=== PATIENT | male | born 1945 | race Caucasian/White ===

== ENCOUNTER 2023-11-16 08:40 | Outpatient (CLI) | payer OTHER, SELFPAY ==
--- OUTSIDE RECORDS SUMMARY | 2023-11-16 08:43 | XMS_ITS | Clinical Summary ---
Author Name Unknown Organization [facility] Address [address] [place] [address] Care Team Providers Care Fur Sewer Name Role Phone Unavailable Primary Care Provider Unavailabl e Source Comments PLEASE NOTE, if this patient is a minor, it may be UNLAWFUL to discuss sensitive information that is contained in these records (such as FAMILY PLANNING, MENTAL HEALTH or SUBSTANCE ABUSE) with the minor patient's parent or other person without the patient's specific authorization.[facility] Allergies Active Allergy Reactions Criticality Noted Date Comments Sulfa (Sulfonamide Antibiotics) Hives 09/2005 Medications Medication Sig Dispensed Refills Start Date End Date Status triamcinolone (NASACORT) [address] 2 Sprays in both nostrils daily. 08/07/2021 Active potassium citrate CR (UROCIT-K-10) 10 mEq (1,080 mg) TbER Take 1 Tablet by mouth 2 (two) times daily 09/26/2021 Active blood glucose control, low solution DIRECTED. 12/05/2021 Active blood-glucose meter monitoring kit DISPENSE METER, TEST STRIPS, LANCETS COVERED BY PT INS. E11.9 NIDDM TYPE II - TEST 1 TIME/DAY 12/09/2021 Active lancets 33 gauge DIRECTED. DISPENSE ITEM COVERED BY PT INS. E11.9 NIDDM TYPE II - TEST 1 TIME/DAY 12/09/2021 Active rosuvastatin (CRESTOR) 20 mg tablet Take 1 Tablet (20 mg) by mouth once daily with evening meal. For Cholesterol. 11/05/2022 Active clotrimazole-betametha sone (LOTRISONE) 1-0.05 % cream Apply topically to affected area(s) two times daily. Use short term as needed to affect skin in anal area. 11/05/2022 Active losartan (COZAAR) 50 mg tablet Take 1 Tablet (50 mg) by mouth once daily. For blood pressure. 04/11/2023 Active metFORMIN XR (GLUCOPHAGE-XR) 500 mg 24 hr tablet Take 2 Tablets (1,000 mg) by mouth two times daily with meals. For diabetes. 04/11/2023 Active tamsulosin (FLOMAX) 0.4 mg 24 hr capsule Take 2 Capsules (0.8 mg) by mouth once daily after a meal. For urinary symptoms. 04/11/2023 Active glimepiride (AMARYL) 2 mg tablet Take 1 Tablet (2 mg) by mouth once daily with a meal. For diabetes. 04/11/2023 Active canagliflozin 300 mg tab Take 1 Tablet (300 mg) by mouth once daily. For Diabetes. 04/11/2023 Active blood sugar diagnostic (TRUE METRIX GLUCOSE TEST STRIP) strips DISPENSE ITEM COVERED BY PT INS. E11.9 NIDDM TYPE II - TEST 1 TIME/DAY 04/11/2023 Active citalopram (CELEXA) 20 mg tablet Take 1 Tablet by mouth every morning 04/11/2023 Active ciprofloxacin-dexameth asone (CIPRODEX) 0.3-0.1 % otic suspension Place 4 Drops into left ear two times daily. 06/21/2023 Active oxyCODONE (ROXICODONE) 5 mg tablet Take 1 Tablet by mouth every 6 (six) hours as needed for pain 25 Tablet 10/22/2023 Active ondansetron ODT (ZOFRAN-ODT) 4 mg disintegrating tablet Take 1 Tablet by mouth every 8 (eight) hours as needed for nausea 15 Tablet 10/22/2023 Active Active Problems Problem Noted Date Diagnosed Date Urinary tract obstruction due to kidney stone, r ight 11/15/2019 BPH 11/15/2019 Morbid (severe) obesity due to excess calories 0 10/31/2018 Renal lithiasis 06/29/2018 Overview: June 2018: Right kidney stone 3.6mm. October 2019: 5mm right sided stone needing laser lithotripsy at [facility] and stent. Hematuria, gross 06/27/2018 Overview: May 2018: Gross and microscopic hematuria. Workup ordered. CT showing right sided kidney stone. Chronic left-sided low back pain without sciatic a 02/08/2018 Lower urinary tract symptoms (LUTS) 11/02/2017 Overview: October 2017: starting flomax for decreased urinary stream. Chronic pain of left knee 01/30/2016 Overview: Dr. Hayden did MRI December 2015: meniscal tears of medial and lateral meniscus. Vitamin D deficiency 11/04/2015 Overview: October 2015: after treatment, Vitamin D was over 60 when taking 5,000 Units daily, decreased down to 1,000. 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 2013: tried gabapentin top dose with minimal to no help. Chronic cough 12/16/2011 Overview: November evaluation October 2011: PFT and Methacholine Challenge negative. Recommended combination astelin, atrovent, and Nasarel 5cc each to nostrils twice daily, then reassess, titrate to lowest effective dose. ACP (advance care planning) 06/24/2011 Overview: May 2011: Patient completed living will approximately 1999, does not want to revisit, he was instructed to bring in copy of living will to have on file. ROSANA 11/2006 AHI-[id number] 05/04/2011 Adjustment disorder with depressed mood 03/01/20 11 Overview: Feb 2011: started on Citalopram. June 2011: stopping citalopram and see how symptoms go. Restarted and still taking as of January 2017. May 2017: went off Citalopram (Celexa), no change so staying off. November 2017: restarted Citalopram (Celexa). Primary hypertension 06/05/2010 Overview: October 2016: stopping hydrochlorothiazide, and starting losartan due to wanting to be on ARB with Diabetes. Gout, unspecified 06/05/2010 Hypercholesterolemia 06/05/2010 Overview: November 2011: was on lipitor, changed to lovastatin due only to cost. November 2012: [place] changed back to lipitor due to worsening Cholesterol results. May 2017: due to myalgia stop Atorvastatin (Lipitor) and change to pravastatin at 40mg for 3 months starting in July. Watch if any change in muscle soreness. Recheck Cholesterol. Would prefer high intensity statin, but myalgia may be due to statin. November 2017: changing pravastatin to rosuvastatin again, muscle soreness on pravastatin slightly more than Atorvastatin (Lipitor)? Type 2 diabetes mellitus wit hout complication, without long-term current use of insulin 06/05/2010 Overview: May 2010: fasting glucose = 105. Needs recheck. Recheck May 2010: = 118. November 2014: Fasting blood sugar 99 ( normal) and Hemoglobin A1c high at 6.6, so changing to diagnosis of diabetes. start metformin XR. February 2015: doubled Metformin to 2000mg. January 2018 diabetic eye exam outside clinic no diabetic retinopathy. October 2018: Patient did not start alogliptin due to cost. Starting glipizide extended release 2.5 mg instead. MAybe side effects of not feeling well. Did fell better when went off it. December 2018: STarting trajenta. September 2019: started invokana. 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 Encounters Date Type Department Care Team Description 10/22/2023 12:02 PM PDT - 10/22/2023 11:59 PM PDT Hospital Encounter [facility] XRAY Imaging [address] [place] [address] Discharge Disposition: Home or Self Care 10/22/2023 12:00 PM PDT Anesthesia Event [facility] Emergency [address] [place] [phone] Lewis Suh APRN, DIRECTOR EPIDEMIOLOGY 10/22/2023 11:26 AM PDT - 10/22/2023 12:01 PM PDT Hospital Encounter [facility]RAY [facility] [address] [place] [address] Discharge Disposition: Home or Self Care 10/22/2023 11:20 AM PDT - 10/22/2023 4:15 PM PDT Emergency [facility] [address] [place] [phone] Singh Mann MD Pain (Primary Dx); Dislocation of left shoulder joint, initial encounter Discharge Disposition: Home or Self Care from Last 3 Months Immunizations Name Administration Dates Next Due Flu, High Dose, 65y+, Fluzon e High Dose 04/27/2022 Flu, Preservative Free 04/30/2021,04/15/2020 INFLUENZA, SEASONAL, INJECTABLE 05/09/20 13,05/19/2012,05/26/2011,04/30 INFLUENZA,HIGH DOSE SEASONAL 03/09/2016, 04/30/2015,04/20/2014,04/20 Influenza, Trivalent, Adjuvanted 04/07/2019,1002/2018,05/07/2017 Novel [id number], preservative-free, injectable 06/25/2009 PNEUMOCOCCAL CONJUGATE PCV 13 07/03/2015 PNEUMOCOCCAL POLYSACCHARIDE PPV23 06/05/2010,07/2008 [employer] Labs[employer] COVID-19 Vac cine Bivalent, (NEGRO PFIZER-BIONTECH COVID-19 VACCINE BIVALENT, (NEGRO CAP 04/10/2022 TDAP 02/12/2017,11/16/2011 Td (adult), 5 Lf tetanus tox oid, preservative free 06/05/2010 Td(adult),2 Lf tetanus toxoid,preservative free 07/26/2008 ZOSTER VACCINE, RECOMBINANT (SHINGRIX) ,09/29/2021 Zoster, Live Vaccine (Zostavax) 11/06/2011 Social History Tobacco Use Types Packs/Day Years Used Date Smoking Tobacco: Never Assessed Social Connections Answer Date Recorded Social Connections and Isolation 0 08/17/2023 Financial Resource Strain Answer Date R ecorded Financial Resource Strain 0 2023 Stress Answer Date Recorded Stress 0 08/17/2023 Physical Activity Answer Date Recorded Physical Activity 0 08/17/2023 Food Insecurity Answer Date Recorded Food 0 08/17/2023 Transportation Needs Answer Date Record ed Transportation 0 08/17/2023 Housing Stability Answer Date Recorded Housing 0 08/17/2023 Safety and Environment Answer Date David rded Safety 0 08/17/2023 Utilities Answer Date Recorded Utilities 0 08/17/2023 Employment Answer Date Recorded Employment 0 08/17/2023 Sex and Gender Information Value Date Recorded Sex Assigned at Not on file Gender Identity Not on file Sexual Orientation Not on file Last Filed Vital Signs Vital Sign Reading Time Taken Comments Blood Pressure 149/74 10/22/2023 1:16 PM CDT Pulse 100 10/22/2023 1:16 PM CDT Temperature 36.7 ??C (98 ??F) 10/22/2023 11: 21 AM CDT Respiratory Rate 21 10/22/2023 1:16 PM CDT Oxygen Saturation 97% 10/22/2023 1:16 PM CDT Inhaled Oxygen Concentration - - Weight 112.5 kg (248 lb 0.3 oz) 024 11:21 AM CDT Height - - Body Mass Index - - Plan of Treatment Health Maintenance Due Date Last Done Comments Diabetes Foot Exam 1945 Diabetes Microalbumin (w/Creatinine) 1945 Lipid Screening 1943 Tobacco Screening 1945 Annual Wellness Visit (Medicare) 10/10/1946 Retinopathy Screening 10/10/1956 Falls Prevention 10/10/2008 Alcohol and Drug Screen 07/26/2023 Depression Annual Screen 07/26/2023 Diabetes HbA1c 03/10/2024 09/10/2023, 08/26, 04/09/2023, Additional history exists Serum Creatinine 10/21/2024 10/22/2023 Imm-DTaP/Tdap/Td (3 - Td or Tdap) 02/12/2027 02/12/2017, 11/16/2011, 06/05/2010, Additional history exists Imm-Pneumococcal 65+ Completed 07/03/2015, 06/05/2010, 07/26/2008 Imm-Zoster, Recombinant Completed 12/04/19, 09/29/2021, 11/06/2011 Imm-Influenza Completed 04/08/2023, 09/2021, 04/30/2021, Additional history exists [id number] Completed 10/12/2023, 04/25, 04/10/2022, Additional history exists Procedures Procedure Name Priority Date/Time Associated Diagnosis Comments HC CLOSED TX SHLDR DISLOCATION Routine 10/22/2023 12:52 PM CDT CLSD TX SHOULDER DISLC W/MANIPULATION W/O ANES Routine 10/22/2023 12:52 PM CDT XR SHOULDER 2+ VIEWS LEFT STAT 10/22/2023 12:39 PM CDT Pain CBC AND DIFFERENTIAL STAT 10/22/2023 11:57 AM CDT COMPREHENSIVE METABOLIC PANEL STAT 10/22/2023 11:57 AM CDT XR SHOULDER 2+ VIEWS LEFT STAT 10/22/2023 11:40 AM CDT HEMOGLOBIN A1C (EXTERNAL) Routine 09/10/2023 6:20 AM PST from Last 3 Months or Most Recently Relevant to Health Maintenance Results * CLSD TX SHOULDER DISLC W/MANIPULATION W/O ANES, HC CLOSED TX SHLDR DISLOCATION (10/22/2023 12:52 PMCDT) Narrative Singh Mann MD - 10/22/2023 12:52 PM CDT Singh Mann MD ? 10/22/2023 ??3:25 PM Orthopaedic Injury Treatment - Upper Extremity Date/Time: 10/22/2023 12:52 PM Performed by: Singh Mann MD Authorized by: Singh Mann MD ?? Consent: ??Consent obtained: ??Verbal and written ??Consent given by: ??Patient ??Risks, benefits, and alternatives were discussed: yes ?Risks discussed: ??Fracture, nerve damage, restricted joint movement, vascular damage, irreducible dislocation, recurrent dislocation and stiffness ??Alternatives discussed: ??No treatment Morris protocol: ??Patient identity confirmed: ??Verbally with patient Location: ??Location: ??Shoulder ??Shoulder location: ??L shoulder ??Shoulder dislocation type: anterior ?Chronicity: ??New Pre-procedure details: ??Pre-procedure imaging: ??X-ray ??Imaging findings: dislocation present ?Imaging findings: no fracture ?Fracture of greater humeral tuberosity: no ?Hill-Sachs deformity: no ?Distal perfusion: normal ?? Sedation: ??Sedation type: ??Moderate sedation Anesthesia: ??Anesthesia method: ??None Procedure details: ??Manipulation performed: yes ?Shoulder reduction method: ??Direct traction, external rotation and traction and counter traction ??Reduction successful: yes ?Reduction confirmed with imaging: yes ?Immobilization: ??Sling ??Supplies used: shoulder immobilizer. Post-procedure details: ??Neurological function: normal ?Distal perfusion: normal ?Range of motion: unchanged ?Procedure completion: ??Tolerated with difficulty Singh Mann MD IN CLINIC/BEDSIDE ORDERABLES * XR SHOULDER 2+ VIEWS LEFT (10/22/2023 12:39 PM CDT) Only the most recent of2 resultswithin the time period is included. Anatomical Region Laterality Modality Upper Extremities, Shoulder Digi calderon Radiography 10/22/2023 12:4 4 PM CDT Narrative 10/22/2023 12:45 PM CDT EXAM: DX SHOULDER ROUTINE LT 2 OR MORE VIEWS INDICATION: Post reduction COMPARISON: Presenting injury film FINDINGS: Dislocation reduction. ??Small calcification at inferior glenoid could represent small bony Bankart fragment or be chronic. ??Negative for definite discrete Hill-Sachs deformity. ??Moderate AC DJD. IMPRESSION: Dislocation reduction Procedure Note Otto Montague MD - 10/22/2023 EXAM: DX SHOULDER ROUTINE LT 2 OR MORE VIEWS INDICATION: Post reduction COMPARISON: Presenting injury film FINDINGS: Dislocation reduction. Small calcification at inferior glenoid couldrepresent small bony Bankart fragment or be chronic. Negative for definitediscrete Hill-Sachs deformity. Moderate AC DJD. IMPRESSION: Dislocation reduction Singh Mann MD IMG XR PROCEDURES * (ABNORMAL) CBC and differential (10/22/2023 11:57 AM CDT) Auto WBC 14.89(A) 4.5 - 11.0 10*3/uL 10*3/uL 10/22/2023 12:02 PM [facility] RBC 5.33 4.30 - 5.90 10*6/uL 10/22/2023 12:02 PM [facility] Hemoglobin 16.5 13.5 - 17.5 g/dL g/dL 10/22/2023 12:02 PM [facility] Hematocrit 52.1 37.0 - 53.0% % 10/22/2023 12:02 PM [facility] MCV 97.7 80 - 100 fL fL 10/22/2023 12:02 PM [facility] MCH 31.0 26.0 - 34.0 pg pg 10/22/2023 12:02 PM [facility] MCHC 31.7(A) 32.0 - 36.0 g/dL 10/22/2023 12:02 PM [facility] RDW 14.0 11.5 - 15.5 % 10/22/2023 12:02 PM [facility] Platelets 201.0 140.0 - 440.0 10*3/uL 10/22/2023 12:02 PM [facility] IPF, Immature Platelet Fraction 7.6 0.9 - 11.2 % 10/22/2023 12:02 PM [facility] Neutrophils Relative % 79.5(A) 42.0 - 72.0 % 10/22/2023 12:02 PM [facility] Lymphocytes Relative 11.3(A) 20.0 - 44.0 % 10/22/2023 12:02 PM [facility] Monocytes Relative 6.4 <12.0 % 10/22/2023 12:02 PM [facility] Eosinophils Relative 0.6 <8.0 % 10/22/2023 12:02 PM [facility] Basophils Relative 0.3 <3.0 % 10/22/2023 12:02 PM [facility] Neutrophils Abs Auto 11.84(A) 1.70 - 7.00 10*3/uL 10/22/2023 12:02 PM [facility] Lymphocytes Absolute 1.68 0.90 - 2.90 10*3/uL 10/22/2023 12:02 PM [facility] Monocytes Absolute 0.96(A) <0.90 10*3/uL 10/22/2023 12:02 PM [facility] Eosinophils Absolute 0.09 <=0.50 10*3/uL 10/22/2023 12:02 PM [facility] Basophils Absolute 0.04 <0.30 10*3/uL 10/22/2023 12:02 PM [facility] nRBC 0.0 /100 WBCs 10/22/2023 12:02 PM [facility] NUCLEATED RBC (ABSOLUTE) 0.00 10*3 cells/uL 10/22/2023 12:02 PM [facility] IMMATURE GRANULOCYTE%(AUT O) 1.9 10/22/2023 12:02 PM [facility] Absolute Immature Granulocyte 0.28 <=0.3 10*3/uL 10/22/2023 12:02 PM [facility] Blood (Blood, Venous) Venipuncture / Unknown 10/22/2023 11:57 AM CDT 10/22/2023 11:59 AM CDT Singh Mann MD LAB BLOOD ORDERABL [facility] [address] [place] [address], * (ABNORMAL) Comprehensive metabolic panel (10/22/2023 11:57 AM CDT) Sodium 135.0(A) 137 - 145 mmol/L mmol/L 10/22/2023 12:20 PM [facility] Potassium 4.4 3.5 - 5.1 mmol/L mmol/L 10/22/2023 12:20 PM [facility] Chloride 101 98 - 107 mmol/L mmol/L 10/22/2023 12:20 PM [facility] CO2 27.0 22 - 30 mmol/L mmol/L 10/22/2023 12:20 PM [facility] Anion Gap 7 3 - 11 mmol/L mmol/L 10/22/2023 12:20 PM [facility] BUN 18.0 9 - 20 mg/dL mg/dL 10/22/2023 12:20 PM [facility] Creatinine 0.85 0.66 - 1.25 mg/dL mg/dL 10/22/2023 12:20 PM [facility] BUN/Creatinine Ratio 21.18 10/22/2023 12:20 PM [facility] Glucose 271(A) 75 - 100 mg/dL mg/dL 10/22/2023 12:20 PM [facility] Calcium 9.3 8.4 - 10.2 mg/dL 10/22/2023 12:20 PM [facility] AST 29 17 - 59 U/L U/L 10/22/2023 12:20 PM [facility] ALT (SGPT) 38 <50 U/L U/L 10/22/2023 12:20 PM [facility] Alkaline Phosphatase 65 38 - 126 U/L U/L 10/22/2023 12:20 PM [facility] Total Protein 6.9 6.3 - 8.2 g/dL 10/22/2023 12:20 PM [facility] Albumin 4.0 3.5 - 5.0 g/dL g/dL 10/22/2023 12:20 PM [facility] Total Bilirubin 1.6(A) 0.2 - 1.3 mg/dL mg/dL 10/22/2023 12:20 PM [facility] eGFR 87.8(A) >90.0 mL/min/1.7 3m*2 10/22/2023 12:20 PM [facility] Blood (Blood, Venous) Venipuncture / Unknown 10/22/2023 11:57 AM CDT 10/22/2023 11:59 AM T Singh Mann MD LAB BLOOD ORDERABL [facility] [address] [place] [address], from Last 3 Months Insurance Payer Benefit Plan / Group Subscriber ID Effective Dates Phone Address Type [employer] G[employer]ICE MEDICARE [employer] MED[employer]ARE CHOICE PLAN [id number] [address]23-[address] [address] [place] [address] Medicare
--- OUTSIDE RECORDS SUMMARY | 2023-11-16 08:43 | XMS_ITS | Encounter Summary ---
Author Name Unknown Organization [facility] Address [address] [place] [address] Care Team Providers Care Automatic Spreader Operator Name Role Phone Unavailable Primary Care Provider Unavailabl e Encounter Details Date Type Department Care Team (Latest Contact Info) Description 10/22/2023 12:02 PM PDT - 10/22/2023 11:59 PM PDT Hospital Encounter [facility] X[facility] Imaging [address] [place] [address] Discharge Disposition: Home or Self Care Social History Tobacco Use Types Packs/Day Years [...] on file Sexual Orientation Not on file documented as of this encounter Medications at Time of Discharge Medication Sig Dispensed Refills Start Date End Date ondansetron ODT (ZOFRAN-ODT) 4 mg disintegrating tablet Take 1 Tablet by mouth every 8 (eight) hours as needed for nausea 15 Tablet 10/22/2023 oxyCODONE (ROXICODONE) 5 mg tablet Take 1 Tablet by mouth every 6 (six) hours as needed for pain 25 Tablet 10/22/2023 blood glucose control, low solution DIRECTED. 12/05/2021 blood sugar diagnostic (TRUE METRIX GLUCOSE TEST STRIP) strips DISPENSE ITEM COVERED BY PT INS. E11.9 NIDDM TYPE II - TEST 1 TIME/DAY 04/11/2023 blood-glucose meter monitoring kit DISPENSE METER, TEST STRIPS, LANCETS COVERED BY PT INS. E11.9 NIDDM TYPE II - TEST 1 TIME/DAY 12/09/2021 canagliflozin 300 mg tab Take 1 Tablet (300 mg) by mouth once daily. For Diabetes. 04/11/2023 ciprofloxacin-dexamethaso ne (CIPRODEX) 0.3-0.1 % otic suspension Place 4 Drops into left ear two times daily. 06/21/2023 citalopram (CELEXA) 20 mg tablet Take 1 Tablet by mouth every morning 04/11/2023 clotrimazole-betamethason e (LOTRISONE) 1-0.05 % cream Apply topically to affected area(s) two times daily. Use short term as needed to affect skin in anal area. 11/05/2022 glimepiride (AMARYL) 2 mg tablet Take 1 Tablet (2 mg) by mouth once daily with a meal. For diabetes. 04/11/2023 lancets 33 gauge DIRECTED. DISPENSE ITEM COVERED BY PT INS. E11.9 NIDDM TYPE II - TEST 1 TIME/DAY 12/09/2021 losartan (COZAAR) 50 mg tablet Take 1 Tablet (50 mg) by mouth once daily. For blood pressure. 04/11/2023 metFORMIN XR (GLUCOPHAGE-XR) 500 mg 24 hr tablet Take 2 Tablets (1,000 mg) by mouth two times daily with meals. For diabetes. 04/11/2023 potassium citrate CR (UROCIT-K-10) 10 mEq (1,080 mg) TbER Take 1 Tablet by mouth 2 (two) times daily 09/26/2021 rosuvastatin (CRESTOR) 20 mg tablet Take 1 Tablet (20 mg) by mouth once daily with evening meal. For Cholesterol. 11/05/2022 tamsulosin (FLOMAX) 0.4 mg 24 hr capsule Take 2 Capsules (0.8 mg) by mouth once daily after a meal. For urinary symptoms. 04/11/2023 triamcinolone (NASACORT) [address] 2 Sprays in both nostrils daily. 08/07/2021 documented as of this encounter Plan of Treatment Not on file documented as of this encounter Procedures Procedure Name Priority Date/Time Associated Diagnosis Comments XR SHOULDER 2+ VIEWS LEFT STAT 10/22/2023 12:39 PM CDT Pain documented in this encounter Results * XR SHOULDER 2+ VIEWS LEFT (10/22/2023 12:39 PM CDT) Anatomical Region Laterality Modality Upper Extremities, Shoulder [...] reduction Singh Mann MD IMG XR PROCEDURES documented in this encounter Visit Diagnoses Not on filedocumented in this encounter
--- OUTSIDE RECORDS SUMMARY | 2023-11-16 08:43 | XMS_ITS | Encounter Summary ---
Author Name Unknown Organization [facility] Address [address] [place] [address] Care Team Providers Care Oil Dipper Name Role Phone Unavailable Primary Care Provider Unavailenid e Encounter Details Date Type Department Care Team (Late st Contact Info) Description 10/22/2023 12:00 PM PDT Anesthesia Event [facility] [address] [place] [phone] Lewis Suh, MARION, [employer] [address] [place] [address] Anesthesia Record Procedure Summary Procedure Name Responsible Anesthesiologist Anesthesia Start Time Anesthesia Stop Time ANESTHESIA UNSCHEDULED MAC Lewis Suh APRN, [employer] 10/22/23 1200 10/22/23 1246 Events Date Time Event Comment 10/22/2023 1148 AN Equip Check 1151 1200 An Start 1200 An Start Data 1200 Start Auxiliary O2 1205 An Induction The patient was reevaluated immediately before moderate or deep sedation use and before anesthesia induction. 1205 Anesthesia Ready 1240 Stop Auxiliary O2 1240 an stop data 1245 Handoff to Receiving I compl eted my handoff to the receiving clinician during which we: 1. Identified the patient 2. Identified the responsible provider 3. Reviewed the pertinent medical history 4. Discussed the surgical course 5. Reviewed intra-op anesthesia management and issues during anesthesia 6. Set expectations for post-procedure period 7. Allowed opportunity for questions and acknowledgement of understanding. 1246 An Stop Meds Name Total propofol (Diprivan) MCG/KG/MIN and MG 39 0 mg sodium chloride 0.9 % infusion 0 mL * Agents No agents on file. * Blood No blood administrations on file. Lines, Drains, and Airways Type Details Placement Removal Peripheral IV 10/22/23; 1144; EMS; 20 G; Right; Wrist; 10/22/23; 1611 10/22/23 1144 by Renu Holm RN 10/22/23 1611 by Renu Holm RN documented in this encounter Social History Tobacco Use Types Packs/Day Years [...] on file documented as of this encounter OR Notes * Anesthesia Postprocedure Evaluation - Lewis Suh APRN, CRNA - 10/22/2023 12:46 PM CDT Patient: José Procedure Summary Date: 10/22/23 Room / Location: Anesthesia Start: 1200 Anesthesia Stop: 1246 Procedure: ANESTHESIA UNSCHEDULED MAC Diagnosis: Scheduled Providers: Responsible Provider: Lewis Suh APRN, CRNA Anesthesia Type: MAC ASA Status: 3 - Emergent Anesthesia Type: MAC Vitals Value Taken Time BP 162/81 10/22/23 1233 Temp 10/22/23 1246 Pulse 96 10/22/23 1245 Resp 19 10/22/23 1245 SpO2 97 % 10/22/23 1245 Vitals shown include unfiled device data. Anesthesia Post Evaluation Patient location during evaluation: ED Patient participation: complete - patient participated Pain score: 2 Pain management: adequate Airway patency: patent Cardiovascular status: acceptable Respiratory status: acceptable Hydration status: acceptable No notable events documented. * Anesthesia Preprocedure Evaluation - Lewis Suh APRN, CRNA - 10/22/2023 11:49 AM CDT Patient: José Procedure Information Date: 10/22/23 Procedure: ANESTHESIA UNSCHEDULED MAC Relevant Problems Anesthesia (+) ROSANA 11/2006 [facility]-55 Neuro/Psych (+) Chronic left-sided low back pain without sciatica Cardio (+) Primary hypertension /Renal (+) Renal lithiasis Endo (+) Type 2 diabetes mellitus without complication, without long-term current use of insulin RESPIRATORY (+) Chronic cough (+) ROSANA 11/2006 AHI-55 Other (+) Morbid (severe) obesity due to excess calories Clinical information reviewed: Documentation Reviewed by Any User: Allergies Physical Exam Airway Mallampati: II TM distance: >3 FB Neck ROM: full Cardiovascular - normal exam Rhythm: regular Rate: normal Dental - normal exam Pulmonary - normal exam Breath sounds clear to auscultation (+) decreased breath sounds Abdominal - normal exam (+) obese Anesthesia Plan ASA 3 - emergent MAC intravenous induction Anesthetic plan and risks discussed with patient. Additional Equipment Requests documented in this encounter Plan of Treatment Not on file documented as of this encounter Visit Diagnoses Not on filedocumented in this encounter Administered Medications Inactive Administered Medications - up to 3 most recent administrations Medication Order MAR Action Action Date Dose Rate Site propofol (Diprivan) 10 mg/mL infusion intravenous, As needed, Starting on Wed10/22/23 at 1205, Anesthesia Intraprocedure Given 10/22/2023 12:30 PM CDT 30 mg Given 10/22/2023 12:28 PM CDT 30 mg Given 10/22/2023 12:25 PM CDT 40 mg sodium chloride 0.9 % infusion intravenous, Continuous PRN, Starting on Wed10/22/23 at 1200, Anesthesia Intraprocedure New Bag 10/22/2023 12:00 PM CDT documented in this encounter
--- OUTSIDE RECORDS SUMMARY | 2023-11-16 08:44 | XMS_ITS | Encounter Summary ---
Author Name Unknown Organization [facility] Address [address] [place] [address] Care Team Providers Care Kerrick Kleaner Operator Name Role Phone Unavailable Primary Care Provider Unavailabl e Encounter Details Date Type Department Care Team (Latest Contact Info) Description 10/22/2023 11:26 AM PDT - 10/22/2023 12:01 PM PDT Hospital Encounter [facility] X[facility] Imaging [address] [place] [address] Discharge Disposition: Home or Self Care Social [...] Sig Dispensed Refills Start Date End Date blood glucose control, low solution DIRECTED. 12/05/2021 [...] by mouth once daily. For Diabetes. 04/11/2023 ciprofloxacin-dexamethas one (CIPRODEX) 0.3-0.1 % otic suspension Place 4 Drops into left ear two times daily. 06/21/2023 citalopram (CELEXA) 20 mg tablet Take 1 Tablet by mouth every morning 04/11/2023 clotrimazole-betamethaso ne (LOTRISONE) 1-0.05 % cream Apply topically to [...] VIEWS LEFT STAT 10/22/2023 11:40 AM CDT documented in this encounter Results * XR SHOULDER 2+ VIEWS LEFT (10/22/2023 11:40 AM CDT) Anatomical Region Laterality Modality Upper Extremities, Shoulder [facility] 10/22/2023 11:4 1 AM CDT Narrative 10/22/2023 11:41 AM CDT EXAM: DX SHOULDER ROUTINE LT 2 OR MORE VIEWS INDICATION: fall with left shoulder pain COMPARISON: None. FINDINGS: Anterior dislocation without definite fracture. 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 IMPRESSION: Anterior dislocation Procedure Note Otto Montague MD - 10/22/2023 EXAM: DX SHOULDER ROUTINE LT 2 OR MORE VIEWS INDICATION: fall with left shoulder pain COMPARISON: None. FINDINGS: Anterior dislocation without definite fracture. Mild to moderate ACDJD. IMPRESSION: Anterior dislocation Singh Mann MD IMG XR PROCEDURES documented in this encounter Visit Diagnoses Not on filedocumented in this encounter
--- OUTSIDE RECORDS SUMMARY | 2023-11-16 08:46 | XMS_ITS | Clinical Summary ---
Author Name Unknown Organization [facility] Address [place], [place] [address] Care Team Providers Care Direct Chill Casting Operator Name Role Phone Goyo Zhang MD Unavailable [phone] Miladis Armstrong MD Unavailable [phone] Lewis Porter Unavailable [phone] Maximo Christy MD Primary Care Provider [phone] Allergies Active Allergy Reactions Criticality Noted Date Comments Sulfa (Sulfonamide Antibiotics) Hives 09/2005 Medications Medication Sig Dispensed Refills Start Date End Date Status multivitamins with minerals (MEN'S ONE DAILY) tablet Take 1 tablet by mouth once daily. 0 0 Active cholecalciferol (VITAMIN D) 1,000 unit tabletIndications :Vitamin D deficiency Take 1 tablet by mouth once daily. 90 tablet 0 1 Active coenzyme q10 (CO Q-10) 100 mg cap Take 1 capsule by mouth once daily. 0 2 Active loratadine (CLARITIN) 10 mg tabletIndications :Environmental allergies,Plugged feeling in ear Take 1 tablet by mouth once daily. For allergies. 30 tablet 6 2 Active aspirin-caffeine, 400-32 mg, (ANACIN) 400-32 mg tab Take 1 tablet by mouth every 6 hours if needed for Headache. Active aspirin (ECOTRIN) 81 mg enteric coated tablet Take 81 mg by mouth once daily with evening meal. Does not take evening dose of aspirin if he took PRN Anacin earlier in the day for headache Active glucosamine-chond roitin, 500-400 mg, (COSAMIN DS 500/400) 500-400 mg cap Take 1 capsule by mouth once daily. Active fish oil-omega-3 fatty acids (FISH OIL) 1,200-360 mg cap Take 1 capsule by mouth once daily. One capsule is 1200 mg-360 mg Active acetaminophen (TYLENOL) 325 mg tablet Take 2 tablets by mouth every 4 hours if needed (For mild pain.). Max acetaminophen dose: 4000mg in 24 hrs. 0 0 Active testosterone enanthate (Xyosted) 100 mg/0.5 mL atInIndications:L ow testosterone Inject subcutaneous once weekly. 12 Each 1 2 Active potassium citrate (UROCIT-K) 10 mEq (1,080 mg) tabletIndications :Kidney stones TAKE 1 TABLET TWICE DAILY 180 Tablet 3 2 Active Blood Glucose Control, Low solnIndications:T ype 2 diabetes mellitus without complication, without long-term current use of insulin (HC) As directed. 1 Each 2 Active blood-glucose meterIndications: Type 2 diabetes mellitus without complication, without long-term current use of insulin (HC) Dispense meter, test strips, lancets covered by pt ins. E11.9 NIDDM type II - Test 1 time/day 1 Each 2 Active lancets 33 gauge miscIndications:T ype 2 diabetes mellitus without complication, without long-term current use of insulin (HC) As directed. Dispense item covered by pt ins. E11.9 NIDDM type II - Test 1 time/day 100 Each 3 2 Active clotrimazole-beta methasone cream (LOTRISONE) 1-0.05 % creamIndications: Anal itching Apply topically to affected area(s) two times daily. Use short term as needed to affect skin in anal area. 15 g 1 3 Active medication order composer Mastoid Powder 1 tablet Ciprofloxacin 500mg 500mg Clotrimazole 42mg Dexamethasone Acetate (Due to lack of availability of ingredient, pharmacist will substitute equivalent strength of Hydrocortisone Acetate) 222mg Boric Acid Directions: Apply 2 puffs in affected ear twice daily for 7 days Quantity: 1 Refills: 0 0 3 Active tamsulosin (FLOMAX) 0.4 mg capsuleIndication s:Decreased urine stream Take 2 Capsules (0.8 mg) by mouth once daily after a meal. For urinary symptoms. 180 Capsule 3 3 Active blood sugar diagnostic (True Metrix Glucose Test Strip) stripIndications: Type 2 diabetes mellitus without complication, without long-term current use of insulin (HC) Dispense item covered by pt ins. E11.9 NIDDM type II - Test 1 time/day 100 Each 3 3 Active testosterone cypionate (DEPO-TESTOSTERON E) 200 mg/mL injection Inject 1 mL every 4 weeks by intramuscular route. 3 Active ofloxacin (FLOXIN) 0.3 % otic solutionIndicatio ns:Otorrhea of left ear Place 3 Drops into left ear two times daily. 5 mL 3 4 Active prednisoLONE acetate 1% ophthalmic (ECONOPRED PLUS, PRED FORTE, OMNIPRED) suspensionIndicat ions:Otorrhea of left ear As directed 3 Drops two times daily. Use in affected ear 5 mL 4 Active glimepiride (AMARYL) 4 mg tabletIndications :Type 2 diabetes mellitus without complication, without long-term current use of insulin (HC) Take 1 Tablet (4 mg) by mouth once daily with a meal. For diabetes. 90 Tablet 2 4 Active canagliflozin (Invokana) 300 mg tabletIndications :Type 2 diabetes mellitus without complication, without long-term current use of insulin (HC) Take 1 Tablet (300 mg) by mouth once daily. For Diabetes. 90 Tablet 2 4 Active citalopram (CELEXA) 20 mg tabletIndications :Adjustment disorder with depressed mood Take 1 Tablet (20 mg) by mouth every morning. 90 Tablet 2 4 Active losartan (COZAAR) 50 mg tabletIndications :Primary hypertension Take 1 Tablet (50 mg) by mouth once daily. For blood pressure. 90 Tablet 2 4 Active metFORMIN (GLUCOPHAGE XR) 500 mg Extended-Release tabletIndications :Type 2 diabetes mellitus without complication, without long-term current use of insulin (HC) Take 2 Tablets (1,000 mg) by mouth two times daily with meals. For diabetes. 360 Tablet 2 4 Active rosuvastatin (CRESTOR) 20 mg tabletIndications :Hypercholesterol emia Take 1 Tablet (20 mg) by mouth once daily with evening meal. For Cholesterol. 90 Tablet 3 4 Active CPAPIndications:O SA (obstructive sleep apnea) Resmed CPAP machine for home use at pressure 14 cmw, CPAP mask- mask of choice, fit to comfort one per 3 months 1 Each 11 4 Active oxyCODONE (ROXICODONE) 5 mg immediate release tablet Take 5 mg by mouth every 6 hours if needed. Active CPAPIndications:O SA on CPAP New CPAP machine; pressure at 14 cm/H2O with epr of 2; Humidifier chamber x 1 q 6 months, Full face mask with cushion x 1 every 3 months, full face mask cushion 1 x every month,Standard tubing x 1 every 3 months, Headgear x 1 every 6 months, Filters: Disposable x 2 per month & Reusable x 1 per 6 months, Length of Need: 99 months, Frequency of use:??Daily? 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 October 2019: 5mm right sided stone needing laser lithotripsy at [facility] and stent. Hematuria, gross 06/27/2018 [...] Dry eye syndrome 11/27/2014 Epiretinal membrane 11/27/2014 Obesity (BMI 30-39.9) 06/04/2014 Overview: May 2014: Body mass index is 37.32 kg/(m^2). October 2015: Body mass index is 38.11 kg/(m^2). Dermatochalasia 12/12/2013 Routine adult health maintenance 04/21/2013 Overview: Colonoscopy 03/2013 normal, no follow up needed Midline low back pain without sciatica 3 Overview: Mar 2013: trigger point injection right low back. December 2014: MRI of lumbar spine, see imaging report. ~ January 2015: Right L3-4 Interlaminar Epidural steroid injection by Dr. 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 November 2017: restarted Citalopram (Celexa). Low testosterone 06/08/2010 Overview: May 2010: Total Testosterone = 84. ~ Dr. Cueva [facility] at [place], June 2010: suggested yearly cortisol and TSH/T4 tests with MR of the pituitary/hypothalamic area in 2 years. ~ January 2012: Testosterone level low at 127 when taking 1/2 dose. Recommended he increase to full dose. ~ June 2015: Patient would like to try going off testosterone short term and see if feels any different, ok trial off, June was when on testosterone consistently. Can refer to Endocrinology at any time. May 2017: no change in symptoms when taking and expensive, Patient wants to stop, removing from med list. August 2020: Dr. Zhang started testosterone shots. Primary hypertension 06/05/2010 Overview: October 2016: stopping hydrochlorothiazide, and starting losartan due to wanting to be on ARB with Diabetes. Gout, unspecified 06/05/2010 Hypercholesterolemia 06/05/2010 Overview: November 2011: was on lipitor, changed to lovastatin due only to cost. November 2012: Leon changed back to lipitor due to worsening [...] Starting glipizide extended release 2.5 mg instead. Maybe side effects of not feeling well. Did fell better when went off it. December 2018: STarting trajenta. September 2019: started invokana. August 2023: Glipizide increased to 4mg daily. 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 (ARRT) 1 scan: (1-Ord) NFLD-EKG-11/11/23 11/11/2023 2:40 PM CDT Office Visit [address] [place] [address] Maximo Christy MD Preoperative Exam (DOS: 12/01/2023 LEFT Shoulder Replacement/Dr Marcano at the [facility]/LEFT Shoulder Dislocation DOI 10/22/2023) 11/11/2023 Travel 11/09/2023 3:00 PM CDT Office Visit [facility] [address] [place] [address] Binu Dumas MD Sleep Follow-up (cpap) 11/09/2023 Travel 11/08/2023 Telephone [facility] [address] [place] [address] Binu Dumas MD DME Supply (BROKEN CPAP MACHINE) 11/06/2023 Orders Only [facility] Scanner 1 scan: (1-Ord) RESMED, CPAP, 11/06/2023 11/05/2023 Telephone [facility] [address] [place] [address] Maximo Christy MD Form (HANDICAP PARKING PERMIT ) 09/15/2023 8:45 AM WIND UP OPERATOR Office Visit [facility] [address] [place] [phone] Lewis Dhaliwal MD Recheck (Left ear pe tube. Still using ear gtts. ) 09/15/2023 Travel 09/10/2023 8:15 AM WIND UP OPERATOR Office Visit [facility] [address] [place] [address] Maximo Christy MD Diabetes (Last Diabetic Check: 04/09/2023/Last Diabetic Eye Exam: 04/17/2021/Last Diabetic Education: 03/19/2011) 09/10/2023 Travel 08/27/2023 11:00 AM WIND UP OPERATOR Office Visit [facility] [address] [place] [phone] Mamta Kenny PA Recheck (Left ear recheck feels full of fluid. Been using gtts.) 08/27/2023 Travel 08/19/2023 Telephone [facility] [address] [facility] [address] [facility] [address] [place] [address] Candelaria Alcazar PA Medication Problem (Needs new prescription) 08/18/2023 Telephone [facility] [address] [place] [address] Maximo Christy MD Follow Up from Last 3 Months Immunizations Name Administration Dates Next Due AMB INFLUENZA IIV3 (AGE 65+ YRS) PF (Flu Clinic Only) 05/07/2017 Amb Influenza, Inact (High-d ose) (Flu Clinic Only) 04/20/2014 COVID-19 vaccine (Pfizer-Bio NTech 30mcg/0.3mL) 12YO+ BIVALENT PF, MDV 04/10/2022 COVID-19 vaccine (Pfizer-Bio NTech 30mcg/0.3mL) 12YO+ VICENTA-SUCROSE PF, MDV 11/04/2021 COVID-19 vaccine (AsicAheadBio NTech 30mcg/0.3mL) PF, MDV 09/24/2020,09/03/2020 Influenza A (H1N1), Inactiva kelley (Age >=3 Years) 06/25/2009 Influenza, High-dose Inactivated 03/09/2016,100 12/2014,04/20/2014 Influenza, High-dose Quadriv alent Inactivated 04/27/2022 Influenza, IIV3 (Age >=3 years) 05/09/20 13,05/19/2012,05/26/2011,04/30 Influenza, Inactivated AIIV4 (Age 65+ Years) Preserv Free 04/08/2023,04/30/2021,04/15/2020 Influenza, Inactivated IIV3 (Age 65+ Years) Preserv Free 04/07/2019,05/02/2018 Pneumococcal Poly,23-Valent (Pneumovax) 06/05/2010,07/26/2008 Pneumococcal conj 13-Valent (Prevnar 13) 07/03/2015 RSV, Recombinant ADJ Reconst ituted (Arexvy 120MCG/0.5mL) 04/08/2023 Td (Age >=7 Years) 07/26/2008 Td, Preservative Free (age >= 7 Years) 0 Tdap 02/12/2017,11/16/2011 Zoster (Shingrix-RZV, recombinant) 12/03/2021, Zoster (Zostavax-ZVL, live) 11/06/2011 Family History Medical History Relation Name Comments Diabetes Father Heart Disease Father Stroke Father 80's years old. Hypertension Mother Other Mother glaucoma Genetic Other DIABETES - FATH ER~GLAUCOMA - MOTHER Cancer-breast No Family History Relation Name Status Comments Father Mother Other Social History Tobacco Use Types Packs/Day Years Used Date Smoking Tobacco: Never Smokeless Tobacco: Never Tobacco Cessation:Counseling Given: Yes Alcohol Use Standard Drinks/Week Comments Not Currently 0 (1 standard drink = 0.6 oz pur e alcohol) 1-2 per week PHQ-2 Answer Date Recorded PHQ-2 TOTAL SCORE 0 09/10/2023 Social Connections Answer Date Recorded Frequency of Communication with Friends and Fami ly 0 11/11/2023 Financial Resource Strain Answer Date R ecorded Difficulty of Paying Living Expenses 3 11/11/2023 Difficulty of Paying Living Expenses Not on file 11/11/2023 Food Insecurity Answer Date Recorded Worried About Running Out of Food in the Last Ye ar 1 11/11/2023 Transportation Needs Answer Date Record ed Lack of Transportation (Medical) 1 11/11/2023 Housing Stability Answer Date Recorded Unable to Pay for Housing in the Last Year 1 11/11/2023 Sex and Gender Information Value Date Recorded Sex Assigned at Not on file Gender Identity Not on file Sexual Orientation Not on file Obstetrics History Last Filed Vital Signs Vital Sign Reading Time Taken Comments Blood Pressure 130/75 11/11/2023 2:37 PM CDT recheck BP Pulse 95 11/11/2023 2:37 PM CDT Temperature 37.3 ??C (99.2 ??F) 11/04/2020 9 :00 AM CDT Respiratory Rate 16 12/29/2022 1:05 PM CDT Oxygen Saturation 97% 11/11/2023 2:3 5 PM CDT Inhaled Oxygen Concentration - - Weight 105.1 kg (231 lb 12. 8 oz) 11/11/2023 2:35 PM CDT Height 168.9 cm (5' 6.5) 11/11/2023 2: 35 PM CDT Body Mass Index 36.85 11/11/2023 2:35 PM CDT Plan of Treatment Upcoming Encounters Date Type Department Care Team (Late st Contact Info) Description 11/24/2023 8:00 AM CDT Office Visit [facility] [id number] [place] [phone] Luis Lundy, AuD [address] [place] [phone] 11/24/2023 8:30 AM CDT Office Visit [facility] [address] [place] [phone] Lewis Dhaliwal MD [address] [facility] [address] [place] [address] 01/10/2024 8:15 AM CDT Office Visit [facility] [address] [place] [address] Maximo Christy MD [address] [place] [address] Health Maintenance Due Date Last Done Comments Medicare Wellness for age 65+ 06/06/2023, 12/26/2020, 06/30/2019, Additional history exists Influenza for age 65+ 03/26/2024 04/08/2023 , 04/27/2022, 04/30/2021, Additional history exists Depression screening for age 12+ 09/10/2024 09/10/2023, 06/05/2022, 08/07/2021, Additional history exists BMI (ht and wt on same day) for age 18+ 11/10/2024 11/11/2023, 06/05/2022, 01/02/2022, Additional history exists Tetanus booster 02/12/2027 02/12/2017, 10/25, 06/05/2010, Additional history exists Pneumococcal series for age 65+ Completed 07/03/2015, 06/05/2010, 07/26/2008 Tdap Completed 02/12/2017, 11/16/2011 Zoster (shingles) series for age 50+ Completed 12/03/2021, 09/29/2021, 11/06/2011 COVID-19 vaccine series Completed 10/12/19 24, 05/12/2023, 04/10/2022, Additional history exists Medical Devices Implanted Type Area Generator Rebuilder Device Identifier Shelf Expiration Date Model / Serial / Lot Lens Iol [id number] 20.5 - [id number] Implanted:Qty: 1 on 01/15/2014 by Manuel Lathma MD at [facility] Right: Eye [employer] 02/14/2017 [id number]# / [id number] / Lens Iol [id number] 20.5 - [id number] Implanted:Qty: 1 on 02/05/2014 by Manuel Latham MD at [facility] Left: Eye [employer] 02/05/2018 [id number]# / [id number] / Stent Uret [id number] Contour - [id number] Implanted:Qty: 1 on 11/16/2019 by Isaiah Fagan MD at [facility] Right: [facility] 06/25/2022 [id number]# / / [id number] Procedures Procedure Name Priority Date/Time Associated Diagnosis Comments MA READING EKG - NO CHARGE, COMP ONLY Routine 11/15/2023 12:21 PM CDT Preoperative examination EKG 12 LEAD Routine 11/15/2023 12:21 PM CDT Preoperative examination RED CELL MORPHOLOGY Routine 11/11/2023 3 :43 PM CDT Preoperative examination PLATELET ESTIMATE Routine 11/11/2023 3:4 3 PM CDT Preoperative examination MANUAL DIFFERENTIAL Routine 11/11/2023 3 :43 PM CDT Preoperative examination CBC WITH AUTO DIFFERENTIAL Routine 11/11/2023 3:43 PM CDT Preoperative examination CREATININE Routine 11/11/2023 3:43 PM CDT Preoperative examination POTASSIUM Routine 11/11/2023 3:43 PM CDT Preoperative examination CBC WITH AUTO DIFFERENTIAL Routine 11/11/2023 3:43 PM CDT Preoperative examination SCAN-DIAGNOSTIC REPORT 11/06/2023 12:00 AM CDT URINE ALBUMIN TO CREATININE RATIO, RANDOM Routine 09/10/2023 8:29 AM WIND UP OPERATOR Type 2 diabetes mellitus without complication, without long-term current use of insulin (HC) HEMOGLOBIN A1C Routine 09/10/2023 8:20 AM WIND UP OPERATOR Type 2 diabetes mellitus without complication, without long-term current use of insulin (HC) from Last 3 Months Results * EKG 12 LEAD (11/15/2023 12:21 PM CDT) Maximo Christy MD EKG ORD * MA READING EKG - NO CHARGE, COMP ONLY (11/15/2023 12:21 PM CDT) Maximo Christy MD PB - PROVIDER SACHA FLEMING * (ABNORMAL) CBC WITH AUTO DIFFERENTIAL (11/11/2023 3:43 PM CDT) WHITE BLOOD COUNT 11.7(H) 4.5 - 11.0 thou/cu mm 11/11/2023 4:07 PM CDT [facility] RED BLOOD COUNT 5.29 4.30 - 5.90 mil/cu mm 11/11/2023 4:07 PM CDT [facility] HEMOGLOBIN 16.7 13.5 - 17.5 g/dL 11/11/2023 4:07 PM CDT [facility] HEMATOCRIT 51.7 37.0 - 53.0 % 11/11/2023 4:07 PM CDT [facility] MCV 98 80 - 100 fL 11/11/2023 4:07 PM CDT [facility] MCH 31.6 26.0 - 34.0 pg 11/11/2023 4:07 PM CDT [facility] MCHC 32.3 32.0 - 36.0 g/dL 11/11/2023 4:07 PM CDT [facility] RDW 15.1 11.5 - 15.5 % 11/11/2023 4:07 PM CDT [facility] PLATELET COUNT 255 140 - 440 thou/cu mm 11/11/2023 4:07 PM CDT [facility] MPV 10.6 6.5 - 11.0 fL 11/11/2023 4:07 PM CDT [facility] Blood BLOOD SPECIMEN / Unknown Venipuncture / Unknown 11/11/2023 3:43 PM CDT 11/11/2023 3:44 PM CDT Maximo Christy MD HEMATOLOGY [facility] [address] [place] [address], * RED CELL MORPHOLOGY (11/11/2023 3:43 PM CDT) Pathologist [facility] [place] RBC COMMENT RBC morphology appears normal RBC morphology appears normal, RBC morphology within normal limits for newborns. 11/11/2023 4:06 PM CDT [facility] Blood BLOOD SPECIMEN / Unknown Venipuncture / Unknown 11/11/2023 3:43 PM CDT 11/11/2023 3:44 PM CDT Maximo Christy MD HEMATOLOGY Performing Organization Address [facility]/ZIP Co de Phone Number [facility] [address] [place] [address], * PLATELET ESTIMATE (11/11/2023 3:43 PM CDT) [facility] PLATELET ESTIMATE Adequate Adequate, No estimate 11/11/2023 4:06 PM CDT [facility] Blood BLOOD SPECIMEN / Unknown Venipuncture / Unknown 11/11/2023 3:43 PM CDT 11/11/2023 3:44 PM CDT Maximo Christy MD HEMATOLOGY Performing Organization Address City/[facility]/ZIP Co de Phone Number [facility] [address] [place] [address], * (ABNORMAL) MANUAL DIFFERENTIAL (11/11/2023 3:43 PM CDT) [facility] % NEUTROPHILS 62.0 % 11/11/2023 4:06 PM CDT [facility] % LYMPHOCYTES 28.0 % 11/11/2023 4:06 PM CDT [facility] % MONOCYTES 9.0 % 11/11/2023 4:06 PM CDT [facility] % EOSINOPHILS 1.0 % 11/11/2023 4:06 PM CDT [facility] % BASOPHILS 0.0 % 11/11/2023 4:06 PM CDT [facility] NEUTROPHILS ABSOLUTE 7.3(H) 1.7 - 7.0 thou/cu mm 11/11/2023 4:06 PM CDT [facility] LYMPHOCYTES ABSOLUTE 3.3(H) 0.9 - 2.9 thou/cu mm 11/11/2023 4:06 PM CDT [facility] MONOCYTES ABSOLUTE 1.1(H) <0.9 thou/cu mm 11/11/2023 4:06 PM CDT [facility] EOSINOPHILS ABSOLUTE 0.1 <0.5 thou/cu mm 11/11/2023 4:06 PM CDT [facility] BASOPHILS ABSOLUTE 0.0 <0.3 thou/cu mm 11/11/2023 4:06 PM CDT [facility] Blood BLOOD SPECIMEN / Unknown Venipuncture / Unknown 11/11/2023 3:43 PM CDT 11/11/2023 3:44 PM CDT Maximo Christy MD HEMATOLOGY [facility] [address] [place] [address], * POTASSIUM (11/11/2023 3:43 PM CDT) POTASSIUM 4.5 3.5 - 5.1 mmol/L 11/12/2023 2:57 PM CDT [facility] Blood BLOOD SPECIMEN / Unknown Venipuncture / Unknown 11/11/2023 3:43 PM CDT 11/11/2023 3:44 PM CDT Maximo Christy MD [facility]Y [facility] [address] [place] [address], * (ABNORMAL) CREATININE (11/11/2023 3:43 PM CDT) eGFR 79(L) >90 mL/min/1.7 3m2 11/12/2023 2:57 PM CDT [facility] Comment:As of 2021, eG FR is calculated by the CKD-EPI creatinine equation without race adjustment. ??eGFR can be influenced by muscle mass, exercise, and diet. ??The reported eGFR is an estimation only and is only applicable if the renal function is stable. CREATININE 0.97 0.70 - 1.20 mg/dL 11/12/2023 2:57 PM CDT [facility] Blood BLOOD SPECIMEN / Unknown Venipuncture / Unknown 11/11/2023 3:43 PM CDT 11/11/2023 3:44 PM CDT Maximo Christy MD CHEMISTRY [facility] [address] [place] [address], * SCAN-DIAGNOSTIC REPORT (11/06/2023 12:00 AM CDT) Scanner OTHER * URINE ALBUMIN TO CREATININE RATIO, RANDOM (09/10/2023 8:29 AM WIND UP OPERATOR) ALB RAND URINE 13.2 mg/L 09/10/2023 4:25 PM WIND UP OPERATOR [facility] CREATININE,URIN E 0.71 g/L 09/10/2023 4:25 PM WIND UP OPERATOR [facility] ALBUMIN TO CREATININE RATIO,RAND UR 18.6 <30.0 mg/g creat 09/10/2023 4:25 PM WIND UP OPERATOR [facility] Urine URINE SPECIMEN / Unknown Non-Blood / Unknown 09/10/2023 8:29 AM WIND UP OPERATOR 09/10/2023 8:29 AM WIND UP OPERATOR Narrative [facility] - 09/10/2023 4:25 PM WIND UP OPERATOR If Albumin to Creatinine Ratio is elevated, consider the following: ? Elevations seen with incipient nephropathy associated ?? with diabetes mellitus or hypertension. Stress, exercise,hematuria, ?? and urinary tract infection may also produce elevated results. If clinically indicated, confirm with ?24 Hour Albumin to Creatinine Ratio. ?? Maximo Christy MD URINE Performing Organization Address City/State/[facility] Co de Phone Number [facility] [address] [place] [address], * (ABNORMAL) HEMOGLOBIN A1C MONITORING (POCT) (09/10/2023 8:20 AM WIND UP OPERATOR) HEMOGLOBIN A1C MONITORING (POCT) 7.6(H) <=6.4 % 09/10/2023 8:32 AM WIND UP OPERATOR [facility] Blood BLOOD SPECIMEN / Unknown Venipuncture / Unknown 09/10/2023 8:20 AM WIND UP OPERATOR 09/10/2023 8:22 AM WIND UP OPERATOR Narrative [facility] - 09/10/2023 8:32 AM WIND UP OPERATOR ? (<=6.9%) ? Indicates good control ? (7.0% to 7.9%) ? Indicates fair control ? (>=8.0%) ? Indicates poor control ?? NOTE: ??These thresholds are guidelines and ?individual targets may vary. Falsely low levels may be seen with: Recent Transfusion, Recent Significant Blood Loss, Hemolytic Diseases, or Falsely elevated levels may be seen with: Untreated Anemias, Splenectomy ? Maximo Christy MD CHEMISTRY Performing Organization Address [facility] de Phone Number [facility] [address] [place] [address], [place] [phone] from Last 3 Months Advance Directives * DNR (Latest Code Status on File) Date Activated Date Inactivated Comments 11/15/2019 9:22 PM 11/16/2019 10:10 PM Question Answer Comments Code Status Discussion: Discussed * Full Code Date Activated Date Inactivated Comments 03/19/2014 12:58 PM 03/20/2014 2:38 AM * Full Code Date Activated Date Inactivated Comments 02/05/2014 7:41 AM 02/05/2014 12:25 PM * Full Code Date Activated Date Inactivated Comments 01/15/2014 7:56 AM 01/15/2014 1:09 PM * Full Code Date Activated Date Inactivated Comments 01/03/2014 2:18 PM 01/04/2014 2:39 AM Care Teams Direct [employer] Operator Relationship Specialty Start Date End Date Maximo Christy MD [address] [place] [address] PCP - General Family Practice 11/05/22 Goyo Zhang MD Urology Surgery - Urology 06/30/19 Miladis Armstrong MD [address] [place] [address] Ophthalmology Surgery - Ophthalmology 06/30/19 Lewis Porter [address] [address] Dermatology Dermatology 06/30/19
--- OUTSIDE RECORDS SUMMARY | 2023-11-16 08:46 | XMS_ITS | Encounter Summary ---
Author Name Unknown Organization [facility] Address [address] [place] [address] Care Team Providers Care Job Hand Name Role Phone Unavailable Primary Care Provider Unavailabl e Reason for Visit * Reason Comments Fall Shoulder Pain Encounter Details Date Type Department Care Team (Late st Contact Info) Description 10/22/2023 11:20 AM PDT - 10/22/2023 4:15 PM PDT Emergency [facility] Emergency [address] [place] [id number] Singh Mann MD [address] [place] [address] Pain (Primary Dx); Dislocation of left shoulder joint, initial encounter Discharge Disposition: Home or Self Care Social [...] on file documented as of this encounter Last Filed Vital Signs Vital Sign Reading [...] - - Body Mass Index - - documented in this encounter Discharge Instructions * Discharge Instructions* Singh Mann MD - 10/22/2023 3:23 PM CDT Use ibuprofen 800 mg 3 times a day and Tylenol 1000 mg 3 times a day for pain relief. If that does not control your pain you can add the oxycodone as needed as well. Use the Zofran as needed for nausea. If you are taking the oxycodone you should be taking also as Senokot as twice a day to help keepyour bowels moving. Wear the shoulder immobilizer 15/02 except for changing of close and washing up.Ice your shoulder 20 minutes 3-4 times a day for the next 3 days and then you can decrease in frequency or continue if it feels good or it provides comfort * Attachments The following attachments cannot be sent through Care Everywhere. * Sedation (Welsh) * Shoulder Dislocation (Welsh) documented in this encounter Medications at Time of Discharge [...] daily. 08/07/2021 documented as of this encounter ED Notes * Renu Holm RN - 10/22/2023 4:11 PM CDT ED Nursing Discharge Note SARAHI DAVIS will be discharged via Private Car with Responsible Rink Rat to Home patient, spouse, son , and daughter Verbalized understanding of discharge instructions including medication administration and recommended follow up care as noted on discharge instructions. Written discharge instructions given, denies any further questions. Prescriptions:were sent to pharmacy . Barriers to learning identified and addressed: None Observed Renu Holm RN..........10/22/2023, 4:11 PM CDT Renu Holm RN 10/22/23 1612 * Singh Mann MD - 10/22/2023 12:47 PM CDTAssociated Order(s): Orthopaedic Injury Treatment - Upper Extremity HPI Chief Complaint Patient presents with Fall Shoulder Pain 78-year-old male presents emergency department with left shoulder pain. He was walking outside of his house when he slipped and fell on an outstretched arm. He was unable to stand himself up in fact almost passed out when he tried to stand up the first time. Ended up coming in by ambulance and he received Dilaudid and route because he was in so much pain. He had some minor tingling in his hands an d otherwise was unable to move his shoulder. He has a previous history of rotator cuff repair in the past. History provided by: Patient and EMS personnel Current Facility-Administered Medications Medication Dose Route Frequency Provider Last Rate Last Admin HYDROmorphone (PF) (Dilaudid) injection 0.5 mg 0.5 mg intravenous q1h PRN Singh Mann MD 0.5 mg at 10/22/23 1313 ketorolac (Toradol) injection 15 mg 15 mg intravenous q6h PRN Singh Mann MD 15 mg at 10/22/23 1313 lidocaine (Xylocaine) 10 mg/mL (1 %) injection - ADS Override Pull oxyCODONE-acetaminophen (Percocet) 5-325 mg per tablet 1 Tablet 1 Tablet oral q6h PRN Singh Mann MD 1 Tablet at 10/22/23 1436 Current Outpatient Medications Medication Sig Dispense Refill ondansetron ODT (ZOFRAN-ODT) 4 mg disintegrating tablet Take 1 Tablet by mouth every 8 (eight) hours as needed for nausea 15 Tablet 0 oxyCODONE (ROXICODONE) 5 mg tablet Take 1 Tablet by mouth every 6 (six) hours as needed for pain 25Tablet 0 blood glucose control, low solution DIRECTED. blood sugar diagnostic (TRUE METRIX GLUCOSE TEST STRIP) strips DISPENSE ITEM COVERED BY PT INS. E11.9 NIDDM TYPE II - TEST 1 TIME/DAY blood-glucose meter monitoring kit DISPENSE METER, TEST STRIPS, LANCETS COVERED BY PT INS. E11.9 NIDDM TYPE II - TEST 1 TIME/DAY canagliflozin 300 mg tab Take 1 Tablet (300 mg) by mouth once daily. For Diabetes. ciprofloxacin-dexamethasone (CIPRODEX) 0.3-0.1 % otic suspension Place 4 Drops into left ear two times daily. citalopram (CELEXA) 20 mg tablet Take 1 Tablet by mouth every morning clotrimazole-betamethasone (LOTRISONE) 1-0.05 % cream Apply topically to affected area(s) two timesdaily. Use short term as needed to affect skin in anal area. glimepiride (AMARYL) 2 mg tablet Take 1 Tablet (2 mg) by mouth once daily with a meal. For diabetes. lancets 33 gauge DIRECTED. DISPENSE ITEM COVERED BY PT INS. E11.9 NIDDM TYPE II - TEST 1 TIME/DAY losartan (COZAAR) 50 mg tablet Take 1 Tablet (50 mg) by mouth once daily. For blood pressure. metFORMIN XR (GLUCOPHAGE-XR) 500 mg 24 hr tablet Take 2 Tablets (1,000 mg) by mouth two times dailywith meals. For diabetes. potassium citrate CR (UROCIT-K-10) 10 mEq (1,080 mg) TbER Take 1 Tablet by mouth 2 (two) times daily rosuvastatin (CRESTOR) 20 mg tablet Take 1 Tablet (20 mg) by mouth once daily with evening meal. For Cholesterol. tamsulosin (FLOMAX) 0.4 mg 24 hr capsule Take 2 Capsules (0.8 mg) by mouth once daily after a meal.For urinary symptoms. triamcinolone (NASACORT) [address] 2 Sprays in both nostrils daily. Patient History Active Problems: * No active hospital problems. * No past medical history on file. No past surgical history on file. No family history on file. Social History Tobacco Use Smoking status: Not on file Smokeless tobacco: Not on file Substance Use Topics Alcohol use: Not on file Drug use: Not on file Review of Systems Review of Systems Musculoskeletal: Left shoulder pain and immobility Neurological: Negative for weakness. All other systems reviewed and are negative. Physical Exam Vitals: 10/22/23 1236 10/22/23 1246 10/22/23 1301 10/22/23 1316 BP: (!) 162/81 126/94 (!) 144/63 (!) 149/74 Pulse: 89 96 99 100 Resp: 19 21 13 21 Temp: TempSrc: SpO2: 97% 100% 97% 97% Weight: Physical Exam Vitals and nursing note reviewed. Constitutional: General: He is not in acute distress. Appearance: He is not ill-appearing. HENT: Head: Normocephalic and atraumatic. Cardiovascular: Rate and Rhythm: Normal rate and regular rhythm. Pulmonary: Effort: Pulmonary effort is normal. Breath sounds: Normal breath sounds. Musculoskeletal: Left shoulder: Deformity and tenderness present. Decreased range of motion. Right lower leg: No edema. Left lower leg: No edema. Comments: Left shoulder appears to be deformed with either a fracture or dislocation of the humeralhead Neurological: Mental Status: He is alert. Labs Reviewed COMPREHENSIVE METABOLIC PANEL - Abnormal; Notable for the following components: Result Value Sodium 135.0 (*) Glucose 271 (*) Total Bilirubin 1.6 (*) eGFR 87.8 (*) All other components within normal limits CBC AND DIFFERENTIAL - Abnormal; Notable for the following components: Auto WBC 14.89 (*) MCHC 31.7 (*) Neutrophils Relative % 79.5 (*) Lymphocytes Relative 11.3 (*) Neutrophils Abs Auto 11.84 (*) Monocytes Absolute 0.96 (*) All other components within normal limits IMAGING: XR SHOULDER 2+ VIEWS LEFT Result Date: 10/22/2023 EXAM: DX SHOULDER ROUTINE LT 2 OR MORE VIEWS INDICATION: Post reduction COMPARISON: Presenting injury film FINDINGS: Dislocation reduction. Small calcification at inferior glenoid could represent small bony Bankart fragment or be chronic. Negative for definite discrete Hill-Sachs deformity. Moderate AC DJD. IMPRESSION: Dislocation reduction XR SHOULDER 2+ VIEWS LEFT Result Date: 10/22/2023 EXAM: DX SHOULDER ROUTINE LT 2 OR MORE VIEWS INDICATION: fall with left shoulder pain COMPARISON: None. FINDINGS: Anterior dislocation without definite fracture. Mild to moderate AC DJD. IMPRESSION: Anterior dislocation ED Course & MDM Orthopaedic Injury Treatment - Upper Extremity Date/Time: 10/22/2023 12:52 PM Performed by: Singh Mann MD Authorized by: Singh Mann MD Consent: Consent obtained: Verbal and written Consent given by: Patient Risks, benefits, and alternatives were discussed: yes Risks discussed: Fracture, nerve damage, restricted joint movement, vascular damage, irreducible dislocation, recurrent dislocation and stiffness Alternatives discussed: No treatment Silt protocol: Patient identity confirmed: Verbally with patient Location: Location: Shoulder Shoulder location: L shoulder Shoulder dislocation type: anterior Chronicity: New Pre-procedure details: Pre-procedure imaging: X-ray Imaging findings: dislocation present Imaging findings: no fracture Fracture of greater humeral tuberosity: no Hill-Sachs deformity: no Distal perfusion: normal Sedation: Sedation type: Moderate sedation Anesthesia: Anesthesia method: None Procedure details: Manipulation performed: yes Shoulder reduction method: Direct traction, external rotation and traction and counter traction Reduction successful: yes Reduction confirmed with imaging: yes Immobilization: Sling Supplies used: shoulder immobilizer. Post-procedure details: Neurological function: normal Distal perfusion: normal Range of motion: unchanged Procedure completion: Tolerated with difficulty Medical Decision Making Patient presented to the emergency department with left shoulder pain after fall. X-rays were obtained which confirmed an anterior dislocation. Discussed options with the patient and recommended sedation and relocation of the humeral head. Please see procedure notes for details but briefly it was very difficult to get his humeral head back in the place and keep it in place. I required assistance from orthopedics and ultimately we were able to get it in place get him in an immobilizer and confirm with x-ray. Patient will be discharged home to follow-up with orthopedics as an outpatient. He will be in a shoulder immobilizer for minimum of 4 weeks and trying to see orthopedics next week. He was monitored here until he was awake enough to be discharged to home. Postprocedure the patient did have a significant amount of pain which is likely due to both the manipulation and the original injury. We received Toradol, Zofran, Dilaudid and Percocet and were able to get him comfortable enough togo home. I went over restrictions with him and his as well as with his son and daughter and they felt comfortable taking him home. Problems Addressed: Dislocation of left shoulder joint, initial encounter: complicated acute illness or injury Pain: complicated acute illness or injury Amount and/or Complexity of Data Reviewed External Data Reviewed: labs, radiology and notes. Labs: ordered. Decision-making details documented in ED Course. Radiology: ordered and independent interpretation performed. Details: Dislocation of the humeral head repeat films show relocation Risk OTC drugs. Prescription drug management. Parenteral controlled substances. Decision regarding hospitalization. Diagnosis or treatment significantly limited by social determinants of health. Final diagnoses: [R52] Pain [S43.005A] Dislocation of left shoulder joint, initial encounter * Renu Holm RN - 10/22/2023 12:14 PM CDT Ortho present in room: Cosmo Clifton, Matt Gómez, Sharon Pérez. Renu Holm RN 10/22/23 1355 * Renu Holm RN - 10/22/2023 11:24 AM CDT ED Nursing Triage Note Patient presents to triage EMS - Service: EMS Services: [facility]. Significant symptoms per patient include fell outside landing on his LEFT shoulder and has pain/swelling with some numbness to hand. Has abrasion to RIGHT knee. He was given 1mg dilaudid en route. Pre hospital prior living situation: Home ED Arrival Note Chief Complaint: Chief Complaint Patient presents with Fall Shoulder Pain History of Trauma/Loss of Consciousness: No Initial Set of Vital Signs: BP 134/63 Pulse 93 Temp 98 ??F (36.7 ??C) Resp 18 Wt 248 lb 0.3 oz (112.5 kg) SpO2 95% Immediate interventions include triage to exam room. Patient's behavior alert and calm. Renu Holm RN .................... 10/22/2023 11:24 AM CDT documented in this encounter Miscellaneous Notes * Kiana COOPERLuis - Faith Tan Sample - 10/22/2023 3:29 PM CDT Images from the original note were not included. [id number] Ondansetron Oral Tablet Brands: Zofran Uses For nausea or vomiting. Instructions Keep the medicine at room temperature. Avoid heat and direct light. Tell your doctor if you have severe or persistent sweating, diarrhea or vomiting. These can increase your risk of a serious side effect. If you are using this medicine regularly, it is important to take each dose of medicine on time. Keep taking the medicine even if you feel well. If you forget to take a dose on time, take it as soon as you remember. If it is almost time for thenext dose, do not take the missed dose. Return to your normal schedule. Do not take 2 doses at one time. Drug interactions can change how medicines work or increase risk for side effects. Tell your healthcare providers about all medicines taken. Include prescription and alwo-xnc-cmokftv medicines, vitamins, and herbal medicines. Speak with your doctor or pharmacist before starting or stopping any medicine. Tell your doctor if symptoms do not get better or if they get worse. Keep all appointments for medical exams and tests while on this medicine. Cautions Tell your doctor and pharmacist if you ever had an allergic reaction to a medicine. Some patients taking this medicine have experienced serious side effects. Please speak with your doctor to understand the risks and benefits associated with this medicine. Do not use the medication any more than instructed. This medicine may cause dizziness or fainting. Do not stand or sit up quickly. Your ability to stay alert or to react quickly may be impaired by this medicine. Do not drive or operate machinery until you know how this medicine will affect you. Please check with your doctor before drinking alcohol while on this medicine. Call the doctor if there are any signs of confusion or unusual changes in behavior. It is unknown if this medicine passes into breast milk. Ask your doctor before . During , this medicine should be used only when clearly needed. Talk to your doctor about the risks and benefits. Do not take Bridget's wort while on this medicine. Do not share this medicine with anyone who has not been prescribed this medicine. Side Effects The following is a list of some common side effects from this medicine. Please speak with your doctor about what you should do if you experience these or other side effects. ?? constipation ?? dizziness or drowsiness ?? lack of energy and tiredness ?? headaches ?? lightheadedness Call your doctor or get medical help right away if you notice any of these more serious side effects: ?? agitated feeling or trouble sleeping ?? loss of balance ?? chest pain ?? diarrhea ?? fainting ?? hallucinations (unusual thoughts, seeing or hearing things that are not real) ?? fast, irregular, or slow heartbeat ?? muscle aches, spasms or abnormal movements ?? muscle trembling ?? restlessness ?? stomach pain ?? blurring or changes of vision ?? severe or persistent vomiting A few people may have an allergic reaction to this medicine. Symptoms can include difficulty breathing, skin rash, itching, swelling, or severe dizziness. If you notice any of these symptoms, seek medical help quickly. Extra Please speak with your doctor, nurse, or pharmacist if you have any questions about this medicine. [email or web address] IMPORTANT NOTE: This document tells you briefly how to take your medicine, but it does not tell youall there is to know about it. Your doctor or pharmacist may give you other documents about your medicine. Please talk to them if you have any questions. Always follow their advice. There is a more complete description of this medicine available in Welsh. Scan this code on your smartphone or tablet or use the web address below. You can also ask your pharmacist for a printout. If you have any questions, please ask your pharmacist. The display and use of this drug information is subject to Terms of Use. Copyright(c) 2022 [employer]. ?? The [employer]. All rights reserved. This information is not intended as a substitute for professional medical care. Always follow your healthcare professional's instructions. ELLA * Kiana TI - Faith Tan Sample - 10/22/2023 3:29 PM CDT Images from the original note were not included. [id number] Oxycodone Oral Tablet Brands: Roxicodone Uses For pain. Instructions This medicine may be taken with or without food. Swallow with a full glass (8 oz) of water unless your doctor gives you different instructions. Store at room temperature away from heat, light, and moisture. Do not keep in the bathroom. Please ask your doctor, nurse, or pharmacist how to discard unused medicines safely. To reduce constipation, eat high fiber foods, drink plenty of water and exercise. Avoid grapefruit and grapefruit juice while on this medicine. Drug interactions can change how medicines work or increase risk for side effects. Tell your healthcare providers about all medicines taken. Include prescription and bnmc-uut-bsydisq medicines, vitamins, and herbal medicines. Speak with your doctor or pharmacist before starting or stopping any medicine. Tell your doctor if symptoms do not get better or if they get worse. Cautions This medicine has an opioid. Opioids help many people but may cause addiction, especially if used for a long time. The addiction risk is higher if you have a substance use disorder (overuse of or addiction to drugs or alcohol). Ask your doctor about the benefits and risks. Ask your doctor or pharmacist if you should have naloxone on hand to treat opioid overdose. Teach your family or household members about the signs of an opioid overdose and how to treat it. If you stop this medicine suddenly after using it for a long time, you may have withdrawal. Your doctor may slowly lower your dose before stopping it. Tell your doctor right away if you have symptoms, such as unusual sweating, watering eyes, runny nose, chills, diarrhea, yawning, muscle aches, restlessness, anxiety, trouble sleeping, or thoughts of suicide. Tell your doctor and pharmacist if you ever had an allergic reaction to a medicine. Do not use the medication any more than instructed. If possible, avoid using with alcohol, marijuana, or other medicines that can cause dizziness or drowsiness. These include allergy/cold products, muscle relaxers, sleep aids, and pain relievers. Your ability to stay alert or to react quickly may be impaired by this medicine. Do not drive or operate machinery until you know how this medicine will affect you. This medicine passes into breast milk. Ask your doctor before . This medicine can hurt a new baby in the womb. If you become while on this medicine, tell your doctor immediately. Your doctor may switch you to a different medicine. This medicine should be used with caution in patients with breathing difficulties. Call your doctor right away if you notice slow or shallow breathing. Do not share this medicine with anyone who has not been prescribed this medicine. Some patients have serious side effects from this medicine. Ask your pharmacist to show you the information from the Food and Drug Administration (FDA) and discuss it with you. Side Effects The following is a list of some common side effects from this medicine. Please speak with your doctor about what you should do if you experience these or other side effects. ?? decreased appetite ?? constipation ?? dizziness or drowsiness ?? lightheadedness ?? nausea and vomiting If you have any of the following side effects, you may be getting too much medicine. Please contactyour doctor to let them know about these side effects. ?? confusion ?? fainting ?? unusual or unexplained tiredness or weakness ?? difficulty or discomfort urinating Call your doctor or get medical help right away if you notice any of these more serious side effects: ?? agitated feeling or trouble sleeping ?? decreased awareness or responsiveness ?? breathing interruption during sleep ?? shallow, irregular breathing ?? changes in memory, mood, or thinking ?? hallucinations (unusual thoughts, seeing or hearing things that are not real) ?? seizures ?? severe stomach or bowel pain ?? weight loss A few people may have an allergic reaction to this medicine. Symptoms can include difficulty breathing, skin rash, itching, swelling, or severe dizziness. If you notice any of these symptoms, seek medical help quickly. Extra Please speak with your doctor, nurse, or pharmacist if you have any questions about this medicine. [email or web address] IMPORTANT NOTE: This document tells you briefly how to take your medicine, but it does not tell youall there is to know about it. Your doctor or pharmacist may give you other documents about your medicine. Please talk to them if you have any questions. Always follow their advice. There is a more complete description of this medicine available in Welsh. Scan this code on your smartphone or tablet or use the web address below. You can also ask your pharmacist for a printout. If you have any questions, please ask your pharmacist. The display and use of this drug information is subject to Terms of Use. Copyright(c) 2022 [employer]. ?? 5703-3790 The [employer]. All rights reserved. This information is not intended as a substitute for professional medical care. Always follow your healthcare professional's instructions. documented in this encounter Plan of Treatment [...] CDT documented in this encounter Results * CLSD TX SHOULDER DISLC W/MANIPULATION [...] dislocation and stiffness ??Alternatives discussed: ??No treatment Silt protocol: ??Patient identity confirmed: ??Verbally with patient [...] - 11.0 10*3/uL 10*3/uL 10/22/2023 12:02 PM [facility] RBC 5.33 4.30 - 5.90 10*6/uL 10/22/2023 12:02 PM [facility] Hemoglobin 16.5 13.5 - 17.5 g/dL g/dL 10/22/2023 12:02 PM [facility] Hematocrit 52.1 37.0 - 53.0% % 10/22/2023 12:02 PM [facility] MCV 97.7 80 - 100 fL fL 10/22/2023 12:02 PM [facility] MCH 31.0 26.0 - 34.0 pg pg 10/22/2023 12:02 PM [facility] MCHC 31.7(A) 32.0 - 36.0 g/dL 10/22/2023 12:02 PM [facility] RDW 14.0 11.5 - 15.5 % 10/22/2023 12:02 PM [facility] Platelets 201.0 140.0 - 440.0 10*3/uL 10/22/2023 12:02 PM [facility] IPF, Immature Platelet Fraction 7.6 0.9 - 11.2 % 10/22/2023 12:02 PM [facility] Neutrophils Relative % 79.5(A) 42.0 - 72.0 % 10/22/2023 12:02 PM [facility] Lymphocytes Relative 11.3(A) 20.0 - 44.0 % 10/22/2023 12:02 PM [facility] Monocytes Relative 6.4 <12.0 % 10/22/2023 12:02 PM [facility] Eosinophils Relative 0.6 <8.0 % 10/22/2023 12:02 PM [facility] Basophils Relative 0.3 <3.0 % 10/22/2023 12:02 PM [facility] Neutrophils Abs Auto 11.84(A) 1.70 - 7.00 10*3/uL 10/22/2023 12:02 PM [facility] Lymphocytes Absolute 1.68 0.90 - 2.90 10*3/uL 10/22/2023 12:02 PM [facility] Monocytes Absolute 0.96(A) <0.90 10*3/uL 10/22/2023 12:02 PM [facility] Eosinophils Absolute 0.09 <=0.50 10*3/uL 10/22/2023 12:02 PM [facility] Basophils Absolute 0.04 <0.30 10*3/uL 10/22/2023 12:02 PM [facility] nRBC 0.0 /100 WBCs 10/22/2023 12:02 PM [facility] NUCLEATED RBC (ABSOLUTE) 0.00 10*3 cells/uL 10/22/2023 12:02 PM [facility] IMMATURE GRANULOCYTE%(AUT O) 1.9 10/22/2023 12:02 PM [facility] Absolute Immature Granulocyte 0.28 <=0.3 10*3/uL 10/22/2023 12:02 PM [facility] Blood (Blood, Venous) Venipuncture / Unknown 10/22/2023 11:57 AM CDT 10/22/2023 11:59 AM T Singh Mann MD LAB BLOOD ORDERABL ES [facility] [address] [place] [address], * (ABNORMAL) Comprehensive metabolic panel (10/22/2023 11:57 AM [facility]) Sodium 135.0(A) 137 - 145 mmol/L mmol/L 10/22/2023 12:20 PM [facility] Potassium 4.4 3.5 - 5.1 mmol/L mmol/L 10/22/2023 12:20 PM [facility] Chloride 101 98 - 107 mmol/L mmol/L 10/22/2023 12:20 PM [facility] CO2 27.0 22 - 30 mmol/L mmol/L 10/22/2023 12:20 PM [facility] Anion Gap 7 3 - 11 mmol/L mmol/L 10/22/2023 12:20 PM [facility] BUN 18.0 9 - 20 mg/dL mg/dL 10/22/2023 12:20 PM [facility] Creatinine 0.85 0.66 - 1.25 mg/dL mg/dL 10/22/2023 12:20 PM [facility] BUN/Creatinine Ratio 21.18 10/22/2023 12:20 PM [facility] Glucose 271(A) 75 - 100 mg/dL mg/dL 10/22/2023 12:20 PM [facility] Calcium 9.3 8.4 - 10.2 mg/dL 10/22/2023 12:20 PM [facility] AST 29 17 - 59 U/L U/L 10/22/2023 12:20 PM [facility] ALT (SGPT) 38 <50 U/L U/L 10/22/2023 12:20 PM [facility] Alkaline Phosphatase 65 38 - 126 U/L U/L 10/22/2023 12:20 PM [facility] Total Protein 6.9 6.3 - 8.2 g/dL 10/22/2023 12:20 PM [facility] Albumin 4.0 3.5 - 5.0 g/dL g/dL 10/22/2023 12:20 PM [facility] Total Bilirubin 1.6(A) 0.2 - 1.3 mg/dL mg/dL 10/22/2023 12:20 PM CDT [facility] eGFR 87.8(A) >90.0 mL/min/1.7 3m*2 10/22/2023 12:20 PM CDT [facility] Blood (Blood, Venous) Venipuncture / Unknown 10/22/2023 11:57 AM CDT 10/22/2023 11:59 AM CDT Singh Mann MD LAB BLOOD ORDERABL ES [facility] [address] [place] [address], * XR SHOULDER 2+ VIEWS LEFT (10/22/2023 [...] PROCEDURES documented in this encounter Visit Diagnoses Diagnosis Pain- Primary Generalized pain Dislocation of left shoulder joint, initial encounter documented in this encounter Administered Medications Inactive Administered Medications - up to 3 most recent administrations Medication Order MAR Action Action Date Dose Rate Site HYDROmorphone (PF) (Dilaudid) 0.5 mg/0.5 mL injection - ADS Override Pull Starting on Wed10/22/23 at 1141, For 1 dose, Renu Holm M: cabinet override HYDROmorphone (PF) (Dilaudid) injection 0.5 mg 0.5 mg, intravenous, Every 1 hour PRN, severe pain (7 - 10), Starting on Wed10/22/23 at 1140 Given 10/22/2023 1:13 PM CDT 0.5 mg Given 10/22/2023 12:49 PM CDT 0.5 mg ketorolac (Toradol) injection 15 mg 15 mg, intravenous, Every 6 hours PRN, moderate pain (4 - 6), Starting on Wed10/22/23 at 1306, For 5 days Given 10/22/2023 1:13 PM CDT 15 mg lidocaine PF (Xylocaine) 10 mg/mL (1 %) injection 100 mg 100 mg (10 mL), infiltration, Once, On Wed10/22/23 at 1230, For 1 dose Given 10/22/2023 12:21 PM CDT 100 mg Left Shoulder ondansetron (Zofran) 4 mg/2 mL injection - ADS Override Pull Starting on Wed10/22/23 at 1141, For 1 dose, Renu Holm: cabinet override ondansetron (Zofran) injection 4 mg 4 mg, intravenous, Once, On Wed10/22/23 at 1145, For 1 dose, MAY REPEAT X 1 FOR CONTINUED NAUSEA Given 10/22/2023 11:45 AM CDT 4 mg oxyCODONE-acetaminophen (Percocet) 5-325 mg per tablet 1 Tablet 1 Tablet, oral, Every 6 hours PRN, severe pain (7 - 10), Starting on Wed10/22/23 at 1425 Given 10/22/2023 2:36 PM CDT 1 Tablet documented in this encounter Active and Recently Administered Medications Times are shown in CDT. Scheduled Medication Order 10/20/2023 10/21/2023 10/22/2023 lidocaine PF (Xylocaine) 10 mg/mL (1 %) injection 100 mg (COMPLETED) 100 mg (10 mL), infiltration, Once, On Wed10/22/23 at 1230, For 1 dose 1221 (Given - Provid er: Renu Holm RN - Comment: given by jorge Bojorquez) ondansetron (Zofran) injection 4 mg (COMPLETED) 4 mg, intravenous, Once, On Wed10/22/23 at 1145, For 1 dose, MAY REPEAT X 1 FOR CONTINUED NAUSEA 1145 (Given - Provid er: Renu Holm RN) PRN Medication Order 10/20/2023 10/21/2023 10/22/2023 HYDROmorphone (PF) (Dilaudid) injection 0.5 mg 0.5 mg, intravenous, Every 1 hour PRN, severe pain (7 - 10), Starting on Wed10/22/23 at 1140 1249 (Given - Provid er: Renu Holm RN)1313 (Given - Provider: Renu Holm RN) ketorolac (Toradol) injection 15 mg 15 mg, intravenous, Every 6 hours PRN, moderate pain (4 - 6), Starting on Wed10/22/23 at 1306, For 5 days 1313 (Given - Provid er: Renu Holm RN) oxyCODONE-acetaminophen (Percocet) 5-325 mg per tablet 1 Tablet 1 Tablet, oral, Every 6 hours PRN, severe pain (7 - 10), Starting on Wed10/22/23 at 1425 1436 (Given - Provid er: Renu Holm RN) documented in this encounter
--- OUTSIDE RECORDS SUMMARY | 2023-11-16 08:46 | XMS_ITS | Data Portability ---
Author Name Unknown Address [address] [place] [address] Phone [phone] Organization [facility] Address [address] [place] [address] Care Team Providers Care Manager Branch Name Role Phone LETTY GARRETT Primary Care Provider [phone] Assessment No assessment recorded. Plan of Treatment Reminders Order Date Submit Date Provider Last Modified By Organization Details Last Modified Time Details Appointments ESTABLISH ED 20 2023 10:30A Dominick Zhang MD Not available Not available Not available Lab PSA, serum or plasma 2022 023 [email or web address] 0 [facility], [address] [place], [address], 06/21/2023 09:12:06 testoster one, total, serum 2022 023 [email or web address] 0 [facility], [address] [place], [address], 06/21/2023 09:12:06 hemoglobi n (Hb), blood 2022 023 [email or web address] 0 [facility], [address] [place], [address], 06/21/2023 09:12:06 testoster one, total, serum - Needed May 20232022 023 [id number] 0 [facility], [address] [place], [address], 12/28/2022 09:18:55 PSA, total, serum or plasma 2021 022 [id number] 0 [facility], [address], [place], [address], 06/25/2022 09:16:50 testoster one, total, serum 2021 022 [id number] 0 [facility], [address] [place], [address], 06/25/2022 09:16:49 hemoglobi n (Hb), blood 2021 022 [id number] 0 [facility], [address], [place], [address], 06/25/2022 09:16:50 Referral None recorded. Procedures None recorded. Surgeries None recorded. Imaging CT, abdomen + pelvis, w/o contrast - Follow up visit with Dr. Zhang 12/16 10:30 AM, NO PREV 2021 022 [facility] , [facility] [address], [place], [address], 12/16/2022 13:43:27 Medication Orders Gemtesa 75 mg tablet [address] [facility], [address] , [place], [address], 06/14/2023 11:59:52 testoster one cypionate 200 mg/mL intramusc ular oil 2022 023 [facility], [address], [place], [address], 06/14/2023 11:59:54 Xyosted 100 mg/0.5 mL subcutane ous auto-inje ctor 2022 023 [facility], [address], [place], [address], 12/16/2022 12:01:17 potassium citrate ER 10 mEq (1,080 mg) tablet,ex tended release 2021 [facility], [address] , [place], [address], 06/17/2022 11:51:48 Diflucan [address] [facility], [address] , [place], [address], 12/16/2022 11:32:44 Xyosted 100 mg/0.5 mL subcutane ous auto-inje ctor 2021 [facility], [address], [place], [address], 06/17/2022 11:44:10 Patient TargetsNo targets recorded. Patient Instructions Encounter Date Encounter Id Patient Instructions Last Modified By Organization Details Last Modified Time 08/29/2020 [id number] Telephone call - 9 minutes Not available 08/29/2020 18:16:02 Reason for Referral None Reported. Results Created Date Observation Date Name Description Value Unit Range Abnormal Flag LastModifiedBy Organization Detail LastModifiedTime 12/17/1912/16/2022 CT, abdom en + pelvi s, w/o contr ast EXAM: CT, ABDOME N + PELVIS , W/O CONTRA ST [facility]ATI [facility] DATE/T LAURA: 023 11:03 AM CDT INDICA TION: Calcul us of kidney COMPAR LUIS: NONE TECHNI QUE: CT scan of the abdome n and pelvis was perfor med withou t IV contra st. Multip lanar reform ats were obtain ed. Dose reduct ion techni ques were used. CONTRA ST: None. FINDIN GS: LOWER CHEST: Minima l bibasi lar atelec tasis. HEPATO BILIAR Y: Liver within normal limits . Small stones are noted within the gallbl adder. PANCRE : Normal . SPLEEN : Normal . ADRENA L GLANDS : Normal . KIDNEY S/BLAD PRASHANTH: Bilate ral renal cysts are noted which are benign and needs no furthe r follow -up. Kidney s are otherw ise unrema rkable with no eviden ce of stones or hydron ephros is. BOWEL: Divert iculos is of the colon. No acute inflam matory change . No obstru ction. LYMPH NODES: Normal . VASCUL ATURE: Mild athero sclero tic diseas e of the abdomi nal aorta and its branch es. PELVIC ORGANS : Bladde r within normal limits . MUSCUL OSKELE CORNELL: Degene rative change s of the spine. IMPRES ARASH: 1. No acute findin gs in the abdome n and pelvis . No stones are identi fied in the kidney s, ureter s, or bladde r. 2. Cholel ithias is. This report was electr onical ly interp reted by: Roddy Knott MD on 2022 at 12:41 [facility] [address], [place], [address], 12/18/2022 10:54:32 Result Notes Documentation Provider Name and Address Organization Details Recorded Time Ct, Abdomen + Pelvis, W/o Contrast : EXAM: CT, ABDOMEN + PELVIS, W/O CONTRAST LOCATION: [facility] DATE/TIME: 12/16/2022 11:03 AM CDT INDICATION: Calculus of kidney COMPARISON: NONE TECHNIQUE: CT scan of the abdomen and pelvis was performed without IV contrast. Multiplanar reformats were obtained. Dose reduction techniques were used. CONTRAST: None. FINDINGS: LOWER CHEST: Minimal bibasilar atelectasis. HEPATOBILIARY: Liver within normal limits. Small stones are noted within the gallbladder. PANCREAS: Normal. SPLEEN: Normal. ADRENAL GLANDS: Normal. KIDNEYS/BLADDER: Bilateral renal cysts are noted which are benign and needs no further follow-up. Kidneys are otherwise unremarkable with no evidence of stones or hydronephrosis. BOWEL: Diverticulosis of the colon. No acute inflammatory change. No obstruction. LYMPH NODES: Normal. VASCULATURE: Mild atherosclerotic disease of the abdominal aorta and its branches. PELVIC ORGANS: Bladder within normal limits. MUSCULOSKELETAL: Degenerative changes of the spine. IMPRESSION: 1. No acute findings in the abdomen and pelvis. No stones are identified in the kidneys, ureters, or bladder. 2. Cholelithiasis. This report was electronically interpreted by: Roddy Knott MD on 12/16/2022 at 12:41 Goyo Zhang MD [address], [place], [address], [facility] 12/18/2022 10:54:32 Procedures Surgical History Date Name Laterality Status Provider Name and Address Organization Details Recorded Time 06/14/20 23 Bladder Scan completed Kaminisamir alexander [facility] 06/14/2023 11:47:36 04/21/20 13 [facility] [facility] 10:10:43 [facility] 08/29/2020 10:10:30 hemorrhoidectomy completed [facility] 08/29/2020 10:10:53 Imaging Results Imaging Date Name Status LastModified by Organiz ation Details LastModified Time 12/16/2022 CT, abdomen + pelvis, w/o contrast completed [facility] [address], [place], [address], 12/18/2022 10:54:32 Procedure Notes None recorded. Medical Equipment None Reported. Allergies Allergen ID Allergen Name Allergen Category Reaction Reaction Severity Criticality Documentation Date Start Date Code Code System Note Provider Name and Address Organization Details Recorded Time 101873 Substance with sulfonami de structure and antibacte rial mechanism of action (substanc e) medicatio n Not available Not available Not available 06/17/2022 [id number] SNOMED Goyo Zhang MD [address], [place], [address], [facility] 11:17:35 Medications Name Sig Start Date Stop Date Status Note LastModified by Organization Details LastModified Time losartan 50 mg tablet active Not Available Not Available No t Available BD Alcohol Swabs active Not Available Not Available Not Available prednisone 10 mg tablet TAKE 2 TABLETS (20 MG) BY MOUTH ONCE DAILY WITH A MEAL FOR 5 DAYS. 12/16 completed Not Available Not Available Not Available fluconazole 150 mg tablet Take 1 tablet every week by oral route. 12/16 completed Not Available Not Available Not Available Accu-Chek Softclix Lancets 06/17 completed Not Available Not Available Not Available glimepiride 2 mg tablet active Not Available Not Available Not Available ofloxacin 0.3 % ear drops PLACE 5 DROPS INTO LEFT EAR TWO TIMES DAILY. active Not Available Not Available No t Available citalopram 20 mg tablet active Not Available Not Available Not Available tamsulosin 0.4 mg capsule takes two active Not Available Not Available No t Available potassium citrate ER 10 mEq (1,080 mg) tablet,exte nded release TAKE 1 TABLET TWICE DAILY active Not Available Not Available No t Available cephalexin 500 mg capsule TAKE 1 CAPSULE BY MOUTH 3 TIMES DAILY 06/17 completed Not Available Not Available Not Available clotrimazol e-betametha sone 1 %-0.05 % topical cream active Not Available Not Available Not Available BD Regular Bevel Rienzi 22 gauge x 1 1/2 use to administr ate testoster one 2023 active Not Available Not Available Not Avai lable diazepam 10 mg tablet TAKE 1 TABLET BY MOUTH ONE TIME FOR 1 DOSE. TAKE 30 MINUTES BEFORE PROCEDURE . 06/17 completed Not Available Not Available Not Available testosteron e cypionate 200 mg/mL intramuscul ar oil Inject 1 mL every 2 weeks by intramusc ular route. active Not Available Not Available No t Available BD Luer-Shay Syringe 3 mL 18 x 1 1/2 active Not Available Not Available Not Available cefdinir 300 mg capsule TAKE 1 CAPSULE BY MOUTH TWICE A DAY 08/29 completed Not Available Not Available Not Available metformin ER 500 mg tablet,exte nded release 24 hr active Not Available Not Available Not Available amoxicillin 875 mg-potassiu m clavulanate 125 mg tablet TAKE 1 TABLET BY MOUTH 2 TIMES DAILY WITH MEALS FOR 10 DAYS. TAKE OTC PROBIOTIC WHILE TAKING 06/14 completed Not Available Not Available Not Available amoxicillin 500 mg-potassiu m clavulanate 125 mg tablet TAKE 1 TABLET BY MOUTH TWICE A DAY FOR 10 DAYS 06/17 completed Not Available Not Available Not Available oxycodone 5 mg tablet TAKE 1 TABLET BY MOUTH EVERY 4 HOURS NEEDED FOR PAIN 06/17 completed Not Available Not Available Not Available rosuvastati n 20 mg tablet active Not Available Not Available Not Available Tradjenta 5 mg tablet TAKE 1 TABLET ONCE DAILY FOR DIABETES. 06/17 completed Not Available Not Available Not Available TRUEplus Lancets 33 gauge active Not Available Not Available Not Available Invokana 300 mg tablet active Not Available Not Available Not Available True Metrix Glucose Test Strip active Not Available Not Available N ot Available True Metrix Level 1 solution active Not Available Not Available Not Available Xyosted 100 mg/0.5 mL subcutaneou s auto-inject or Inject 100 mg by subcutane ous route. active Not Available Not Available No t Available Xyosted 75 mg/0.5 mL subcutaneou s auto-inject or 06/17 completed Not Available Not Available Not Available Gemtesa 75 mg tablet Take 1 tablet every day by oral route. 2022 active Not Available Not Available Not Avai lable True Metrix Glucose Meter kit active Not Available Not Available No t Available Vitals Date Recorded Body height Body mass index (BMI) Body weight Provider Name and Address Organization Details Last Updated DateTime 06/17/2022 172.72 cm 36.5 kg/m2 118757.17 jaz Zhang MD [address] [place], [place] [id number] [place] [address] 06/17/2022 11:17:12 Date Recorded Body height Body mass index (BMI) Body weight Provider Name and Address Organization Details Last Updated DateTime 12/16/2022 172.72 cm 36.5 kg/m2 534060.17 jaz Zhang MD [address] [place] [address], [phone] [place] [address] 12/16/2022 11:31:33 Date Recorded Body height Body mass index (BMI) Body weight Provider Name and Address Organization Details Last Updated DateTime 06/14/2023 172.72 cm 35.7 kg/m2 801050.21 jaz Lau [facility] 06/14/2023 11:46:47 Date Recorded Body weight Body mass index (BMI) Body height Provider Name and Address Organization Details Last Updated DateTime 08/29/2020 508373.17 g 36.5 kg/m2 172.72 cm Kamini Sid alexander [facility] 08/29/2020 10:13:47 Social History Question Answer Notes LastModified by Organizat ion Details LastModified Time Tobacco Smoking Status Never Smoker Kamini Gandaraaddie alexander [facility] 08/29/2020 10:09:42 What Is Your Level Of Alcohol Consumption? None [email or web address] Information not available 08/29/2020 What Is Your Level Of Caffeine Consumption? None Information not available 12/16/2022 What Was The Date Of Your Most Recent Tobacco Screening? 06/14/2023 [email or web address] Information not available 06/14/2023 Sex: Male Functional Status None recorded. Mental Status None recorded. Family History Nothing Reported. Medical History Condition Response Diabetes Y Other Y High Blood Pressure Y Kidney Stones Y Depression Y High Cholesterol Y Immunizations Vaccine Type Date Status Provider Name and Address Organization Details Recorded Time pneumococcal polysaccharide PPV23 06/05/2010 completed Goyo Zhang MD [address] [place] [address], [phone], [facility] 06/17/2022 11:17:26 Pneumococcal conjugate PCV 13 07/03/2015 completed Goyo Zhang MD [address] [place] [address], [phone], [facility] 06/17/2022 11:17:26 influenza, trivalent, adjuvanted 04/07/2019 completed Kamini alexander [facility] 06/14/2023 11:46:51 influenza, trivalent, adjuvanted 05/02/2018 completed Kamini alexander [facility] 06/14/2023 11:46:51 influenza, trivalent, adjuvanted 05/07/2017 cait alexander [facility] 06/14/2023 11:46:51 zoster recombinant 09/29/2021 cait alexander [facility] 06/14/2023 11:46:51 zoster recombinant 12/03/2021 cait alexander [facility] 06/14/2023 11:46:51 influenza, high-dose, quadrivalent 04/27/2022 cait Molinaha Lau null, [facility] 06/14/2023 11:46:51 Influenza vaccine, quadrivalent, adjuvanted 04/08/2023 completed [facility]amini Lau null, [facility] 06/14/2023 11:46:51 Influenza vaccine, quadrivalent, adjuvanted 04/15/2020 completed Kamini Lau null, [facility] 06/14/2023 11:46:51 Influenza vaccine, quadrivalent, adjuvanted 04/30/2021 completed Kamini Lau null, [facility] 06/14/2023 11:46:51 COVID-19, mRNA, LNP-S, PF, 30 mcg/0.3 mL dose 09/03/2020 completed Kamini Lau null, [facility] 06/14/2023 11:46:51 COVID-19, mRNA, LNP-S, PF, 30 mcg/0.3 mL dose 09/24/2020 completed Kamini Lau null, [facility] 06/14/2023 11:46:51 COVID-19, mRNA, LNP-S, PF, 30 mcg/0.3 mL dose 05/16/2021 [facility] 11:46:51 COVID-19, mRNA, LNP-S, PF, 30 mcg/0.3 mL dose, charis-sucrose 11/04/2021 completed Kamini Lau null, [facility] 06/14/2023 11:46:51 COVID-19, mRNA, LNP-S, bivalent, PF, 30 mcg/0.3 mL dose 04/10/2022 [facility] 11:46:51 RSV, recombinant, protein subunit RSVpreF, adjuvant reconstituted, 0.5 mL, PF 04/08/2023 completed [place] Lau null, [facility] 06/14/2023 11:46:51 COVID-19, mRNA, LNP-S, PF, 50 mcg/0.5 mL 05/12/2023 completed [facility] 06/14/2023 11:46:51 pneumococcal polysaccharide PPV23 07/26/2008 [facility] 11:46:51 influenza, unspecified formulation 05/15/2008 completed Kamini Gandaraa null, [facility] 06/14/2023 11:46:51 Tdap 11/16/2011 [facility]23 11:46:51 Tdap 02/12/2017 completed Kamini Gandaraa null, [facility] 06/14/2023 11:46:51 zoster live 11/06/2011 [facility] 11:46:51 Influenza, high dose seasonal 03/09/2016 [facility] 11:46:51 Influenza, high dose seasonal 04/20/2014 [facility] 11:46:51 Influenza, high dose seasonal 04/30/2015 [facility] 11:46:51 Influenza, seasonal, injectable 04/30/2010 [facility] 11:46:51 Influenza, seasonal, injectable 05/09/2013 [facility] 11:46:51 Influenza, seasonal, injectable 05/19/2012 [facility] 11:46:52 Influenza, seasonal, injectable 06/02/2005 [facility] 11:46:52 Influenza, seasonal, injectable, preservative free 05/26/2011 [facility]/14/[facility] 11:46:52 Novel [id number] 06/25/2009 [facility]/14/2023 11:46:52 Td (adult), 5 Lf tetanus toxoid, preservative free, adsorbed 06/05/2010 completed CELESTINO Sim [facility] 06/14/2023 11:46:52 Td (adult), 2 Lf tetanus toxoid, preservative free, adsorbed 07/26/2008 completed CELESTINO Sim [facility] 06/14/2023 11:46:52 Past Encounters Encounter ID Performer Location Encounter Start Date Encounter Closed Date Diagnosis/Indication Diagnosis SNOMED-CT Code [id number] MD LASHANDA [facility] [address] [place] [address] 08/29/2020 10:05:20 08/30/2020 10:47:37 History of calculus of kidney 647159319 Lower urin roland tract symptoms due to benign prostatic hypertrophy 13306651509988 Testostero ne level below reference range 394382535 [id number] MD LASHANDA [facility] [address] [place] [address] 06/17/2022 11:08:04 06/25/2022 15:53:24 Testosterone level below reference range 354024627 Kidney stone 30409543 Prostate s pecific antigen above reference range 506383533 Balanitis 05076962 [id number] MD LASHANDA [facility] [address] [place] [address] 12/16/2022 10:55:53 12/23/2022 18:02:14 Testosterone level below reference range 306789615 Prostate s pecific antigen above reference range 432257687 Kidney stone 25031355 [id number] MD LASHANDA [facility] [address] [place] [address] 06/14/2023 11:34:15 06/22/2023 19:21:50 Testosterone level below reference range 119341830 Prostate s pecific antigen above reference range 207833016 Kidney stone 88807505 Nocturia 132715310 Health Concerns Section Related Observation LastModified by Organization Detai ls LastModified Time None Recorded Concern Status LastModified by Organization Details LastModified Time None Recorded Advance Directives Directive None Recorded Payers Encounter Date Sequence Insurance Name Policy Number Policy Amin Covered Member ID Amin Member ID Guarantor Name 06/14/2023 1 [employer] (MEDICARE REPLACEMENT/ ADVANTAGE - PPO) Chao Hernandez [id number] Chao Bradleyt 12/16/2022 1 [employer] (MEDICARE REPLACEMENT/ ADVANTAGE - PPO) Chao Hernandez [id number] Chao Loyolaecht 06/17/2022 1 [employer] (MEDICARE REPLACEMENT/ ADVANTAGE - PPO) Chao Hernandez [id number] Chao Loyolaecht 08/29/2020 1 [employer] (MEDICARE REPLACEMENT/ ADVANTAGE - PPO) Chao Hernandez [id number] Chao Bradleyt Notes Date Note Type Note Provider Name and Address Organization Details Recorded Time 08/29/2020 text/html HPI Notes: 74 yo male with H/O kidney stones, low Testosterone, and BPH - was noted to have blood in the urine. CT Urogram (06/28/18) revealed a 3 mm stone in proximal Right ureter. He underwent Right ureteroscopy with laser lithotripsy on 11/16/19. He was on Androgel in the past - did not help with libido. He has ED - unable to obtain or maintain erections. He is on Flomax 0.4 mg daily and Urocit K - 10 mEq BID. 05/27/20 - He present for follow-up on kidney stones. He denies trauma to the area. He has more pain with sitting. He reports an episode of balanitis - treated with Lotrisone cream. He voids every 2-5 hours during the day and 2x/night. He denies hesitancy, slow stream, urgency, and dysuria. 08/29/2020 - He presents today for follow-up o kidney stones and low Testosterone / libido. He denies abdominal or flank pain. He reports no change in libido or ED. He voids every 2-4 hours during the day and 2x/night. PSA - 0.29 (06/24/06) - 0.35 (06/05/10) - 0.57 (06/23/11) - 0.35 (07/04/18) Testosterone - 152 ng (07/02/15) - 48 ng (07/04/18) - Free - 1.82 CT Urogram (06/28/18) - Bilateral renal cysts - Right - 1 mm stone (lower pole) - 3 mm stone (prox ureter) - Left - no stones 24 Hr urine (07/15/18) - low UO (1.66 L) - high Oxalate (44 mg) - low Citrate (139 mg) - high Sodium (187 mg) - normal - Calcium (152 mg) - Mg (116 mg) - Phos (1.31.5) - Uric acid (0.395) 24 Hr urine (06/11/20) - high Uric acid (0.994) - high Sodium (253 mg) - normal - UO (3.3 L) - Calcium (184 mg) - Oxalate (30 mg) - Citrate (781 mg) - Mg (163 mg) - Phos (1.165) - ph (5.65) This visit was conducted by telephone due to the COVID-19 crisis. Prior to conducting our telephone visit, the patient was apprised of the risks, benefits and alternatives to telephone visits including but not limited to poor audio quality, interrupted visits due to technological limitations, delays in medical evaluation and treatment due to deficiencies or failures of equipment, failure of security protocols resulting in a breach of privacy of personal medical information and a lack of access to complete medical records resulting in not fully informed decisions. Also, because of the COVID-19 pandemic, it was not possible for the patient to sign the privacy regulations, HIPAA release and assignment of benefits forms. The patient was given the opportunity to ask questions about these policies and gave verbal acknowledgement and approval of these policies as well as to hold this meeting by telephone. Lastly, the patient agreed to allowing their medication history to be pulled from a national pharmacy database to facilitate and coordinate their care. Goyo Zhang MD [address] [place] [address],[address], [place], [address], [facility] 08/29/2020 18:16:21 06/17/2022 text/html HPI Notes: 76 yo male with H/O kidney stones, low Testosterone, and BPH. CT Urogram (06/28/18) revealed a 3 mm stone in proximal Right ureter. He underwent Right ureteroscopy with laser lithotripsy on 4/23/20. He was on Androgel in the past - did not help with libido. He tried Testosterone 300 mg IM q2 months. He has ED - unable to obtain or maintain erections. He is on Flomax 0.8 mg daily and Urocit K - 1- mEq BID. He is on Xyosted 100 mg IM weekly. 09/22/21 - He present for follow-up on Testosterone. He denies increase libido or energy. He voids every 2-5 hours during the day and 2-3x/night. He has occasional urgency and slow stream. He denies urgency, and dysuria. He denies abdominal or flank pain. He notes penile itching rash. 06/17/22 - He presents for follow-up on low testosterone. He states his energy levels are okay (not great). He voids every 2-4 hours during the day and 3x/night. He notes hesitancy (at night and AM). His if very ill (H/O COVID and skin cancer - s/p Renal Tx) PSA - 0.29 (06/24/06) - 0.35 (06/05/10) - 0.57 (06/23/11) - 0.35 (07/04/18) - 1.05 (03/21/21) - 1.38 (09/19/21) - 1.37 (03/03/22) Testosterone - 152 ng (07/02/15) - 48 ng (07/04/18) - Free - 1.82 - 357 ng (11/29/20) - 413 ng (03/21/21) - 440 ng (09/19/21) - 685 (03/02/22) Hgb - 12.1 (11/15/20) - 17.0 (03/03/22) CT Urogram (06/28/18) - Bilateral renal cysts - Right - 1 mm stone (lower pole) - 3 mm stone (prox ureter) - Left - no stones 24 Hr urine (07/15/18) - low UO (1.66 L) - high Oxalate (44 mg) - low Citrate (139 mg) - high Sodium (187 mg) - normal - Calcium (152 mg) - Mg (116 mg) - Phos (1.31.5) - Uric acid (0.395) 24 Hr urine (06/11/20) - high Uric acid (0.994) - high Sodium (253 mg) - normal - UO (3.3 L) - Calcium (184 mg) - Oxalate (30 mg) - Citrate (781 mg) - Mg (163 mg) - Phos (1.165) - pH (5.65) Goyo Zhang MD [address] [place] [address],[address], [place], [address], [facility] 06/17/2022 15:32:23 12/16/2022 text/html HPI Notes: 77 yo male with H/O kidney stones, low Testosterone, and BPH. CT Urogram (06/28/18) revealed a 3 mm stone in proximal Right ureter. He underwent Right ureteroscopy with laser lithotripsy on 11/16/19. He was on Androgel in the past - did not help with libido. He tried Testosterone 300 mg IM q2 months. He has ED - unable to obtain or maintain erections. He is on Flomax 0.8 mg daily and Urocit K - 1- mEq BID. He is on Xyosted 100 mg IM weekly. 09/22/21 - He present for follow-up on Testosterone. He denies increase libido or energy. He voids every 2-5 hours during the day and 2-3x/night. He has occasional urgency and slow stream. He denies urgency, and dysuria. He denies abdominal or flank pain. He notes penile itching rash. 06/17/22 - He presents for follow-up on low testosterone. He states his energy levels are okay (not great). He voids every 2-4 hours during the day and 3x/night. He notes hesitancy (at night and AM). His if very ill (H/O COVID and skin cancer - s/p Renal Tx) 12/16/22 - He presents for follow-up on low testosterone. He states his energy low to okay. He voids okay - every 2-4 hours during the day and 3x/night. He still has hesitancy. His is still sick - currently undergoing treatment for skin cancer. - CT scan (12/16/22) - no stones - Bilateral renal cysts PSA - 0.29 (06/24/06) - 0.35 (06/05/10) - 0.57 (06/23/11) - 0.35 (07/04/18) - 1.05 (03/21/21) - 1.38 (09/19/21) - 1.37 (03/03/22) - 1.4 (11/05/22) Testosterone - 152 ng (07/02/15) - 48 ng (07/04/18) - Free - 1.82 - 357 ng (11/29/20) - 413 ng (03/21/21) - 440 ng (09/19/21) - 685 (03/02/22) - 444 (11/05/22) Hgb - 12.1 (11/15/20) - 17.0 (03/03/22) - 16.9 (11/05/22) CT Urogram (06/28/18) - Bilateral renal cysts - Right - 1 mm stone (lower pole) - 3 mm stone (prox ureter) - Left - no stones CT scan (12/16/22) - no stones - Bilateral renal cysts 24 Hr urine (07/15/18) - low UO (1.66 L) - high Oxalate (44 mg) - low Citrate (139 mg) - high Sodium (187 mg) - normal - Calcium (152 mg) - Mg (116 mg) - Phos (1.31.5) - Uric acid (0.395) 24 Hr urine (06/11/20) - high Uric acid (0.994) - high Sodium (253 mg) - normal - UO (3.3 L) - Calcium (184 mg) - Oxalate (30 mg) - Citrate (781 mg) - Mg (163 mg) - Phos (1.165) - pH (5.65) Goyo Zhang MD [address] [facility],[address], [place], [address], [facility] 12/18/2022 11:01:51 06/14/2023 text/html HPI Notes: 77 yo male with H/O kidney stones, low Testosterone, and BPH. CT Urogram (06/28/18) revealed a 3 mm stone in proximal Right ureter. He underwent Right ureteroscopy with laser lithotripsy on 11/16/19. He was on Androgel in the past - did not help with libido. He tried Testosterone 300 mg IM q2 months. He has ED - unable to obtain or maintain erections. He is on Flomax 0.8 mg daily and Urocit K - 1- mEq BID. He is on Xyosted 100 mg IM weekly. 06/17/22 - He presents for follow-up on low testosterone. He states his energy levels are okay (not great). He voids every 2-4 hours during the day and 3x/night. He notes hesitancy (at night and AM). His if very ill (H/O COVID and skin cancer - s/p Renal Tx) 12/16/22 - He presents for follow-up on low testosterone. He states his energy low to okay. He voids okay - every 2-4 hours during the day and 3x/night. He still has hesitancy. His is still sick - currently undergoing treatment for skin cancer. 06/14/23 - He presents for follow-up on Low Testosterone. He states his energy levels are okay. He every 2-4 hours during the day and 3x/night. No dysuria - occasional urgency. He states the Xyosted is expensive. - PVR - 39mL PSA - 0.29 (06/24/06) - 0.35 (06/05/10) - 0.57 (06/23/11) - 0.35 (07/04/18) - 1.05 (03/21/21) - 1.38 (09/19/21) - 1.37 (03/03/22) - 1.4 (11/05/22) Testosterone - 152 ng (07/02/15) - 48 ng (07/04/18) - Free - 1.82 - 357 ng (11/29/20) - 413 ng (03/21/21) - 440 ng (09/19/21) - 685 (03/02/22) - 444 (11/05/22) - 498 (06/03/23) Hgb - 12.1 (11/15/20) - 17.0 (03/03/22) - 16.9 (11/05/22) CT Urogram (06/28/18) - Bilateral renal cysts - Right - 1 mm stone (lower pole) - 3 mm stone (prox ureter) - Left - no stones CT scan (12/16/22) - no stones - Bilateral renal cysts 24 Hr urine (07/15/18) - low UO (1.66 L) - high Oxalate (44 mg) - low Citrate (139 mg) - high Sodium (187 mg) - normal - Calcium (152 mg) - Mg (116 mg) - Phos (1.31.5) - Uric acid (0.395) 24 Hr urine (06/11/20) - high Uric acid (0.994) - high Sodium (253 mg) - normal - UO (3.3 L) - Calcium (184 mg) - Oxalate (30 mg) - Citrate (781 mg) - Mg (163 mg) - Phos (1.165) - pH (5.65) Goyo Zhang MD [address] [place] [address],[address], [place], [address], [facility] 06/14/2023 21:53:19
== END 2023-11-16 08:41 | disposition home or self-care (01) ==
LOC: CT 08:41
PROVIDERS: PCP Family Medicine; Visit Provider Orthopaedic Surgery Sports Medicine
DX: M19.012 Primary osteoarthritis, left shoulder (principal)
CPT/HCPCS: 73200

== ENCOUNTER 2023-12-01 06:54 | Day surgery (SDC) | payer OTHER, SELFPAY ==
[2023-12-01] VITALS (25 sets, daily range): BP systolic 109–150; BP diastolic 52–116; PULSE 76–116; RESP 16–24; TEMP 36.3–37; O2SAT 89–97; BMI 37.3
--- OUTSIDE RECORDS SUMMARY | 2023-12-01 06:56 | XMS_ITS | Encounter Summary ---
Author Name Unknown Organization [facility] Address [address] [place] [address] Care Team Providers Care Ditching Machine Operator Name Role Phone Unavailable Primary Care Provider Unavailabl e Encounter Details Date Type Department Care Team (Latest Contact Info) Description 10/22/2023 11:26 AM PDT - 10/22/2023 12:01 PM PDT Hospital Encounter [facility] XRAY Imaging [address] [place] [address] Discharge Disposition: Home or Self Care Social [...]
--- OUTSIDE RECORDS SUMMARY | 2023-12-01 06:56 | XMS_ITS | Encounter Summary ---
Author Name Unknown Organization [facility] Address [address] [place] [address] Care Team Providers Care Harness Preparer Name Role Phone Unavailable Primary Care Provider Unavailenid e Encounter Details Date Type Department Care Team (Late st Contact Info) Description 10/22/2023 12:00 PM PDT Anesthesia Event [facility] Emergency [address] [place] [id number] Lewis Suh, MARION, PATHOLOGY LABORATORY AIDES TEACHER [address] [place] [address] Anesthesia Record Procedure Summary Procedure Name Responsible Anesthesiologist Anesthesia Start Time Anesthesia Stop Time ANESTHESIA UNSCHEDULED MAC Lewis Suh APRN, PATHOLOGY LABORATORY AIDES TEACHER 10/22/23 1200 10/22/23 1246 Events Date Time [...]
--- OUTSIDE RECORDS SUMMARY | 2023-12-01 06:56 | XMS_ITS | Encounter Summary ---
Author Name Unknown Organization [facility] Address [address] [place] [address] Care Team Providers Care Automotive Electrician Name Role Phone Unavailable Primary Care Provider Unavailabl e Encounter Details Date Type Department Care Team (Latest Contact Info) Description 10/22/2023 12:02 PM PDT - 10/22/2023 11:59 PM PDT Hospital Encounter [facility] XRAY Imaging [address] [place] [address] Discharge Disposition: Home or Self Care Social [...]
--- OUTSIDE RECORDS SUMMARY | 2023-12-01 06:56 | XMS_ITS | Clinical Summary ---
Author Name Unknown Organization [facility] Address [address] [place] [address] Care Team Providers Care Clerical Aide Name Role Phone Unavailable Primary Care Provider [...] right sided stone needing laser lithotripsy at [facility] and stent. Hematuria, gross 06/27/2018 Overview: May [...] lovastatin due only to cost. November 2012: Newman changed back to lipitor due to worsening [...] - 10/22/2023 11:59 PM PDT Hospital Encounter [facility] XRAY Imaging [address] [place] [address] Discharge Disposition: Home or Self Care 10/22/2023 12:00 PM PDT Anesthesia Event [facility] Emergency [address] [place] [phone] Lewis Suh APRN, PAINTER SET 10/22/2023 11:26 AM PDT - 10/22/2023 12:01 PM PDT Hospital Encounter [facility] XRAY Imaging [address] [place] [address] Discharge Disposition: Home or Self Care 10/22/2023 11:20 AM PDT - 10/22/2023 4:15 PM PDT Emergency [facility] Emergency [address] [place] [address] Singh Mann MD Pain (Primary Dx); Dislocation of left shoulder joint, initial encounter Discharge Disposition: Home or Self Care from Last 3 Months Immunizations Name Administration Dates Next Due Flu, High Dose, 65y+, Fluzon e High Dose 04/27/2022 Flu, Preservative Free 04/30/2021,04/15/2020 INFLUENZA, SEASONAL, INJECTABLE 05/09/20 13,05/19/2012,05/26/2011,04/30 INFLUENZA,HIGH DOSE SEASONAL 03/09/2016, 04/30/2015,04/20/2014,04/20 Influenza, Trivalent, Adjuvanted 04/07/2019,1002/2018,05/07/2017 Novel [id number], preservative-free, injectable 06/25/2009 PNEUMOCOCCAL CONJUGATE PCV 13 07/03/2015 PNEUMOCOCCAL POLYSACCHARIDE PPV23 06/05/2010,07/2008 CompuMedNTRevelation COVID-19 Vac cine Bivalent, (NEGRO PFIZER-BIONTECH COVID-19 [...] Completed 04/08/2023, 09/2021, 04/30/2021, Additional history exists [id number] Completed 10/12/2023, 04/25, 04/10/2022, Additional history exists [...] dislocation and stiffness ??Alternatives discussed: ??No treatment [place] protocol: ??Patient identity confirmed: ??Verbally with patient [...] - 11.0 10*3/uL 10*3/uL 10/22/2023 12:02 PM [facility] RBC 5.33 4.30 - 5.90 10*6/uL 10/22/2023 12:02 PM [facility] Hemoglobin 16.5 13.5 - 17.5 g/dL g/dL 10/22/2023 12:02 PM [facility] Hematocrit 52.1 37.0 - 53.0% % 10/22/2023 12:02 PM [facility] MCV 97.7 80 - 100 fL fL 10/22/2023 12:02 PM [facility] MCH 31.0 26.0 - 34.0 pg pg 10/22/2023 12:02 PM [facility] MCHC 31.7(A) 32.0 - 36.0 g/dL 10/22/2023 12:02 PM [facility] RDW 14.0 11.5 - 15.5 % 10/22/2023 12:02 PM [facility] Platelets 201.0 140.0 - 440.0 10*3/uL 10/22/2023 12:02 PM [facility] IPF, Immature Platelet Fraction 7.6 0.9 - 11.2 % 10/22/2023 12:02 PM [facility] Neutrophils Relative % 79.5(A) 42.0 - 72.0 % 10/22/2023 12:02 PM [facility] Lymphocytes Relative 11.3(A) 20.0 - 44.0 % 10/22/2023 12:02 PM [facility] Monocytes Relative 6.4 <12.0 % 10/22/2023 12:02 PM [facility] Eosinophils Relative 0.6 <8.0 % 10/22/2023 12:02 PM [facility] Basophils Relative 0.3 <3.0 % 10/22/2023 12:02 PM [facility] Neutrophils Abs Auto 11.84(A) 1.70 - 7.00 10*3/uL 10/22/2023 12:02 PM [facility] Lymphocytes Absolute 1.68 0.90 - 2.90 10*3/uL 10/22/2023 12:02 PM [facility] Monocytes Absolute 0.96(A) <0.90 10*3/uL 10/22/2023 12:02 PM [facility] Eosinophils Absolute 0.09 <=0.50 10*3/uL 10/22/2023 12:02 PM [facility] Basophils Absolute 0.04 <0.30 10*3/uL 10/22/2023 12:02 PM [facility] nRBC 0.0 /100 WBCs 10/22/2023 12:02 PM [facility] NUCLEATED RBC (ABSOLUTE) 0.00 10*3 cells/uL 10/22/2023 12:02 PM [facility] IMMATURE GRANULOCYTE%(AUT O) 1.9 10/22/2023 12:02 PM [facility] Absolute Immature Granulocyte 0.28 <=0.3 10*3/uL 10/22/2023 12:02 PM [facility] Blood (Blood, Venous) Venipuncture / Unknown 10/22/2023 11:57 AM CDT 10/22/2023 11:59 AM CDT Singh Mann MD LAB BLOOD ORDERABL ES [facility] [address] [place] [address], * (ABNORMAL) Comprehensive metabolic panel (10/22/2023 11:57 AM CDT) Sodium 135.0(A) 137 - 145 mmol/L mmol/L 10/22/2023 12:20 PM [facility] Potassium 4.4 3.5 - 5.1 mmol/L mmol/L 10/22/2023 12:20 PM [facility] Chloride 101 98 - 107 mmol/L mmol/L 10/22/2023 12:20 PM [facility] CO2 27.0 22 - 30 mmol/L mmol/L 10/22/2023 12:20 PM [facility] Anion Gap 7 3 - 11 mmol/L mmol/L 10/22/2023 12:20 PM [facility] BUN 18.0 9 - 20 mg/dL mg/dL 10/22/2023 12:20 PM [facility] Creatinine 0.85 0.66 - 1.25 mg/dL mg/dL 10/22/2023 12:20 PM [facility] BUN/Creatinine Ratio 21.18 10/22/2023 12:20 PM [facility] Glucose 271(A) 75 - 100 mg/dL mg/dL 10/22/2023 12:20 PM [facility] Calcium 9.3 8.4 - 10.2 mg/dL 10/22/2023 12:20 PM [facility] AST 29 17 - 59 U/L U/L 10/22/2023 12:20 PM [facility] ALT (SGPT) 38 <50 U/L U/L 10/22/2023 12:20 PM [facility] Alkaline Phosphatase 65 38 - 126 U/L U/L 10/22/2023 12:20 PM [facility] Total Protein 6.9 6.3 - 8.2 g/dL 10/22/2023 12:20 PM [facility] Albumin 4.0 3.5 - 5.0 g/dL g/dL 10/22/2023 12:20 PM [facility] Total Bilirubin 1.6(A) 0.2 - 1.3 mg/dL mg/dL 10/22/2023 12:20 PM [facility] eGFR 87.8(A) >90.0 mL/min/1.7 3m*2 10/22/2023 12:20 PM [facility] Blood (Blood, Venous) Venipuncture / Unknown 10/22/2023 11:57 AM CDT 10/22/2023 11:59 AM T Singh Mann MD LAB BLOOD ORDERABL ES [facility] [address] [place] [address], from Last 3 Months Insurance Payer Benefit Plan / Group Subscriber ID Effective Dates Phone Address Type [employer] GOLD CHOICE MEDICARE [employer] MED[employer]ARE CHOICE PLAN [id number] [address] [address] [place] [address] Medicare
--- OUTSIDE RECORDS SUMMARY | 2023-12-01 06:57 | XMS_ITS | Clinical Summary ---
Author Name Unknown Organization [employer] [facility] [employer] [facility] Address [place], [place] [address] Care Team Providers Care Principal Administrative Clerk Name Role Phone Goyo Zhang MD Unavailable [phone] Miladis Armstrong MD Unavailable [phone] Lewis Porter Unavailable [phone] Maximo Christy MD Primary Care Provider [phone] Allergies Active Allergy Reactions Criticality Noted Date [...] mouth every 6 hours if needed. Active ciprofloxacin-dex AMETHasone (CIPRODEX) otic suspensionIndicat ions:Otorrhea of left ear Place 4 Drops into left ear two times daily for 7 days. 6 mL 4 12/01/19 24 Active CPAPIndications:O SA on CPAP New CPAP [...] right sided stone needing laser lithotripsy at [facility] and stent. Hematuria, gross 06/27/2018 Overview: May [...] 03/31/2013 Overview: Approximately since 2006, [place] Diagnosis. 2012: tried gabapentin top dose with minimal to [...] = 84. ~ Dr. Cueva [facility]ocr[facility] at [place], June 2010: suggested yearly cortisol and TSH/T4 [...] lovastatin due only to cost. November 2012: [place] changed back to lipitor due to worsening [...] Encounters Date Type Department Care Team Description 11/25/2023 Telephone [facility] [address] [place] [address] Maximo Christy MD Questions 11/24/2023 8:30 AM CDT Office Visit [facility] [id number] [place] [phone] Lewis Dhaliwal MD Recheck (Left ear feels same, left still plugged.) 11/24/2023 8:00 AM CDT Office Visit [facility] [address] [place] [phone] Luis Lundy, Rose Hearing Problem 11/24/2023 Travel 11/15/2023 Orders Only [facility] [address] [place] [address] Renu Munguia, R.T. (ARRT) 1 scan: (1-Ord) NFLD-EKG-11/11/23 11/11/2023 2:40 PM CDT Office Visit [facility] [address] [place] [address] Maximo Christy MD Preoperative Exam (DOS: 12/01/2023 LEFT Shoulder Replacement/Dr Marcano at the [facility]/LEFT Shoulder Dislocation DOI 10/22/2023) 11/11/2023 Travel 11/09/2023 3:00 PM CDT Office Visit [facility] [address] [place] [address] Binu Dumas MD Sleep Follow-up (cpap) 11/09/2023 Travel 11/08/2023 Telephone [facility] [address] [place] [address] Binu Dumas MD DME Supply (BROKEN CPAP MACHINE) 11/06/2023 Orders Only [facility] Scanner 1 scan: (1-Ord) RESMED, CPAP, 11/06/2023 11/05/2023 Telephone [facility] [address] [place] [address] Maximo Christy MD Form (HANDICAP PARKING PERMIT ) 09/15/2023 8:45 AM WASTE EXAMINER Office Visit [address] [phone] Lewis Dhaliwal MD Recheck (Left ear pe tube. Still using ear gtts. ) 09/15/2023 Travel 09/10/2023 8:15 AM WASTE EXAMINER Office Visit [facility] [address] [place] [address] Maximo Christy MD Diabetes (Last Diabetic Check: 04/09/2023/Last Diabetic Eye Exam: 04/17/2021/Last Diabetic Education: 03/19/2011) 09/10/2023 Travel from Last 3 Months Immunizations Name Administration Dates Next Due AMB INFLUENZA IIV3 (AGE 65+ YRS) PF (Flu Clinic Only) 05/07/2017 Amb Influenza, Inact (High-d ose) (Flu Clinic Only) 04/20/2014 COVID-19 vaccine (Nutrabolt 30mcg/0.3mL) 12YO+ BIVALENT PF, MDV 04/10/2022 COVID-19 vaccine (Earthineer-Bio NTech 30mcg/0.3mL) 12YO+ VICENTA-SUCROSE PF, MDV 11/04/2021 COVID-19 vaccine (Earthineer-Bio NTech 30mcg/0.3mL) PF, MDV 09/24/2020,09/03/2020 Influenza A (H1N1), Inactiva kelley (Age >=3 Years) 06/25/2009 Influenza, High-dose Inactivated 03/09/2016,0 12/2014,04/20/2014 Influenza, High-dose Quadriv alent Inactivated 04/27/2022 [...] Care Team (Late st Contact Info) Description 01/10/2024 8:15 AM CDT Office Visit [facility] [address] [place] [address] Maximo Christy MD [address] [place] [address] 02/16/2024 8:45 AM CDT Office Visit [facility] [address] [place] [phone] Lewis Dhaliwal MD [address] [facility] [address] [place] [address] Health Maintenance Due Date Last Done Comments [...] 12/03/2021, 09/29/2021, 11/06/2011 COVID-19 vaccine series Completed 10/12/19, 05/12/2023, 04/10/2022, Additional history exists Medical Devices Implanted Type Area Thermostat Machine Tender Device Identifier Shelf Expiration Date Model / Serial / Lot Lens Iol [id number] 20.5 - [id number] Implanted:Qty: 1 on 01/15/2014 by Manuel Latham MD at [facility] Right: [employer] 02/14/2017 [id number] / [id number] / Lens Iol [id number] 20.5 - [id number] Implanted:Qty: 1 on 02/05/2014 by Manuel Latham MD at [facility] Left: [employer] 02/05/2018 [id number]# / [id number] / Stent Uret [id number] Contour - [id number] Implanted:Qty: 1 on 11/16/2019 by Isaiah Fagan MD at [facility] Right: [employer] [facility] 06/25/2022 [id number] / / [id number] Procedures Procedure Name Priority Date/Time Associated Diagnosis Comments HI READING EKG - NO CHARGE, COMP ONLY [...] CREATININE RATIO, RANDOM Routine 09/10/2023 8:29 AM WASTE EXAMINER Type 2 diabetes mellitus without complication, without long-term current use of insulin (HC) HEMOGLOBIN A1C Routine 09/10/2023 8:20 AM WASTE EXAMINER Type 2 diabetes mellitus without complication, without long-term current use of insulin (HC) from Last 3 Months Results * EKG 12 LEAD (11/15/2023 12:21 PM CDT) Maximo Christy MD EKG ORD * HI READING EKG - NO CHARGE, COMP ONLY (11/15/2023 12:21 PM CDT) Maximo Christy MD PB - PROVIDER SACHA FLEMING * (ABNORMAL) CBC WITH AUTO DIFFERENTIAL (11/11/2023 3:43 PM CDT) WHITE BLOOD COUNT 11.7(H) 4.5 - 11.0 thou/cu mm 11/11/2023 4:07 PM CDT [facility] RED BLOOD COUNT 5.29 4.30 - 5.90 mil/cu mm 11/11/2023 4:07 PM CDT [facility] HEMOGLOBIN 16.7 13.5 - 17.5 g/dL 11/11/2023 4:07 PM CDT [facility] HEMATOCRIT 51.7 37.0 - 53.0 % 11/11/2023 4:07 PM CDT [facility] MCV 98 80 - 100 fL 11/11/2023 4:07 PM CDT [facility] MCH 31.6 26.0 - 34.0 pg 11/11/2023 4:07 PM CDT [facility] MCHC 32.3 32.0 - 36.0 g/dL 11/11/2023 4:07 PM CDT [facility] RDW 15.1 11.5 - 15.5 % 11/11/2023 4:07 PM CDT [facility] PLATELET COUNT 255 140 - 440 thou/cu mm 11/11/2023 4:07 PM CDT [facility] MPV 10.6 6.5 - 11.0 fL 11/11/2023 4:07 PM CDT [facility] Blood BLOOD SPECIMEN / Unknown Venipuncture / Unknown 11/11/2023 3:43 PM CDT 11/11/2023 3:44 PM CDT Maximo Christy MD HEMATOLOGY [facility] [address] [place] [address], * RED CELL MORPHOLOGY (11/11/2023 3:43 PM CDT) Pathologist [facility] RBC COMMENT RBC morphology appears normal RBC morphology appears normal, RBC morphology within normal limits for newborns. 11/11/2023 4:06 PM CDT [facility] Blood BLOOD SPECIMEN / Unknown Venipuncture / Unknown 11/11/2023 3:43 PM CDT 11/11/2023 3:44 PM CDT Maximo Christy MD HEMATOLOGY Performing Organization Address City/[facility]/ZIP Co de Phone Number [facility] [address] [place] [address], * PLATELET ESTIMATE (11/11/2023 3:43 PM CDT) PLATELET ESTIMATE Adequate Adequate, No estimate 11/11/2023 4:06 PM CDT [facility] Blood BLOOD SPECIMEN / Unknown Venipuncture / Unknown 11/11/2023 3:43 PM CDT 11/11/2023 3:44 PM CDT Maximo Christy MD HEMATOLOGY Performing Organization Address City/[facility]/ZIP Co de Phone Number [facility] [address] [place] [address], * (ABNORMAL) MANUAL DIFFERENTIAL (11/11/2023 3:43 PM CDT) % NEUTROPHILS 62.0 % 11/11/2023 4:06 PM CDT [facility] % LYMPHOCYTES 28.0 % 11/11/2023 4:06 PM CDT [facility] % MONOCYTES 9.0 % 11/11/2023 4:06 PM CDT [facility] % EOSINOPHILS 1.0 % 11/11/2023 4:06 PM CDT [facility] % BASOPHILS 0.0 % 11/11/2023 4:06 PM CDT [facility] NEUTROPHILS ABSOLUTE 7.3(H) 1.7 - 7.0 thou/cu mm 11/11/2023 4:06 PM CDT [facility] LYMPHOCYTES ABSOLUTE 3.3(H) 0.9 - 2.9 thou/cu mm 11/11/2023 4:06 PM CDT [facility] MONOCYTES ABSOLUTE 1.1(H) <0.9 thou/cu mm 11/11/2023 4:06 PM CDT [facility] EOSINOPHILS ABSOLUTE 0.1 <0.5 thou/cu mm 11/11/2023 4:06 PM CDT [facility] BASOPHILS ABSOLUTE 0.0 <0.3 thou/cu mm 11/11/2023 4:06 PM CDT [facility] Blood BLOOD SPECIMEN / Unknown Venipuncture / Unknown 11/11/2023 3:43 PM CDT 11/11/2023 3:44 PM CDT Maximo Christy MD HEMATOLOGY [facility] [address] [place] [address], * POTASSIUM (11/11/2023 3:43 PM CDT) POTASSIUM 4.5 3.5 - 5.1 mmol/L 11/12/2023 2:57 PM CDT [facility] Blood BLOOD SPECIMEN / Unknown Venipuncture / Unknown 11/11/2023 3:43 PM CDT 11/11/2023 3:44 PM CDT Maximo Christy MD [facility]STRY [facility] [address] [place] [address], * (ABNORMAL) CREATININE (11/11/2023 3:43 PM CDT) eGFR 79(L) >90 mL/min/1.7 3m2 11/12/2023 2:57 PM CDT [facility] Comment:As of 2021, eG FR is calculated by the CKD-EPI creatinine equation without race adjustment. ??eGFR can be influenced by muscle mass, exercise, and diet. ??The reported eGFR is an estimation only and is only applicable if the renal function is stable. CREATININE 0.97 0.70 - 1.20 mg/dL 11/12/2023 2:57 PM CDT [facility] Blood BLOOD SPECIMEN / Unknown Venipuncture / Unknown 11/11/2023 3:43 PM CDT 11/11/2023 3:44 PM CDT Maximo Christy MD CHEMISTRY Performing Organization Address [facility] Co de Phone Number [facility] [address] [address], [place] * SCAN-DIAGNOSTIC REPORT (11/06/2023 12:00 AM CDT) Scanner OTHER * URINE ALBUMIN TO CREATININE RATIO, RANDOM (09/10/2023 8:29 AM WASTE EXAMINER) ALB RAND URINE 13.2 mg/L 09/10/2023 4:25 PM WASTE EXAMINER [facility] CREATININE,URIN E 0.71 g/L 09/10/2023 4:25 PM WASTE EXAMINER [facility] ALBUMIN TO CREATININE RATIO,RAND UR 18.6 <30.0 mg/g creat 09/10/2023 4:25 PM WASTE EXAMINER [facility] Urine URINE SPECIMEN / Unknown Non-Blood / Unknown 09/10/2023 8:29 AM WASTE EXAMINER 09/10/2023 8:29 AM WASTE EXAMINER Narrative [facility] - 09/10/2023 4:25 PM WASTE EXAMINER If Albumin to Creatinine Ratio is elevated, consider the following: ? Elevations seen with incipient nephropathy associated ?? with diabetes mellitus or hypertension. Stress, exercise,hematuria, ?? and urinary tract infection may also produce elevated results. If clinically indicated, confirm with ?24 Hour Albumin to Creatinine Ratio. ?? Maximo Christy MD URINE Performing Organization Address [facility] Co de Phone Number [facility] [address] [place] [id number], [place] * (ABNORMAL) HEMOGLOBIN A1C MONITORING (POCT) (09/10/2023 8:20 AM WASTE EXAMINER) HEMOGLOBIN A1C MONITORING (POCT) 7.6(H) <=6.4 % 09/10/2023 8:32 AM WASTE EXAMINER [facility] Blood BLOOD SPECIMEN / Unknown Venipuncture / Unknown 09/10/2023 8:20 AM WASTE EXAMINER 09/10/2023 8:22 AM WASTE EXAMINER Narrative [facility] - 09/10/2023 8:32 AM WASTE EXAMINER ? (<=6.9%) ? Indicates good control ? (7.0% to 7.9%) ? Indicates fair control ? (>=8.0%) ? Indicates poor control ?? NOTE: ??These thresholds are guidelines and ?individual targets may vary. Falsely low levels may be seen with: Recent Transfusion, Recent Significant Blood Loss, Hemolytic Diseases, or Falsely elevated levels may be seen with: Untreated Anemias, Splenectomy ? Maximo Christy MD CHEMISTRY [facility] [address] [place] [address], [place] [phone] from Last 3 Months Advance Directives * [...] 2:18 PM 01/04/2014 2:39 AM Care Teams Principal Administrative Clerk Relationship Specialty Start Date End Date Maximo Christy MD [address] [place] [address] PCP - General Family Practice 11/05/22 Goyo Zhang MD Urology Surgery - Urology 06/30/19 Miladis Armstrong MD [address] [place] [address] Ophthalmology Surgery - Ophthalmology 06/30/19 Lewis Porter [address] [address] Dermatology Dermatology 06/30/19
--- OUTSIDE RECORDS SUMMARY | 2023-12-01 06:57 | XMS_ITS | Data Portability ---
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 Plan of Treatment Reminders Order Date Submit Date Provider Last Modified By Organization Details Last Modified Time Details Appointments ESTABLISH ED 20 2023 10:30A Dominick Zhang MD Not available Not available Not available Lab PSA, serum or plasma 2022 023 [id number] 0 [facility], [address] [place], [address], 06/21/2023 09:12:06 testoster one, total, serum 2022 023 [id number] 0 [facility], [address] [place], [address], 06/21/2023 09:12:06 hemoglobi n (Hb), blood 2022 023 0 [facility], [address] [place], [address], 06/21/2023 09:12:06 testoster one, total, serum - Needed May 20232022 023 [id number] 0 [facility], [address] [place], [address], 12/28/2022 09:18:55 PSA, total, serum or plasma 2021 022 [id number] 0 [facility], [address], [place], [address], 06/25/2022 09:16:50 testoster one, total, serum 2021 022 [id number] 0 [facility], [address] [place], [address], 06/25/2022 09:16:49 hemoglobi n (Hb), blood 2021 022 [id number] 0 [facility], [address], [place], [address], 06/25/2022 09:16:50 Referral None recorded. Procedures None recorded. Surgeries None recorded. Imaging CT, abdomen + pelvis, w/o contrast - Follow up visit with Dr. Zhang 12/16 10:30 AM, NO PREV 2021 022 [facility] , [facility] [address], [place], [address], 12/16/2022 13:43:27 Medication Orders Gemtesa 75 mg tablet 2022 023 [facility], [address] , [place], [address], 06/14/2023 11:59:52 testoster one cypionate 200 mg/mL intramusc ular oil 2022 023 [facility], [address], [place], [address], 06/14/2023 11:59:54 Xyosted 100 mg/0.5 mL subcutane ous auto-inje ctor 2022 023 [facility], [address], [place], [address], 12/16/2022 12:01:17 potassium citrate ER 10 mEq (1,080 mg) tablet,ex tended release 2021 [facility], [address] , [place], [address], 06/17/2022 11:51:48 Diflucan 150 mg tablet 2021 [facility], [address] , [place], [address], 12/16/2022 11:32:44 Xyosted 100 mg/0.5 mL subcutane ous auto-inje ctor 2021 [facility], [address], [place], [address], 06/17/2022 11:44:10 Patient TargetsNo targets recorded. Patient Instructions Encounter Date Encounter Id Patient Instructions Last Modified By Organization Details Last Modified Time 08/29/2020 [id number] Telephone call - 9 minutes Not available 08/29/2020 18:16:02 Reason for Referral None Reported. Results Created Date Observation Date Name Description Value Unit Range Abnormal Flag LastModifiedBy Organization Detail LastModifiedTime 12/17/1912/16/2022 CT, abdom en + pelvi s, w/o contr ast EXAM: CT, ABDOME N + PELVIS , W/O CONTRA ST [facility] [place] DATE/T LAURA: 023 11:03 AM CDT INDICA [...] Roddy Knott MD on 2022 at 12:41 [facility] [address], [place], [address], 12/18/2022 10:54:32 Result Notes Documentation Provider Name and Address Organization Details Recorded Time Ct, Abdomen + Pelvis, W/o Contrast : EXAM: CT, ABDOMEN + PELVIS, W/O CONTRAST LOCATION: [facility] DATE/TIME: 12/16/2022 11:03 AM CDT INDICATION: Calculus [...] 12/16/2022 at 12:41 Goyo Zhang MD [address], [place], [address], [facility] 12/18/2022 10:54:32 Procedures Surgical History Date Name Laterality Status Provider Name and Address Organization Details Recorded Time 06/14/20 23 Bladder Scan completed Kaminisamir alexander [facility] 06/14/2023 11:47:36 04/21/20 13 [facility]oscopy [facility] 08/29/2020 10:10:43 [facility] 08/29/2020 10:10:30 [facility]rhoidectomy [facility] 08/29/2020 10:10:53 Imaging Results Imaging Date Name Status LastModified by Organiz ation Details LastModified Time 12/16/2022 CT, abdomen + pelvis, w/o contrast completed [facility] [address], [place], [address], 12/18/2022 10:54:32 Procedure Notes None recorded. Medical Equipment None Reported. Allergies Allergen ID Allergen Name Allergen Category Reaction Reaction Severity Criticality Documentation Date Start Date Code Code System Note Provider Name and Address Organization Details Recorded Time 814582 Substance with sulfonami de structure and antibacte rial mechanism of action (substanc e) medicatio n Not available Not available Not available 06/17/2022 72867 8003 SNOMED Goyo Zhang MD [address], [place], [address], [facility] 11:17:35 Medications Name Sig Start [...] Not Available Not Available BD Regular Bevel Hanna 22 gauge x 1 1/2 use to [...] Updated DateTime 06/17/2022 172.72 cm 36.5 kg/m2 660215.17 jaz Zhang MD [address] [place], [place] [address] [place] [address] 06/17/2022 11:17:12 Date Recorded Body height Body mass index (BMI) Body weight Provider Name and Address Organization Details Last Updated DateTime 12/16/2022 172.72 cm 36.5 kg/m2 243551.17 jaz Zhang MD [address] [place] [address], [id number] [place] [address] 12/16/2022 11:31:33 Date Recorded Body height Body mass index (BMI) Body weight Provider Name and Address Organization Details Last Updated DateTime 06/14/2023 172.72 cm 35.7 kg/m2 204673.21 jaz Lau [facility] 06/14/2023 11:46:47 Date Recorded Body weight Body mass index (BMI) Body height Provider Name and Address Organization Details Last Updated DateTime 08/29/2020 686447.17 g 36.5 kg/m2 172.72 cm Kamini Sid alexander [facility] 08/29/2020 10:13:47 Social History Question Answer Notes LastModified by Organizat ion Details LastModified Time Tobacco Smoking Status Never Smoker Kamini Gandaraaddie alexander [facility] 08/29/2020 10:09:42 What Is Your Level Of Alcohol Consumption? None [email or web address] Information not available 08/29/2020 What Is Your Level Of Caffeine Consumption? None Information not available 12/16/2022 What Was The Date Of Your Most Recent Tobacco Screening? 06/14/2023 [email or web address] Information not available 06/14/2023 Sex: Male Functional Status None recorded. Mental Status None recorded. Family History Nothing Reported. Medical History Condition Response Diabetes Y Other Y High Blood Pressure Y Kidney Stones Y Depression Y High Cholesterol Y Immunizations Vaccine Type Date Status Provider Name and Address Organization Details Recorded Time pneumococcal polysaccharide PPV23 06/05/2010 completed Goyo Zhang MD [address] [place] [address], [phone], [facility] 06/17/2022 11:17:26 Pneumococcal conjugate PCV 13 07/03/2015 completed Goyo Zhang MD [address] [place] [address], [phone], [facility] 06/17/2022 11:17:26 influenza, trivalent, adjuvanted 04/07/2019 completed Kamini alexander [facility] 06/14/2023 11:46:51 influenza, trivalent, adjuvanted 05/02/2018 completed Kamini alexander [facility] 06/14/2023 11:46:51 influenza, trivalent, adjuvanted 05/07/2017 cait alexander [facility] 06/14/2023 11:46:51 zoster recombinant 09/29/2021 cait alexander [facility] 06/14/2023 11:46:51 zoster recombinant 12/03/2021 cait alexander [facility] 06/14/2023 11:46:51 influenza, high-dose, quadrivalent 04/27/2022 cait Molinaha Lau null, [facility] 06/14/2023 11:46:51 Influenza vaccine, quadrivalent, adjuvanted 04/08/2023 [facility] null, [facility] 06/14/2023 11:46:51 Influenza vaccine, quadrivalent, adjuvanted 04/15/2020 completed Kamini Lau null, [facility] 06/14/2023 11:46:51 Influenza vaccine, quadrivalent, adjuvanted 04/30/2021 completed Kamini Lau null, [facility] 06/14/2023 11:46:51 COVID-19, mRNA, LNP-S, PF, 30 mcg/0.3 mL dose 09/03/2020 completed Kamini Lau null, [facility] 06/14/2023 11:46:51 COVID-19, mRNA, LNP-S, PF, 30 mcg/0.3 mL dose 09/24/2020 completed Kamini Lau null, [facility] 06/14/2023 11:46:51 COVID-19, mRNA, LNP-S, PF, 30 mcg/0.3 mL dose 05/16/2021 completed [facility] 06/14/2023 11:46:51 COVID-19, mRNA, LNP-S, PF, 30 mcg/0.3 mL dose, charis-sucrose 11/04/2021 completed Kamini Lau null, [facility] 06/14/2023 11:46:51 COVID-19, mRNA, LNP-S, bivalent, PF, 30 mcg/0.3 mL dose 04/10/2022 completed [facility]amini [facility] 06/14/2023 11:46:51 RSV, recombinant, protein subunit RSVpreF, adjuvant reconstituted, 0.5 mL, PF 04/08/2023 completed Aurora Lau null, [facility] 06/14/2023 11:46:51 COVID-19, mRNA, LNP-S, PF, 50 mcg/0.5 mL 05/12/2023 completed [facility] 06/14/2023 11:46:51 pneumococcal polysaccharide PPV23 07/26/2008 [facility] 06/14/2023 11:46:51 influenza, unspecified formulation 05/15/2008 completed Kamini Gandaraa null, [facility] 06/14/2023 11:46:51 Tdap 11/16/2011 [facility] 06/14/2023 11:46:51 Tdap 02/12/2017 completed Kamini Gandaraa null, [facility] 06/14/2023 11:46:51 zoster live 11/06/2011 completed [facility]i [facility] 06/14/2023 11:46:51 Influenza, high dose seasonal 03/09/2016 completed Kamini [facility] 06/14/2023 11:46:51 Influenza, high dose seasonal 04/20/2014 [facility] 06/14/2023 11:46:51 Influenza, high dose seasonal 04/30/2015 completed Kamini [facility] 06/14/2023 11:46:51 Influenza, seasonal, injectable 04/30/2010 completed [facility] 06/14/2023 11:46:51 Influenza, seasonal, injectable 05/09/2013 completed [facility]i [facility] 06/14/2023 11:46:51 Influenza, seasonal, injectable 05/19/2012 completed Kamini aGndaraa [facility] 06/14/2023 11:46:52 Influenza, seasonal, injectable 06/02/2005 completed Kamini [facility] 06/14/2023 11:46:52 Influenza, seasonal, injectable, preservative free 05/26/2011 completed Kamini Gandaraa [facility] 06/14/2023 11:46:52 Novel svcxlddto-R3V4-54 06/25/2009 completed Kamini Lau [facility] 06/14/2023 11:46:52 Td (adult), 5 Lf tetanus toxoid, preservative free, adsorbed 06/05/2010 completed CELESTINO Sim [facility] 06/14/2023 11:46:52 Td (adult), 2 Lf tetanus toxoid, preservative free, adsorbed 07/26/2008 completed CELESTINO Sim [facility] 06/14/2023 11:46:52 Past Encounters Encounter ID Performer Location Encounter Start Date Encounter Closed Date Diagnosis/Indication Diagnosis SNOMED-CT Code [id number] MD LASHANDA [facility] [address] [place] [address] 08/29/2020 10:05:20 08/30/2020 10:47:37 History of calculus of kidney 123844095 Lower urin roland tract symptoms due to benign prostatic hypertrophy 88497720818063 Testostero ne level below reference range 183030181 [id number] MD LASHANDA [facility] [address] [place] [address] 06/17/2022 11:08:04 06/25/2022 15:53:24 Testosterone level below reference range 206966552 Kidney stone 17003468 Prostate s pecific antigen above reference range 076650840 Balanitis 66540933 [id number] MD LASHANDA [facility] [address] [place] [address] 12/16/2022 10:55:53 12/23/2022 18:02:14 Testosterone level below reference range 033981449 Prostate s pecific antigen above reference range 214513868 Kidney stone 53370109 [id number] MD LASHANDA [facility] [address] [place] [address] 06/14/2023 11:34:15 06/22/2023 19:21:50 Testosterone level below reference range 910148848 Prostate s pecific antigen above reference range 567162728 Kidney stone 07130120 Nocturia 319618438 Health Concerns Section Related Observation LastModified by Organization Detai ls LastModified Time None Recorded Concern Status LastModified by Organization Details LastModified Time None Recorded Advance Directives Directive None Recorded Payers Encounter Date Sequence Insurance Name Policy Number Policy Amin Covered Member ID Amin Member ID Guarantor Name 06/14/2023 1 [employer] (MEDICARE REPLACEMENT/ ADVANTAGE - PPO) Chao Hernandez [id number] Chao Bradleyt 12/16/2022 1 [employer] (MEDICARE REPLACEMENT/ ADVANTAGE - PPO) Chao Hernandez [id number] Chao Loyolaecht 06/17/2022 1 [employer] (MEDICARE REPLACEMENT/ ADVANTAGE - PPO) Chao Hernandez [id number] Chao Loyolaecht 08/29/2020 1 [employer] (MEDICARE REPLACEMENT/ ADVANTAGE - PPO) Chao Hernandez [id number] Chao Bradleyt Notes Date Note Type Note [...] and coordinate their care. Goyo Zhang MD [address] [place] [address],[address], [place], [address], [facility] 08/29/2020 18:16:21 06/17/2022 text/html HPI Notes: [...] (1.165) - pH (5.65) Goyo Zhang MD [address] [place] [address],[address], [place], [address], [facility] 06/17/2022 15:32:23 12/16/2022 text/html HPI Notes: [...] (1.165) - pH (5.65) Goyo Zhang MD [address], [place], [address], [facility] 12/18/2022 11:01:51 06/14/2023 text/html HPI Notes: [...] (1.165) - pH (5.65) Goyo Zhang MD [address] [place] [address],[address], [place], [address], [facility] 06/14/2023 21:53:19
--- OUTSIDE RECORDS SUMMARY | 2023-12-01 06:57 | XMS_ITS | Encounter Summary ---
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 * Sedation (Swazi) * Shoulder Dislocation (Swazi) documented in this encounter Medications at Time [...] be discharged via Private Car with Responsible Ignition Mechanic to Home patient, spouse, son , and [...] dislocation and stiffness Alternatives discussed: No treatment [place] protocol: Patient identity confirmed: Verbally with patient [...] to triage EMS - Service: EMS Services: [facility]. Significant symptoms per patient include fell outside [...] from the original note were not included. [address] Ondansetron Oral Tablet Brands: Zofran Uses For [...] about all medicines taken. Include prescription and bvob-yhy-litwimu medicines, vitamins, and herbal medicines. Speak with [...] you have any questions about this medicine. [email or web address] IMPORTANT NOTE: This document tells you briefly how to take your medicine, but it does not tell youall there is to know about it. Your doctor or pharmacist may give you other documents about your medicine. Please talk to them if you have any questions. Always follow their advice. There is a more complete description of this medicine available in Swazi. Scan this code on your smartphone or tablet or use the web address below. You can also ask your pharmacist for a printout. If you have any questions, please ask your pharmacist. The display and use of this drug information is subject to Terms of Use. Copyright(c) 2022 [employer]. ?? [employer]. All rights reserved. This information is not intended as a substitute for professional medical care. Always follow your healthcare professional's instructions. ELLA * Kiana TI - Faith Tan Sample - 10/22/2023 3:29 PM CDT Images from the original note were not included. [address] Oxycodone Oral Tablet Brands: Roxicodone Uses For [...] about all medicines taken. Include prescription and wxgw-gfw-xfknlrk medicines, vitamins, and herbal medicines. Speak with [...] you have any questions about this medicine. [email or web address] IMPORTANT NOTE: This document tells you briefly how to take your medicine, but it does not tell youall there is to know about it. Your doctor or pharmacist may give you other documents about your medicine. Please talk to them if you have any questions. Always follow their advice. There is a more complete description of this medicine available in Swazi. Scan this code on your smartphone or tablet or use the web address below. You can also ask your pharmacist for a printout. If you have any questions, please ask your pharmacist. The display and use of this drug information is subject to Terms of Use. Copyright(c) 2022 [employer]. ?? 5593-9318 [employer]. All rights reserved. This information is not [...] dislocation and stiffness ??Alternatives discussed: ??No treatment [place] protocol: ??Patient identity confirmed: ??Verbally with patient [...] Singh Mann MD LAB BLOOD ORDERABL ES [facility] [address] [place] [address], * (ABNORMAL) Comprehensive metabolic panel (10/22/2023 11:57 AM [facility]) Sodium 135.0(A) 137 - 145 mmol/L mmol/L [...] 1.3 mg/dL mg/dL 10/22/2023 12:20 PM CDT [facility] eGFR 87.8(A) >90.0 mL/min/1.7 3m*2 10/22/2023 12:20 PM CDT [facility] Blood (Blood, Venous) Venipuncture / Unknown 10/22/2023 11:57 AM CDT 10/22/2023 11:59 AM CDT Singh Mann MD LAB BLOOD ORDERABL ES [facility] [address] [place] [address], * XR SHOULDER 2+ VIEWS LEFT (10/22/2023 [...]
[2023-12-01] MEDS: LACTATED RINGERS 1000 ML 1,000 ML 100 ML IV ×2 (08:15→12:45)
[2023-12-01] MEDS: SODIUM CHLORIDE 0.9 % (FLUSH) 10 ML SYRINGE IVF (08:20)
[2023-12-01] MEDS: ACETAMINOPHEN 500 MG TABLET 1000 MG PO ×3 (08:40→20:55)
[2023-12-01] MEDS: OXYCODONE (CR) 10 MG TAB.ER.12H PO (08:40)
[2023-12-01] MEDS: fentaNYL 100 MCG/2 ML inj IVP (08:45)
[2023-12-01] MEDS: MIDAZOLAM HCL 1 MG/ML inj IVP (08:45)
--- NOTE | 2023-12-01 08:50 | SUR.PREOP ---
TIME?OUT:?0842, left shoulder PT/RN/MDA?VERIFICATION?OF?SURGICAL?SITE,?PROCEDURE,?AND?CONSENT OBTAINED?PRIOR?TO?INVASIVE?PROCEDURE.
[2023-12-01] MEDS: TRANEXAMIC ACID 100 MG/ML INJ 1000 MG IV (09:10)
[2023-12-01] MEDS: CEFAZOLIN 2 GM in 0.9 % SODIUM CHLORIDE Mini-bag 100 ML IVPB ×2 (09:10→15:58)
--- NOTE | 2023-12-01 09:15 | XR_ITS ---
Patient: SARAHI OSUNA Facility:?[facility] Patient ID:?[id number] Site Patient ID:?[id number]. Site :?[id number] Study:?XRay-Shoulder Left POST OP-12/01/2023 12:51:16 PM Ordering Physician:Romero Final Report: INDICATION: Post left shoulder arthroplasty. TECHNIQUE: Two postop views of the left shoulder. 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 Prosthetic components well-seated and aligned. IMPRESSION: Immediate postop changes of left reverse total shoulder arthroplasty without evidence of complication. Dictated by Keith Montoya MD @ 12/02/2023 12:47:03 PM Signed by:?Keith Montoya MD @12/02/2023 12:47:03 PM (Electronic Signature)
--- NOTE | 2023-12-01 09:41 | W.PM.NB ---
Nerve Block Nerve Block Time Seen by Provider: 08:37 Date Seen: 12/01/23 Type of block requested by surgeon for post-operative analgesia: supraclavicular Side: left Time out performed: Yes Verification of patient name: Yes Verification of date of : Yes Site marking: site marked Name of person performing procedure: Abrahan Continuous monitoring Was continuous monitoring of O2 sat, B/P, cardiac cath technologist, recorded every 15 minutes?: Yes Procedure Checklist: sterile prep, needles and gloves Ultrasound guided. Images saved: Yes Medications given in 5ml increments after negative aspiration: Ropivicaine %: 0.5 mL: 20 Needle gauge: 22 Decadron (mg): 10 Precedex (mcg): 25 Patient tolerated procedure well: Yes Block Charges Block Charge (with Pro Fee): Brachial Plexus Use of Ultrasound Machine for Block: Yes- US Guidance/pain block
--- NOTE | 2023-12-01 09:41 | W.ANESCHARGE ---
Anesthesia Charges Start Date/Time Anesthesia Start Date: 12/01/23 Anesthesia Start Time: 09:06 Stop Date/Time Anesthesia Stop Date: 12/01/23 Anesthesia Stop Time: 12:19 Summary Extremes of Age - Over 70 or under 1: MDA
--- NOTE | 2023-12-01 11:51 | P.ORPRC_ITS ---
Procedure Note Date of procedure: 12/01/23 Procedure: PREOPERATIVE DIAGNOSIS: 1. Left shoulder dislocation with rotator cuff tear 2. Left long head of the biceps tendinopathy and tenosynovitis POSTOPERATIVE DIAGNOSIS: 1. Left shoulder dislocation with rotator cuff tear 2. Left long head of the biceps tendinopathy and tenosynovitis PROCEDURE: 1. Left reverse shoulder arthroplasty. 2. Left long head of biceps open tenodesis SURGEON: Rosas Marcano MD. WATER PLANT PUMP OPERATOR: Goyo WEBSTER - Of note, a skilled captain's assistant was critical for this case to aid in patient positioning, tissue retraction, limb manipulation/positioning, retraction for glenoid exposure, which was challeng ing, awareness and protection of critical structures, and closure. ANESTHESIA: General plus supraclavicular block EBL: 250 ml IMPLANTS: DJ0 surgical Altivate humeral stem size 10 small shell, short with P2 porous coating vitamin E neutral poly small socket insert RSP glenoid base plate P2 porous coating with 3 perimeter locking screws 32 neutral glenosphere with retaining screw COMPLICATIONS: None evident INDICATIONS: The patient is a pleasant 78-year-old male who sustained a left shoulder dislocation approximately 5-7 weeks ago. Initially this was treated closed reduction and closed treatment of the instability. Further clinical follow-up demonstrated significant rotator cuff insufficiency consistent with rotator cuff damage/tear. We talked through various choices including ongoing nonoperative management versus attempted rotator cuff repair versus reverse shoulder arthroplasty. After discussing the pros and cons of the various choices, he elected for the latter. DESCRIPTION OF PROCEDURE: Following a thorough discussion of risks, benefits, and alternatives, consent was obtained and the left shoulder was marked. The patient was brought to the operating room and placed supine on the operating table. Induction of anesthesia was undertaken. 2 g IV Ancef and 1 g tranexamic acid was administered within 1 hr of incision preoperatively. Appropriate time- out was performed identifying proper patient, site, and procedure. The operative extremity was prepped and draped in the appropriate sterile fashion using ChloraPrep after the patient was positioned in the lazy beach chair position with head in neutral alignment and all bony prominences well padded. A longitudinal incision was made for deltopectoral approach. Deltoid was retracted laterally. Cephalic vein was identified and retracted laterally as well. The vein was ligated during the procedure. The inferior portion remained. The clavipectoral fascia was identified and divided longitudinally staying lateral to the conjoined tendon / coracoid. The conjoined tendon was protected with a blunt Hohmann. The long head of the biceps tendon was identified and the bicipital sheath released. The upper 1/4 of the pectoralis major was also released from its insertion. The long head of the biceps was tenodesed to the pectoralis major tendon. The remaining proximal tendon tissue was excised. The rotator cuff was inspected and found to have good integrity with the subscapularis but fair integrity with a supraspinatus], and a decision for a reverse shoulder arthroplasty was confirmed. (Of note, there were significant adhesions throughout the shoulder including the subacromial/subdeltoid space, both superficial and deep to the conjoined tendon, and the subscapularis was essentially adhesed to the capsule on the deep surface. This may have been a combination of both the open rotator cuff repair he had in the remote past (deltoid takedown) as well as his recent acute shoulder dislocation trauma and subsequent closed treatment.) A subscapularis cuff of tissue was left via tenotomy for later repair with the remaining subscapularis released in a subperiosteal fashion with the Bovie. Th is was tagged for later repair. The 3 sisters were cauterized. The upper subscapularis was released from the capsule with a curved Oakley scissors towards the glenoid. The inferior subscapularis was divided from the capsular tissue on its caudal surface with particular caution for the axillary nerve. This was palpated anterior to the subscapularis both prior to and near the finish of the case. Inferior humeral head osteophytes were excised with caution taken throughout the case with regards to the axillary nerve. The humerus was dislocated, and humeral head cut completed. Then a protector plate was applied. We turned our attention to the glenoid. The humerus was retracted posteriorly. The subscap was protected anteriorly and the labrum/long head biceps origin was excised circumferentially. The capsule was released along the anterior and inferior portions of the glenoid cautiously with a Penn elevator being careful not to penetrate deep. The glenoid had appropriate exposure, and was prepared with the cannulated system with a target of approximately 5-10? of inferior tilt and neutral anteversion (patient had 5 ? of retroversion initially). [Utilizing the match Point 3D printed guide, the guide pin was placed. The 3D printed jig removed and after placing the guide pin, the tap was placed followed by the glenoid reaming. The real base plate was opened, and inserted, and excellent compression/purchase was achieved with the central screw. Peripheral screws were then drilled, measured, and placed. The glenosphere was then placed consistent with the preoperative plan utilizing the above noted glenosphere. After securing the glenosphere with the locking, torque limited screw, attention was turned back to the humerus. A canal finder was placed followed by various reamers by hand. The real humeral stem was then opened and inserted with excellent metaphyseal fit and stability. Trial poly was placed and the shoulder reduced. Excellent reduction and stability achieved with appropriate tension on the conjoined tendon. At this stage, trial implants were removed, and the real implants inserted and the shoulder reduced. A 3 minute Betadine soak was performed followed by a thorough irrigation with normal saline. Subscapularis was repaired with #1 PDS to the cuff of tissue on the lesser tuberosity. Excellent reapproximation of tissue achieved. Hemostasis was found to be appropriate. The deltopectoral interval was reapproximated with 0 Vicryl, subcutaneous and subcuticular closure was then performed with number 2-0 Vicryl and 4-0 Monocryl, respectively. A skilled captain's assistant was critical for this case to aid in patient positioning, tissue retraction, limb manipulation/positioning, retraction for glenoid exposure, which was challenging, awareness and protection of critical structures, and closure. PLAN: 1. Sling at all times for the operative upper extremity. 2. AROM of elbow, forearm, wrist, and digits as tolerated. 3. PT/OT consults for education and assistance. 4. Social consult for discharge planning. 5. 23 hr perioperative antibiotics. 6. Early ambulation, and SCDs for DVT prophylaxis. 7. Admit to the hospital for the above 8. Analgesics p.r.n.
--- NOTE | 2023-12-01 11:55 | W.PM.H&PU ---
History & Physical Update History & Physical Update H&P Reviewed and patient assessed: No changes noted
--- NOTE | 2023-12-01 12:44 | P.ANES_ITS ---
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
--- NOTE | 2023-12-01 14:18 | PC.NURSE ---
End of Shift Note: Patient arrived to the unit around 1315 from PACU. Patient is alert and orientated no complaints of pain. States his thumb feels numb. He is able to wiggle his fingers. Tolerating clear liquids. and daughters are at bedside. Did apply O2 at 1L to keep sats above 90%. Order for oxygen received from Dr. Madden. is very worried about getting his CPAP on. Have explained to her several times that he does have oxygen on and we are monitoring and if he falls asleep will make sure an help him get this on. No other questions or concerns noted.
--- NOTE | 2023-12-01 15:12 | PM.IMCN1 ---
Date of Consult Patient: [facility] Patient Consult date: 12/01/23 Requesting Physician: Orthopedics Primary Care Provider: Maximo Christy MD Consult Narrative Reason for consult: Medical management Narrative: Chao Davis is a 78 year old male past medical history significant for diabetes mellitus, hypertension, hyperlipidemia, urolithiasis, osteoarthritis is POD#0 status post left reverse total shoulder arthroplasty. There have been no perioperative complications or nursing concerns reported. Estimated total blood loss documented as 250 ml. Updated and reviewed the active medical problems, past medical history, past surgical history, social history, allergies and medications in our electronic EMR. Postoperatively, patient reports mild nausea, improved with antiemetic. Has had sips of clears thus far. Pain is currently well managed. Had some numbness into the thumb which is improving. Family is present at bedside. He will be returning home with their support. Review of Systems Narrative: REVIEW OF SYSTEMS: Complete review of systems performed and negative unless otherwise stated in HPI or below. PFSH [facility] Medical History (Updated 12/01/23 @ 16:41 by Kellie Hogan PA-C) Arthritis ?M19.90 - Unspecified osteoarthritis, unspecified site (ICD-10) Diabetes ?E11.9 - Type 2 diabetes mellitus without complications (ICD-10) Elevated cholesterol ?E78.00 - Pure hypercholesterolemia, unspecified (ICD-10) Hypertension ?I10 - Essential (primary) hypertension (ICD-10) Sleep apnea ?G47.30 - Sleep apnea, unspecified (ICD-10) Right hip pain ?M25.551 - Pain in right hip (ICD-10) Surgical History (Updated 10/26/23 @ 10:55 by Sandra Carolina) H/O hernia repair ?Z98.890 - Other specified postprocedural states (ICD-10) ?Z87.19 - Personal history of other diseases of the digestive system (ICD-10) S/P left rotator cuff repair (~1994) ?Z98.890 - Other specified postprocedural states (ICD-10) Family History Father Diabetes Heart problem Stroke Mother Stroke Sister Stroke Social History What is your current living situation?: I presently have a place to live Problems where you live: no known problems In the past 12 months, utilities in danger of being shut off: no In past 12 months, lack of transportation kept you from medical appts, meetings, work, or getting things needed for daily living: yes In the past 12 mos, have been you worried that your food would run out before you had money to buy more?: never true In the past 12 mos, the food you bought just didn't last and you didn't have money to buy more?: never true Highest level of school completed/degree received: decline to answer Smoking Status: Never smoker Do you use any of these nicotine containing products: None Second hand tobacco smoke exposure: No How often do you have a drink containing alcohol: monthly or less How often do you have six or more drinks on one occasion: Never AUDIT-C Alcohol total score: 1 Non-prescribed substance use: denies use Caffeine: Yes How often does anyone, including family, friends and others, physically hurt you: never How often does anyone, including family, friends and others, insult or talk down to you: never How often does anyone, including family, friends and others, threaten you with harm: never How often does anyone, including family, friends and others, scream or curse at you: never Meds Home Medications and Allergies Home Medications Medication Instructions Recorded Confirmed Type canagliflozin 300 mg tablet 300 mg PO DAILY 03/11/22 12/01/23 History (Invokana) citalopram 20 mg tablet 20 mg PO QDAY 03/11/22 12/01/23 History losartan 50 mg tablet 50 mg PO DAILY 03/11/22 12/01/23 History metformin 500 mg tablet,extended 1,000 mg PO BID 03/11/22 12/01/23 History release 24 hr rosuvastatin 20 mg tablet 20 mg PO HS 03/11/22 12/01/23 History tamsulosin 0.4 mg capsule 0.8 mg PO DAILY 03/11/22 12/01/23 History aspirin 81 mg tablet,delayed 81 mg PO DAILY 03/12/22 12/01/23 History release aspirin-caffeine 400 mg-32 mg 1 tab PO Q6H PRN 03/12/22 12/01/23 History tablet cholecalciferol (vitamin D3) 25 1,000 unit PO DAILY 03/12/22 12/01/23 History mcg (1,000 unit) capsule coenzyme Q10 100 mg capsule 100 mg PO DAILY 03/12/22 12/01/23 History loratadine 10 mg tablet 10 mg PO DAILY 03/12/22 12/01/23 History multivitamin (Multiple Vitamins 1 tab PO DAILY 03/12/22 12/01/23 History tablet) omega 6-wpu-tmn-fish oil 1,000 mg 1 cap PO DAILY 03/12/22 12/01/23 History (120 mg-180 mg) capsule (Fish Oil) glimepiride 4 mg tablet 4 mg PO DAILY 12/01/23 12/01/23 History potassium citrate 10 mEq (1,080 10 meq PO BID 12/01/23 12/01/23 History mg) tablet,extended release testosterone cypionate 200 mg/mL 200 mg IM Q4W 12/01/23 12/01/23 History intramuscular oil Allergies Allergy/AdvReac Type Severity Reaction Status Date / Time Sulfa (Sulfonamide Allergy Mild Hives Verified 12/01/23 07:14 Antibiotics) Exam Narrative: Exam Narrative: PHYSICAL EXAM General: Pleasant, conversant, NAD HEENT: Normocephalic, atraumatic, sclera white, EOMI, oral mucosa moist Cardiovascular: RRR, S1S2. No pitting edema Pulmonary: CTA bilaterally without rhonchi, rales, expiratory wheezes. No dyspnea Abdominal: Soft, nondistended, NTTP Neurological: Alert, answering questions appropriately, cranial nerves intact, no focal findings Extremities: No gross joint deformity or swelling. Postoperative dressing in place, dry. Neurovascularly intact. Sensation of left thumb intact with full range of motion Skin: Warm, dry. Const: Vital Signs, click to edit/add: Vital Signs - 24 hr 12/01/23 07:27 12/01/23 08:40 12/01/23 08:50 Temperature 98.2 F Pulse Rate 79 86 85 Respiratory Rate 16 16 16 Blood Pressure 130/68 142/74 H 144/74 H Pulse Oximetry 94 97 97 Oxygen Delivery Me thod Room Air Nasal Cannula Nasal Cannula Oxygen Flow Rate 3 3 12/01/23 08:57 12/01/23 12:17 12/01/23 12:20 Temperature 98.2 F Pulse Rate 76 110 H 116 H Respiratory Rate 16 20 20 Blood Pressure 142/72 H 147/87 H 125/104 H Pulse Oximetry 96 89 95 Oxygen Delivery Me thod Nasal Cannula Room Air Nasal Cannula Oxygen Flow Rate 3 3 12/01/23 12:25 12/01/23 12:30 12/01/23 12:33 Temperature 97.7 F Pulse Rate 112 H 101 H 93 Respiratory Rate 20 16 18 Blood Pressure 139/116 H 150/84 H 135/64 Pulse Oximetry 95 95 91 Oxygen Delivery Me thod Nasal Cannula Oxygen Flow Rate 1 12/01/23 12:35 12/01/23 12:40 12/01/23 12:45 Temperature Pulse Rate 96 96 98 Respiratory Rate 18 24 16 Blood Pressure 144/96 H 142/74 H 134/78 Pulse Oximetry 94 92 93 Oxygen Delivery Me thod Oxygen Flow Rate 12/01/23 12:53 12/01/23 13:30 12/01/23 13:45 Temperature 97.4 F L 97.7 F 97.5 F L Pulse Rate 90 102 H 103 H Respiratory Rate 20 18 18 Blood Pressure 136/75 121/66 130/74 Pulse Oximetry 95 90 92 Oxygen Delivery Me thod Nasal Cannula Nasal Cannula Nasal Cannula Oxygen Flow Rate 3 1 1 12/01/23 14:00 12/01/23 14:30 Temperature 98.2 F 98.3 F Pulse Rate 103 H 108 H Respiratory Rate 18 18 Blood Pressure 126/60 122/68 Pulse Oximetry 92 92 Oxygen Delivery Me thod Nasal Cannula Nasal Cannula Oxygen Flow Rate 1 1 Assessment and Plan Assessment and plan (1) Tendinopathy of left biceps: Problem comment: -POD#0 s/p left reverse shoulder arthroplasty with Dr. Marcano -perioperative management including pain management and anticoagulation per Orthopedic surgery -encourage postoperative pulmonary hygiene -PT OT consults -plan to discharge home with family tomorrow Status: Acute (2) Diabetes: Problem comment: -hold Invokana, metformin -continue glimepiride -diabetic diet, glucose checks ACHS, ISS Status: Acute (3) Hypertension: Problem comment: -Continue losartan Status: Acute (4) Elevated cholesterol: Problem comment: -Continue statin Status: Acute Total Time Spent Total Time Spent: Total time spent caring for the patient today was 45 minutes. This includes time spent for the visit reviewing the chart, time spent during the visit, time spent after the visit and documentation and planning in coordination of care.
[2023-12-01] MEDS: ONDANSETRON 2 MG/ML inj 4 MG IVP (15:45)
[2023-12-01] MEDS: CITALOPRAM HYDROBROMIDE 20 MG TABLET PO (15:51)
[2023-12-01] MEDS: INSULIN ASPART 100 UNIT/ML SUBCUT ×2 (17:57→20:42)
[2023-12-01] MEDS: ROSUVASTATIN CALCIUM 10 MG TABLET 20 MG PO (20:36)
[2023-12-01] MEDS: SENNOSIDES 1 TAB TABLET 2 TAB PO (20:36)
--- NOTE | 2023-12-01 22:46 | PC.NURSE ---
Patient continues to experience numbness in left extremity. Can wiggle fingers, pulses are present, cap refill less than [address] at all times. Active ice on. Patient's shoulder positioned with pillow while in bed. Denies any pain in the shoulder. Range of motion attempted with pt's elbow/hand. Up with SBA, walker and GB to the BR. Voiding and had BM x1. Set up with home CPAP for the night. Will continue to monitor.
[2023-12-02] MEDS: CEFAZOLIN 2 GM in 0.9 % SODIUM CHLORIDE Mini-bag 100 ML IVPB ×2 (00:01→08:16)
[2023-12-02 02:19] VITALS: BP 124/59; PULSE 96; RESP 18; TEMP 36.6; O2SAT 96
[2023-12-02] MEDS: ACETAMINOPHEN 500 MG TABLET 1000 MG PO (03:51)
--- NOTE | 2023-12-02 05:47 | PC.NURSE ---
[id number] Pt pain 0/10, still states L thumb numb, can moved fingers, L radial pulse present, L hand warm to touch. Ice applied to surgical site throughout night, dressing to L shoulder C/D/I, L arm in sling during shift. ambulating to with SBA, tolerating activity well. no N/V.
[2023-12-02 06:16] LABS: Hematocrit 41.9 % (37.0-53.0); Hemoglobin* 13.4 gm/dL (13.5-17.5); Mean Corpuscular HGB Conc 32 gm/dL (32-36); Mean Corpuscular Hemoglobin 32 pg (26-34); Mean Corpuscular Volume 99 fL (80-100); Platelet Count* 207 K/uL (140-440); Red Blood Count 4.25 m/uL (4.30-5.90); White Blood Count* 13.55 K/uL (4.50-11.00)
[2023-12-02 06:19] LABS: Slide Review Reflex No
[2023-12-02 06:27] LABS: Sodium* 136 mmol/L (135-149)
[2023-12-02 06:30] LABS: Creatinine* 0.8 mg/dL (0.5-1.5); Est. Creatinine Clearance* 53.17; Estimated Glomerular Filt Rate 89 ml/min
[2023-12-02 06:31] LABS: Blood Urea Nitrogen* 21 mg/dL (7-30)
[2023-12-02 07:00] VITALS: BP 139/66; PULSE 95; RESP 18; RESP 20; TEMP 36.7; O2SAT 93
[2023-12-02] MEDS: CITALOPRAM HYDROBROMIDE 20 MG TABLET PO (08:16)
[2023-12-02] MEDS: SENNOSIDES 1 TAB TABLET 2 TAB PO (08:16)
[2023-12-02] MEDS: OXYCODONE 5 MG TABLET PO (08:17)
[2023-12-02] MEDS: LOSARTAN POTASSIUM 50 MG TABLET PO (08:17)
[2023-12-02] MEDS: TAMSULOSIN HCL 0.4 MG CAPSULE 0.8 MG PO (08:17)
[2023-12-02] MEDS: GLIMEPIRIDE 4 MG TABLET PO (08:19)
--- NOTE | 2023-12-02 09:05 | PM.ORPN ---
Subjective Subjective Date Seen: 12/02/23 Principal diagnosis: Status postop day 1 left reverse total shoulder arthroplasty Interval history: Patient reports doing well. No acute events over night. Still notes numbness along the shoulder laterally, slowly returning sensation of the fingers and thumb. Pain managed with scheduled and PRN medications, ice. DVT prophylaxis: SCDs, walking. Denies fevers, chills, aches, N/V, CP, SOB/CAIN, or lightheadedness. Reports that his son Jason would like to receive a call from Dr. Marcano regarding the surgery. Ortho Exam Narrative Exam Narrative: -Patient appears comfortable in recliner; no apparent acute distress -Alert and oriented times 3 -Operative shoulder minimally swollen; tissues are soft and supple; no obvious erythema. Ecchymosis minimal. Warmth appropriate -Surgical dressing clean, dry, intact; no obvious drainage, no erythematous streaking peripheral to the bandage -Bilateral calves soft and supple; no significant swelling, edema, tenderness, erythema, discoloration, warmth, or palpable cords -2+ radial pulse, decreased sensation along the deltoid region; attempted shoulder abduction is difficult this time. Unable to give thumbs up, able to make the okay sign. Const Vital Signs, click to edit/add: Vital Signs - 24 hr 12/01/23 12:17 12/01/23 12:20 12/01/23 12:25 Temperature 98.2 F Pulse Rate 110 H 116 H 112 H Pulse Rate [Left Pulse Oximeter] Pulse Rate [Left Radial] Respiratory Rate 20 20 20 Blood Pressure 147/87 H 125/104 H 139/116 H Blood Pressure [Right Arm] Pulse Oximetry 89 95 95 Oxygen Delivery Method Room Air Nasal Cannula Oxygen Flow Rate 3 12/01/23 12:30 12/01/23 12:33 12/01/23 12:35 Temperature 97.7 F Pulse Rate 101 H 93 96 Pulse Rate [Left Pulse Oximeter] Pulse Rate [Left Radial] Respiratory Rate 16 18 18 Blood Pressure 150/84 H 135/64 144/96 H Blood Pressure [Right Arm] Pulse Oximetry 95 91 94 Oxygen Delivery Method Nasal Cannula Oxygen Flow Rate 1 12/01/23 12:40 12/01/23 12:45 12/01/23 12:53 Temperature 97.4 F L Pulse Rate 96 98 90 Pulse Rate [Left Pulse Oximeter] Pulse Rate [Left Radial] Respiratory Rate 24 16 20 Blood Pressure 142/74 H 134/78 136/75 Blood Pressure [Right Arm] Pulse Oximetry 92 93 95 Oxygen Delivery Method Nasal Cannula Oxygen Flow Rate 3 12/01/23 13:30 12/01/23 13:45 12/01/23 14:00 Temperature 97.7 F 97.5 F L 98.2 F Pulse Rate 102 H 103 H 103 H Pulse Rate [Left Pulse Oximeter] Pulse Rate [Left Radial] Respiratory Rate 18 18 18 Blood Pressure 121/66 130/74 126/60 Blood Pressure [Right Arm] Pulse Oximetry 90 92 92 Oxygen Delivery Method Nasal Cannula Nasal Cannula Nasal Cannula Oxygen Flow Rate 1 1 1 12/01/23 14:30 12/01/23 15:00 12/01/23 15:00 Temperature 98.3 F Pulse Rate 108 H Pulse Rate [Left Pulse Oximeter] Pulse Rate [Left Radial] Respiratory Rate 18 18 18 Blood Pressure 122/68 Blood Pressure [Right Arm] Pulse Oximetry 92 93 Oxygen Delivery Method Nasal Cannula Nasal Cannula Oxygen Flow Rate 1 1 12/01/23 15:00 12/01/23 15:00 12/01/23 15:30 Temperature Pulse Rate Pulse Rate [Left Pulse Oximeter] Pulse Rate [Left Radial] Respiratory Rate Blood Pressure 126/57 L Blood Pressure [Right Arm] 126/54 L 117/61 Pulse Oximetry Oxygen Delivery Method Nasal Cannula Oxygen Flow Rate 1 12/01/23 15:30 12/01/23 16:00 12/01/23 16:00 Temperature Pulse Rate 105 H Pulse Rate [Left Pulse Oximeter] Pulse Rate [Left Radial] Respiratory Rate 18 Blood Pressure 117/61 112/81 Blood Pressure [Right Arm] 112/81 Pulse Oximetry 93 93 Oxygen Delivery Method Nasal Cannula Nasal Cannula Oxygen Flow Rate 1 1 12/01/23 17:00 12/01/23 18:00 12/01/23 19:00 Temperature 98.6 F 98.5 F Pulse Rate 116 H 110 H 109 H Pulse Rate [Left Pulse Oximeter] Pulse Rate [Left Radial] Respiratory Rate 18 18 18 Blood Pressure 131/73 109/55 L 109/52 L Blood Pressure [Right Arm] Pulse Oximetry 93 93 92 Oxygen Delivery Method Nasal Cannula Nasal Cannula Nasal Cannula Oxygen Flow Rate 1 1 1 12/01/23 20:00 12/01/23 23:00 12/01/23 23:00 Temperature 98.5 F Pulse Rate Pulse Rate [Left Pulse Oximeter] 109 H 104 H Pulse Rate [Left Radial] Respiratory Rate 16 18 Blood Pressure Blood Pressure [Right Arm] 109/52 L Pulse Oximetry 92 94 Oxygen Delivery Method Room Air CPAP Oxygen Flow Rate 12/01/23 23:00 12/02/23 02:19 12/02/23 07:00 Temperature 98.1 F 97.9 F Pulse Rate Pulse Rate [Left Pulse Oximeter] 104 H 96 Pulse Rate [Left Radial] Respiratory Rate 18 18 18 Blood Pressure Blood Pressure [Right Arm] 118/71 124/59 L Pulse Oximetry 94 96 Oxygen Delivery Method CPAP Room Air CPAP Oxygen Flow Rate 0 0 12/02/23 07:00 12/02/23 07:00 Temperature 98.0 F Pulse Rate Pulse Rate [Left Pulse Oximeter] Pulse Rate [Left Radial] 95 Respiratory Rate 20 Blood Pressure Blood Pressure [Right Arm] 139/66 Pulse Oximetry 93 93 Oxygen Delivery Method Room Air Room Air Oxygen Flow Rate Assessment and Plan Assessment and plan (1) Status post reverse total arthroplasty of left shoulder: Problem details: POD 1 Status: Acute (2) Diabetes: Problem details: -hold Invokana, metformin -continue glimepiride -diabetic diet, glucose checks ACHS, ISS Status: Acute (3) Hypertension: Problem details: -Continue losartan Status: Acute (4) Elevated cholesterol: Problem details: -Continue statin Status: Acute Plan - Complete 23 hour perioperative antibiotics. - PT/OT consult for education and assistance. - Social work consult for discharge planning - Prescribed analgesics as needed - DVT prophylaxis: SCDs and walking - we will continue to monitor his axillary nerve function - Anticipation is for discharge to home with family today, 12/02/2023 if the patient remains medically stable, pain is controlled, and they are safe with mobilization.
== END 2023-12-02 10:25 | disposition home or self-care (01) ==
LOC: OR 06:54 → MEDSURG 06:57
PROVIDERS: PCP Family Medicine; Visit Provider Orthopaedic Surgery Sports Medicine
PROC: 0RRJ0JZ Replacement of Right Shoulder Joint with Synthetic Substitute, Open Approach (ICD-10-PCS; CPT 23472; principal; 2023-12-01 09:15)
DX: S46.012A Strain of muscle(s) and tendon(s) of the rotator cuff of left shoulder, initial encounter (principal); S43.015A Anterior dislocation of left humerus, initial encounter; M75.22 Bicipital tendinitis, left shoulder; G89.18 Other acute postprocedural pain; E11.9 Type 2 diabetes mellitus without complications; I10 Essential (primary) hypertension; E78.5 Hyperlipidemia, unspecified; G47.30 Sleep apnea, unspecified
CPT/HCPCS: 23472; 23430; 01638; 36415; 64415; 73030; 76942; 82565; 82962; 84132; 84295; 84520; 85027; 97110; 97165; 97535; 99100; A9270; C1713; C1776; J0330; J0690; J1100; J2250; J2371; J2405; J2704; J2710; J3010; J7120; L3670

== ENCOUNTER 2024-01-13 09:00 | Outpatient (RCR) | payer OTHER, SELFPAY ==
--- NOTE | 2023-11-25 15:36 | OT.OPOE ---
OT Outpatient Ortho Eval OT Outpatient Ortho Eval* Start: 11/25/23 15:14 Freq: Status: Active Protocol: Document 11/25/23 15:18 SMW (Rec: 11/25/23 15:33 SMW [id number]) E-signed By Maria Del Carmen Childers OT OT OP Ortho Eval Details Complexity Complexity Low Insurance Information Insurance Information [employer] Outpatient History/Precautions Current Condition/Medical Diagnosis Referring Provider Dr. Marcano Treatment Diagnosis left shoulder pre-op Medical/Functional History Medical History Reviewed Yes Social History Physical Barriers in Home Environment Level, No Step Employment Status Retired Ortho Subjective Subjective Subjective I have been waiting to get my shoulder replaced, it is so painful. Assessment Assessment Assessment The patient is a 78 year old male referred to outpatient OT for a pre-op for a LTSA on 12/01/23. The patient fell on left shoulder ~ 5 weeks ago. The patient lives with his spouse who has been assisting patient post fall. She will continue to assist the patient as needed. The patient was educated on post op exercises, sling management, icing, one handed dressing techniques, positioning. All questions answered satisfactorily. Patient set up for outpatient PT. Occupational Therapy Treatment Plan - OP Goals Goals Within one visit, the patient will.. 1. verbalize understanding of post op exercises, sling management. goal met 2. verbalize understanding of one handed dressing techniques , postioning and icing. goal met.
--- NOTE | 2023-12-15 14:27 | PT.OPEX ---
PT [place] Outpatient Eval PT [facility] Outpatient Eval Start: 12/15/23 08:01 Freq: Status: Active Protocol: Document 12/15/23 08:02 SHEILA (Rec: 12/15/23 10:29 SHEILA [id number]) E-signed By Angie Lugo, PT Physical Therapy Outpatient Evaluation Insurance Information Recert Due Date 03/14/24 Insurance Name Other; See Comments Insurance Information/Comments [employer] Gold Medical Diagnosis RTSA Treating Diagnosis L shoulder pain, decreased ROM L shoulder Referring MD Paras Larios Subjective Subjective Fell on steps going into cabin . Dislocated L shoulder, tore 3 RC mm. Had MRI, but had to wait 3 weeks for surgery. He has had numbness in L thumb since onset of injury. is having complex medical situation. He is only wearing sling at night per PA. Uses a CPAP and has urinary problem and gets up several times a night, 2-3x/night. Had L RCR 30 years ago and had difficulty c OH ranges. 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 Preferred Name José Precautions Treatment Precautions/Contraindications DM, R TSA- PROM for 4 weeks, sling, ER to neutral Weight Bearing Status Non-Weight Bearing Therapy Limitations/Systems Review Not Limited Objective Other/Pertinent Objective L shoulder PROM Abd 18 flex: 22 c pain IR: to abdomen ER lacking 27 from neutral at side Elbow ext lacking 18 from 0 Hypertonic: L bicep's mm belly , Brachialis, UT, Pec major Edema at elbow: firm, bruised Posture: fwd head mild, reduced thoracic kyphosis Functional Test Performed & Score PMH: R hip bursitis, R thigh atrophy, R glut med tear, RCT L 30 years ago and recent, DM, HTN, caregives for c CA Assessment Assessment/Impression PT is an 78 yr old male c a h/ o fall c ant shoulder dislocation, L elbow pain, L hand N/T. He had RTSA on after 5.5 weeks in sling due to edema. He has contracture of elbow flexion. Pain limits PROM of L shoulder . He is NWB, PROM only for L shoulder at this time. 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 Bed transfers difficult and nocturia is frequent. He has pain c don/ doff clothing and sheets. HE would benefit from skilled PT to improve pain, edema, ROM, strength, and functional use of L arm. Plan of Care Rehabilitation Potential Good Physical Therapy Goals Pt will be indep c HEP in 8 weeks. Pt will be able to reach into Q-Botboards c 3# for IADLs in 12 weeks. PT will be indep c don/doff jeans in 4 weeks. PT will improve bladder schedule at night to reduce transfer strain on shoulder and enhance restorative rest in 8 weeks. Coordination/Communication With Referral Source Treatment Plan/Direct Interventions Electrical Stimulation,Ice/ Cold/Vasopneumatic,Manual Therapy,Neuromuscular Re-ed, Self-Care/Home Management, Therapeutic Activities, Therapeutic Exercises, Ultrasound Frequency/Duration 2x/week for 20 weeks, reduction in frequency as progress allows to weekly then biweekly Patient Will Be Discharged From Therapy Completion of LTG(s),Skills Plateau,Independent w/HEP, Independently Progressing Evaluation Billing Untimed Code Treatment Minutes 30 PT Eval No Charge No Complexity Moderate Certification Information Initial Certification Date 12/15/23 Ending Certification Date 03/14/24 Provider Signature Shows Agreement With POC & Medical Necessity Physician Signature & Date Requested Please Sign/Date Here Physician Comment/Change : Physician NPI Number #
== END 2024-02-21 13:19 | disposition home or self-care (01) ==
PROVIDERS: PCP Family Medicine; Visit Provider Orthopaedic Surgery Sports Medicine
DX: M19.012 Primary osteoarthritis, left shoulder (principal); Z51.89 Encounter for other specified aftercare
CPT/HCPCS: 97110; 97140; 97162; 97165; 97535

== ENCOUNTER 2024-06-29 13:37 | Outpatient (REF) | payer OTHER, SELFPAY ==
--- OUTSIDE RECORDS SUMMARY | 2024-06-29 13:40 | XMS_ITS | Clinical Summary ---
Author Organization [facility] Address [address] [place] [address] Care Team Providers Care Violin Teacher Name Role Phone Unavailable Primary Care Provider [...] Comments Sulfa (Sulfonamide Antibiotics) Hives 09/2005 Medications triamcinolone (NASACORT) [address] 2 Sprays in both nostrils daily. 2 Active potassium citrate CR (UROCIT-K-10) 10 mEq (1,080 mg) TbER Take 1 Tablet by mouth 2 (two) times daily 2 Active blood glucose control, low solution DIRECTED. 2 Active blood-glucose meter monitoring kit DISPENSE METER, TEST STRIPS, LANCETS COVERED BY PT INS. E11.9 NIDDM TYPE II - TEST 1 TIME/DAY 2 Active lancets 33 gauge DIRECTED. DISPENSE ITEM COVERED BY PT INS. E11.9 NIDDM TYPE II - TEST 1 TIME/DAY 2 Active rosuvastatin (CRESTOR) 20 mg tablet Take 1 Tablet (20 mg) by mouth once daily with evening meal. For Cholesterol. 3 Active clotrimazole-betam ethasone (LOTRISONE) 1-0.05 % cream Apply topically to affected area(s) two times daily. Use short term as needed to affect skin in anal area. 3 Active losartan (COZAAR) 50 mg tablet Take 1 Tablet (50 mg) by mouth once daily. For blood pressure. 3 Active metFORMIN XR (GLUCOPHAGE-XR) 500 mg 24 hr tablet Take 2 Tablets (1,000 mg) by mouth two times daily with meals. For diabetes. 3 Active tamsulosin (FLOMAX) 0.4 mg 24 hr capsule Take 2 Capsules (0.8 mg) by mouth once daily after a meal. For urinary symptoms. 3 Active glimepiride (AMARYL) 2 mg tablet Take 1 Tablet (2 mg) by mouth once daily with a meal. For diabetes. 3 Active canagliflozin 300 mg tab Take 1 Tablet (300 mg) by mouth once daily. For Diabetes. 3 Active blood sugar diagnostic (TRUE METRIX GLUCOSE TEST STRIP) strips DISPENSE ITEM COVERED BY PT INS. E11.9 NIDDM TYPE II - TEST 1 TIME/DAY 3 Active citalopram (CELEXA) 20 mg tablet Take 1 Tablet by mouth every morning 3 Active ciprofloxacin-dexa methasone (CIPRODEX) 0.3-0.1 % otic suspension Place 4 Drops into left ear two times daily. 3 Active oxyCODONE (ROXICODONE) 5 mg tablet Take 1 Tablet by mouth every 6 (six) hours as needed for pain 25 Tablet 4 Active ondansetron ODT (ZOFRAN-ODT) 4 mg disintegrating tablet Take 1 Tablet by mouth every 8 (eight) hours as needed for nausea 15 Tablet 4 Active Active Problems Problem Noted Date Diagnosed Date Injury of nerve, shoulder or arm, left, initial encounter 01/19/2024 Urinary tract obstruction due to kidney stone, r ight 11/15/2019 BPH 11/15/2019 Morbid (severe) obesity due to excess calories 0 10/31/2018 Renal lithiasis 06/29/2018 Overview (08/12/2023): June 2018: Right kidney stone 3.6mm. October 2019: 5mm right sided stone needing laser lithotripsy at [facility] and stent. Hematuria, gross 06/27/2018 Overview (08/12/2023): May 2018: Gross and microscopic hematuria. Workup ordered. CT showing right sided kidney stone. Chronic left-sided low back pain without sciatic a 02/08/2018 Lower urinary tract symptoms (LUTS) 11/02/2017 Overview (08/12/2023): October 2017: starting flomax for decreased urinary stream. Chronic pain of left knee 01/30/2016 Overview (08/12/2023): Dr. Hayden did MRI December 2015: meniscal tears of medial and lateral meniscus. Vitamin D deficiency 11/04/2015 Overview (08/12/2023): October 2015: after treatment, Vitamin D was over 60 when taking 5,000 Units daily, decreased down to 1,000. 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 2012: tried gabapentin top dose with minimal to no help. Chronic cough 12/16/2011 Overview (08/12/2023): November evaluation October 2011: PFT and Methacholine Challenge negative. Recommended combination astelin, atrovent, and Nasarel 5cc each to nostrils twice daily, then reassess, titrate to lowest effective dose. ACP (advance care planning) 06/24/2011 Overview (08/12/2023): May 2011: Patient completed living will approximately 2000, does not want to revisit, he was instructed to bring in copy of living will to have on file. ROSANA 11/2006 AHI-[id number] 05/04/2011 Adjustment disorder with depressed mood 03/01/20 11 Overview (08/12/2023): Feb 2011: started on Citalopram. June 2011: stopping citalopram and see how symptoms go. Restarted and still taking as of January 2017. May 2017: went off Citalopram (Celexa), no change so staying off. November 2017: restarted Citalopram (Celexa). Primary hypertension 06/05/2010 Overview (08/12/2023): October 2016: stopping hydrochlorothiazide, and starting losartan due to wanting to be on ARB with Diabetes. Gout, unspecified 06/05/2010 Hypercholesterolemia 06/05/2010 Overview (08/12/2023): November 2011: was on lipitor, changed to lovastatin due only to cost. November 2012: Adin May changed back to lipitor due to worsening [...] without long-term current use of insulin 06/05/2010 Overview (08/12/2023): May 2010: fasting glucose = 105. Needs [...] Encounters Date Type Department Care Team Description 04/03/2024 10:24 AM CDT Hospital Encounter [facility] Physical Therapy [place] [address] [place] [address] Sofiya Silva, PT Discharge Disposition: Still a Patient 04/03/2024 Travel from Last 3 Months Immunizations Name Administration Dates Next Due Flu, High Dose, 65y+, Fluzon e High Dose 04/27/2022 Flu, Preservative Free 04/30/2021,04/15/2020 INFLUENZA, SEASONAL, INJECTABLE 05/09/20 13,05/19/2012,05/26/2011,04/30 Influenza (FLUAD), Trivalent , Adjuvanted 04/07/2019,05/02/2018,05/07/2017 Influenza (FLUZONE), high-do se, trivalent, PF 03/09/2016,04/30/2015,04/20/2014,04/20 Novel [id number], preservative-free, injectable 06/25/2009 PNEUMOCOCCAL CONJUGATE PCV 13 07/03/2015 PNEUMOCOCCAL POLYSACCHARIDE PPV23 06/05/2010,07/2008 Pfizer-Remote [employer] Gear COVID-19 Vac cine Bivalent, (NEGRO PFIZER-BIONTECH COVID-19 VACCINE BIVALENT, (NEGRO CAP 04/10/2022 TDAP 02/12/2017,11/16/2011 Td (adult), 5 Lf tetanus tox oid, preservative free 06/05/2010 Td(adult),2 Lf tetanus toxoid,preservative free 07/26/2008 ZOSTER VACCINE, RECOMBINANT (SHINGRIX) 2,09/29/2021 Zoster, Live Vaccine (Zostavax) 11/06/2011 Social History Tobacco Use Types Packs/Day Years Used Date Smoking Tobacco: Never Assessed Social Connections Answer Date Recorded Connectedness 0 04/10/2024 Financial Resource Strain Answer Date R ecorded Financial Resource Strain 0 2023 Stress Answer Date Recorded Stress 0 08/17/2023 Physical Activity Answer Date Recorded Physical Activity 0 08/17/2023 Food Insecurity Answer Date Recorded Food 0 04/20/2024 Transportation Needs Answer Date Record ed Transportation 0 08/17/2023 Housing Stability Answer Date Recorded Housing 0 08/17/2023 Safety and Environment Answer Date David rded Safety 0 08/17/2023 Utilities Answer Date Recorded Utilities 0 08/17/2023 Employment Answer Date Recorded Stress 0 04/10/2024 Sex and Gender Information Value Date Recorded Sex Assigned at Not on file Legal Sex Male 2:53 PM PST Gender Identity Not on file Sexual Orientation Not on file Last Filed Vital Signs Vital Sign Reading Time Taken Comments Blood Pressure 149/74 10/22/2023 1:16 PM CDT Pulse 100 10/22/2023 1:16 PM CDT Temperature 36.7 C (98 F) 10/22/2023 11:21 AM CDT Respiratory Rate 21 10/22/2023 1:16 [...] 1943 Lipid Screening 1943 Tobacco Screening 1943 Urine Drug Screen 1943 Retinopathy Screening 10/10/1956 Medicare Annual Wellness Visit 10/10/1961 Falls Prevention 10/10/2008 Alcohol and Drug Screen 07/26/2023 Depression Annual Screen 07/26/2023 [id number] ( season) 2024 10/12/2023, 05/12/2023, 04/10/2022, Additional history exists Imm-Influenza (#1) 2024 04/08/2023, 1 , 04/30/2021, Additional history exists Diabetes HbA1c 07/11/2024 01/10/2024, 12/24, 09/10/2023, Additional history exists Serum Creatinine 11/10/2024 11/11/2023, 10/22/2023 Imm-DTaP/Tdap/Td (3 - Td or Tdap) 02/12/2027 02/12/2017, 11/16/2011, 06/05/2010, Additional history exists Imm-Pneumococcal 65+ Completed 07/03/2015, 06/05/2010, 07/26/2008 Imm-Zoster, Recombinant Completed 12/04/19, 09/29/2021, 11/06/2011 Procedures Procedure Name Priority Date/Time Associated Diagnosis Comments COMPREHENSIVE METABOLIC PANEL STAT 10/22/2023 11:57 AM CDT from Last 3 Months or Most Recently Relevant to Health Maintenance Results * (ABNORMAL) Comprehensive metabolic panel (10/22/2023 11:57 AM CDT) Sodium 135.0(A) 137 - 145 mmol/L mmol/L 10/22/2023 12:20 PM [facility] Potassium 4.4 3.5 - 5.1 mmol/L mmol/L 10/22/2023 12:20 PM [facility] Chloride 101 98 - 107 mmol/L mmol/L 10/22/2023 12:20 PM [facility] CO2 27.0 22 - 30 mmol/L mmol/L 10/22/2023 12:20 PM [facility] Anion Gap 7 3 - 11 mmol/L mmol/L 10/22/2023 12:20 PM [facility] BUN 18.0 9 - 20 mg/dL mg/dL 10/22/2023 12:20 PM [facility] Creatinine 0.85 0.66 - 1.25 mg/dL mg/dL 10/22/2023 12:20 PM [facility] BUN/Creatinine Ratio 21.18 10/22/2023 12:20 PM [facility] Glucose 271(A) 75 - 100 mg/dL mg/dL 10/22/2023 12:20 PM [facility] Calcium 9.3 8.4 - 10.2 mg/dL 10/22/2023 12:20 PM [facility] AST 29 17 - 59 U/L U/L 10/22/2023 12:20 PM [facility] ALT (SGPT) 38 <50 U/L U/L 10/22/2023 12:20 PM [facility] Alkaline Phosphatase 65 38 - 126 U/L U/L 10/22/2023 12:20 PM [facility] Total Protein 6.9 6.3 - 8.2 g/dL 10/22/2023 12:20 PM [facility] Albumin 4.0 3.5 - 5.0 g/dL g/dL 10/22/2023 12:20 PM [facility] Total Bilirubin 1.6(A) 0.2 - 1.3 mg/dL mg/dL 10/22/2023 12:20 PM [facility] eGFR 87.8(A) >90.0 mL/min/1.7 3m*2 10/22/2023 12:20 PM [facility] Blood Venous blood specimen / Unknown Venipuncture / Unknown 10/22/2023 11:57 AM CDT 10/22/2023 11:59 AM [facility] us Singh Mann MD LAB BLOOD ORDERABLES Final Result [facility] [address] [place] [address], from Last 3 Months or Most Recently Relevant to Health Maintenance Insurance [employer] MEDIC[employer] Member Subscriber Plan / Payer (Ef fective 2023-Present) Name:Chao Davis Relation to Subscriber:Self Name:Chao Davis Payer ID:[id number] Type:Medicare Address: [facility] [address] [place] [address]
--- OUTSIDE RECORDS SUMMARY | 2024-06-29 13:40 | XMS_ITS | Encounter Summary ---
Author Organization [facility] Address [address] [place] [address] Care Team Providers Care Line Department Supervisor Name Role Phone Unavailable Primary Care Provider Unavailabl e Encounter Details Date Type Department Care Team (Latest Contact Info) Description 04/03/2024 Travel Social History Tobacco Use Types Packs/Day Years Used Date Smoking Tobacco: Never Assessed Social Connections Answer Date Recorded Social Connections and Isolation 0 08/17/2023 Financial Resource Strain Answer Date R ecorded Financial Resource Strain 0 2023 Stress Answer Date Recorded Stress 0 08/17/2023 Physical Activity Answer Date Recorded Physical Activity 0 08/17/2023 Food Insecurity Answer Date Recorded Food 0 03/28/2024 Transportation Needs Answer Date Record ed Transportation [...] on file documented as of this encounter Plan of Treatment Not on file documented as of this encounter Visit Diagnoses Not on filedocumented in this encounter
--- OUTSIDE RECORDS SUMMARY | 2024-06-29 13:41 | XMS_ITS | Encounter Summary ---
Author Organization [facility] Address [address] [place] [address] Care Team Providers Care Speech And Hearing Director Name Role Phone Unavailable Primary Care Provider Unavailabl e Encounter Details Date Type Department Care Team (Latest Contact Info) Description 03/28/2024 Travel Social History Tobacco Use Types Packs/Day [...]
--- OUTSIDE RECORDS SUMMARY | 2024-06-29 13:41 | XMS_ITS | Encounter Summary ---
Author Organization [facility] Address [address] [place] [id number] Care Team Providers Care Automotive Glazier Name Role Phone Unavailable Primary Care Provider Unavailabl e Reason for Visit * Reason Onset Date Comments Schedule surgery 06/08/2024 Encounter Details Date Type Department Care Team (Latest Contact Info) Description 06/08/2024 Clinical Communication Department of Otorhinolaryngology in [place], [place] [address] [place] [phone] Anish Franklin M.D. [address] [place] [address] Schedule surgery Social History Tobacco Use Types Packs/Day Years Used Date Smoking Tobacco: Never Smokeless Tobacco: Never Dental Answer Date Recorded Dental: Regular Dentist Unknown 05/27/20 21 Sex and Gender Information Value Date Recorded Sex Assigned at Not on file Legal Sex Male 3:32 AM DOCTOR OF NAPRAPATHY Gender Identity Not on file Sexual Orientation Not on file documented as of this encounter Miscellaneous Notes * Telephone Encounter - Mari Trejo - 06/08/2024 2:42 PM DOCTOR OF NAPRAPATHY Patient calling in to schedule surgery. He would like to try for 08/08/2024, 08/10/2024 or the following week if those dates are not open. He will get his LISA with his PCP and have the notes faxed tous. Please let me know what would work with your schedule. Vidya Byrd OR [facility] NAPRAPATHY documented in this encounter Plan of Treatment Upcoming Encounters Date Type Department Care Team (Latest Contact Info) Description 08/10/2024 1:30 PM DOCTOR OF NAPRAPATHY Hospital Encounter Post Anesthesia Care Unit in [place], [place] [address] [place] [phone] Anish Franklin M.D. [address] [place] [phone] 08/10/2024 1:30 PM DOCTOR OF NAPRAPATHY - 08/10/2024 5:02 PM DOCTOR OF NAPRAPATHY Surgery [facility] [address] [place] [phone] Anish Franklin M.D. 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
--- OUTSIDE RECORDS SUMMARY | 2024-06-29 13:41 | XMS_ITS | Encounter Summary ---
Author Organization [facility] Address [address] [place] [address] Care Team Providers Care Air Analysis Technician Name Role Phone Unavailable Primary Care Provider Unavailabl e Reason for Visit * Physical Therapy (Routine) - Closed Specialty Diagnoses / Procedures Referred By Fiorella black Referred To Contact Diagnoses Presence of left artificial shoulder joint Rosas Marcano Referral ID Status Reason Start Date Expiration Date V isits Requested Visits Authorized [id number] Closed Specialty Services Required 01/17/2024 01/16/2025 30 30 Encounter Details Date Type Department Care Team (Latest Contact Info) Description 03/23/2024 8:27 AM CDT - 03/23/2024 11:59 PM CDT Hospital Encounter [facility] Physical Therapy [place] [address] [phone] Sofiya Silva, PT [address] [place], [place] [phone] Discharge Disposition: Still a Patient Social History Tobacco Use Types Packs/Day Years [...] this encounter Medications at Time of Discharge ondansetron ODT (ZOFRAN-ODT) 4 mg disintegrating tablet [...] by mouth once daily. For Diabetes. 04/11/2023 ciprofloxacin-dexame thasone (CIPRODEX) 0.3-0.1 % otic suspension Place 4 Drops into left ear two times daily. 06/21/2023 citalopram (CELEXA) 20 mg tablet Take 1 Tablet by mouth every morning 04/11/2023 clotrimazole-betamet hasone (LOTRISONE) 1-0.05 % cream Apply topically to [...] daily. 08/07/2021 documented as of this encounter Progress Notes * Sofiya Silva, PT - 03/23/2024 8:30 AM CDT [facility] Physical Therapy Daily Treatment Note - Outpatient Patient: Chao Dietrich [facility] Diagnosis: rTSA, peripheral nerve injury Precautions: rTSA, peripheral nerve injury Certification Dates: From: 01/17/2024 To: 04/10/24 GOALS: Assessment of improvement and extent of progress toward each goal Patient will be independent in performance of home exercise program in 2 weeks. MET Patient will report increased sleeping comfort in 2 weeks. MET Patient will be independent with bathing, dressing and self care activities in 12 weeks. PROGRESSING Patient will demonstrate shoulder AROM for performing reaching, lifting, and carrying tasks in 12 weeks. PROGRESSING Patient will perform ADL's and housekeeping activities with 2/10 pain in 12 weeks. PROGRESSING Patient will perform routine table top activities such as writing, typing, and eating in 12 weeks. PROGRESSING Patient will increase shoulder flexion active assist range of motion to 110 degrees as needed for activities of daily living in 12 weeks. PROGRESSING VISIT COUNT 16 17 18 19 DATE 03/13/24 03/15/24 03/20/24 03/23/24 PAIN LEVEL (0-10) 3 SUBJECTIVE His shoulder pain has been a little better. Shoulder pain again feels a little better. Patient reports he is frustrated and feels he is not improving. His shoulder still gets pretty sore Patient would like to know if any progress reports will be sent to his surgeon prior to his follow up with them next week. OBJECTIVE GAIT EXERCISE Upper body ergometer L1.5 x5' total forward and backward Pulleys flexion, assisted by therapist scaption x2-3' each Upper body ergometer L2 x5' total forward and backward Upper body ergometer L3 x7' total forward and backward Supine Passive Range of Motion left upper extremity by therapist: - shoulder flexion, abduction, external rotation, IR, extension, horizontal abduction Supine: - aarom shoulder flexion, chest press x15 each with cues for left arm working more and left upper extremity independent lowering from end range - aarom horizontal abduction/adduction x10 Supine Passive Range of Motion left upper extremity by therapist: - shoulder flexion, abduction, external rotation, IR Standing doorway isometrics: - shoulder abduction, flexion, external rotation 10 x5s hold Seated AAROM with cane: - chest press, flexion, external rotation x10-15 each Seated: - cross body stretch for posterior capsule 2x30s Seated: - cross body stretch for posterior capsule 2x30s with cues for technique Seated: - cross body stretch for posterior capsule x30s - eccentric lowering left arm abduction with therapist assistance to lift to 90*, cues to hold arm there x6 repetitions. Patient is unable to hold up the weight of left upper extremity in this position. Standing: - shoulder external rotation stretch x30s - pectoralis stretch x30s Supine: - aarom shoulder flexion, chest press x15 each with cues for left arm working more and left upper extremity independent lowering from end range Sidelying: - left sleeper stretch x30s Sidelying: - left sleeper stretch x30s with cues for technique Standing doorway isometrics: - shoulder abduction, IR, external rotation 10 x5s hold CURRENT HOME PROGRAM - standing pendulums x10 - seated table slides flexion, abduction x10 - Supine AAROM with cane flexion, abduction, external rotation, chest press x10 - pulleys flexion, abduction - seated neck stretches upper trapezius, levator scapulae x1 minute - wall slides flexion, scaption x10 - shoulder external rotation stretch x30s at doorway - standing pendulums x10 - seated table slides flexion, abduction x10 - Supine AAROM with cane flexion, abduction, external rotation, chest press x10 - pulleys flexion, abduction - seated neck stretches upper trapezius, levator scapulae x1 minute - wall slides flexion, scaption x10 - shoulder external rotation stretch x30s at doorway - sleeper stretch x30s - standing pendulums x10 - seated table slides flexion, abduction x10 - Supine AAROM with cane flexion, abduction, external rotation, chest press x10 - pulleys flexion, abduction - seated neck stretches upper trapezius, levator scapulae x1 minute - wall slides flexion, scaption x10 - shoulder external rotation stretch x30s at doorway - sleeper stretch x30s - posterior capsule stretch x30s - standing pendulums x10 - seated table slides flexion, abduction x10 - Supine AAROM with cane flexion, abduction, external rotation, chest press x10 - pulleys flexion, abduction - seated neck stretches upper trapezius, levator scapulae x1 minute - wall slides flexion, scaption x10 - shoulder external rotation stretch x30s at doorway - sleeper stretch x30s - posterior capsule stretch x30s MANUAL THERAPY MODALITIES Estim: attempting to elicit supraspinatus and infraspinatus muscle activation x6 minutes plus set up, Volts 0.3-0.5 per patient tolerance, 10/10 frequency. Patient reported feeling of tingling, did not elicit or appreciate muscle twitch or change in activation following treatment. THERAPEUTIC ACTIVITY SELF CARE/HOME MANAGEMENT NEUROMUSCULAR RE-ED ASSESSMENT Response to treatment Pain (0-10) Functional Improvement Other comments Patient struggles more with seated AAROM than with supine. He still is unable to actively lift his arm within full range of motion. Patient had improved flexion control during supine AAROM exercise with left upper extremity independent eccentric lowering today. He is still strugglingwith control of upper extremity in abduction due to weakness. Reviewed newer home exercise program stretches today to answer patient's questions. Patient continues to demonstrate poor rotator cuff strength and activation. Next session we will trial NMES as appropriate to facilitate rotator cuff activation. Attempted to perform NMES for rotator cuff muscle activation, did not elicit muscle twitch or improved activation with exercise following this. Patient reportedly feeling tingling but could not get muscle twitch. May consider trying this again in future with adjusted parameters. Patient hasprogress note due at next session and will be seeing his surgeon later next week so we will check go als and function at next session. Plan Plan to continue treatment 2x weekly; rTSA protocol for shoulder range of motion and strengthening,elbow, wrist, and hand range of motion and strength. Continue to work into strengthening as appropriate. 2x weekly; rTSA protocol for shoulder range of motion and strengthening, elbow, wrist, and hand range of motion and strength. Continue to work into strengthening as appropriate. 2x weekly; rTSA p rotocol for shoulder range of motion and strengthening, elbow, wrist, and hand range of motion and strength. Continue to work into strengthening as appropriate. Trial NMES next session for strengthening. Review goals, range of motion, and strength for progress note due next week Plan for Continued Treatment: Chao Davis has the potential to improve in response to therapy. Maximum improvement is yet to be attained. There is an expectation that the anticipated improvement is attainable in a reasonable and generally predictable period of time. I certify that all services provided during this treatment session are medically necessary. documented in this encounter Plan of Treatment Not on file documented as of this encounter Visit Diagnoses Not on filedocumented in this encounter
--- OUTSIDE RECORDS SUMMARY | 2024-06-29 13:41 | XMS_ITS | Encounter Summary ---
Author Organization [facility] Address [address] [place] [address] Care Team Providers Care Hostess Host Name Role Phone Unavailable Primary Care Provider Unavailabl e Encounter Details Date Type Department Care Team (Latest Contact Info) Description 06/08/2024 Orders Only Department of Otorhinolaryngology in [place], [place] [address] [place] [phone] Anish Franklin M.D. [address] [place] [phone] Otorrhea Left Ear (Primary Dx); Other Specified Hearing Loss Left Ear Social History Tobacco Use Types Packs/Day Years Used Date Smoking Tobacco: Never Smokeless Tobacco: Never Dental Answer Date Recorded Dental: Regular Dentist Unknown 05/27/20 21 Sex and Gender Information Value Date Recorded Sex Assigned at Not on file Legal Sex Male 3:32 AM MULTIMEDIA DEVELOPER Gender Identity Not on file Sexual Orientation Not on file documented as of this encounter Plan of Treatment Upcoming Encounters Date Type Department Care Team (Latest Contact Info) Description 08/10/2024 1:30 PM MULTIMEDIA DEVELOPER Hospital Encounter Post Anesthesia Care Unit in [place], [place] [address] [place] [phone] Anish Franklin M.D. [address] [place] [address] [phone] 08/10/2024 1:30 PM MULTIMEDIA DEVELOPER - 08/10/2024 5:02 PM MULTIMEDIA DEVELOPER Surgery RST ROMB MAIN OR [address] [place] [address] [phone] Anish Franklin M.D. 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
--- OUTSIDE RECORDS SUMMARY | 2024-06-29 13:41 | XMS_ITS | Encounter Summary ---
Author Organization [facility] Address [address] [place] [address] Care Team Providers Care Sql Developer Dba Name Role Phone Unavailable Primary Care Provider Unavailabl e Reason for Visit * Physical Therapy (Routine) - Closed Specialty Diagnoses / Procedures Referred By Fiorella black Referred To Contact Diagnoses Presence of left artificial shoulder joint Rosas Marcano Referral ID Status Reason Start Date Expiration Date V isits Requested Visits Authorized [id number] Closed Specialty Services Required 01/17/2024 01/16/2025 30 30 Encounter Details Date Type Department Care Team (Latest Contact Info) Description 03/28/2024 1:00 PM CDT - 03/28/2024 1:25 PM CDT Hospital Encounter [facility] Physical Therapy [place] [address] [place] [phone] Sofiya Silva, PT [address] [place], [place] [phone] Discharge Disposition: Still a Patient Social History [...] as of this encounter Progress Notes * Sofiyaaddie Silva, PT - 03/28/2024 1:00 PM CDT [facility] Physical Therapy Daily Treatment Note - Outpatient Patient: Chao Dietrich [facility] Diagnosis: rTSA, peripheral nerve injury Precautions: rTSA, peripheral nerve injury Certification Dates: From: 01/17/2024 To: 05/23/24 GOALS: Assessment of improvement and extent of [...] living in 12 weeks. PROGRESSING VISIT COUNT 17 18 19 20 DATE 03/15/24 03/20/24 03/23/24 03/28/24 PAIN LEVEL (0-10) SUBJECTIVE Shoulder pain again feels a little better. Patient reports he is frustrated and feels he is not improving. His shoulder still gets pretty sore Patient would like to know if any progress reports will be sent to his surgeon prior to his follow up with them next week. Patient is frustrated with his slow progress. He is wanting to get some answers from his surgeon at his appointment on Wednesday. OBJECTIVE Shoulder Passive Range of Motion: - external rotation 45 - flexion 105 - abduction 110 Shoulder active range of motion: - flexion 45 - abduction 38 - external rotation to ear - internal rotation to PSIS GAIT EXERCISE Pulleys flexion, assisted by therapist scaption x2-3' each Upper body ergometer L2 x5' total forward and backward Upper body ergometer L3 x7' total forward and backward Supine Passive Range of Motion shoulder flexion, abduction, external rotation Supine: - aarom shoulder flexion, chest press x15 each with cues for left arm working more and left upper extremity independent lowering from end range - aarom horizontal abduction/adduction x10 Supine Passive Range of Motion left upper extremity by therapist: - shoulder flexion, abduction, external rotation, IR Standing doorway isometrics: - shoulder abduction, flexion, external rotation 10 x5s hold Discussed with patient his current level of function and plateau in progress. Discussed questions to ask his surgeon at next visit on Wednesday. Seated: - cross body stretch for posterior [...] Pain (0-10) Functional Improvement Other comments Patient had improved flexion control during supine AAROM exercise with left upper extremity independent eccentric lowering today. He is still struggling with control of upper extremityin abduction due to weakness. Reviewed newer home [...] again in future with adjusted parameters. Patient has progress note due at next session and will be seeing his surgeon later next week so we will check goals and function at next session. Patient has been seen for 20 visits from 01/17/24 to 03/28/24. Over the course of therapy he has demonstrated great improvements in Passive Range of Motion. Passive Range of Motion appears to be at end range with firm end feel and therapist anticipates this is unlikely to improve any further. His AAROM unfortunately is very slow to improve and he has very poor rotator cuff strength. He is unable to reach overhead or even reach past his ear. He is still requiring assistance from his for bathing and reaching to his back. Patient has functional deficits with reaching, lifting, washing, bathing, dressing, activities of daily living. He has a follow up with his surgeon later this week and wewill reassess after this if skilled Physical Therapy is appropriate based on anticipated expectations of outcome. Plan Plan to continue treatment 2x weekly; rTSA protocol for shoulder range of motion and strengthening,elbow, wrist, and hand range of motion and strength. Continue to work into strengthening as appropriate. 2x weekly; rTSA protocol for shoulder range of motion and strengthening, elbow, wrist, and hand range of motion and strength. Continue to work into strengthening as appropriate. Trial NMES next s ession for strengthening. Review goals, range of motion, and strength for progress note due next week Assess need for continued skilled therapy following ortho appointment Plan for Continued Treatment: Chao Davis has the potential to improve in response to therapy. Maximum improvement is yet to be attained. There is an expectation that the anticipated improvement is attainable in a reasonable and generally predictable period of time. I certify that all services provided during this treatment session are medically necessary. 10th Visit Note and Re-certification Report Dates: From: 01/17/24 To: 03/28/2024 Planned Interventions for Continued Treatment: Patient education/ADL self care , Therapeutic exercise/home exercise program instruction, Therapeutic activities, Neuromuscular re-education, Manual therapy, Electrical stimulation, and Ultrasound Frequency of Treatment: 1-2x/week Duration of Treatment: 8 weeks Please see above stated Goals for progress toward original goals set at evaluation and for additionof any new goals (if appropriate) for the next reporting period. documented in this encounter Plan of Treatment Not on file documented as of this encounter Visit Diagnoses Not on filedocumented in this encounter
--- OUTSIDE RECORDS SUMMARY | 2024-06-29 13:41 | XMS_ITS | Encounter Summary ---
Author Organization [facility] Address [address] [place] [address] Care Team Providers Care Entertainment Lawyer Name Role Phone Unavailable Primary Care Provider Unavailabl e Reason for Visit * Occupational Therapy (Routine) - New Request Specialty Diagnoses / Procedures Referred By Fiorella black Referred To Contact Occupational Therapy Diagnoses Injury of nerve, shoulder or arm, left, initial encounter Rosas Marcano Referral ID Status Reason Start Date Expiration Date Visits Requested Visits Authorized [id number] New Request Evaluate and Treat 01/17/2024 01/16/2025 20 20 Encounter Details Date Type Department Care Team (Latest Contact Info) Description 03/23/2024 8:27 AM CDT - 03/23/2024 11:59 PM CDT Hospital Encounter [facility] Occupational Therapy [place] 200 [place] [address] Faith Coronel, OT 200 [place] [address] Discharge Disposition: Still a Patient Social History [...] as of this encounter Progress Notes * Faith Coronel, OT - 03/23/2024 9:15 AM CDT Occupational Therapy [facility] 90 day Progress Note Patient: Chao Davis Date of Service: 01/19/2024 Medical Diagnosis: Injury of nerve, shoulder or arm, left, initial encounter Certification Dates: From: 03/23/2024 To: 06/22/24 History of injury: At evaluation, Pt fell from a step about 3 months ago dislocating his shoulder and tearing the rotator cuff. After the swelling went down about 4 weeks later ,He underwent a reverse TSA and repair. He is now 6 -7 weeks post op. And there is suspected nerve damage affecting his UEfrom the shoulder to the fingers. He has weakness in the radial nerve track demonstrating difficulty with finger and thumb extension and weakness in all other areas of motion of hand and wrist. Subjective: José reports he has difficulty opening his hand to grasp objects. He is able to homemaking rehabilitation consultant and has been using a ball that was given to him prior to his shoulder surgery. He reports his arm gets achy with movement. HE has been doing the exercises he was given in [place] that include: spreading his fingers, stretch to wrist, and elbow flexion/extension. GOALS: Assessment of improvement and extent of progress toward each goal José will be independent in [facility] to improve safety and independence with self cares- José is stillprogressing with exercises program. Will continue José will have 20# or greater of homemaking rehabilitation consultant strength in left hand to be able to pull up pants: Goal progressing- José is able to homemaking rehabilitation consultant, but not yet 20#. Continue José will will be able to use left hand to stabilize plate/bowl while eating: Goal progressing- Ptis using AE at this time and progressing to not using AE for eating. Continue José will be able to release a a medium size object from his left hand to improve ability to drinkfrom a glass: goal progressing- Pt is able to complete this but not with 100% accuracy at this point- continue José will be able to incorporate LUE into self cares activities 90% of the time to improve independence with self cares. Goal progressing- pt is still having difficulty with showering, dressing, andtoileting. Continue SUBJECTIVE José reported that he needs help showering, wiping, and putting on his socks because ofhis shoulder. José's left hand is sore at the MCP joint and thenar. His hand seems to be cupping some. José has no new complaints Date 03/13/24 03/15/2024 03/23/24 Pain (0-10) Comments EXERCISE AROM to thumb in rotation, and radial abduction to facilitate 1st interossei muscle movement and strengthening. Joint blocking of DIP joint and MCP joint with minimal ability to extend joints. Gentle stretch IASTM to thenar muscle groups, scooping thumb creases, and scraping bands. Working on Place and hold distal extremity extension patterns with moderate+ difficulty. Working on extensors with suction cups on a vertical surface with moderate difficulty MEASUREMENTS Orthoses MODALITIES NMES P9 level 23 with good activation of finger extensors NMES P9 level 23 with ultra sound gel over distal UE extensors with 3-/5 activation. ADL/SELF-CARE Taught pt use of sock aid, residential leasing manager, long handled sponge, and toilet tongs Worked on cutting foods with knife and fork with modified independence. OTHER ASSESSMENT Response to treatment Pt was excited to be more independent with things at home Pt reports increaseease with thumb movement Pt reports he can do more in therapy than he can at home. Pain (0-10) Functional Improvement Other comments PLAN Plan for next session Continue with fine motor activity, NMES and strengthening. Mirror therapy andfunctional tasks Continue with fine motor activity, NMES and strengthening. Mirror therapy and functional tasks Continue with fine motor activity, NMES and strengthening. Mirror therapy and functional tasks Miladis Avitia OT Plan for Continued Treatment: Chao Davis has [...]
--- OUTSIDE RECORDS SUMMARY | 2024-06-29 13:41 | XMS_ITS ---
Author Organization [facility] Address [address] [place] [address] Care Team Providers Care Alemite Operator Name Role Phone Unavailable Unavailable Unavailable Surgery Details Not on file Complications Check Surgery Details section. Procedure Estimated Blood Loss Check Surgery Details section. Procedure Findings Check Surgery Details section. Procedure Specimens Taken Check Surgery Details section.
--- OUTSIDE RECORDS SUMMARY | 2024-06-29 13:41 | XMS_ITS | Encounter Summary ---
Author Organization [facility] Address [address] [place] [address] Care Team Providers Care Development Professional Name Role Phone Unavailable Primary Care Provider Unavailabl e Encounter Details Date Type Department Care Team (Latest Contact Info) Description 03/23/2024 Travel Social History Tobacco Use Types Packs/Day [...]
--- OUTSIDE RECORDS SUMMARY | 2024-06-29 13:41 | XMS_ITS | Encounter Summary ---
Author Organization [facility] Address [address] [place] [address] Care Team Providers Care Onshore Diver Name Role Phone Unavailable Primary Care Provider Unavailabl e Reason for Visit * Physical Therapy (Routine) - Closed Specialty Diagnoses / Procedures Referred By Fiorella black Referred To Contact Diagnoses Presence of left artificial shoulder joint Rosas Marcano Referral ID Status Reason Start Date Expiration Date V isits Requested Visits Authorized [id number] Closed Specialty Services Required 01/17/2024 01/16/2025 30 30 Encounter Details Date Type Department Care Team (Latest Contact Info) Description 04/03/2024 10:24 AM CDT Hospital Encounter [facility] Physical Therapy [place] [address] [place] [phone] Sofiya Silva, PT [address] [place], [place] [phone] Discharge Disposition: Still a Patient Social History [...] of this encounter Progress Notes * Sofiya Summersapollo, PT - 04/03/2024 10:30 AM CDT [facility] Physical Therapy Daily Treatment Note - Outpatient Patient: Chao Davis Medical Diagnosis: rTSA, peripheral nerve injury Precautions: rTSA, [...] living in 12 weeks. PROGRESSING VISIT COUNT 18 19 20 21 DATE 03/20/24 03/23/24 03/28/24 04/03/24 PAIN LEVEL (0-10) 3 SUBJECTIVE Patient reports he is frustrated and feels he is not improving. His shoulder still gets pretty sorePatient would like to know if any progress reports will be sent to his surgeon prior to his follow up with them next week. Patient is frustrated with his slow progress. He is wanting to get some answers from his surgeon at his appointment on Wednesday. [place] and is planning to start Physical Therapy/Occupational Therapy near home in April. Had a follow up with his surgeon last Wednesday, they are planning to conduct EMG to determine extent of nerve damage and what they can treat. Therapist did speak directly with surgeon, plan is to shift modalities to pain relief if patient wants otherwise place on hold until hereturns to [place] for therapy. OBJECTIVE Shoulder Passive Range of Motion: - external rotation 45 - flexion 105 - abduction 110 Shoulder active range of motion: - flexion 45 - abduction 38 - external rotation to ear - internal rotation to PSIS GAIT EXERCISE Upper body ergometer L2 x5' total forward and backward Upper body ergometer L3 x7' total forward and backward Supine Passive Range of Motion shoulder flexion, abduction, external rotation Discussed patient's visit with surgeon and plan for future Physical Therapy treatment (place on hold vs modalities for pain). Patient is agreeable to trying US today. Supine Passive Range of Motion left upper [...] of left upper extremity in this position. Supine: - aarom shoulder flexion, chest press x15 each with cues for left arm working more and left upper extremity independent lowering from end range Sidelying: - left sleeper stretch x30s with [...] twitch or change in activation following treatment. Supine US x15 minutes to patient's anterior shoulder, arm, and pectoralis 1 MHz, 1.5 [place]. Pillow under arm for comfort. THERAPEUTIC ACTIVITY SELF CARE/HOME MANAGEMENT NEUROMUSCULAR RE-ED ASSESSMENT Response to treatment Pain (0-10) Functional Improvement Other comments Reviewed newer home exercise program stretches today [...] the course of therapy he has demonstrated greatimprovements in Passive Range of Motion. Passive Range [...] with his surgeon later this week and we will reassess after this if skilled Physical Therapy is appropriate based on anticipated expectations of outcome. Patient tolerated US well today but reported no change in symptoms. Therapist discussed with patienthis current level of function and as he is planning to return home to [place] in a few weeks we will transition care to pain-relief pending transition. Patient was advised he could be placed on hold at any time as needed. Plan Plan to continue treatment 2x weekly; rTSA protocol for shoulder range of motion and strengthening,elbow, wrist, and hand range of motion and strength. Continue to work into strengthening as appropriate. Trial NMES next session for strengthening. Review goals, range of motion, and strength for progress note due next week Assess need for continued skilled therapy following ortho appointment Continue modalities as needed for pain Plan for Continued Treatment: Chao Davis has the potential to improve in response to therapy. Maximum improvement is yet to be attained. There is an expectation that the anticipated improvement is attainable in a reasonable and generally predictable period of time. I certify that all services provided during this treatment session are medically necessary. * Sofiya Silva, PT - 04/03/2024 10:24 AM CDTEncounter addended by: Sofiya Silva PT on: 05/16/2024 2:04 PM Actions taken: Clinical Note Signed, Episode resolved * Sofiya Silva, PT - 04/03/2024 10:00 AM CDT Discharge Summary Chao Davis has attended Rehabilitation, but has not continued participation with the Planof Care. Therefore, functional status, goal achievement and progression is unknown at this time. Please view all notes associated with this episode of care for more information. Chao Davis is being discharged from therapy at this time. documented in this encounter Plan of Treatment Not on file documented as of this encounter Visit Diagnoses Not on filedocumented in this encounter
--- OUTSIDE RECORDS SUMMARY | 2024-06-29 13:41 | XMS_ITS | Encounter Summary ---
Author Organization [facility] Address [address] [place] [address] Care Team Providers Care Organizational Consultant Name Role Phone Unavailable Primary Care Provider Unavailabl e Encounter Details Date Type Department Care Team (Late Contact Info) Description 06/19/2024 Orders Only Department of Otorhinolaryngology in [place], [place] [address] [place] [address] [phone] Anish Franklin M.D. [address] [place] [address] [phone] Social History Tobacco Use Types Packs/Day Years Used Date Smoking Tobacco: Never Smokeless Tobacco: Never Dental Answer Date Recorded Dental: Regular Dentist Unknown 05/27/20 21 Sex and Gender Information Value Date Recorded Sex Assigned at Not on file Legal Sex Male 3:32 AM VICE PRESIDENT SAFETY Gender Identity Not on file Sexual Orientation Not on file documented as of this encounter Plan of Treatment Upcoming Encounters Date Type Department Care Team (Latest Contact Info) Description 08/10/2024 1:30 PM VICE PRESIDENT SAFETY Hospital Encounter Post Anesthesia Care Unit in [place], [place] [address] [place] [address] [phone] Anish Franklin M.D. [address] [place] [address] [phone] 08/10/2024 1:30 PM VICE PRESIDENT SAFETY - 08/10/2024 5:02 PM VICE PRESIDENT SAFETY Surgery RST ROMB MAIN OR [address] [place] [address] [phone] Anish Franklin M.D. 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
--- OUTSIDE RECORDS SUMMARY | 2024-06-29 13:41 | XMS_ITS | Clinical Summary ---
Author Organization [facility] Address [address] [place] [address] Care Team Providers Care Drupal Php Developer Name Role Phone Unavailable Primary Care Provider Unavailabl e Source Comments Patient records contain information from all sites at [facility]. For routine questions regarding patient records, call [phone] during business hours, M-F 8:00 AM - 5:00 PM Central Time. Record requests for emergency care only can be directed to [phone] at any time.[facility] Allergies Active Allergy Reactions Criticality Noted Date Comments Sulfa (Sulfonamide Antibiotics) Hives (Reselect Reaction) Low 04/06/2006 Medications acetaminophen (TylenoL) 325 mg tablet Take 650 mg by mouth every 4 (four) hours as needed. 11/16/19 20 Active blood sugar diagnostic strips (True Metrix Glucose Test Strip) DISPENSE ITEM COVERED BY PT INS. E11.9 NIDDM TYPE II - TEST 1 TIME/DAY 04/11/20 23 Active ibuprofen 200 mg tablet Take 2-3 tablets by mouth as needed. 11/03/19 12 Active canagliflozin (Invokana) 300 mg tablet Take 300 mg by mouth daily before morning meal. Active citalopram (CeleXA) 20 mg tablet Take 1 tablet by mouth every morning. 12/17/19 13 Active co-enzyme Q-10 (Co Q-10) 100 mg capsule Take 1 capsule by mouth daily. 06/02/20 12 Active omega-3 fatty acids-fish oil 360-1,200 mg capsule Take 1 capsule by mouth daily. Active glimepiride (AmaryL) 4 mg tablet Take 4 mg by mouth daily with morning meal. 09/10/19 24 Active glucosamine-cho ndroitin 500-400 mg per capsule Take 1 capsule by mouth daily. Active loratadine (Claritin) 10 mg tablet Take 10 mg by mouth daily. 06/02/20 12 Active losartan (Cozaar) 50 mg tablet Take 50 mg by mouth daily. 04/11/20 23 Active Hypodermic [place] 23 gauge x 1 1/2 needle 05/11/20 24 Active BD Luer-Shay Syringe 3 mL 18 x 1 1/2 syringe 04/30/20 24 Active multivitamin-mi nerals tablet Take 1 tablet by mouth daily. 06/05/20 10 Active metFORMIN XR (Glucophage-XR) 500 mg 24 hr tablet Take 1,000 mg by mouth 2 (two) times a day with meals. 04/11/20 23 Active potassium citrate (Urocit-K) 10 mEq (1,080 mg) ER tablet Take 1 tablet by mouth 2 (two) times a day. 09/27/19 22 Active rosuvastatin (Crestor) 20 mg tablet Take 20 mg by mouth at bedtime. 11/06/19 23 Active tamsulosin (Flomax) 0.4 mg 24 hr capsule Take 0.8 mg by mouth daily. TWO .4 TABLETS DAILY 04/11/20 23 Active testosterone cypionate (Depo-Testoster one) 200 mg/mL injection Inject 200 mg intramuscularly every 14 (fourteen) days. 06/14/20 23 Active cholecalciferol , vitamin D3, 25 mcg (1,000 Unit) tablet Take 1 tablet by mouth daily. 07/01/20 11 Active DME CPAP DME Order Active amoxicillin-pot clavulanate (Augmentin) 875-125 mg per tablet Take 1 tablet by mouth 2 (two) times a day. 14 tablet 06/19/20 24 Active Active Problems Problem Noted Date Diagnosed Date Otorrhea Left Ear 06/08/2024 COVID-19 Infection 05/27/2021 Obesity Body Mass Index 30-39.9 Adult 06/04/2014 Overview (05/27/2021): May 2014: Body mass index is 37.32 kg/(m^2). October 2015: Body mass index is 38.11 kg/(m^2). Apnea Sleep Obstructive 05/04/2011 Diabetes Mellitus Type 2 Without Complication Overview (05/27/2021): May 2010: fasting glucose = 105. Needs [...] 2018: STarting trajenta. September 2019: started invokana. Hypertension Essential Primary 06/05/2010 Overview (05/27/2021): October 2016: stopping hydrochlorothiazide, and starting losartan due to wanting to be on ARB with Diabetes. Encounters Date Type Department Care Team Description 06/19/2024 Orders Only Department of Otorhinolaryngology in [place], [place] [address] [place] [phone] Anish Franklin M.D. 06/16/2024 Clinical Communication Department of Otorhinolaryngology in [place], [place] [address] [place] [phone] Anish Franklin M.D. Yellow drainage 06/08/2024 Orders Only Department of Otorhinolaryngology in [place], [place] [address] [place] [place] [phone] Anish Franklin M.D. Otorrhea Left Ear (Primary Dx); Other Specified Hearing Loss Left Ear 06/08/2024 Clinical Communication Department of Otorhinolaryngology in [place], [place] [address] [place] [phone] Anish Franklin M.D. Schedule surgery 05/26/2024 3:45 PM CDT Office Visit Department of Otorhinolaryngology in [place], [place] [address] [place] [phone] Anish Franklin M.D. Otorrhea Left Ear (Primary Dx) 05/26/2024 12:00 PM CDT - 05/26/2024 11:59 PM CDT Hospital Encounter Department of Radiology, [facility] in [place], [place] [address] [place] [phone] Anish Franklin M.D. Otorrhea Left Ear Discharge Disposition: Home or Self Care 05/26/2024 9:26 AM CDT - 05/26/2024 11:59 AM CDT Hospital Encounter Department of Radiology, [facility] in [place], [place] [address] [place] [phone] Anish Franklin M.D. Otorrhea Left Ear Discharge Disposition: Home or Self Care 05/23/2024 3:45 PM CDT Clinical Communication Virtual Review in [place], [place] [address] [place] [address] 04/25/2024 Orders Only Department of Otorhinolaryngology in [place], [place] [address] [place] [phone] Yun Gtz, R.NArlene 04/21/2024 Orders Only Department of Otorhinolaryngology in [place], [place] [address] [place] [phone] Kiara Pleitez M.D. Otorrhea Left Ear (Primary Dx) 04/21/2024 Clinical Communication Department of Otorhinolaryngology in [place], [place] [address] [place] [phone] Anish Franklin M.D. Change Pharmacy 04/17/2024 Orders Only Department of Otorhinolaryngology in [place], [place] [address] [place] [place] [phone] Anish Franklin M.D. 04/14/2024 3:15 PM CDT Comprehensive Visit Department of Otorhinolaryngology in [place], [place] [address] [place] [place] [phone] Anish Franklin M.D. Otorrhea Left Ear; Other Specified Hearing Loss Left Ear 04/14/2024 10:00 AM CDT Diagnostic Department of Otorhinolaryngology in [place], [place] [address] [place] [phone] Miladis Pandya APRN CArleneNNehal Black, Ph.D. 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 (Primary Dx); Otorrhea Left Ear; Sensorineural Hearing Loss Unilateral Right Ear With Restricted Hearing On The Contralateral Side; Other Specified Hearing Loss Left Ear from Last 3 Months Immunizations Name Administration Dates Next Due HZV (ZOSTAVAX) 11/06/2011 Influenza Split 05/19/2012,05/26/2011 PPSV23 07/26/2008 Td, (Adult) Unspecified 07/26/2008 Tdap 11/16/2011 Social History Tobacco Use Types Packs/Day Years Used Date Smoking Tobacco: Never Smokeless Tobacco: Never Tobacco Cessation:Counseling Given: Not Answered Dental Answer Date Recorded Dental: Regular Dentist Unknown 05/27/20 21 Sex and Gender Information Value Date Recorded Sex Assigned at Not on file Legal Sex Male 3:32 AM GUEST ASSOCIATE Gender Identity Not on file Sexual Orientation Not on file Last Filed Vital Signs Vital Sign Reading Time Taken Comments Blood Pressure 141/64 05/27/2021 2:40 PM CDT Pulse 84 05/27/2021 2:40 PM CDT Temperature 36.9 C (98.4 F) 05/27/2021 2:40 PM CDT Respiratory Rate 20 05/27/2021 2:40 PM CDT Oxygen Saturation 96% 05/27/2021 2:40 PM CDT Inhaled Oxygen Concentration - - Weight 108 kg (238 lb 12.1 oz) 11/04/2012 8:24 A M CDT Height 172.4 cm (5' 7.87) 11/04/2012 8:24 AM CD T Body Mass Index 36.44 11/04/2012 8:24 AM CDT Plan of Treatment Upcoming Encounters Date Type Department Care Team (Latest Contact Info) Description 08/10/2024 1:30 PM GUEST ASSOCIATE Hospital Encounter Post Anesthesia Care Unit in [place], [place] [address] [place] [address] Anish Franklin M.D. [address] [place] [address] 08/10/2024 1:30 PM GUEST ASSOCIATE - 08/10/2024 5:02 PM GUEST ASSOCIATE Surgery [facility]IN OR [address] [place] [address] Anish Franklin M.D. [address] [place] [phone] REPAIR CEREBROSPINAL FLUID LEAK - EXTERNAL APPROACH; Transmastoid, possible middle fossa Scheduled Procedures Name Priority Associated Diagnoses Date/Ti me REPAIR CEREBROSPINAL FLUID L EAK - EXTERNAL APPROACH Otorrhea Left Ear 08/10/2024 1:30 PM GUEST ASSOCIATE Health Maintenance Due Date Last Done Comments Diabetic Office Visit with Foot Exam 1943 Dilated Eye Exam 1945 Office Visit for Blood Pressure Check / Re-check 1943 Urine Albumin 1943 Hepatitis B Vaccines (1 of 3 - Risk 3-dose series) 2003 Depression Screening (Annual PHQ-2) 07/26/2023 Fall Risk Screen (Annual) 07/26/2023 COVID-19 Vaccine ( season) 2024 10/12/2023, 05/12/2023, 04/10/2022, Additional history exists Sodium Level 04/09/2024 04/09/2023, 05/26, 07/14/2021, Additional history exists Hemoglobin A1C 07/11/2024 01/10/2024, 08/26, 04/09/2023, Additional history exists Creatinine Level (Kidney Function Test) 11/10/2024 11/11/2023, 04/09/2023, 06/05/2022, Additional history exists Potassium Level 11/10/2024 11/11/2023, 03/26, 06/05/2022, Additional history exists DTaP,Tdap,and Td Vaccines (3 - Td or Tdap) 02/12/2027 02/12/2017, 11/16/2011, 06/05/2010, Additional history exists Pneumococcal vaccine (65+ years) Completed 07/03/2015, 06/05/2010, 07/26/2008 Zoster Vaccines Completed 12/03/2021, 01/2022, 11/06/2011 Abdominal Aortic Aneurysm (AAA) Screen Discontinued 12/16/2022, 06/19/2003 RSV vaccine - (32-36 weeks) or 60+ years Completed 04/08/2023 Influenza Vaccine Completed 04/11/2024, , 04/27/2022, Additional history exists IPV Vaccines Aged Out No longer eligi ble based on patient's age to complete this topic Medical Devices Implanted Type Area Agronomy Location Manager Device Identifier Shelf Expiration Date Model / Serial / Lot Hardware E.G. Pins/Screws/Raffy s Hardware e.g. pins/screws /rods Left: Shoulder Description:SHOULDER REPLACE MENT Ocular Lens Ocular Lens Bilateral: Eye Description:Cataract surgery Procedures Procedure Name Priority Date/Time Associated Diagnosis Comments BETA-2 TRANSFERRIN, BF Routine 05/26/2024 4:10 PM CDT Otorrhea Left Ear [place] TYMPANOSTOMY LOC/TOP ANES Routine 05/26/2024 3:45 PM CDT Otorrhea Left Ear CT TEMPORAL BONE WITHOUT IV CONTRAST RAD - Routine (most inpatients and all outpatients) 05/26/2024 12:37 PM CDT Otorrhea Left Ear MR BRAIN WITHOUT AND WITH IV CONTRAST RAD - Routine (most inpatients and all outpatients) 05/26/2024 11:36 AM CDT Otorrhea Left Ear FUNGAL CULTURE, ROUTINE Routine 04/14/2024 3:49 PM CDT Otorrhea Left Ear BACTERIAL CULTURE, AEROBIC + SUSC Routine 04/14/2024 3:49 PM CDT Otorrhea Left Ear AUDIOLOGY EVALUATION Routine 04/14/2024 12:00 AM CDT Otorrhea Left Ear Other Specified Hearing Loss Left Ear HEMOGLOBIN A1C, B Routine 11/04/2012 7:3 5 AM CDT SODIUM, S/P Routine 11/04/2012 7:35 AM CDT POTASSIUM, S/P Routine 11/04/2012 7:35 AM CDT CREATININE WITH EGFR, S/P Routine 11/04/2012 7:[address] ABDOMEN PELVIS ANGIOGRAM WITH IV CONTRAST Routine 06/19/2003 8:35 AM GUEST ASSOCIATE from Last 3 Months or Most Recently Relevant to Health Maintenance Results * (ABNORMAL) Beta-2 Transferrin: Detection of CSF in Other Body Fluid (05/26/2024 4:10 PM CDT) Beta-2 Transferrin, BF Positive (A) Negative, no beta-2 transferrin (spinal fluid) detected. 05/29/2024 4:29 PM GUEST ASSOCIATE [facility] Comment: ----ADDITIONAL INFORMATION---- This test was developed and its performance characteristics determined by [facility] in a manner consistent with CLIA requirements. This test has not been cleared or approved by the U.S. Food and Drug Administration. Fluid (Ear, Left) 05/26/2024 4:10 PM CDT 05/29/2024 9:41 AM GUEST ASSOCIATE Anish Franklin M.D. LAB BODY FLUIDS AND STOO LS ORDERABLES Final Result [facility] [place] [address] [place] [address] [facility] [address] [place] [address] [place] [address] * [place] TYMPANOSTOMY LOC/TOP ANES (05/26/2024 3:45 PM CDT) Narrative Yary Roberts M.D. - 05/26/2024 3:45 PM CDT Yary Roberts M.D. 05/26/2024 3:58 PM Myringotomy with tympanostomy tubes Performed by: Yary Roberts M.D. Authorized by: Yary Roberts M.D. Care team members present 1. Anish Franklin M.D. 3. Yary Roberts M.D. PROCEDURE DETAILS Patient was seen in microscope room Ear laterality - left Left Ear: Microscope was used. Phenol was used for topical anesthesia. Speculum was inserted. Left ear cerumen was not removed. Tympanic membrane was visualized. Tympanic membrane was intact. Hummingbird device was not used. Middle ear effusion was present. Middle ear effusion was serous. CONSENT Consent obtained: written (Risks, benefits and alternatives were discussed and a written Informed Consent was obtained. Please see Informed Consent form for further details.) UNIVERSAL PROTOCOL All relevant documentation and testing were reviewed and available. All required blood products, implants, devices and or special equipment were made available as applicable. Pre-procedure verification was conducted and the correct site was marked if required. A fire risk and smoke assessment were done as applicable. The procedural time-out to verify correct patient, correct side/site, and procedure was conducted prior to performing the procedure and confirmed in a procedural pause. PRE-PROCEDURE DETAILS Procedure purpose: therapeutic Indications: left chronic otitis media. Pre-medications used: none. Appropriate hand hygiene, gown, cap, mask, protective eyewear, sterile gloves, skin preparation, sterile drape, and strict aseptic technique were utilized as applicable for the procedure. SEDATION / ANESTHESIA Anesthesia method: none POST-PROCEDURE DETAILS Procedure was completed successfully. . Complications: no apparent complications Estimated blood loss: no, 0 ml. Implants were not scanned. Comments Middle ear effusion sent for beta 2 transferrin Yary Roberts M.D. ENT ORDERABLES Final Result * CT Temporal Bone without IV Contrast (05/26/2024 12:37 PM CDT) Anatomical Region Laterality Modality Head, Neuroradiology RST [facility] , Neuroradiology ARZ [facility], Neuroradiology FLA [facility] N/A Computed Tomography, Compute d Tomography Impressions 05/26/2024 1:15 PM CDT 1. Since 05/07/2023, increased opacification of the left middle ear and mastoid air cells with retraction of the tympanic membrane which may be related to otitis media. 2. Multiple areas of thickening of the left tegmen tympani without a definite osseous erosion or defect. 3. Unchanged mild soft tissue thickening in the right external auditory canal. The right temporal bone is otherwise normal. Narrative 05/26/2024 1:15 PM CDT EXAM: CT TEMPORAL BONE WITHOUT IV CONTRAST COMPARISON: Brain MRI 05/26/2024, outside temporal bone CT 05/07/2023 FINDINGS: RIGHT: Unchanged mild soft tissue thickening in the external auditory canal. Normal tympanic membrane. Normal ossicles. Middle ear and mastoid air cells are clear. Bony labyrinth intact. Normal vestibule and semicircular canals. Normal cochlea. Normal internal auditory canal. LEFT: Complete opacification of the middle ear extending into the epitympanum, aditus ad antrum, and left mastoid air cell. The tympanic membrane is slightly retracted medially. The stapes footplate is not well seen (series 14 image [id number]) which may be due to technical factors related to surrounding surrounding soft tissue density. The ossicles otherwise appear intact. The scutum appears intact without evidence of blunting or erosion. Multiple areas of thinning of the tegmen tympani without definite erosion. Normal appearance of the external auditory canal. Bony labyrinth intact. Normal vestibule and semicircular canals. Normal cochlea. Normal internal auditory canal. Procedure Note Jesus Elena M.D., M.P.H. - 05/26/2024 EXAM: CT TEMPORAL BONE WITHOUT IV CONTRAST COMPARISON: Brain MRI 05/26/2024, outside temporal bone CT 05/07/2023 FINDINGS: RIGHT: Unchanged mild soft tissue thickening in the external auditory canal.Normal tympanic membrane. Normal ossicles. Middle ear and mastoid aircells are clear. Bony labyrinth intact. Normal vestibule and semicircularcanals. Normal cochlea. Normal internal auditory canal. LEFT: Complete opacification of the middle ear extending into the epitympanum,aditus ad antrum, and left mastoid air cell. The tympanic membrane isslightly retracted medially. The stapes footplate is not well seen ([id number] image [id number]) which may be due to technical factors related to surrounding surrounding soft tissue density.The ossicles otherwise appear intact. The scutum appears intact withoutevidence of blunting or erosion. Multiple areas of thinning of the tegmentympani without definite erosion. Normal appearance of the external auditory canal. Bony labyrinth intact.Normal vestibule and semicircular canals. Normal cochlea. Normal internalauditory canal. IMPRESSION: 1. Since 05/07/2023, increased opacification of the left middle ear andmastoid air cells with retraction of the tympanic membrane which may berelated to otitis media. 2. Multiple areas of thickening of the left tegmen tympani without adefinite osseous erosion or defect. 3. Unchanged mild soft tissue thickening in the right external auditorycanal. The right temporal bone is otherwise normal. Anish Franklin M.D. IMHailey CT PROCEDURES Final Result * MR Brain without and with IV Contrast (05/26/2024 11:36 AM CDT) Anatomical Region Laterality Modality Head, Brain, Neuroradiology RST LOS, Neuroradiology ARZ LOS, Neuroradiology FLA LOS N/A Magnetic Resonance Impressions 05/26/2024 1:56 PM CDT Opacification of the left middle ear and mastoid air cells which may be related to otitis media. No discrete meningocele or encephalocele. Narrative 05/26/2024 1:56 PM CDT EXAM: MR BRAIN WITHOUT AND WITH IV CONTRAST COMPARISON: CT temporal bone 05/26/2024, 05/07/2023 FINDINGS: Complete opacification of the left middle ear and left mastoid air cells. Mild mucosal enhancement in the middle ear cavity. Finding is indeterminant for otitis versus CSF leak. No intracranial mass effect, infarct, hydrocephalus, or hemorrhage. Scattered periventricular and subcortical white matter T2/FLAIR hyperintensities consistent with chronic small vessel ischemic change. Mild generalized cerebral and cerebellar parenchymal volume loss. The major intracranial arterial flow voids are normal in appearance. The paranasal sinuses and right mastoid air cells are clear. The calvarium, skull base, orbits, and extracranial soft tissues are unremarkable. Procedure Note Ivan Johnston M.D. - 05/26/2024 EXAM: MR BRAIN WITHOUT AND WITH IV CONTRAST COMPARISON: CT temporal bone 05/26/2024, 05/07/2023 FINDINGS: Complete opacification of the left middle ear and left mastoid air cells.Mild mucosal enhancement in the middle ear cavity. Finding isindeterminant for otitis versus CSF leak. No intracranial mass effect, infarct, hydrocephalus, or hemorrhage.Scattered periventricular and subcortical white matter T2/FLAIRhyperintensities consistent with chronic small vessel ischemic change.Mild generalized cerebral and cerebellar parenchymal volume loss. The major intracranial arterial flow voids arenormal in appearance. The paranasal sinuses and right mastoid air cellsare clear. The calvarium, skull base, orbits, and extracranial softtissues are unremarkable. IMPRESSION: Opacification of the left middle ear and mastoid air cells which may berelated to otitis media. No discrete meningocele or encephalocele. Anish PAYAN MRI PROCEDURES Final Result * (ABNORMAL) Bacterial Culture, Aerobic + Susceptibility (04/14/2024 3:49 PM CDT) [facility] Bacterial Culture, Aerobic + Susc STAPHYLOCOCCUS AUREUS 3+ (A) 04/16/2024 1:17 PM CDT DTL Comment: Methicillin Resistant Staphylococcus aureus (MRSA). Semi-Urgent Result. Semi-Urgent This is a semi-urgent result(CHAVEZ) [facility] Swab (Ear, Left) 04/14/2024 3:49 PM CDT 04/14/2024 4:18 PM CDT Comment:Specimen Source Site : Swab Narrative Organism Antibiotic Method Susceptibility Staphylococcus aureus Oxacillin SUSCEPTIBI LITY, MAURO (MCG/ML) >2 mcg/mL: Resistant Comment: Use oxacillin interpretation to predict results for anti-staphylococcal beta-lactam antibiotics (except ceftaroline). Staphylococcus aureus Ceftaroline SUSCEPTIBI LITY, MAURO (MCG/ML) 0.5 mcg/mL: Susceptible Staphylococcus aureus Vancomycin SUSCEPTIBI LITY, MAURO (MCG/ML) 1 mcg/mL: Susceptible Staphylococcus aureus Clindamycin SUSCEPTIBI LITY, MAURO (MCG/ML) <=0.5 mcg/mL: Susceptible Staphylococcus aureus Levofloxacin SUSCEPTIBI LITY, MAURO (MCG/ML) >4 mcg/mL: Resistant Comment: Fluoroquinolones have a limited role in treatment of staphylococcal infections; consult Infectious Diseases if considering usage. Staphylococcus aureus Trimethoprim + Sulfamethoxazole SUSCEPTIBILITY, MAURO (MCG/ML) >2/38 mcg/mL: Resistant Staphylococcus aureus Minocycline SUSCEPTIBI LITY, MAURO (MCG/ML) <=1 mcg/mL: Susceptible Staphylococcus aureus Rifampin SUSCEPTIBI LITY, MAURO (MCG/ML) <=0.5 mcg/mL: Susceptible Comment:Rifampin merari uld not be used as monotherapy Staphylococcus aureus Doxycycline SUSCEPTIBI LITY, MAURO (MCG/ML) <=4 mcg/mL: Susceptible Anish Franklin M.D. LAB MICROBIOLOGY - GENER AL ORDERABLES Final Result Performing Organization Address [facility] de Phone Number [facility] [address] [place] [address] * Fungal Culture, Routine (04/14/2024 3:49 PM CDT) Fungal Culture, Routine No growth after 24 days of incubation. 05/09/2024 1:02 AM CDT DTL Swab (Ear, Left) 04/14/2024 3:49 PM CDT 04/14/2024 4:18 PM CDT Comment:Specimen Source Site : Swab Anish Franklin M.D. LAB MICROBIOLOGY - GENER AL ORDERABLES Final Result Performing Organization Address [facility] de Phone Number [facility] [address] [place] [address] * Audiology evaluation (04/14/2024 12:00 AM CDT) 04/14/2024 us Miladis Pandya APRN, C.N.P. AUDIOLOGY SERVI DEREK ORDERABLES Final Result Performing Organization Address [facility] de Phone Number AUDIOLOGY AND AHD * Sodium (11/04/2012 7:35 AM CDT) Sodium, S 140 135 - 145 MMOL/L [facility] 11/04/2012 7:35 AM CDT 11/04/2012 7:35 AM CDT us Raleigh Brown P.A.-C. M.S. LAB BLOOD ADD-ON Final Result [facility] [address] * Potassium (11/04/2012 7:35 AM CDT) Potassium, S 4.1 3.6 - 5.2 MMOL/L [facility] 11/04/2012 7:35 AM CDT 11/04/2012 7:35 AM CDT Raleigh Brown P.A.-C., M.S. LAB BLOOD ADD-ON Final Result Performing Organization Address [facility] Co de Phone Number [facility] [address] * Hemoglobin A1c (11/04/2012 7:35 AM CDT) Hemoglobin A1c, B 6.0 4.0 - 6.0 % [facility] 11/04/2012 7:35 AM CDT 11/04/2012 7:35 AM CDT Raleigh Brown P.A.-C. M.S. LAB BLOOD ADD-ON Final Result [facility] [address] * Creatinine with Estimated GFR (MDRD) (11/04/2012 7:35 AM CDT) Creatinine 0.8 0.8 - 1.3 MG/DL [facility] eGFR Non-Black/Afric an Icelandic >60 >60 ML/MIN/BSA [facility] eGFR-Black/Afri can Icelandic >60 >60 ML/MIN/BSA [facility] 11/04/2012 7:35 AM CDT 11/04/2012 7:35 AM CDT Raleigh Brown P.A.-C., M.S. LAB BLOOD ADD-ON Final Result [facility] [address] [place] [address], [facility] * CT Abdomen Pelvis Angiogram with IV Contrast (06/19/2003 8:35 AM GUEST ASSOCIATE) Anatomical Region Laterality Modality Abdomen, Pelvis N/A Computed Tomogra phy 06/19/2003 8:35 AM GUEST ASSOCIATE Narrative 06/19/2003 10:03 AM GUEST ASSOCIATE 19-Jun-2003 08:35:00 Exam: CTA Abd/Pel w or wo 3D Indications: UR - POTENTIAL KIDNEY DONOR^ ORIGINAL REPORT - 19-Jun-2003 10:03:00 CT angiogram and ExU done according to the renal donor protocol. No urinary calculi. There are bilateral renal cysts, three in the right kidney and one in the left kidney. The renal parenchyma is otherwise normal. Single right renal artery has a bifurcation immediately after its origin. Two left renal arteries. Both left renal arteries have a branching pattern near the renal hilum. Single bilateral renal veins. The intrarena collecting systems, ureters and bladder are normal. Pelvic phleboliths. Prostatic calcification. Replaced right hepatic artery off of the SMA. Degenerative changes in the spine. Remainder is normal. Ind: 810.128 Dia.310, 543.130, 545.130 Electronically signed by: Juma Falcon MD [id number] 19-Jun-2003 10:03 Procedure Note Lewis Falcon M.D. - 10/28/2017 19-Jun-2003 08:35:00 Exam: CTA Abd/Pel w or wo 3D Indications: UR - POTENTIAL KIDNEY DONOR^ ORIGINAL REPORT - 19-Jun-2003 10:03:00 CT angiogram and ExU done according to the renal donor protocol. Nourinary calculi. There are bilateral renal cysts, three in the rightkidney and one in the left kidney. The renal parenchyma is otherwisenormal. Single right renal artery has a bifurcation immediately after itsorigin. Two left renal arteries. Both left renal arteries have a branchingpattern near the renal hilum. Single bilateral renal veins. The intrarenacollecting systems, ureters and bladder are normal. Pelvic phleboliths.Prostatic calcification. 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 Remainder is normal. Ind: 810.128 Dia.310, 543.130, 545.130 Electronically signed by: Juma Falcon MD [id number] 19-Jun-2003 10:03 Tr Yan M.D. 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 See document viewer.
--- OUTSIDE RECORDS SUMMARY | 2024-06-29 13:41 | XMS_ITS | Clinical Summary ---
Author Organization [employer] [facility] Address [place], [place] [address] Care Team Providers Care Curriculum Assistant Name Role Phone Goyo Zhang MD Unavailable [phone] Miladis Armstrong MD Unavailable Lewis Porter Unavailable [phone] Maximo Christy MD Primary Care Provider [phone] Lewis Dhaliwal MD Unavailable [phone] Taylor Broderick PharmD Unavailable [phone] Allergies Active Allergy Reactions Criticality Noted Date Comments Sulfa (Sulfonamide Antibiotics) Hives 09/2005 Medications Medication Sig Dispensed Refills Start Date End Date Status cholecalciferol (VITAMIN D) 1,000 unit tabletIndication s:Vitamin D deficiency Take 1 tablet by mouth once daily. 90 tablet 0 1 Active loratadine (CLARITIN) 10 mg tabletIndication s:Environmental allergies,Plugge d feeling in ear Take 1 tablet by mouth once daily. For allergies. 30 tablet 6 2 Active aspirin-caffeine , 400-32 mg, (ANACIN) 400-32 mg tab Take 1 tablet by mouth every 6 hours if needed for Headache. Active acetaminophen (TYLENOL) 325 mg tablet Take 2 tablets by mouth every 4 hours if needed (For mild pain.). Max acetaminophen dose: 4000mg in 24 hrs. 0 0 Active potassium citrate (UROCIT-K) 10 mEq (1,080 mg) tabletIndication s:Kidney stones TAKE 1 TABLET TWICE DAILY 180 Tablet 3 2 Active Blood Glucose Control, Low solnIndications: Type 2 diabetes mellitus without complication, without long-term current use of insulin (HC) As directed. 1 Each 2 Active lancets 33 gauge miscIndications: Type 2 diabetes mellitus without complication, without long-term current use of insulin (HC) As directed. Dispense item covered by pt ins. E11.9 NIDDM type II - Test 1 time/day 100 Each 3 2 Active testosterone cypionate (DEPO-TESTOSTERO NE) 200 mg/mL injection Inject 1 mL every 4 weeks by intramuscular route. 3 Active CPAPIndications: ROSANA (obstructive sleep apnea) Resmed CPAP machine for home use at pressure 14 cmw, CPAP mask- mask of choice, fit to comfort one per 3 months 1 Each 11 4 Active tamsulosin (FLOMAX) 0.4 mg capsuleIndicatio ns:Decreased urine stream Take 2 Capsules (0.8 mg) by mouth once daily after a meal. For urinary symptoms. 180 Capsule 2 4 Active tirzepatide (Mounjaro) 2.5 mg/0.5 mL penIndications:T ype 2 diabetes mellitus without complication, without long-term current use of insulin (HC) Inject 2.5 mg subcutaneous once weekly. 2 mL 1 4 07/26/19 25 Active tirzepatide (Mounjaro) 5 mg/0.5 mL penIndications:T ype 2 diabetes mellitus without complication, without long-term current use of insulin (HC) Inject 5 mg subcutaneous once weekly. 2 mL 1 4 08/26/19 25 Active tirzepatide (Mounjaro) 7.5 mg/0.5 mL penIndications:T ype 2 diabetes mellitus without complication, without long-term current use of insulin (HC) Inject 7.5 mg subcutaneous once weekly. 2 mL 2 4 Active blood sugar diagnostic (True Metrix Glucose Test Strip) stripIndications :Type 2 diabetes mellitus without complication, without long-term current use of insulin (HC) Dispense item covered by pt ins. E11.9 NIDDM type II - Test 1 time/day 100 Each 3 4 Active canagliflozin (Invokana) 300 mg tabletIndication s:Type 2 diabetes mellitus without complication, without long-term current use of insulin (HC) Take 1 Tablet (300 mg) by mouth once daily. For Diabetes. 90 Tablet 2 4 Active citalopram (CELEXA) 20 mg tabletIndication s:Adjustment disorder with depressed mood Take 1 Tablet (20 mg) by mouth once daily in the morning. 90 Tablet 2 4 Active glimepiride (AMARYL) 4 mg tabletIndication s:Type 2 diabetes mellitus without complication, without long-term current use of insulin (HC) Take 1 Tablet (4 mg) by mouth once daily with a meal. For diabetes. 90 Tablet 2 4 Active losartan (COZAAR) 50 mg tabletIndication s:Primary hypertension Take 1 Tablet (50 mg) by mouth once daily. For blood pressure. 90 Tablet 2 4 Active metFORMIN (GLUCOPHAGE XR) 500 mg Extended-Release tabletIndication s:Type 2 diabetes mellitus without complication, without long-term current use of insulin (HC) Take 2 Tablets (1,000 mg) by mouth two times daily with meals. For diabetes. 360 Tablet 2 4 Active rosuvastatin (CRESTOR) 20 mg tabletIndication s:Hypercholester olemia Take 1 Tablet (20 mg) by mouth once daily with evening meal. For Cholesterol. 90 Tablet 3 4 Active multivitamins with minerals (MEN'S ONE DAILY) tablet Take 1 tablet by mouth once daily. 0 0 06/16/20 24 Discontinued( *Med complete/Callie men complete/Leve l of care change) coenzyme q10 (CO Q-10) 100 mg cap Take 1 capsule by mouth once daily. 0 2 06/16/20 24 Discontinued( *Med complete/Callie men complete/Leve l of care change) aspirin (ECOTRIN) 81 mg enteric coated tablet Take 81 mg by mouth once daily with evening meal. Does not take evening dose of aspirin if he took PRN Anacin earlier in the day for headache 06/16/20 24 Discontinued( *Med complete/Callie men complete/Leve l of care change) glucosamine-yoselin droitin, 500-400 mg, (COSAMIN DS 500/400) 500-400 mg cap Take 1 capsule by mouth once daily. 06/16/20 24 Discontinued( *Med complete/Callie men complete/Leve l of care change) fish oil-omega-3 fatty acids (FISH OIL) 1,200-360 mg cap Take 1 capsule by mouth once daily. One capsule is 1200 mg-360 mg 06/16/20 24 Discontinued( *Med complete/Callie men complete/Leve l of care change) blood-glucose meterIndications :Type 2 diabetes mellitus without complication, without long-term current use of insulin (HC) Dispense meter, test strips, lancets covered by pt ins. E11.9 NIDDM type II - Test 1 time/day 1 Each 2 06/16/20 24 Discontinued( *Med complete/Callie men complete/Leve l of care change) clotrimazole-bet amethasone cream (LOTRISONE) 1-0.05 % creamIndications :Anal itching Apply topically to affected area(s) two times daily. Use short term as needed to affect skin in anal area. 15 g 1 3 06/16/20 24 Discontinued( *Med complete/Callie men complete/Leve l of care change) medication order composer Mastoid Powder 1 tablet Ciprofloxacin 500mg 500mg Clotrimazole 42mg Dexamethasone Acetate (Due to lack of availability of ingredient, pharmacist will substitute equivalent strength of Hydrocortisone Acetate) 222mg Boric Acid Directions: Apply 2 puffs in affected ear twice daily for 7 days Quantity: 1 Refills: 0 0 3 06/16/20 24 Discontinued( *Med complete/Callie men complete/Leve l of care change) blood sugar diagnostic (True Metrix Glucose Test Strip) stripIndications :Type 2 diabetes mellitus without complication, without long-term current use of insulin (HC) Dispense item covered by pt ins. E11.9 NIDDM type II - Test 1 time/day 100 Each 3 3 06/12/20 24 Discontinued( Reorder (E-cancel not sent)) ofloxacin (FLOXIN) 0.3 % otic solutionIndicati ons:Otorrhea of left ear Place 3 Drops into left ear two times daily. 5 mL 3 4 06/16/20 24 Discontinued( Pharmacist change per medication history (E-cancel not sent)) prednisoLONE acetate 1% ophthalmic (ECONOPRED PLUS, PRED FORTE, OMNIPRED) suspensionIndica tions:Otorrhea of left ear As directed 3 Drops two times daily. Use in affected ear 5 mL 4 06/16/20 24 Discontinued( Pharmacist change per medication history (E-cancel not sent)) glimepiride (AMARYL) 4 mg tabletIndication s:Type 2 diabetes mellitus without complication, without long-term current use of insulin (HC) Take 1 Tablet (4 mg) by mouth once daily with a meal. For diabetes. 90 Tablet 2 4 06/12/20 24 Discontinued( Reorder (E-cancel not sent)) canagliflozin (Invokana) 300 mg tabletIndication s:Type 2 diabetes mellitus without complication, without long-term current use of insulin (HC) Take 1 Tablet (300 mg) by mouth once daily. For Diabetes. 90 Tablet 2 4 06/12/20 24 Discontinued( Reorder (E-cancel not sent)) citalopram (CELEXA) 20 mg tabletIndication s:Adjustment disorder with depressed mood Take 1 Tablet (20 mg) by mouth every morning. 90 Tablet 2 4 06/12/20 24 Discontinued( Reorder (E-cancel not sent)) losartan (COZAAR) 50 mg tabletIndication s:Primary hypertension Take 1 Tablet (50 mg) by mouth once daily. For blood pressure. 90 Tablet 2 4 06/12/20 24 Discontinued( Reorder (E-cancel not sent)) metFORMIN (GLUCOPHAGE XR) 500 mg Extended-Release tabletIndication s:Type 2 diabetes mellitus without complication, without long-term current use of insulin (HC) Take 2 Tablets (1,000 mg) by mouth two times daily with meals. For diabetes. 360 Tablet 2 4 06/12/20 24 Discontinued( Reorder (E-cancel not sent)) rosuvastatin (CRESTOR) 20 mg tabletIndication s:Hypercholester olemia Take 1 Tablet (20 mg) by mouth once daily with evening meal. For Cholesterol. 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 October 2019: 5mm right sided stone needing laser lithotripsy at [facility] and stent. Hematuria, gross 06/27/2018 Overview (06/29/2018): May 2018: Gross and microscopic hematuria. Workup ordered. CT showing right sided kidney stone. Chronic left-sided low back pain without sciatic a 02/08/2018 Lower urinary tract symptoms (LUTS) 11/02/2017 Overview (11/02/2017): October 2017: starting flomax for decreased urinary stream. Chronic pain of left knee 01/30/2016 Overview (01/30/2016): Dr. Hayden did MRI December 2015: meniscal tears of medial and lateral meniscus. Vitamin D deficiency 11/04/2015 Overview (11/04/2015): October 2015: after treatment, Vitamin D was over 60 when taking 5,000 Units daily, decreased down to 1,000. Dry eye syndrome 11/27/2014 Epiretinal membrane 11/27/2014 Obesity (BMI 30-39.9) 06/04/2014 Overview (11/04/2015): May 2014: Body mass index is 37.32 kg/(m^2). October 2015: Body mass index is 38.11 kg/(m^2). Dermatochalasia 12/12/2013 Routine adult health maintenance 04/21/2013 Overview (04/21/2013): Colonoscopy 03/2013 normal, no follow up needed Midline low back pain without sciatica 3 Overview (02/11/2015): Mar 2013: trigger point injection right low [...] associated with o livopontocerebellar degeneration 03/31/2013 Overview (03/31/2013): Approximately since 2006, [facility]. 2013: tried gabapentin top dose with minimal to no help. Chronic cough 12/16/2011 Overview (12/16/2011): November evaluation October 2011: PFT and Methacholine Challenge negative. Recommended combination astelin, atrovent, and Nasarel 5cc each to nostrils twice daily, then reassess, titrate to lowest effective dose. ACP (advance care planning) 06/24/2011 Overview (06/24/2011): May 2011: Patient completed living will approximately 2000, does not want to revisit, he was instructed to bring in copy of living will to have on file. ROSANA 11/2006 AHI-55 05/04/2011 Adjustment disorder with depressed mood 03/01/20 11 Overview (12/10/2017): Feb 2011: started on Citalopram. June 2011: stopping citalopram and see how symptoms go. Restarted and still taking as of January 2017. May 2017: went off Citalopram (Celexa), no change so staying off. November 2017: restarted Citalopram (Celexa). Low testosterone 06/08/2010 Overview (09/02/2020): May 2010: Total Testosterone = 84. ~ Dr. Cueva [facility] at [place], June 2010: suggested yearly cortisol and TSH/T4 tests with MR of the pituitary/hypothalamic area in 2 years. ~ January 2012: Testosterone level low at 127 when taking 1/2 dose. Recommended he increase to full dose. ~ June 2015: Patient would like to try going off testosterone short term and see if feels any different, ok trial off, June 156 was when on testosterone consistently. Can refer to Endocrinology at any time. May 2017: no change in symptoms when taking and expensive, Patient wants to stop, removing from med list. August 2020: Dr. Zhang started testosterone shots. Primary hypertension 06/05/2010 Overview (11/05/2016): October 2016: stopping hydrochlorothiazide, and starting losartan due to wanting to be on ARB with Diabetes. Gout, unspecified 06/05/2010 Hypercholesterolemia 06/05/2010 Overview (12/10/2017): November 2011: was on lipitor, changed to lovastatin due only to cost. November 2012: [place] [address] changed back to lipitor due to worsening [...] long-term current use of insulin 06/05/2010 Overview (06/14/2024): May 2010: fasting glucose = 105. Needs [...] August 2023: Glipizide increased to 4mg daily. May 2024: added mounjaro GLP1. 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 Resolved Problems Problem Noted Date Diagnosed Date Resolved Date Cataract 12/12/2013 11/11/2015 Open angle with borderline findings, low risk 05/28/20 06 06/21/2007 Encounters Date Type Department Care Team Description 06/19/2024 Telephone [facility] [address] [place] [address] Maximo Christy MD Questions 06/16/2024 9:00 AM [employer]SEM[employer]ER Pharmacist Medication Management [facility] [address] [place] [address] Taylor Broderick PharmD Pharmacist Medication Management (CMR initial - provider referral - in-clinic visit) 06/16/2024 Travel 06/14/2024 Patient Outreach [facility] - Advanced Care Team [address] [place] [address] Lauren Zavala Medication Management (COMPREHENSIVE MEDICATION REVIEW - PROVIDER REFERRAL - not covered) 06/12/2024 8:15 AM [employer]OWER AND COMPRESSOR ASSEMBLER Office Visit [facility] [address] [place] [address] Maximo Christy MD Diabetes (Last Diabetic Check: 01/10/2024/Last Diabetic Eye Exam: 04/25/2024/Last Diabetic Education: 03/19/2011) 06/12/2024 8:00 AM [employer]OWER AND COMPRESSOR ASSEMBLER Orders Only [facility] [address] [place] [address] Lab, [place] [facility] 06/12/2024 Travel 06/06/2024 Telephone [facility] [address] [place] [address] Maximo Christy MD Lab (Needs lab orders) 04/25/2024 Orders Only [facility] Scanner 1 scan: (1-Ord) [facility], 04/25/2024 from Last 3 Months Immunizations Name Administration Dates Next Due AMB INFLUENZA IIV3 (AGE 65+ YRS) PF (Flu Clinic Only) 05/07/2017 Amb Influenza, Inact (High-d ose) (Flu Clinic Only) 04/20/2014 COVID-19 vaccine (Pfizer-Bio NTech 30mcg/0.3mL) 12YO+ BIVALENT PF, MDV 04/10/2022 COVID-19 vaccine (Pfizer-Bio NTech 30mcg/0.3mL) 12YO+ VICENTA-SUCROSE PF, MDV 11/04/2021 COVID-19 vaccine (Pfizer-Bio NTech 30mcg/0.3mL) PF, MDV 09/24/2020,09/03/2020 Influenza A (H1N1), Inactiva kelley (Age >=3 Years) 06/25/2009 Influenza Virus, Unspecified 06/02/2005 Influenza, High-dose Inactivated 024,03/09/2016,04/30/2015,04/20 Influenza, High-dose Quadriv alent Inactivated 04/27/2022 Influenza, [...] Answer Date Recorded PHQ-2 TOTAL SCORE 0 01/10/2024 Social Connections Answer Date Recorded Do you often feel lonely or isolated from those around you? 0 11/11/2023 Financial Resource Strain Answer Date R ecorded Difficulty of Paying Living Expenses 3 11/11/2023 Difficulty of Paying Living Expenses Not on file 11/11/2023 Food Insecurity Answer Date Recorded Do you worry your food will run out before you are able to buy more? 1 11/11/2023 Transportation Needs Answer Date Record ed Does lack of transportation keep you from medica l appointments? 1 11/11/2023 Does lack of transportation keep you from work, meetings or getting things that you need? 1 11/11/2023 Housing Stability Answer Date Recorded What is your housing situation today? 1 11/11/2023 Sex and Gender Information Value Date Recorded Sex Assigned at Not on file Gender Identity Not on file Sexual Orientation Not on file Obstetrics History Last Filed Vital Signs Vital Sign Reading Time Taken Comments Blood Pressure 124/76 06/12/2024 8:26 AM [employer]OR ASSEMBLER Pulse 78 06/12/2024 8:26 AM [employer]OWER AND COMPRESSOR ASSEMBLER Temperature 37.3 C (99.2 F) 11/04/2020 9:00 AM CDT Respiratory Rate 16 12/29/2022 1:05 PM CDT Oxygen Saturation 95% 06/12/2024 8:2 6 AM [employer] COM[employer]OR ASSEMBLER Inhaled Oxygen Concentration - - Weight 106.1 kg (234 lb) 06/12/2024 8:2 6 AM [employer]OWER AND COMPRESSOR ASSEMBLER Height 171.8 cm (5' 7.64) 01/10/2024 8 :23 AM CDT with tennis shoes Body Mass Index 35.96 01/10/2024 8:23 AM CDT Plan of Treatment Upcoming Encounters Date Type Department Care Team (Late st Contact Info) Description 10/02/2024 8:15 AM CDT Office Visit [facility] [address] [place] [address] Jaelyn, MaximoMD [address] [place] [address] Health Maintenance Due Date Last Done Comments BMI (ht and wt on same day) for age 18+ 01/09/2025 01/10/2024, 11/11/2023, 06/05/2022, Additional history exists Depression screening for age 12+ 01/09/2025 01/10/2024, 09/10/2023, 06/05/2022, Additional history exists Medicare Wellness for age 65+ 01/10/2025, 06/05/2022, 12/26/2020, Additional history exists Tetanus booster 02/12/2027 02/12/2017, 10/25, 06/05/2010, Additional history exists Pneumococcal series for age 65+ Completed 07/03/2015, 06/05/2010, 07/26/2008 Tdap Completed 02/12/2017, 11/16/2011 Zoster (shingles) series for age 50+ Completed 12/03/2021, 09/29/2021, 11/06/2011 RSV vaccine for adults or Completed 04/08/2023 COVID-19 vaccine series Completed 04/11/20 24, 10/12/2023, 05/12/2023, Additional history exists Influenza for age 65+ Completed 04/11/2024 , 04/08/2023, 04/27/2022, Additional history exists Medical Devices Implanted Type Area Dry Boss Device Identifier Shelf Expiration Date Model / Serial / Lot Lens Iol [id number] 20.5 - [id number] Implanted:Qty: 1 on 01/15/2014 by Manuel Latham MD at [facility] Right: Eye [employer] 02/14/2017 [id number]# / [id number] / Lens Iol [id number] 20.5 - [id number] Implanted:Qty: 1 on 02/05/2014 by Manuel Latham MD at [facility] Left: Eye [employer] 02/05/2018 [id number]# / [id number] / Stent Uret [id number] Contour - [id number] Implanted:Qty: 1 on 11/16/2019 by Isaiah Fagan MD at [facility] Right: [employer]reter [facility] 06/25/2022 [id number] / / [id number] Procedures Procedure Name Priority Date/Time Associated Diagnosis Comments BASIC METABOLIC PANEL Routine 06/12/2024 8:12 AM [employer] COM[employer]OR ASSEMBLER Primary hypertension LIPID PANEL W REFLEX MEASURED LDL Routine 06/12/2024 8:12 AM [employer] COM[employer]OR ASSEMBLER Hypercholesterolemia HEMOGLOBIN A1C MONITORING (POCT) Routine 06/12/2024 8:11 AM [employer]OWER AND COMPRESSOR ASSEMBLER Type 2 diabetes mellitus without complication, without long-term current use of insulin (HC) SCAN-EYE EXAM 04/25/2024 12:00 AM CDT from Last 3 Months Results * (ABNORMAL) LIPID PANEL W REFLEX MEASURED LDL (06/12/2024 8:12 AM BLOWER AND COMPRESSOR ASSEMBLER) CHOLESTEROL, TOTAL 160 <200 mg/dL [facility] HDL CHOLESTEROL 54 > OR = 40 mg/dL [facility] TRIGLYCERIDES 174(H) <150 mg/dL [facility] LDL-CHOLESTEROL 79 mg/dL (calc) [facility] Comment: Reference range: <100 Desirable range <100 mg/dL for primary prevention; <70 mg/dL for patients with CHD or diabetic patients with > or = 2 CHD risk factors. LDL-C is now calculated using the Dorian-Barbara calculation, which is a validated novel method providing better accuracy than the Friedewald equation in the estimation of LDL-C. Dorian MATIAS et al. INDRA. 2013;310(19): 6522-3106 (http://education.[employer].Lingvist/faq/PWL643) CHOL/HDLC RATIO 3.0 <5.0 (calc) [facility] NON HDL CHOLESTEROL 106 <130 mg/dL (calc) [facility] Comment: For patients with diabetes plus 1 major ASCVD risk factor, treating to a non-HDL-C goal of <100 mg/dL (LDL-C of <70 mg/dL) is considered a therapeutic option. Blood BLOOD SPECIMEN / Unknown 06/12/2024 8:12 AM [employer]OWER AND COMPRESSOR ASSEMBLER 06/12/2024 8:13 AM [employer]OWER AND COMPRESSOR ASSEMBLER Maximo Christy MD CHEMISTRY Performing Organization Address City/[facility]/ZIP Co de Phone Number [employer] [facility] [address] [place] [address], [employer] [address] [place] [phone] * (ABNORMAL) BASIC METABOLIC PANEL (06/12/2024 8:12 AM BLOWER AND COMPRESSOR ASSEMBLER) GLUCOSE 163(H) 65 - 99 mg/dL [facility] Comment: Fasting reference interval For someone without known diabetes, a glucose value >125 mg/dL indicates that they may have diabetes and this should be confirmed with a follow-up test. UREA NITROGEN (BUN) 21 7 - 25 mg/dL [facility] CREATININE 0.88 0.70 - 1.22 mg/dL [facility] EGFR 87 > OR = 60 mL/min/1. 73m2 [facility] BUN/CREATININE RATIO SEE NOTE: 6 - 22 (calc) [facility] Comment: Not Reported: BUN and Creatinine are within reference range. SODIUM 142 135 - 146 mmol/L [facility] POTASSIUM 5.0 3.5 - 5.3 mmol/L [facility] CHLORIDE 104 98 - 110 mmol/L [facility] CARBON DIOXIDE 28 20 - 32 mmol/L [facility] ELECTROLYTE BALANCE 10 7 - 17 mmol/L (calc) [facility] CALCIUM 8.9 8.6 - 10.3 mg/dL [facility] Blood BLOOD SPECIMEN / Unknown 06/12/2024 8:12 AM BLOWER AND COMPRESSOR ASSEMBLER 06/12/2024 8:13 AM BLOWER AND COMPRESSOR ASSEMBLER Maximo Christy MD CHEMISTRY Performing Organization Address City/[facility]/ZIP Co de Phone Number [facility] [address] [place] [address], [facility] [address] [place] [address] * (ABNORMAL) HEMOGLOBIN A1C MONITORING POCT (06/12/2024 8:11 AM BLOWER AND COMPRESSOR ASSEMBLER) POC HEMOGLOBIN A1C 7.4(H) <6.0 % OF TOTAL HGB [facility] Comment: Any point of care results exhibiting inconsistency with the patient's clinical status should be repeated using a different testing method. Blood BLOOD SPECIMEN / Unknown 06/12/2024 8:11 AM BLOWER AND COMPRESSOR ASSEMBLER 06/12/2024 8:11 AM BLOWER AND COMPRESSOR ASSEMBLER Maximo Christy MD CHEMISTRY [facility] [address] [place] [address], [facility] [address] [place] [address] * SCAN-EYE EXAM (04/25/2024 12:00 AM CDT) Scanner OTHER from Last 3 Months Advance Directives * [...] 2:18 PM 01/04/2014 2:39 AM Care Teams Curriculum Assistant Relationship Specialty Start Date End Date Maximo Christy MD [address] [place] [address] PCP - General Family Practice 11/05/22 Goyo Zhang MD Urology Surgery - Urology 06/30/19 Miladis Armstrong MD [address] [place] [address] Ophthalmology Surgery - Ophthalmology 06/30/19 Lewis Porter [address] [address] Dermatology Dermatology 06/30/19 Lewis Dhaliwal MD [address] [address] Otolaryngology Surgery - Otolaryngology 01/10/24 Taylor Broderick, [place] [address] [place], [place] [address]CELESTINO Raymundo [address] Pharmacist Medication Management Pharmacology 06/16/24 06/16/27
--- OUTSIDE RECORDS SUMMARY | 2024-06-29 13:41 | XMS_ITS | Encounter Summary ---
Author Organization [facility] Address [address] [place] [address] Care Team Providers Care Bit Welder Name Role Phone Unavailable Primary Care Provider Unavailabl e Reason for Visit * Occupational Therapy (Routine) - New Request Specialty Diagnoses / Procedures Referred By Fiorella black Referred To Contact Occupational Therapy Diagnoses Injury of nerve, shoulder or arm, left, initial encounter Rosas Marcano Referral ID Status Reason Start Date Expiration Date Visits Requested Visits Authorized [id number] New Request Evaluate and Treat 01/17/2024 01/16/2025 20 20 Encounter Details Date Type Department Care Team (Latest Contact Info) Description 03/20/2024 10:55 AM CDT - 03/20/2024 11:59 PM CDT Hospital Encounter [facility] Occupational Therapy [place] [address] [place] [address] Faith Coronel, OT [address] [place] [address] Discharge Disposition: Still a Patient Social History [...] of this encounter Progress Notes * Faith Coronel OT - 03/20/2024 11:30 AM CDTEncounter addended by: Faith Coronel OT on: 03/24/2024 3:07 PM Actions taken: Clinical Note Signed, Flowsheet accepted, Charge Capture section accepted * Faith Coronel OT - 03/20/2024 11:30 AM CDT Occupational Therapy [facility] Patient: Chao Davis Date of Service: 01/19/2024 Medical Diagnosis: Injury of nerve, shoulder or arm, left, initial encounter Certification Dates: From: 01/19/2024 To: 03/22/24 History of injury: At evaluation, Pt fell [...] to grasp objects. 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 He reports his arm gets achy with movement. HE has been doing the exercises he was given in [place] that include: spreading his fingers, stretch to wrist, and elbow flexion/extension. GOALS: Assessment of improvement and extent of progress toward each goal José will be independent in [facility] to improve safety and independence with self cares José will have 20# or greater of assistant drafter strength in left hand to be able to pull up pants: Goal progressing José will will be able to use left hand to stabilize plate/bowl while eating: Goal progressing José will be able to release a a medium size object from his left hand to improve ability to drinkfrom a glass: goal progressing José will be able to incorporate LUE into self cares activities 90% of the time to improve independence with self cares. Goal progressing SUBJECTIVE José reported that he needs help showering, wiping, and putting on his socks because ofhis shoulder. José's left hand is sore at the MCP joint and thenar. His hand seems to be cupping some. José states that he is still having difficulty with showering, socks, and wiping as he has notobtained the equipment and his does not mind helping him. Date 03/13/24 03/15/2024 03/20/24 Pain (0-10) Comments EXERCISE AROM to thumb in rotation, and radial abduction to facilitate 1st interossei muscle movement and strengthening. Joint blocking of DIP joint and MCP joint with minimal ability to extend joints. Gentle stretch IASTM to thenar muscle groups, scooping thumb creases, and scraping bands. - Isolated and combine finger extension with moderate difficulty MEASUREMENTS Orthoses MODALITIES NMES P9 level 23 with good activation of finger extensors NMES P9 level 23 with good activation of finger extensors ADL/SELF-CARE Taught pt use of sock aid, circuit judge, long handled sponge, and toilet tongs OTHER ASSESSMENT Response to treatment Pt was excited to be more independent with things at home Pt reports increaseease with thumb movement Pt reports same difficulty at home as of prior as pt states that he cannot do things when we try itin therapy, pt is able to perform the tasks, Pain (0-10) Functional Improvement Other comments PLAN Plan for next session Continue with fine motor activity, NMES and strengthening. Mirror therapy andfunctional tasks Continue with fine motor activity, NMES and strengthening. Mirror therapy and functional tasks Continue with fine motor activity, NMES and strengthening. Mirror therapy and functional tasks Miladis Avitia OT Faith Coronel OT Plan for Continued Treatment: Chao Davis [...]
--- OUTSIDE RECORDS SUMMARY | 2024-06-29 13:41 | XMS_ITS | Encounter Summary ---
Author Organization [facility] Address [address] [place] [address] Care Team Providers Care Enrichment Director Name Role Phone Unavailable Primary Care Provider Unavailabl e Reason for Visit * Reason Onset Date Comments Yellow drainage 06/16/2024 Encounter Details Date Type Department Care Team (Latest Contact Info) Description 06/16/2024 Clinical Communication Department of Otorhinolaryngology in [place], [place] [address] [place] [address] Anish Franklin M.D. [address] [place] [phone] Yellow drainage Social History Tobacco Use Types Packs/Day Years Used Date Smoking Tobacco: Never Smokeless Tobacco: Never Dental Answer Date Recorded Dental: Regular Dentist Unknown 05/27/20 21 Sex and Gender Information Value Date Recorded Sex Assigned at Not on file Legal Sex Male 3:32 AM RN HEDIS Gender Identity Not on file Sexual Orientation Not on file documented as of this encounter Miscellaneous Notes * Telephone Encounter - Logan Vela V. - 06/16/2024 2:49 PM CST S: Chao Davis called because He is experiencing yellow drainage from his left ear. [place] to know if he needs to continue with his ear drops or have an antibiotic prescribed. B: Patient was last seen in clinic on 05/26. A: He has surgery on 08/10. Thank you, Carmen HEDIS documented in this encounter Plan of Treatment Upcoming Encounters Date Type Department Care Team (Latest Contact Info) Description 08/10/2024 1:30 PM RN HEDIS Hospital Encounter Post Anesthesia Care Unit in [place], [place] [address] [place] [phone] Anish Franklin M.D. [address] [place] [phone] 08/10/2024 1:30 PM RN HEDIS - 08/10/2024 5:02 PM RN HEDIS Surgery [facility] [address] [place] [phone] Anish Franklin M.D. 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
--- OUTSIDE RECORDS SUMMARY | 2024-06-29 13:41 | XMS_ITS | Encounter Summary ---
Author Organization [facility] Address [address] [place] [address] Care Team Providers Care Cardiovascular Surgical Tech Name Role Phone Unavailable Primary Care Provider Unavailabl e Reason for Referral * MRI/CAT/PET Scan (Routine) - Closed Specialty Diagnoses / Procedures Referred By Fiorella black Referred To Contact Radiology Diagnoses Otorrhea Left Ear Procedures CT Temporal Bone without IV Contrast [place] CT ORBIT/EAR/FOSSA WO Anish España M.D. 200 [place] [address] Phone: tel: fax: [facility] Referral ID Status Reason Start Date Expiration Date Visits Re quested Visits Authorized [id number] Closed 04/14/2024 04/14/2025 1 1 Reason for Visit * MRI/CAT/PET Scan (Routine) - Closed Specialty Diagnoses / Procedures Referred By Anshuac sofia Referred To Contact Radiology Diagnoses Otorrhea Left Ear Procedures CT Temporal Bone without IV Contrast [place] CT ORBIT/EAR/FOSSA WO Anish España M.D. [address] [place] [address] Phone: tel: fax: [facility] Referral ID Status Reason Start Date Expiration Date Visits Re quested Visits Authorized [id number] Closed 04/14/2024 04/14/2025 1 1 Encounter Details Date Type Department Care Team (Latest Contact Info) Description 05/26/2024 12:00 PM CDT - 05/26/2024 11:59 PM CDT Hospital Encounter Department of Radiology, [facility], in [place], [place] [address] [place] [address] Anish Franklin M.D. [address] [place] [phone] Otorrhea Left Ear Discharge Disposition: Home or Self Care Social History Tobacco Use Types Packs/Day Years Used Date Smoking Tobacco: Never Smokeless Tobacco: Never Dental Answer Date Recorded Dental: Regular Dentist Unknown 05/27/20 21 Sex and Gender Information Value Date Recorded Sex Assigned at Not on file Legal Sex Male 3:32 AM SPEECH LANGUAGE PATHOLOGY ASSISTANT Gender Identity Not on file Sexual Orientation Not on file documented as of this encounter Medications at Time of Discharge acetaminophen (TylenoL) 325 mg tablet Take 650 mg by mouth every 4 (four) hours as needed. 11/16/2019 BD Luer-Shay Syringe 3 mL 18 x 1 1/2 syringe 04/30/2024 blood sugar diagnostic strips (True Metrix Glucose Test Strip) DISPENSE ITEM COVERED BY PT INS. E11.9 NIDDM TYPE II - TEST 1 TIME/DAY 04/11/2023 canagliflozin (Invokana) 300 mg tablet Take 300 mg by mouth daily before morning meal. cholecalciferol , vitamin D3, 25 mcg (1,000 Unit) tablet Take 1 tablet by mouth daily. 07/01/2011 citalopram (CeleXA) 20 mg tablet Take 1 tablet by mouth every morning. 12/16/2012 co-enzyme Q-10 (Co Q-10) 100 mg capsule Take 1 capsule by mouth daily. 06/02/2012 DME CPAP DME Order glimepiride (AmaryL) 4 mg tablet Take 4 mg by mouth daily with morning meal. 09/10/2023 glucosamine-cho ndroitin 500-400 mg per capsule Take 1 capsule by mouth daily. Hypodermic Pansey 23 gauge x 1 1/2 needle 05/11/2024 ibuprofen 200 mg tablet Take 2-3 tablets by mouth as needed. 11/03/2011 loratadine (Claritin) 10 mg tablet Take 10 mg by mouth daily. 06/02/2012 losartan (Cozaar) 50 mg tablet Take 50 mg by mouth daily. 04/11/2023 metFORMIN XR (Glucophage-XR) 500 mg 24 hr tablet Take 1,000 mg by mouth 2 (two) times a day with meals. 04/11/2023 multivitamin-mi nerals tablet Take 1 tablet by mouth daily. 06/05/2010 omega-3 fatty acids-fish oil 360-1,200 mg capsule Take 1 capsule by mouth daily. potassium citrate (Urocit-K) 10 mEq (1,080 mg) ER tablet Take 1 tablet by mouth 2 (two) times a day. 09/26/2021 rosuvastatin (Crestor) 20 mg tablet Take 20 mg by mouth at bedtime. 11/05/2022 tamsulosin (Flomax) 0.4 mg 24 hr capsule Take 0.8 mg by mouth daily. TWO .4 TABLETS DAILY 04/11/2023 testosterone cypionate (Depo-Testoster one) 200 mg/mL injection Inject 200 mg intramuscularly every 14 (fourteen) days. 06/14/2023 documented as of this encounter Plan of Treatment Upcoming Encounters Date Type Department Care Team (Latest Contact Info) Description 08/10/2024 1:30 PM SPEECH LANGUAGE PATHOLOGY ASSISTANT Hospital Encounter Post Anesthesia Care Unit in [place] [phone] [place] [phone] Anish Franklin M.D. [address] [place] [phone] 08/10/2024 1:30 PM SPEECH LANGUAGE PATHOLOGY ASSISTANT - 08/10/2024 5:02 PM SPEECH LANGUAGE PATHOLOGY ASSISTANT Surgery [facility] [address] [place] [phone] Anish Franklin M.D. [address] [place] [phone] REPAIR CEREBROSPINAL FLUID LEAK - EXTERNAL APPROACH; Transmastoid, possible middle fossa Scheduled Procedures Name Priority Associated Diagnoses Date/Ti me REPAIR CEREBROSPINAL FLUID L EAK - EXTERNAL APPROACH Otorrhea Left Ear 08/10/2024 1:30 PM SPEECH LANGUAGE PATHOLOGY ASSISTANT documented as of this encounter Procedures Procedure Name Priority Date/Time Associated Diagnosis Comments CT TEMPORAL BONE WITHOUT IV CONTRAST RAD - Routine (most inpatients and all outpatients) 05/26/2024 12:37 PM CDT Otorrhea Left Ear documented in this encounter Results * CT Temporal Bone without IV Contrast (05/26/2024 12:37 PM CDT) Anatomical Region Laterality Modality Head, Neuroradiology RST LOS , Neuroradiology ARZ LOS, Neuroradiology FLA LOS N/A Computed Tomography, Compute d Tomography Impressions [...] The stapes footplate is not well seen ([id number] image [email or web address]) which may be due to [...] Franklin M.D. 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
--- OUTSIDE RECORDS SUMMARY | 2024-06-29 13:41 | XMS_ITS | Encounter Summary ---
Author Organization [facility] Address [address] [place] [address] Care Team Providers Care School Community Relations Coordinator Name Role Phone Unavailable Primary Care Provider Unavailabl e Reason for Referral * Outpatient (Routine) - Incomplete Specialty Diagnoses / Procedures Referred By Fiorella black Referred To Contact Diagnoses Otorrhea Left Ear Procedures Myringotomy with tympanostomy tubes Yary Roberts M.D. 200 [place] [address] Phone: tel: fax: Referral ID Status Reason Start Date Expiration Date V isits Requested Visits Authorized [id number] Incomplete 05/26/2024 05/26/2025 1 1 Reason for Visit * Outpatient (Routine) - Closed Specialty Diagnoses / Procedures Referred By Fiorella black Referred To Contact Otorhinolaryngology Anish Franklin M.D. 200 [place] [address] Phone: tel: fax: [facility] Referral ID Status Reason Start Date Expiration Date Visits Re quested Visits Authorized [id number] Closed 04/14/2024 10/14/2025 1 1 Encounter Details Date Type Department Care Team (Latest Contact Info) Description 05/26/2024 3:45 PM CDT Office Visit Department of Otorhinolaryngology in [place], [place] [address] [place] [phone] Anish Franklin M.D. 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 - 05/26/2024 3:45 PM CDT Otology/Neurotology Consult Visit CHIEF COMPLAINT/PURPOSE OF VISIT: Chronic left-sided otorrhea HISTORY OF PRESENT ILLNESS: Mr. Chao Davis is a 78 y.o. male who presents for follow up after left-sided chronic otorrhea. Recall, he has a history of Eustachian tube dysfunction with PE tube placement (x2). He was last seen on 04/14/2024 at which time we removed his retained PE tube, placed CSF powder in his ear, started him on Ciprodex drops for 2 weeks, and obtained additional imaging for workup He presentstoday following this workup. His CT temporal bone and MRI today are unremarkable for any encephalocele or meningocele, or cholesteatoma. Cultures from the last clinic visit demonstrated staph aureus. Since we last saw him, the patient notes resolution of his otorrhea. Unfortunately, he reports worsening hearing on the left and new aural fullness. ROS: Pertinent items are noted in HPI; all other review of systems were negative. CURRENT MEDICATIONS: Current Outpatient Medications: acetaminophen (TylenoL) 325 mg tablet, Take 650 mg by mouth every 4 (four) hours as needed., Disp: , Rfl: BD Luer-Shay Syringe 3 mL 18 x 1 1/2 syringe, , Disp: , Rfl: blood sugar diagnostic strips (True Metrix Glucose Test Strip), DISPENSE ITEM COVERED BY PT INS. E11.9 NIDDM TYPE II - TEST 1 TIME/DAY, Disp: , Rfl: canagliflozin (Invokana) 300 mg tablet, Take 300 mg by mouth daily before morning meal., Disp: , Rfl: cholecalciferol, vitamin D3, 25 mcg (1,000 Unit) tablet, Take 1 tablet by mouth daily., Disp: , Rfl: citalopram (CeleXA) 20 mg tablet, Take 1 tablet by mouth every morning., Disp: , Rfl: co-enzyme Q-10 (Co Q-10) 100 mg capsule, Take 1 capsule by mouth daily., Disp: , Rfl: DME CPAP, DME Order, Disp: , Rfl: glimepiride (AmaryL) 4 mg tablet, Take 4 mg by mouth daily with morning meal., Disp: , Rfl: glucosamine-chondroitin 500-400 mg per capsule, Take 1 capsule by mouth daily., Disp: , Rfl: Hypodermic [place] 23 gauge x 1 1/2 needle, , Disp: , Rfl: ibuprofen 200 mg tablet, Take 2-3 tablets by mouth as needed., Disp: , Rfl: loratadine (Claritin) 10 mg tablet, Take 10 mg by mouth daily., Disp: , Rfl: losartan (Cozaar) 50 mg tablet, Take 50 mg by mouth daily., Disp: , Rfl: metFORMIN XR (Glucophage-XR) 500 mg 24 hr tablet, Take 1,000 mg by mouth 2 (two) times a day with meals., Disp: , Rfl: multivitamin-minerals tablet, Take 1 tablet by mouth daily., Disp: , Rfl: omega-3 fatty acids-fish oil 360-1,200 mg capsule, Take 1 capsule by mouth daily., Disp: , Rfl: potassium citrate (Urocit-K) 10 mEq (1,080 mg) ER tablet, Take 1 tablet by mouth 2 (two) times a day., Disp: , Rfl: rosuvastatin (Crestor) 20 mg tablet, Take 20 mg by mouth at bedtime., Disp: , Rfl: tamsulosin (Flomax) 0.4 mg 24 hr capsule, Take 0.8 mg by mouth daily. TWO .4 TABLETS DAILY, Disp: ,Rfl: testosterone cypionate (Depo-Testosterone) 200 mg/mL injection, Inject 200 mg intramuscularly every14 (fourteen) days., Disp: , Rfl: No current facility-administered medications for this visit. Facility-Administered Medications Ordered in Other Visits: LORazepam tablet 0.5 mg (Ativan), 0.5 mg, sublingual, PRN, Ashley Guadalupe APRN, C.N.P., M.S.N. sodium chloride (PF) 0.9 % injection 1-100 mL, 1-100 mL, intravenous, Once, Anayeli Ashley Barnett APRN, C.N.P., M.S.N. ALLERGIES: Allergies Allergen Reactions Sulfa (Sulfonamide Antibiotics) Hives (Reselect Reaction) PAST MEDICAL HISTORY: No past medical history on file. SURGICAL HISTORY: No past surgical history on file. SOCIAL HISTORY: Social History Socioeconomic History Marital status: Spouse name: Not on file Number of children: Not on file Years of education: Not on file Highest education level: Not on file Occupational History Not on file Tobacco Use Smoking status: Never Smokeless tobacco: Never Vaping Use Vaping status: never used Substance and Sexual Activity Alcohol use: Not on file Drug use: Not on file Sexual activity: Not on file Other Topics Concern Not on file Social History Narrative Not on file Social Drivers of Health Food Insecurity: Not on File (04/20/2024) Received from [employer] Food Insecurity Food: 0 Transportation Needs: No Transportation Needs (11/11/2023) Received from [facility] [facility] Transportation Needs Does lack of transportation keep you from medical appointments?: 1 Does lack of transportation keep you from work, meetings or getting things that you need?: 1 Physical Activity: Not on File (08/17/2023) Received from [employer] Payment Physical Activity Physical Activity: 0 Intimate Partner Violence: Not on file Housing Stability: Low Risk (11/11/2023) Received from [facility] [employer] [facility] Housing Stability What is your housing situation today?: 1 FAMILY HISTORY: No family history on file. PHYSICAL EXAM: General: 78 y.o. year old male, in no acute distress. Ambulates to and from the exam chair without difficulty. Head: Normocephalic atraumatic Eyes: Extraocular muscles are intact. No spontaneous or gaze-evoked nystagmus. ENT: Right ear demonstrates normal shaped pinna, external auditory canal is patent, and tympanic membrane is intact. Left ear demonstrates normal shaped pinna, external auditory canal is patent, and tympanic membrane is intact. There is fluid in the middle ear space. House-Brackmann grade 1 of 6 bilaterally. Imaging: CT temporal bone 05/26/2024: IMPRESSION: 1. Since 05/07/2023, increased opacification of [...] The right temporal bone is otherwise normal. MRI 05/26/2024: IMPRESSION: Opacification of the left middle ear and mastoid air cells which may be related to otitis media. Nodiscrete meningocele or encephalocele. Assessment/Plan: #1. Left sided otorrhea, now resolved following removal of PE tube #2. Evidence of left persistent middle ear effusion on CT #3. Query Eustachian tube dysfunction vs CSF otorrhea Mr. Davis had resolution of his otorrhea but unfortunately he now has worsening subjective hearing and evidence of persistent middle ear effusion on CT. Given that he has never had beta 2 transferrin testing and he is having aural fullness and subjective hearing loss, we would recommend placement of a PE tube and collection of middle ear fluid for testing. The patient was willing to pursue this and therefore this was done in clinic today. We had an extensive discussion again about the differential diagnosis for his middle ear effusion which includes chronic otomastoiditis vs CSF otorrhea. If CSF otorrhea is present, then we would pursue CSF repair. If he doesn't have CSF otorrhea yet he continues to drain despite tube placement, we discussed this could be secondary to chronic infection that requires a tympanomastoidectomy to cleanout all the inflammatory mucosa and granulation tissue. If he doesn't have recurrence of the drainage following this new PE tube placement, we assume that his previous otorrhea is secondary to biofilms secondary to his old tube. Regardless, we need to rule out a CSF leak and then we will see if he starts to have persistent otorrhea following this new PE tube. The patient was understanding of the options and next steps. All questions and concerns were addressed. We will call him after we get thebeta 2 transferrin testing completed. PATIENT EDUCATION Ready to learn, no apparent learning barriers were identified; learning preferences include listening. Explained diagnosis and treatment plan; patient expressed understanding of the content. Cosigned by Anish Franklin M.D. at 05/26/2024 4:13 PM CDT Associated attestation - Anish Franklin M.D. - 05/26/2024 4:13 PM CDT I saw and evaluated the patient, participating in the don portions of the service. I reviewed the resident/fellow???s note. I agree with the resident/fellow???s findings and plan. documented in this encounter Procedure Notes * Yary Roberts M.D. - 05/26/2024 3:45 PM CDTAssociated Order(s): Myringotomy with tympanostomy tubes Post-Procedure Diagnose(s): Otorrhea Left Ear Myringotomy with tympanostomy tubes Performed by: Yary [...] ear effusion sent for beta 2 transferrin documented in this encounter Plan of Treatment Upcoming Encounters Date Type Department Care Team (Latest Contact Info) Description 08/10/2024 1:30 PM REGIONAL PRODUCTION MANAGER Hospital Encounter Post Anesthesia Care Unit in [place], [place] [address] [place] [phone] Anish Franklin M.D. [address] [place] [phone] 08/10/2024 1:30 PM REGIONAL PRODUCTION MANAGER - 08/10/2024 5:02 PM REGIONAL PRODUCTION MANAGER Surgery [facility] [address] [place] [phone] Anish Franklin M.D. [address] [place] [phone] REPAIR CEREBROSPINAL FLUID LEAK - EXTERNAL APPROACH; Transmastoid, possible middle fossa Scheduled Procedures Name Priority Associated Diagnoses Date/Ti me REPAIR CEREBROSPINAL FLUID L EAK - EXTERNAL APPROACH Otorrhea Left Ear 08/10/2024 1:30 PM REGIONAL PRODUCTION MANAGER documented as of this encounter Procedures Procedure Name Priority Date/Time Associated Diagnosis Comments BETA-2 TRANSFERRIN, BF Routine 05/26/2024 4:10 PM CDT Otorrhea Left Ear UT TYMPANOSTOMY LOC/TOP ANES Routine 05/26/2024 3:45 PM CDT Otorrhea Left Ear documented in this encounter Results * (ABNORMAL) Beta-2 Transferrin: Detection of CSF in Other Body Fluid (05/26/2024 4:10 PM CDT) Beta-2 Transferrin, BF Positive (A) Negative, no beta-2 transferrin (spinal fluid) detected. 05/29/2024 4:29 PM REGIONAL PRODUCTION MANAGER [facility] Comment: ----ADDITIONAL INFORMATION---- This test was developed and its performance characteristics determined by [facility] in a manner consistent with CLIA requirements. This test has not been cleared or approved by the U.S. Food and Drug Administration. Fluid (Ear, Left) 05/26/2024 4:10 PM CDT 05/29/2024 9:41 AM REGIONAL PRODUCTION MANAGER us Anish Franklin M.D. LAB BODY FLUIDS AND STOO LS ORDERABLES Final Result [facility] [address] [place] [address] [facility] [address] [place] [address] [place] [address] * UT TYMPANOSTOMY LOC/TOP ANES (05/26/2024 3:45 PM CDT) [...] Yary Roberts M.D. 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
--- OUTSIDE RECORDS SUMMARY | 2024-06-29 13:41 | XMS_ITS | Referral Summary ---
Author Organization [facility] Address [address] [place] [address] Care Team Providers Care Lunch Truck Operator Name Role Phone Unavailable Primary Care Provider Unavailabl e Source Comments Patient records contain information from all sites at [facility]. For routine questions regarding patient records, call [phone] during business hours, M-F 8:00 AM - 5:00 PM Central Time. Record requests for emergency care only can be directed to [phone] at any time.[facility] Encounters Date Type Department Care Team Description 06/19/2024 Orders Only Department of Otorhinolaryngology in [place], [place] [address] [place] [address] Anish Franklin M.D. 06/16/2024 Clinical Communication Department of Otorhinolaryngology in [place], [place] [address] [place] [phone] Anish Franklin M.D. Yellow drainage 06/08/2024 Orders Only Department of Otorhinolaryngology in [place], [place] [address] [place] [phone] Anish Franklin M.D. Otorrhea Left Ear (Primary Dx); Other Specified Hearing Loss Left Ear 06/08/2024 Clinical Communication Department of Otorhinolaryngology in [place], [place] [address] [place] [phone] Anish Franklin M.D. Schedule surgery 05/26/2024 3:45 PM CDT Office Visit Department of Otorhinolaryngology in [place], [place] [address] [place] [address] Anish Franklin M.D. Otorrhea Left Ear (Primary Dx) 05/26/2024 12:00 PM CDT - 05/26/2024 11:59 PM CDT Hospital Encounter Department of Radiology, [facility] in [place], [place] [address] [place] [phone] Anish Franklin M.D. Otorrhea Left Ear Discharge Disposition: Home or Self Care 05/26/2024 9:26 AM CDT - 05/26/2024 11:59 AM CDT Hospital Encounter Department of Radiology, [facility] in [place], [place] [address] [place] [phone] Anish Franklin M.D. Otorrhea Left Ear Discharge Disposition: Home or Self Care 05/23/2024 3:45 PM CDT Clinical Communication Virtual Review in [place], [place] 200 [place] [phone] 04/25/2024 Orders Only Department of Otorhinolaryngology in [place], [place] [address] [place] [phone] Yun Gtz, RNisreen 04/21/2024 Orders Only Department of Otorhinolaryngology in [place], [place] [address] [place] [phone] Kiara Pleitez M.D. Otorrhea Left Ear (Primary Dx) 04/21/2024 Clinical Communication Department of Otorhinolaryngology in [place], [place] [address] [place] [phone] Anish Franklin M.D. Change Pharmacy 04/17/2024 Orders Only Department of Otorhinolaryngology in [place], [place] [address] [place] [phone] Anish Franklin M.D. 04/14/2024 3:15 PM CDT Comprehensive Visit Department of Otorhinolaryngology in [place], [place] [address] [place] [phone] Anish Franklin M.D. Otorrhea Left Ear; Other Specified Hearing Loss Left Ear 04/14/2024 10:00 AM CDT Diagnostic Department of Otorhinolaryngology in [place], [place] [address] [place] [address] Miladis Pandya, MARION CArleneN.Nehal Barton, Ph.D. 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 11/16/19 Active blood sugar diagnostic strips (True Metrix [...] by mouth daily. 04/11/20 23 Active Hypodermic [place] 23 gauge x 1 1/2 needle 05/11/20 [...] mouth daily. TWO .4 TABLETS DAILY 04/11/20 Active testosterone cypionate (Depo-Testoster one) 200 mg/mL [...] wanting to be on ARB with Diabetes. 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 [address] [place] [phone] 08/10/2024 1:30 PM HONING MACHINE OPERATOR - 08/10/2024 5:02 PM HONING MACHINE OPERATOR Surgery [facility] OR [address] [place] [address] Anish Franklin M.D. 200 [place] [phone] REPAIR CEREBROSPINAL FLUID LEAK - EXTERNAL APPROACH; Transmastoid, possible middle fossa Scheduled Procedures Name Priority Associated Diagnoses Date/Ti me REPAIR CEREBROSPINAL FLUID L EAK - EXTERNAL APPROACH Otorrhea Left Ear 08/10/2024 1:30 PM HONING MACHINE OPERATOR Medical Devices Implanted Type Area Certified Performance Technologist Device Identifier Shelf Expiration Date Model / Serial / Lot Hardware E.G. Pins/Screws/Raffy s Hardware e.g. pins/screws /rods Left: Shoulder Description:SHOULDER REPLACE MENT Ocular Lens Ocular Lens Bilateral: Eye Description:Cataract surgery Procedures Procedure Name Priority Date/Time Associated Diagnosis Comments BETA-2 TRANSFERRIN, BF Routine 05/26/2024 4:10 PM CDT Otorrhea Left Ear MI TYMPANOSTOMY LOC/TOP ANES Routine 05/26/2024 3:45 PM [...] WITH IV CONTRAST Routine 06/19/2003 8:35 AM HONING MACHINE OPERATOR from Last 3 Months or Most Recently Relevant to Health Maintenance Results * (ABNORMAL) Beta-2 Transferrin: Detection of CSF in Other Body Fluid (05/26/2024 4:10 PM CDT) Beta-2 Transferrin, BF Positive (A) Negative, no beta-2 transferrin (spinal fluid) detected. 05/29/2024 4:29 PM HONING MACHINE OPERATOR [facility] Comment: ----ADDITIONAL INFORMATION---- This test was developed and its performance characteristics determined by [facility] in a manner consistent with CLIA requirements. This test has not been cleared or approved by the U.S. Food and Drug Administration. Fluid (Ear, Left) 05/26/2024 4:10 PM CDT 05/29/2024 9:41 AM HONING MACHINE OPERATOR Anish Franklin M.D. LAB BODY FLUIDS AND STOO LS ORDERABLES Final Result [facility] [address] [place] [address] [facility] [address] [place] [address] [place] [address] * [place] TYMPANOSTOMY LOC/TOP ANES (05/26/2024 3:45 PM CDT) [...] The stapes footplate is not well seen ( image 314) which may be due to [...] right temporal bone is otherwise normal. Anish PAYAN CT PROCEDURES Final Result * MR Brain [...] media. No discrete meningocele or encephalocele. Anish Franklin M.D. [facility] MRI PROCEDURES Final Result * (ABNORMAL) Bacterial Culture, Aerobic + Susceptibility (04/14/2024 3:49 PM CDT) [facility] Bacterial Culture, Aerobic + Susc STAPHYLOCOCCUS AUREUS 3+ (A) 04/16/2024 1:17 PM CDT DTL Comment: Methicillin Resistant Staphylococcus aureus (MRSA). Semi-Urgent Result. Semi-Urgent This is a semi-urgent result(CHAVEZ) [facility] Swab (Ear, Left) 04/14/2024 3:49 PM CDT [...] AL ORDERABLES Final Result Performing Organization Address [facility] [place] [address] * Fungal Culture, Routine (04/14/2024 3:49 PM CDT) [facility] Fungal Culture, Routine No growth after 24 days of incubation. 05/09/2024 1:02 AM CDT DT Swab (Ear, Left) 04/14/2024 3:49 PM CDT 04/14/2024 4:18 PM CDT Comment:Specimen Source Site : Swab Anish Franklin M.D. LAB MICROBIOLOGY - GENER AL ORDERABLES Final Result Performing Organization Address [facility] [address] [facility] [place] [address] * Audiology evaluation (04/14/2024 12:00 AM CDT) 04/14/2024 Miladis Pandya APRN, C.N.P. AUDIOLOGY SERVI DEREK ORDERABLES Final Result Performing Organization Address City/[facility] [address]/[facility] Co de Phone Number AUDIOLOGY AND AHD * Sodium (11/04/2012 7:35 AM CDT) Sodium, S 140 135 - 145 MMOL/L [facility] 11/04/2012 7:35 AM CDT 11/04/2012 7:35 AM CDT Raleigh Brown P.A.-C., M.S. LAB BLOOD ADD-ON Final Result Performing Organization Address City/[facility] [address]/ZIP Co de Phone Number [facility] [address] * Potassium (11/04/2012 7:35 AM CDT) Potassium, S 4.1 3.6 - 5.2 MMOL/L [facility] 11/04/2012 7:35 AM CDT 11/04/2012 7:35 AM CDT Raleigh Brown P.A.-C., M.S. LAB BLOOD ADD-ON Final Result Performing Organization Address City/[facility] [address]/ZIP Co de Phone Number [facility] [address] * Hemoglobin A1c (11/04/2012 7:35 AM CDT) Hemoglobin A1c, B 6.0 4.0 - 6.0 % [facility] 11/04/2012 7:35 AM CDT 11/04/2012 7:35 AM CDT Raleigh Brown P.A.-C., M.S. LAB BLOOD ADD-ON Final Result Performing Organization Address City/[facility] [address]/ZIP Co de Phone Number [facility] [address] * Creatinine with Estimated GFR (MDRD) (11/04/2012 7:35 AM CDT) Creatinine 0.8 0.8 - 1.3 MG/DL [facility] eGFR Non-Black/Afric an Luxembourger >60 >60 ML/MIN/BSA [facility] eGFR-Black/Afri can Luxembourger >60 >60 ML/MIN/BSA [facility] 11/04/2012 7:35 AM CDT 11/04/2012 7:35 AM CDT Raleigh Brown P.A.-C., M.S. LAB BLOOD ADD-ON Final Result [facility] [address] [place], [place] [address] * CT Abdomen Pelvis Angiogram with IV Contrast (06/19/2003 8:35 AM HONING MACHINE OPERATOR) Anatomical Region Laterality Modality Abdomen, Pelvis N/A Computed Tomogra phy 06/19/2003 8:35 AM HONING MACHINE OPERATOR Narrative 06/19/2003 10:03 AM HONING MACHINE OPERATOR 19-Jun-2003 08:35:00 Exam: CTA Abd/Pel w or [...] [id number] Electronically signed by: Juma Falcon MD [id number] 19-Jun-2003 10:03 Procedure Note Lewis Falcon M.D. [...] [id number] Electronically signed by: Juma Falcon MD [id number] 19-Jun-2003 10:03 Tr aYn M.D. IMG CT PROCEDURES Final Resul t from Last 3 Months or Most Recently Relevant to Health Maintenance Additional Health Concerns Infection Onset Date Last Indicated MRSA 04/14/2024 04/14/2024 Insurance [employer] Advance Directives For more information, please contact: [phone] Documents on File Type Date Recorded Patient Contract Assistant Expl anation Advance Directives 05/14/2006 12:00 AM Lolly marcial document. See document viewer.
--- OUTSIDE RECORDS SUMMARY | 2024-06-29 13:41 | XMS_ITS | Encounter Summary ---
Author Organization [facility] Address [address] [place] [address] Care Team Providers Care Service Architect Name Role Phone Unavailable Primary Care Provider Unavailabl e Reason for Visit * Occupational Therapy (Routine) - New Request Specialty Diagnoses / Procedures Referred By Fiorella black Referred To Contact Occupational Therapy Diagnoses Injury of nerve, shoulder or arm, left, initial encounter Rosas Marcano Referral ID Status Reason Start Date Expiration Date Visits Requested Visits Authorized [id number] New Request Evaluate and Treat 01/17/2024 01/16/2025 20 20 Encounter Details Date Type Department Care Team (Latest Contact Info) Description 03/28/2024 1:26 PM CDT - 03/28/2024 11:59 PM CDT Hospital Encounter [facility] Occupational Therapy [place] 200 [place] [address] Faith Coronel, OT 200 [place] [address] Discharge Disposition: Still a Patient Social History [...] Progress Notes * Faith Coronel, OT - 03/28/2024 1:45 PM CDT Occupational Therapy [facility] 90 day Progress Note Patient: Chao [...] to grasp objects. He is able to coil strapper and has been using a ball that was given to him prior to his shoulder surgery. He reports his arm gets achy with movement. HE has been doing the exercises he was given in [place] that include: spreading his fingers, stretch to wrist, and elbow flexion/extension. GOALS: Assessment of improvement and extent of progress toward each goal José will be independent in [facility] to improve safety and independence with self cares- José is stillprogressing with exercises program. Will continue José will have 20# or greater of coil strapper strength in left hand to be able to pull up pants: Goal progressing- José is able to coil strapper, but not yet 20#. Continue José will [...] improve independence with self cares. Goal progressing- oxana is still having difficulty with showering, dressing, andtoileting. Continue SUBJECTIVE oJsé reported that he needs help showering, wiping, and putting on his socks because ofhis shoulder. José's left hand is sore at the MCP joint and thenar. His hand seems to be cupping some. José has no new complaints José states that he thinks the hand and wrist are doing better than the shoulder. Date 03/13/24 03/15/2024 03/23/24 03/28/24 Pain (0-10) Comments EXERCISE AROM to thumb [...] on a vertical surface with moderate difficulty Digital extension with pillow case. AAROM supination with hammer. AAROM elbow flexion with external rotation withpillow case. MEASUREMENTS Left hand coil strapper: 26 lbs Palmar pinch: 10 lbs Lateral pinch: 11 lbs 9 hole Peg: R- 25 sec L- 65 sec Orthoses MODALITIES NMES P9 level 23 with good activation of finger extensors NMES P9 level 23 with ultra sound gel over distal UE extensors with 3-/5 activation. NMES P9 level 23 with ultra sound gel over distal UE extensors with 3-/5 activation. ADL/SELF-CARE Taught pt use of sock aid, field application engineer, long handled sponge, and toilet tongs Worked on cutting foods with knife and fork with modified independence. OTHER ASSESSMENT Response to treatment Pt was excited to be more independent with things at home Pt reports increaseease with thumb movement Pt reports he can do more in therapy than he can at home. Pt reports improvements in his hand at home Pain (0-10) Functional Improvement Other comments PLAN [...]
--- OUTSIDE RECORDS SUMMARY | 2024-06-29 13:42 | XMS_ITS | Encounter Summary ---
Author Organization [facility] Address [address] [place] [address] Care Team Providers Care Wheel Polisher Name Role Phone Unavailable Primary Care Provider Unavailabl e Encounter Details Date Type Department Care Team (Latest Contact Info) Description 05/23/2024 3:45 PM CDT Clinical Communication Virtual Review in [place], [place] 200 [place] [phone] Social History Tobacco Use Types Packs/Day Years Used Date Smoking Tobacco: Never Smokeless Tobacco: Never Tobacco Cessation:Counseling Given: Not Answered Dental Answer Date Recorded Dental: Regular Dentist Unknown 05/27/20 21 Sex and Gender Information Value Date Recorded Sex Assigned at Not on file Legal Sex Male 3:32 AM CHOIR MEMBER Gender Identity Not on file Sexual Orientation Not on file documented as of this encounter Plan of Treatment Upcoming Encounters Date Type Department Care Team (Latest Contact Info) Description 08/10/2024 1:30 PM CHOIR MEMBER Hospital Encounter Post Anesthesia Care Unit in [place], [place] [address] [place] [phone] Anish Franklin M.D. [address] [place] [phone] 08/10/2024 1:30 PM CHOIR MEMBER - 08/10/2024 5:02 PM CHOIR MEMBER Surgery [facility] MAIN OR [address] [place] [phone] Anish Franklin M.D. 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
--- OUTSIDE RECORDS SUMMARY | 2024-06-29 13:42 | XMS_ITS | Encounter Summary ---
Author Organization [facility] Address [address] [place] [address] Care Team Providers Care Heavy Equipment Engine Mechanic Name Role Phone Unavailable Primary Care Provider Unavailabl e Encounter Details Date Type Department Care Team (Latest Contact Info) Description 04/21/2024 Orders Only Department of Otorhinolaryngology in [place], [place] [address] [place] [phone] Kiara Pleitez M.D. [address] [place] [phone] Otorrhea Left Ear (Primary Dx) Social History Tobacco Use Types Packs/Day Years Used Date Smoking Tobacco: Never Dental Answer Date Recorded Dental: Regular Dentist Unknown 05/27/20 21 Sex and Gender Information Value Date Recorded Sex Assigned at Not on file Legal Sex Male 3:32 AM FORENSIC ARTIST Gender Identity Not on file Sexual Orientation Not on file documented as of this encounter Plan of Treatment Upcoming Encounters Date Type Department Care Team (Latest Contact Info) Description 08/10/2024 1:30 PM FORENSIC ARTIST Hospital Encounter Post Anesthesia Care Unit in [place], [place] [address] [place] [phone] Anish Franklin M.D. [address] [place] [phone] 08/10/2024 1:30 PM FORENSIC ARTIST - 08/10/2024 5:02 PM FORENSIC ARTIST Surgery [facility] MAIN OR [address] [place] [phone] Anish Franklin M.D. 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
--- OUTSIDE RECORDS SUMMARY | 2024-06-29 13:42 | XMS_ITS | Encounter Summary ---
Author Organization [facility] Address [address] [place] [address] Care Team Providers Care Marketing Content Manager Name Role Phone Unavailable Primary Care Provider Unavailabl e Reason for Referral * MRI/CAT/PET Scan (Routine) - Closed Specialty Diagnoses / Procedures Referred By Fiorella black Referred To Contact Radiology Diagnoses Otorrhea Left Ear Procedures MR Brain without and with IV Contrast Anish Franklin M.D. 200 [place] [address] Phone: tel: fax: [facility] Referral ID Status Reason Start Date Expiration Date Visits Re quested Visits Authorized [id number] Closed 04/14/2024 04/14/2025 1 1 Reason for Visit * MRI/CAT/PET Scan (Routine) - Closed Specialty Diagnoses / Procedures Referred By Fiorella black Referred To Contact Radiology Diagnoses Otorrhea Left Ear Procedures MR Brain without and with IV Contrast Anish Franklin M.D. 200 [place] [address] Phone: tel: fax: [facility] Referral ID Status Reason Start Date Expiration Date Visits Re quested Visits Authorized [id number] Closed 04/14/2024 04/14/2025 1 1 Encounter Details Date Type Department Care Team (Latest Contact Info) Description 05/26/2024 9:26 AM CDT - 05/26/2024 11:59 AM CDT Hospital Encounter Department of Radiology, [facility] in [place], [place] [address] [place] [address] [place] [phone] Anish Franklin M.D. [address] [place] [phone] Otorrhea Left Ear Discharge Disposition: Home or Self Care Social History Tobacco Use Types Packs/Day Years Used Date Smoking Tobacco: Never Smokeless Tobacco: Never Dental Answer Date Recorded Dental: Regular Dentist Unknown 05/27/20 21 Sex and Gender Information Value Date Recorded Sex Assigned at Not on file Legal Sex Male 3:32 AM ROUTE SALESMAN Gender Identity Not on file Sexual Orientation [...] Take 1 capsule by mouth daily. Hypodermic Forest 23 gauge x 1 1/2 needle 05/11/2024 [...] (Latest Contact Info) Description 08/10/2024 1:30 PM ROUTE SALESMAN Hospital Encounter Post Anesthesia Care Unit in [place], [place] [address] [place] [phone] Anish Franklin M.D. [address] [place] [phone] 08/10/2024 1:30 PM ROUTE SALESMAN - 08/10/2024 5:02 PM ROUTE SALESMAN Surgery [facility] MAIN OR [address] [place] [phone] Anish Franklin M.D. [address] [place] [phone] REPAIR CEREBROSPINAL FLUID LEAK - EXTERNAL APPROACH; Transmastoid, possible middle fossa Scheduled Procedures Name Priority Associated Diagnoses Date/Ti me REPAIR CEREBROSPINAL FLUID L EAK - EXTERNAL APPROACH Otorrhea Left Ear 08/10/2024 1:30 PM ROUTE SALESMAN documented as of this encounter Procedures Procedure Name Priority Date/Time Associated Diagnosis Comments MR BRAIN WITHOUT AND WITH IV CONTRAST RAD - Routine (most inpatients and all outpatients) 05/26/2024 11:36 AM CDT Otorrhea Left Ear documented in this encounter Results * MR Brain without and with IV [...] encephalocele. Anish PAYAN MRI PROCEDURES Final Result documented in this encounter Visit Diagnoses Diagnosis Otorrhea Left Ear Otorrhea Left Ear documented in this encounter Administered Medications Inactive Administered Medications - up to 3 most recent administrations Medication Order MAR Action Action Date Dose Rate Site gadobutrol injection 0.01-30 mL (Gadavist) 0.01-30 mL, intravenous, Once in imaging, contrast, Starting on Wed05/26/24 at 1015, For 1 dose, Imaging Protocol Orders, Dose per Radiant Medication Guidelines Intrathecal doses greater than 0.25 mL not recommended. 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
--- OUTSIDE RECORDS SUMMARY | 2024-06-29 13:42 | XMS_ITS | Encounter Summary ---
Author Organization [facility] Address [address] [place] [address] Care Team Providers Care Technology Instructor Name Role Phone Unavailable Primary Care Provider Unavailabl e Encounter Details Date Type Department Care Team (Late Contact Info) Description 04/25/2024 Orders Only Department of Otorhinolaryngology in [place], [place] [address] [place] [phone] Yun Gtz, RArleneN. [address] [place] [phone] Social History Tobacco Use Types Packs/Day Years Used Date Smoking Tobacco: Never Dental Answer Date Recorded Dental: Regular Dentist Unknown 05/27/20 21 Sex and Gender Information Value Date Recorded Sex Assigned at Not on file Legal Sex Male 3:32 AM RESIDENT CARE TECHNICIAN Gender Identity Not on file Sexual Orientation Not on file documented as of this encounter Plan of Treatment Upcoming Encounters Date Type Department Care Team (Latest Contact Info) Description 08/10/2024 1:30 PM RESIDENT CARE TECHNICIAN Hospital Encounter Post Anesthesia Care Unit in [place], [place] [address] [place] [phone] Anish Franklin M.D. [address] [place] [address] [phone] 08/10/2024 1:30 PM RESIDENT CARE TECHNICIAN - 08/10/2024 5:02 PM RESIDENT CARE TECHNICIAN Surgery [facility] MAIN OR [address] [place] [phone] Anish Franklin M.D. 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
--- OUTSIDE RECORDS SUMMARY | 2024-06-29 13:42 | XMS_ITS | Encounter Summary ---
Author Organization [facility] Address [address] [place] [address] Care Team Providers Care Steel Molder Name Role Phone Unavailable Primary Care Provider Unavailabl e Reason for Visit * Reason Onset Date Comments [facility] - Outside Materials 03/01/2024 Encounter Details Date Type Department Care Team (Latest Contact Info) Description 03/01/2024 Clinical Communication Department of Otorhinolaryngology in [place], [place] [address] [place] [phone] Anish Franklin M.D. [address] [place] [phone] [facility] - Outside Materials Social History Tobacco Use Types Packs/Day Years Used Date Smoking Tobacco: Never Dental Answer Date Recorded Dental: Regular Dentist Unknown 05/27/20 21 Sex and Gender Information Value Date Recorded Sex Assigned at Not on file Legal Sex Male 3:32 AM MACHINE SHOP REPAIR TECHNICIAN Gender Identity Not on file Sexual Orientation Not on file documented as of this encounter Miscellaneous Notes * Telephone Encounter - Mari Trejo - 03/03/2024 8:[address] scan has been pushed to [facility]. Thank you, Vidya Crooks * Telephone Encounter - Mari Trejo - 03/01/2024 4:15 PM CDT Faxed request for CT scan done 05/07/2023 to [phone]. Thank you, Vidya Crooks documented in this encounter Plan of Treatment Upcoming Encounters Date Type Department Care Team (Latest Contact Info) Description 08/10/2024 1:30 PM MACHINE SHOP REPAIR TECHNICIAN Hospital Encounter Post Anesthesia Care Unit in [place], [place] [address] [place] [phone] Anish Franklin M.D. [address] [place] [phone] 08/10/2024 1:30 PM MACHINE SHOP REPAIR TECHNICIAN - 08/10/2024 5:02 PM MACHINE SHOP REPAIR TECHNICIAN Surgery [facility] MAIN OR [address] [place] [phone] Anish Franklin M.D. [address] [place] [phone] REPAIR CEREBROSPINAL FLUID LEAK - EXTERNAL APPROACH; Transmastoid, possible middle fossa Scheduled Procedures Name Priority Associated Diagnoses Date/Ti me REPAIR CEREBROSPINAL FLUID L EAK - EXTERNAL APPROACH Otorrhea Left Ear 08/10/2024 1:30 PM MACHINE SHOP REPAIR TECHNICIAN documented as of this encounter Visit Diagnoses Not on filedocumented in this encounter Additional Health Concerns Assessment Noted Time PHQ-9 Depression Total Score: 3 11/05/19 13 2:22 PM CDT documented as of this encounter
--- OUTSIDE RECORDS SUMMARY | 2024-06-29 13:42 | XMS_ITS | Encounter Summary ---
Author Organization [facility] Address [address] [place] [address] Care Team Providers Care Spray Gun Operator Name Role Phone Unavailable Primary Care Provider Unavailabl e Encounter Details Date Type Department Care Team (Late Contact Info) Description 04/17/2024 Orders Only Department of Otorhinolaryngology in [place], [place] [address] [place] [phone] Anish Franklin M.D. [address] [place] [phone] Social History Tobacco Use Types Packs/Day Years Used Date Smoking Tobacco: Never Dental Answer Date Recorded Dental: Regular Dentist Unknown 05/27/20 21 Sex and Gender Information Value Date Recorded Sex Assigned at Not on file Legal Sex Male 3:32 AM URBAN FORESTER Gender Identity Not on file Sexual Orientation Not on file documented as of this encounter Plan of Treatment Upcoming Encounters Date Type Department Care Team (Latest Contact Info) Description 08/10/2024 1:30 PM URBAN FORESTER Hospital Encounter Post Anesthesia Care Unit in [place], [place] [address] [place] [phone] Anish Franklin M.D. [address] [place] [address] [phone] 08/10/2024 1:30 PM URBAN FORESTER - 08/10/2024 5:02 PM URBAN FORESTER Surgery [facility] MAIN OR [address] [place] [phone] Anish Franklin M.D. 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
--- OUTSIDE RECORDS SUMMARY | 2024-06-29 13:42 | XMS_ITS | Encounter Summary ---
Author Organization [facility] Address [address] [place] [address] Care Team Providers Care Address Change Clerk Name Role Phone Unavailable Primary Care Provider Unavailabl e Reason for Visit * Reason Onset Date Comments Change Pharmacy 04/21/2024 Encounter Details Date Type Department Care Team (Latest Contact Info) Description 04/21/2024 Clinical Communication Department of Otorhinolaryngology in [place], [place] [address] [place] [phone] Anish Franklin M.D. [address] [place] [phone] Change Pharmacy Social History Tobacco Use Types Packs/Day Years Used Date Smoking Tobacco: Never Dental Answer Date Recorded Dental: Regular Dentist Unknown 05/27/20 21 Sex and Gender Information Value Date Recorded Sex Assigned at Not on file Legal Sex Male 3:32 AM VP PUBLIC RELATIONS Gender Identity Not on file Sexual Orientation Not on file documented as of this encounter Miscellaneous Notes * Telephone Encounter - Mari Trejo - 04/25/2024 2:27 PM CDT Patient has not gotten the prescription for the Dexamethasone. Only the other two prescriptions were sent to the pharmacy. He does states his ear has been draining less but still doesn't feel 100% better. Patient's phone # [phone] Thank you, Vidya * Telephone Encounter - Mari Trejo - 04/24/2024 8:48 AM CDT Office visit w/ Dr. Franklin 04/14/2024 Dx: Otorrhea Left Ear Patient only received two out of the three medications that Dr. Franklin prescribed. He still needs the Dexamethasone drops. Please send to [facility] [phone]. Thank you, Vidya * Telephone Encounter - Mari Trejo - 04/21/2024 11:02 AM CDT Office visit w/ Dr. Franklin 04/14/2024 Dx: Otorrhea left ear Patient's medication was sent to [facility] in pharmacy but he has not received it. He would like the prescriptions to be changed to his local [facility] in [place]. 1) doxycycline 100 mg 2) dexamethasone 0.1% 3) ofloxacin 0.3% Pharmacy: [facility] [phone] Thank you, Vidya documented in this encounter Plan of Treatment Upcoming Encounters Date Type Department Care Team (Latest Contact Info) Description 08/10/2024 1:30 PM VP PUBLIC RELATIONS Hospital Encounter Post Anesthesia Care Unit in [place], [place] [address] [place] [phone] Anish Franklin M.D. [address] [place] [phone] 08/10/2024 1:30 PM VP PUBLIC RELATIONS - 08/10/2024 5:02 PM VP PUBLIC RELATIONS Surgery [facility] MAIN OR [address] [place] [phone] Anish Franklin M.D. 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
--- OUTSIDE RECORDS SUMMARY | 2024-06-29 13:42 | XMS_ITS | Encounter Summary ---
Author Organization [facility] Address [address] [place] [address] Care Team Providers Care Burlap Spreader Name Role Phone Unavailable Primary Care Provider Unavailabl e Reason for Referral * MRI/CAT/PET Scan (Routine) - Closed Specialty Diagnoses / Procedures Referred By Fiorella black Referred To Contact Radiology Diagnoses Otorrhea Left Ear Procedures MR Brain without and with IV Contrast Anish Franklin M.D. 200 [place] [address] Phone: tel: fax: [facility] Referral ID Status Reason Start Date Expiration Date Visits Re quested Visits Authorized [id number] Closed 04/14/2024 04/14/2025 1 1 * Outpatient (Routine) - Closed Specialty Diagnoses / Procedures Referred By Fiorella black Referred To Contact Otorhinolaryngology Anish Franklin M.D. 200 [place] [address] Phone: tel: fax: [facility] Referral ID Status Reason Start Date Expiration Date Visits Re quested Visits Authorized [id number] Closed 04/14/2024 10/14/2025 1 1 Scheduling Instructions Prior to JRD * MRI/CAT/PET Scan (Routine) - Closed Specialty Diagnoses / Procedures Referred By Contac t Referred To Contact Radiology Diagnoses Otorrhea Left Ear Procedures CT Temporal Bone without IV Contrast AZ CT ORBIT/EAR/FOSSA WO CNTRST Anish Franklin M.D. [address] [place] [phone] Phone: tel: fax: [facility] Referral ID Status Reason Start Date Expiration Date Visits Re quested Visits Authorized [id number] Closed 04/14/2024 04/14/2025 1 1 Reason for Visit * Outpatient (Routine) - Closed Specialty Diagnoses / Procedures Referred By Contunruly t Referred To Contact Otorhinolaryngology Diagnoses Otorrhea Left Ear Other Specified Hearing Loss Left Ear Miladis Pandya, DIABETES PHYSICIAN, C.N.P. [address] [place] [phone] Phone: tel: fax: [facility] Referral ID Status Reason Start Date Expiration Date Visits Re quested Visits Authorized [id number] Closed 02/29/2024 08/30/2025 1 1 Encounter Details Date Type Department Care Team (Latest Contact Info) Description 04/14/2024 3:15 PM CDT Comprehensive Visit Department of Otorhinolaryngology in [place], [place] [address] [place] [phone] Anish Franklin M.D. [address] [place] [phone] Otorrhea Left Ear; Other Specified Hearing Loss Left Ear Social History Tobacco Use Types Packs/Day Years Used Date Smoking Tobacco: Never Dental Answer Date Recorded Dental: Regular Dentist Unknown 05/27/20 21 Sex and Gender Information Value Date Recorded Sex Assigned at Not on file Legal Sex Male 3:32 AM CONSUMER PRODUCT ADVISOR Gender Identity Not on file Sexual Orientation Not on file documented as of this encounter Consult Notes * Yary Roberts M.D. - 04/14/2024 3:15 PM CDT Images from the original note were not included. Otology/Neurotology Consult Visit CHIEF COMPLAINT/PURPOSE OF VISIT: Chronic left-sided otorrhea HISTORY OF PRESENT ILLNESS: Mr. Chao Davis is a 78 y.o. male who presents for evaluation of a chronic left-sided ear drainage and ear fullness that has been present for approximately 2 years. Initial symptoms included ear fullness which led to the PE tube placement. He has had 2 PE tubes placed in the past. During the first PE tube placement, he noticed that his aural fullness improved significantly but this lasted for only a day. Since then, the sense of fullness has never improved. He subsequently developed left sided otorrhea. For this, he has tried different ear drops and otic powder without any significant improvement in the otorrhea or sense of fullness. The ear drops have improved the amount of josey rrhea and the color of the otorrhea which can range from yellow to white but he has never had resolution of the otorrhea. Additionally, he also notes new hearing loss on the left side in the last 6 months with worsening of the ear drainage and fullness. He denies any history of other otologic surgeries, head trauma, and no family history of early hearing loss. He denies any nasal obstruction, congestion, or allergies. He does not wear any hearing aids. ROS: Pertinent items are noted in HPI; all other review of systems were negative. CURRENT MEDICATIONS: No current outpatient medications on file. ALLERGIES: Not on File PAST MEDICAL HISTORY: No past medical history on file. SURGICAL HISTORY: No past surgical history on file. SOCIAL HISTORY: Social History Socioeconomic History Marital status: Spouse name: Not on file Number of children: Not on file Years of education: Not on file Highest education level: Not on file Occupational History Not on file Tobacco Use Smoking status: Never Smokeless tobacco: Not on file Substance and Sexual Activity Alcohol use: Not on file Drug use: Not on file Sexual activity: Not on file Other Topics Concern Not on file Social History Narrative Not on file Social Determinants of Health Food Insecurity: Not on file (03/28/2024) Transportation Needs: No Transportation Needs (11/11/2023) Received from [facility] Transportation Needs Lack of Transportation (Medical): 1 Physical Activity: Not on File (08/17/2023) Received from [facility] Physical Activity Physical Activity: 0 Intimate Partner Violence: Not on file Housing Stability: Low Risk (11/11/2023) Received from [facility] Housing Stability Unable to Pay for Housing in the Last Year: 1 FAMILY HISTORY: No family history on [...] shaped pinna, external auditory canal is patent, there was evidence of yellow otorrhea which was sent for culture today and there is a PE tube in place but this appears to be plugged and was removed in clinic today. Tympanic membrane appears inflamed but there was no signs of retraction pocket or cholesteatoma. House-Brackmann grade 1 of 6 bilaterally. Audiogram: Imaging: CT temporal bone 05/07/23: Left ear with fluid opacification of the mastoid air cells without osseous erosion, thickening or retraction of the TM and some attenuation of soft tissue material in Prussak's space but without evidence of osseous erosion, likely secondary to infectious/inflammatory process Assessment/Plan: #1. Left-sided otorrhea, s/p 2 PE tubes It was a pleasure to evaluate in clinic today. He has had ear fullness, persistent otorrhea, and conductive hearing loss on the left side despite 2 PE tubes. His last PE tube was placed approximately year ago. We had an extensive discussion about the differential diagnosis for persistent otorrhea including resistant microbes, tube otorrhea, CSF leak, or cholesteatoma. His exam today is largely unremarkable for cholesteatoma. Given the concern for resistant microbes, we obtained aculture in clinic today. Additionally, given that this tube has been in place for approximately a year, we removed the PE tube to rule out any biofilm associated otorrhea as well as treated it with CSF powder in clinic today. We will have him start Ciprodex drops in approximately a week as well for2 weeks. Lastly, to address the possible etiology of CSF leak or cholesteatoma, we are obtaining a CT temporal bone without contrast as well as an MRI with and without contrast. We would like to see him back in approximately 1 month with new imaging at that time. Otherwise, all questions and concerns were addressed. The patient is agreeable with the plan. PATIENT EDUCATION Ready to learn, no apparent learning barriers were identified; learning preferences include listening. Explained diagnosis and treatment plan; patient expressed understanding of the content. Cosigned by Anish Franklin M.D. at 04/14/2024 4:04 PM CDT Associated attestation - Anish Franklin M.D. - 04/14/2024 4:04 PM CDT I saw and evaluated the patient, participating in the don portions of the service. I reviewed the resident/fellow???s note. I agree with the resident/fellow???s findings and plan. documented in this encounter Plan of Treatment Upcoming Encounters Date Type Department Care Team (Latest Contact Info) Description 08/10/2024 1:30 PM CONSUMER PRODUCT ADVISOR Hospital Encounter Post Anesthesia Care Unit in [place], [place] [address] [place] [phone] Anish Franklin M.D. [address] [place] [phone] 08/10/2024 1:30 PM CONSUMER PRODUCT ADVISOR - 08/10/2024 5:02 PM CONSUMER PRODUCT ADVISOR Surgery [facility] MAIN OR [address] [place] [phone] Anish Franklin M.D. [address] [place] [phone] REPAIR CEREBROSPINAL FLUID LEAK - EXTERNAL APPROACH; Transmastoid, possible middle fossa Scheduled Procedures Name Priority Associated Diagnoses Date/Ti me REPAIR CEREBROSPINAL FLUID L EAK - EXTERNAL APPROACH Otorrhea Left Ear 08/10/2024 1:30 PM CONSUMER PRODUCT ADVISOR Scheduled Referrals Name Type Priority Associated Diagnoses Order Schedule Otorhinolaryngology office visit (clinic) Outpatient Referral Routine Expected: 05/14/2024 (Approximate), Expires: 07/14/2025 documented as of this encounter Procedures Procedure Name Priority Date/Time Associated Diagnosis Comments BACTERIAL CULTURE, AEROBIC + SUSC Routine 04/14/2024 3:49 PM CDT Otorrhea Left Ear FUNGAL CULTURE, ROUTINE Routine 04/14/2024 3:49 PM CDT Otorrhea Left Ear documented in [...] The stapes footplate is not well seen ([id number] image [id number]) which may be due to [...] M.D. Hailey MRI PROCEDURES Final Result * Fungal Culture, Routine (04/14/2024 3:49 PM CDT) Fungal Culture, Routine No growth after 24 days of incubation. 05/09/2024 1:02 AM CDT DTL Swab (Ear, Left) 04/14/2024 3:49 PM CDT 04/14/2024 4:18 PM CDT Comment:Specimen Source Site : Swab Anish Franklin M.D. LAB MICROBIOLOGY - [facility] ORDERABLES Final Result [facility] [address] [place] [address], [place] DTL [facility] [address] [place] [address] * (ABNORMAL) Bacterial Culture, Aerobic + Susceptibility (04/14/2024 3:49 PM CDT) Bacterial Culture, Aerobic + Susc STAPHYLOCOCCUS AUREUS 3+ (A) 04/16/2024 1:17 PM CDT DTL Comment: Methicillin Resistant Staphylococcus aureus (MRSA). Semi-Urgent Result. Semi-Urgent This is a semi-urgent result(CHAVEZ) [facility] Swab (Ear, Left) 04/14/2024 3:49 [...] MICROBIOLOGY - GENER AL ORDERABLES Final Result [facility] [address] [place] [address], [facility] [address] [place] [address] documented in this encounter Visit Diagnoses Diagnosis Otorrhea Left Ear Other Specified Hearing Loss Left Ear Otorrhea Left Ear Otorrhea Left Ear Otorrhea Left Ear documented in this encounter Additional Health Concerns Assessment Noted Time PHQ-9 Depression Total Score: 3 11/05/19 13 2:22 PM CDT documented as of this encounter
--- OUTSIDE RECORDS SUMMARY | 2024-06-29 13:42 | XMS_ITS | Encounter Summary ---
Author Organization [facility] Address [address] [place] [address] Care Team Providers Care Public Housing Interviewer Name Role Phone Unavailable Primary Care Provider Unavailabl e Encounter Details Date Type Department Care Team (Latest Contact Info) Description 04/14/2024 10:00 AM CDT Diagnostic Department of Otorhinolaryngology in [place], [place] [address] [place] [phone] Miladis Pandya, CARPENTER REFRIGERATOR, C.N.P. [address] [place] [phone] Nehal Epps, Ph.D. 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 - 04/14/2024 10:01 AM CDT SUBJECTIVE CHIEF COMPLAINT / REASON FOR VISIT hearing test prior to ENT consult HISTORY OF PRESENT COMPLAINT Chao Davis is an 78-year old patient who reports a history of chronic left ear drainage forapproximately two years with at least 2 PE tubes during that time and ear drops with no resolution.He reported that his hearing is better in the right than the left. He denied tinnitus or imbalance.He reported that he had a hearing test several months ago in [place], however, I am unable to locate the results in his medical record. OBJECTIVE See Audiological Evaluation Form ASSESSMENT/PLAN ?? 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 Compared to results of 10/27/2022 in [place], right ear sensitivity remains stable, however, there has been a >10 dB decrease from 7371-5517 Hz in the left ear. ?? SRTs consistent with pure tone audiometry. ?? Word recognition ability was excellent for the right and good for the left ear for loud comfortable speech. ?? Tympanometry revealed normal compliance and peak pressure in the right ear, consistent with normal eustachian tube function, and non-compliance at a normal physical volume, consistent with possible plugged or missing PE tube and effusion or patent PE tube with excessive debris in the ear canal and middle ear space. CARE PLAN ?? results were discussed with Mr. Davis and he expressed an understanding. ?? consider hearing aid consultation once ear infection has cleared. ?? follow-up with Dr. Franklin as scheduled. ?? re-evaluation as needed. documented in this encounter Plan of Treatment Upcoming Encounters Date Type Department Care Team (Latest Contact Info) Description 08/10/2024 1:30 PM SET AND EXHIBIT DESIGNER Hospital Encounter Post Anesthesia Care Unit in [place], [place] [address] [place] [phone] Anish Franklin M.D. [address] [place] [phone] 08/10/2024 1:30 PM SET AND EXHIBIT DESIGNER - 08/10/2024 5:02 PM SET AND EXHIBIT DESIGNER Surgery [facility]IN OR [address] [place] [address] Anish Franklin M.D. [address] [place] [address] REPAIR CEREBROSPINAL FLUID LEAK - EXTERNAL APPROACH; Transmastoid, possible middle fossa Scheduled Procedures Name Priority Associated Diagnoses Date/Ti me REPAIR CEREBROSPINAL FLUID L EAK - EXTERNAL APPROACH Otorrhea Left Ear 08/10/2024 1:30 PM SET AND EXHIBIT DESIGNER documented as of this encounter Procedures Procedure Name Priority Date/Time Associated Diagnosis Comments AUDIOLOGY EVALUATION Routine 04/14/2024 12:00 AM CDT Otorrhea Left Ear Other Specified Hearing Loss Left Ear documented in this encounter Results * Audiology evaluation (04/14/2024 12:00 AM CDT) 04/14/2024 Miladis Pandya APRN, C.N.P. 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
[2024-06-29 13:57] LABS: Hemoglobin* 16.5 gm/dL (13.5-17.5)
[2024-07-02 02:21] LABS: Testosterone, Adult Male 1137 ng/dL (300-720)
== END 2024-06-29 13:38 | disposition home or self-care (01) ==
LOC: NPINS 13:37
PROVIDERS: PCP Family Medicine; Visit Provider Urology
DX: R79.89 Other specified abnormal findings of blood chemistry (principal); Z12.5 Encounter for screening for malignant neoplasm of prostate
CPT/HCPCS: 84153; 84270; 84402; 84403; 85018; G0103

== ENCOUNTER 2024-09-13 10:30 | Outpatient (RCR) | payer MEDICARE, OTHER, SELFPAY ==
--- NOTE | 2024-04-21 12:19 | PT.OPEX ---
PT [place] Outpatient Eval PT [facility] Outpatient Eval Start: 04/21/24 08:24 Freq: Status: Active Protocol: Document 04/21/24 08:25 SHEILA (Rec: 04/21/24 12:11 SHEILA [id number]) E-signed By Angie Lugo, PT Physical Therapy Outpatient Evaluation Insurance Information Insurance Name Other; See Comments Insurance Information/Comments humana Gold choice Referring MD Dr. Larios Subjective Preferred Name José Subjective He went to PT [facility] for shoulder. Pain is still present. He had NCV testing yesterday, doesn't know full results yesterday. He pushed ROM work hard at [employer] with PT and gained ROM, poor strength . Fell 6 months ago, thumb has been numb since. He has been doing HEP. He did do e-stim for NMES a bit with hand therapy. He gets pain with aggressive ROM ex. Difficulty with hand ext and thumb abd Pain Comments L shoulder c ROM, aggressive ROM 10/10 pain. 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 Cervical injury history c rotational arthritis, Weight Bearing Status Weight Bear as Tolerated Therapy Limitations/Systems Review Not Limited Objective Other/Pertinent Objective Sensation impaired to L thumb R hand dominance L shoulder AROM significantly impaired c hypertonic UT and shoulder hiking strategy. AROM L shoulder: Flex 42 Abd 20 IR 51 ER lacking 24 from neutral PROM L shoulder: flexion 115 in supine Abd 42 c pec tightness ER lacking 12 from neutral IR 58 Elbow ext lacking 15 degrees from neutral Shoulder strength MMT out of 5 : L shoulder Abd 2- c UT activation Flex 2c co-contraction of pec, scalenes, and trunk ext ER: nil IR 3- Elbow flexion 3- brachialis, minimal bicep Elbow ext 2 scapular retraction 2 Digit ext- further OT assessment, but minimal ext Scar mobility- impaired with fascial restritions hypertonicity: pec major, pec minor, subscapularis, UT, scalenes ROM impaired for ULTT doming of Rectus abdominus c transitional movements Assessment Assessment/Impression Pt is a 78 yr old male c a h/o L arm injury with fall and numbness into hand. He has a RTSA in spring and has been doing RPOM and exercises with PT. He has had minimal muscle recruitment achieved. He has reverse shoulder elevation strategies c upper trap overcompensation as well as a great deal of fascial restrictions along surgical scar and clavicle. He has pain c AROM and may have a nerve injury sustained during the fall as well as h/o cervical degeneration. He is waiting for test result of NCV testing . Will plan to pursue external stimuli to assist in muscle fiber recruitment including NMES. Co-morbidities do affect his tissue recovery timeline. 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 Physical Therapy Goals Pt will be able to raise L arm to 100 degrees to reach into overhead cupboards in 12 weeks . Pt will demonstrate 50 degrees abd AROM to assist in dressing upper body and hygiene in 12 weeks Pt will be indep in HEP to progress gains made in therapy in 6 weeks. Pt will demonstrate ability to lift 30# floor to waist c bilat arms for laundry tasks in 10 weeks. Coordination/Communication With Referral Source Treatment Plan/Direct Interventions Electrical Stimulation,Joint Mobilization,Manual Therapy, Neuromuscular Re-ed,Self-Care/ Home Management,Therapeutic Activities,Therapeutic Exercises,Traction (Mechanical ),Ultrasound Frequency/Duration 1-2x/week for 12 weeks Patient Will Be Discharged From Therapy Completion of LTG(s),Skills Plateau,Independent w/HEP, Independently Progressing Evaluation Billing Untimed Code Treatment Minutes 30 PT Eval No Charge No Complexity Moderate Certification Information Provider Signature Required Yes Provider Signature Shows Agreement With POC & Medical Necessity Physician NPI Number Write NPI# Here Physician Comment/Change : Physician Signature & Date Requested Please Sign/Date Here
--- NOTE | 2024-04-28 11:06 | OT.OPOE ---
OT Outpatient Ortho Eval OT Outpatient Ortho Eval* Start: 04/27/24 13:25 Freq: Status: Active Protocol: Document 04/27/24 13:27 TONNY (Rec: 04/27/24 17:56 JLS [id number]) E-signed By Geovanna Restrepo, OT OT OP Ortho Eval Details Complexity Complexity Medium Insurance Information Insurance Information [employer] Outpatient History/Precautions Current Condition/Medical Diagnosis Referring Provider Rosas Marcano MD Medical Diagnoses S44.92XA Injury of unspecified nerve at shoulder and upper arm level, left arm Treatment Diagnosis M25.642 Stiffness of left hand, not elsewhere classified. 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 Range of Motion and Strength Elbow/Forearm Range of Motion and Strength Elbow/Forearm Range of Motion and LUE Strength supination: 30degs pronation: full ROM Elbow: full ROM gross strength 4/5 Wrist Range of Motion and Strength Wrist Range of Motion and Strength L UE Wrist Flex: 60, 4/5 Wrist Ext: 50, 4/5 Hand/Finger/Thumb Range of Motion and Strength Hand/Finger/Thumb Range of Motion and Thumb Radial and gray Strength abduction absent, thumb adduction present and functional Hand Pinch/Meter Engineer Strength Hand Pinch/Meter Engineer Strength Hand Pinch/Meter Engineer Strength Left Hand Left Hand Meter Engineer Strength Position 1 in Elbow 20 Flexion (lbs) Lateral Pinch Strength (lbs) 15 Three Point Pinch (lbs) 12 Tip Pinch Strength (lbs) 8 Comments Comments On 03/28 upon DC from other OP: 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 Skin/Wounds/Edema Comments intact Sensation Sensation Assessment Summary Comments tingling reported in L thumb only, denies numbness, can feel light touch, pressure, hot/cold per report Dexterity Dexterity Dexterity Left Hand Left Hand Scoring Times 9-Hole Peg Hand Test Scoring Time ( 132 seconds) OT Problems Problems Problems Decreased Strength,Decreased Range of Motion,Decreased Dexterity,Pain,Decreased Coordination,Sensory Sensitivity,Lifting,Gripping, Pinching Other Problems Opening Containers,Dressing, Computer,Fasteners Patient Potential Good Assessment Assessment Assessment Pt referred to OT to address recent L UE injury. Pt fell in driveway on 10/22/23 , tore rotator cuff and reverse TSA on 11/30. Pt is limited by pain, sensory changes, weakness, decreased ROM, and decreased functional grasp and release, all resulting in dependence on caregivers for ADLs/IADLS, and reduced participation and safety with ADLs/IADLS. Pt will benefit from skilled OT to address limitations and deficits. 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 Set Goals Goals Set with Patient Yes Goals Goals Pt will be independent with HEP to improve safety and independence with self cares in 6 weeks. Pt will achieve 35# or greater candle extrusion machine operator strength in L hand to increase safety and participation in ADLs in 6 wks . Pt will be able to release a medium size object, such as a glass, from their L hand to be able to drink from a glass independently in 6 wks. Pt will be independent in all aspects of toileting (clothing management and pericares) with mod I of DME/AE as needed in 6 wks. Treatment Plan Treatment Plan Evaluation,Edema Control,Joint Mobilization,Manual Therapy, Splinting,Ultrasound, Therapeutic Exercise, Therapeutic Activities,Self Care/Home Management,NMES Expected Frequency 1-2x Week Expected Duration 6-8 Weeks Home Program Home Program Home Program Initiated Home Program Specifics Pt waiting on results of EMG and wanting to know more about nerve involvement before changing his HEP. Certification Certification Statement I Certify That: Therapy Services Provided, Therapy Plan Established, Therapy Plan Reviewed Certification Information Clinic ID # [id number] Initial Certification Date 04/27/24 Recertification Due Date 07/26/24 Provider Signature Required Yes Provider Signature Shows Agreement With POC & Medical Necessity Physician NPI Number Write NPI# Here Physician Comment/Change Comment or Changes Physician Signature & Date Requested Please Sign/Date Here
--- NOTE | 2024-06-15 15:59 | PT.OPDNX ---
PT [place] Outpatient Daily Note PT [facility] Outpatient Daily Note Start: 04/21/24 08:24 Freq: Status: Active Protocol: Document 06/15/24 12:49 SHEILA (Rec: 06/15/24 15:57 SHEILA [id number]) E-signed By Angie Lugo, PT PT OP Daily Progress Note Visit Information Note Type Daily Note Visit Number 7 Insurance Information Recert Due Date 09/13/24 Insurance Name Other; See Comments Insurance Information/Comments humana Gold choice Medical Diagnosis L shoulder RTSA Treating Diagnosis impaired L shoulder ROM, impaired L shoulder strength, pain in L shoulder, impaired IADLs and ADLs Referring MD Dr. Larios Subjective Preferred Name José Subjective He has been having soreness in R shoulder also. Makes getting coats on really difficult. He is also having a hard time with food prep. Pain Comments L shoulder c ROM, aggressive ROM 10 pain. AROM activity 11/02 pain Date of Surgery (If applicable) 12/01/23 Precautions Treatment Precautions/Contraindications DM II- metformin, 2 others. Cervical injury history c rotational arthritis, Weight Bearing Status Weight Bear as Tolerated Home Exercise Home Exercise Comments Reduced AAROM at wall to step back at counter body on shoulder stretch. scap sets Objective Other/Pertinent Objective Sensation impaired to L thumb R hand dominance L shoulder AROM significantly impaired c hypertonic UT and shoulder hiking strategy. AROM L shoulder: Flex 42 Abd 20 IR 51 ER lacking 24 from neutral PROM L shoulder: flexion 115 in supine Abd 42 c pec tightness ER lacking 12 from neutral IR 58 Elbow ext lacking 15 degrees from neutral Shoulder strength MMT out of 5 : L shoulder Abd 2- c UT activation Flex 2c co-contraction of pec, scalenes, and trunk ext ER: nil IR 3- Elbow flexion 3- brachialis, minimal bicep Elbow ext 2 scapular retraction 2 Digit ext- further OT assessment, but minimal ext Scar mobility- impaired with fascial restritions hypertonicity: pec major, pec minor, subscapularis, UT, scalenes ROM impaired for ULTT doming of Rectus abdominus c transitional movements Patient Instructed in Risks/Benefits Yes Therapeutic Exercise Therapeutic Exercise Minutes (minutes) 25 Therapeutic Exercise: To Restore supine: ER OP and IR AROM c Functional Status elbow bent at side and therapist R shoulder at side ER/IR recommendation Therapeutic Activity Therapeutic Activity Minutes (minutes) 10 Therapeutic Activities Comments Discussed current health situation and update. Discussed POC for continuation of therapy. He wants shoulder to get better, but also exhausted by all of the appointments. His R shoulder is something he is quite concerned about at this time. Manual Therapy Techniques Manual Therapy Minutes (minutes) 20 Manual Therapy Techniques STM to incisional scars on RCR and RTSA scars STM to scalenes, and UT L shoulder Neuromuscular Re-Ed Neuromuscular Reeducation Minutes ( 20 minutes) Neuromuscular Reeducation Comments Colombian e-stim to L delt 10 on 30 off c 2 ramp up. 15 min for c Assist for abd Scap sets x20 bilat Treatment Minutes Timed Code Treatment Minutes 75 Total Treatment Time 75 Billing Units Manual Therapy Units 1 Neuromuscular Reeducation Units 2 Therapeutic Exercise Units 1 Assessment/Impression Assessment/Impression Pt has R shoulder pain that has degenerative changes. Increased emphasis on scapular retraction for opening shoulder impingement in anterior structures. Working to reduce L thoracic outlet tension on L shoulder. Greater deltoid facilitation with Colombian stimulation today. Plan of Care Physical Therapy Goals Pt will be able to raise L arm to 100 degrees to reach into overhead cupboards in 12 weeks . Pt will demonstrate 50 degrees abd AROM to assist in dressing upper body and hygiene in 12 weeks Pt will be indep in HEP to progress gains made in therapy in 6 weeks. Pt will demonstrate ability to lift 30# floor to waist c bilat arms for laundry tasks in 10 weeks. Daily Plan of Care Continue per POC Daily Plan of Care Comments NMES to deltoid, parascapular strengthening, myofascial release to L shoulder Recertification Information Initial Certification Date 04/21/24 Recertification Start Date 06/15/24 Recertification Due Date 09/13/24 Reasons to Continue Skilled Therapy Pt demonstrated improved deltoid flexibility and activation c Colombian neuromuscular re-education stimulation today. He is having greater R shoulder pain , which has not been previously addressed. It has been compensating for L injury as well as crossing body to manipulate L arm frequently. Do not feel he has reached maximum potential with his arm at this time. He is struggling to complete IADL's with his L and R shoulder pain and L shoulder ROM deficits. Recommend frequency of weekly appt and weekly OT for hand appts. Rehabilitation Potential Will take longer than average due to nerve conduction impairments, atrophy of L deltoid, and multiple health com-morbidities including ear surgery. Continued Plan of Care and Interventions NMES for L shoulder, R shoulder strengthening, scapular stabilizing, Thoracic outlet and scar mobilization Provider Signature Shows Agreement With POC & Medical Necessity Physician Comment/Change Comment or Changes Physician NPI Number #
--- OUTSIDE RECORDS SUMMARY | 2024-07-27 08:21 | XMS_ITS | Encounter Summary ---
Author Organization [facility] Address [address] [place] [address] Care Team Providers Care Intensivist Name Role Phone Unavailable Primary Care Provider Unavailabl e Encounter Details Date Type Department Care Team (Late Contact Info) Description 06/19/2024 Orders Only Department of Otorhinolaryngology in [place], [place] [address] [place] [phone] Anish Franklin M.D. [address] [place] [phone] Social History Tobacco Use Types Packs/Day Years Used Date Smoking Tobacco: Never Smokeless Tobacco: Never Dental Answer Date Recorded Dental: Regular Dentist Unknown 05/27/20 21 Sex and Gender Information Value Date Recorded Sex Assigned at Not on file Legal Sex Male 3:32 AM MEDICATION ADMINISTRATION PROFESSIONAL Gender Identity Not on file Sexual Orientation Not on file documented as of this encounter Plan of Treatment Upcoming Encounters Date Type Department Care Team (Latest Contact Info) Description 08/10/2024 1:30 PM MEDICATION ADMINISTRATION PROFESSIONAL Hospital Encounter Post Anesthesia Care Unit in [place], [place] [address] [place] [phone] Anish Franklin M.D. [address] [place] [phone] 08/10/2024 1:30 PM MEDICATION ADMINISTRATION PROFESSIONAL - 08/10/2024 5:02 PM MEDICATION ADMINISTRATION PROFESSIONAL Surgery [facility] OR [address] [place] [phone] Anish Franklin M.D. 200 [place] [address] REPAIR CEREBROSPINAL FLUID LEAK - EXTERNAL APPROACH; Transmastoid, possible middle fossa Scheduled Procedures Name Priority Associated Diagnoses Date/Ti me REPAIR CEREBROSPINAL FLUID L EAK - EXTERNAL APPROACH Otorrhea Left Ear 08/10/2024 1:30 PM MEDICATION ADMINISTRATION PROFESSIONAL documented as of this encounter Visit Diagnoses Not on filedocumented in this encounter Additional Health Concerns Infection Onset Date Last Indicated Resolved Time MRSA 04/14/2024 04/14/2024 07/13/2024 5:57 AM MEDICATION ADMINISTRATION PROFESSIONAL Assessment Noted Time PHQ-9 Depression Total Score: 3 11/05/19 13 2:22 PM CDT documented as of this encounter
--- OUTSIDE RECORDS SUMMARY | 2024-07-27 08:21 | XMS_ITS | Clinical Summary ---
Author Organization [facility] Address [address] [place] [address] Care Team Providers Care Museum Exhibit Designer Name Role Phone Unavailable Primary Care Provider Unavailabl e Source Comments Patient records contain information from all sites at [facility]. For routine questions regarding patient records, call [phone] during business hours, M-F 8:00 AM - 5:00 PM Central Time. Record requests for emergency care only can be directed to [phone] at any time.[facility] Allergies Active Allergy Reactions Criticality Noted Date [...] by mouth daily. 04/11/20 23 Active Hypodermic [place] 23 gauge x 1 1/2 needle 05/11/20 [...] 06/19/2024 Orders Only Department of Otorhinolaryngology in [place], [place] [address] [place] [phone] Anish Franklin M.D. 06/16/2024 Clinical Communication Department of Otorhinolaryngology in [place], [place] [address] [place] [phone] Anish Franklin M.D. Yellow drainage 06/08/2024 Orders Only Department of Otorhinolaryngology in [place], [place] [address] [place] [phone] Anish Franklin M.D. Otorrhea Left Ear (Primary Dx); Other Specified Hearing Loss Left Ear 06/08/2024 Clinical Communication Department of Otorhinolaryngology in [place], [place] [address] [place] [phone] Anish Franklin M.D. Schedule surgery 05/26/2024 3:45 PM CDT Office Visit Department of Otorhinolaryngology in [place], [place] [address] [place] [phone] Anish Franklin M.D. Otorrhea Left Ear (Primary Dx) 05/26/2024 12:00 PM CDT - 05/26/2024 11:59 PM CDT Hospital Encounter Department of Radiology, [facility] in [place], [place] [address] [place] [address] Anish Franklin M.D. Otorrhea Left Ear Discharge Disposition: Home or Self Care 05/26/2024 9:26 AM CDT - 05/26/2024 11:59 AM CDT Hospital Encounter Department of Radiology, [facility] in [place], [place] [address] [place] [address] Anish Franklin M.D. Otorrhea Left Ear Discharge Disposition: Home or Self Care 05/23/2024 3:45 PM CDT Clinical Communication Virtual Review in [place], [place] 200 [place] [address] from Last 3 Months Immunizations Name Administration [...] on file Legal Sex Male 3:32 AM TEAMCENTER CONSULTANT Gender Identity Not on file Sexual Orientation [...] (Latest Contact Info) Description 08/10/2024 1:30 PM TEAMCENTER CONSULTANT Hospital Encounter Post Anesthesia Care Unit in [place], [place] [address] [place] [phone] nAish Franklin M.D. [address] [place] [phone] 08/10/2024 1:30 PM TEAMCENTER CONSULTANT - 08/10/2024 5:02 PM TEAMCENTER CONSULTANT Surgery [facility]ST [facility] MAIN OR [address] [place] [phone] Anish Franklin M.D. [address] [place] [phone] REPAIR CEREBROSPINAL FLUID LEAK - EXTERNAL APPROACH; Transmastoid, possible middle fossa Scheduled Procedures Name Priority Associated Diagnoses Date/Ti me REPAIR CEREBROSPINAL FLUID L EAK - EXTERNAL APPROACH Otorrhea Left Ear 08/10/2024 1:30 PM TEAMCENTER CONSULTANT Health Maintenance Due Date Last Done Comments Diabetic Office Visit with Foot Exam 1943 Dilated Eye Exam 1943 Office Visit for Blood Pressure Check / Re-check 1943 Urine Albumin 1943 Hepatitis B Vaccines (1 of 3 - Risk 3-dose series) 2003 Depression Screening (Annual PHQ-2) 07/26/2023 Fall Risk Screen (Annual) 07/26/2023 Sodium Level 04/09/2024 04/09/2023, 05/26, 07/14/2021, Additional history exists Hemoglobin A1C 07/11/2024 01/10/2024, 08/26, 04/09/2023, Additional history exists Creatinine Level (Kidney Function Test) 11/10/2024 11/11/2023, 04/09/2023, 06/05/2022, Additional history exists Potassium Level 11/10/2024 11/11/2023, 03/26, 06/05/2022, Additional history exists DTaP,Tdap,and Td Vaccines (3 - Td or Tdap) 02/12/2027 02/12/2017, 11/16/2011, 06/05/2010, Additional history exists Pneumococcal vaccine (50+ years) Completed 07/03/2015, 06/05/2010, 07/26/2008 Zoster Vaccines Completed 12/03/2021, 01/2022, 11/06/2011 Abdominal Aortic Aneurysm (AAA) Screen Discontinued 12/16/2022, 06/19/2003 RSV vaccine - (32-36 weeks) or 60+ years Completed 04/08/2023 COVID-19 Vaccine Completed 04/11/2024, , 05/12/2023, Additional history exists Influenza Vaccine Completed 04/11/2024, , 04/27/2022, Additional history exists IPV Vaccines Aged Out No longer eligi ble based on patient's age to complete this topic Medical Devices Implanted Type Area Events Administrative Assistant Device Identifier Shelf Expiration Date Model / Serial / Lot Hardware E.G. Pins/Screws/Raffy s Hardware e.g. pins/screws /rods Left: Shoulder Description:SHOULDER REPLACE MENT Ocular Lens Ocular Lens Bilateral: Eye Description:Cataract surgery Procedures Procedure Name Priority Date/Time Associated Diagnosis Comments BETA-2 TRANSFERRIN, BF Routine 05/26/2024 4:10 PM CDT Otorrhea Left Ear TN TYMPANOSTOMY LOC/TOP ANES Routine 05/26/2024 3:45 PM CDT Otorrhea Left Ear CT TEMPORAL BONE WITHOUT IV CONTRAST RAD - Routine (most inpatients and all outpatients) 05/26/2024 12:37 PM CDT Otorrhea Left Ear MR BRAIN WITHOUT AND WITH IV CONTRAST RAD - Routine (most inpatients and all outpatients) 05/26/2024 11:36 AM CDT Otorrhea Left Ear HEMOGLOBIN A1C, B Routine 11/04/2012 7:3 5 AM CDT SODIUM, S/P Routine 11/04/2012 7:35 AM CDT POTASSIUM, S/P Routine 11/04/2012 7:35 AM CDT CREATININE WITH EGFR, S/P Routine 11/04/2012 7:[address] ABDOMEN PELVIS ANGIOGRAM WITH IV CONTRAST Routine 06/19/2003 8:35 AM TEAMCENTER CONSULTANT from Last 3 Months or Most Recently Relevant to Health Maintenance Results * (ABNORMAL) Beta-2 Transferrin: Detection of CSF in Other Body Fluid (05/26/2024 4:10 PM CDT) Beta-2 Transferrin, BF Positive (A) Negative, no beta-2 transferrin (spinal fluid) detected. 05/29/2024 4:[address] [facility] Comment: ----ADDITIONAL INFORMATION---- This test was developed and its performance characteristics determined by [facility] in a manner consistent with CLIA requirements. This test has not been cleared or approved by the U.S. Food and Drug Administration. Fluid (Ear, Left) 05/26/2024 4:10 PM CDT 05/29/2024 9:41 AM TEAMCENTER CONSULTANT Anish Franklin M.D. LAB BODY FLUIDS AND STOO LS ORDERABLES Final Result [facility] [address] [place] [address] [facility] [address] [place] [address] [place] [address] * TN TYMPANOSTOMY LOC/TOP ANES (05/26/2024 3:45 PM CDT) [...] Anatomical Region Laterality Modality Head, Neuroradiology RST [facility] , Neuroradiology [facility], Neuroradiology [facility] N/A Computed Tomography, Compute d Tomography [...] The stapes footplate is not well seen ([id number] image [id number]) which may be due to [...] otitis media. No discrete meningocele or encephalocele. us Anish Franklin M.D. IMG MRI PROCEDURES Final Result * Sodium (11/04/2012 7:35 AM CDT) Sodium, S 140 135 - 145 MMOL/L [facility] 11/04/2012 7:35 AM CDT 11/04/2012 7:35 AM CDT Raleigh Brown P.A.-C., M.S. LAB BLOOD ADD-ON Final Result [facility] [address] * Potassium (11/04/2012 7:35 AM CDT) Potassium, S 4.1 3.6 - 5.2 MMOL/L [facility] 11/04/2012 7:35 AM CDT 11/04/2012 7:35 AM CDT Raleigh Brown P.A.-C., M.S. LAB BLOOD ADD-ON Final Result [facility] [address] * Hemoglobin A1c (11/04/2012 7:35 AM CDT) Hemoglobin A1c, B 6.0 4.0 - 6.0 % [facility] 11/04/2012 7:35 AM CDT 11/04/2012 7:35 AM CDT Raleigh Brown P.A.-C. M.S. LAB BLOOD ADD-ON Final Result [facility] [address] * Creatinine with Estimated GFR (MDRD) (11/04/2012 7:35 AM CDT) Creatinine 0.8 0.8 - 1.3 MG/DL [facility] eGFR Non-Black/Afric an Solomon Islander >60 >60 ML/MIN/BSA [facility] eGFR-Black/Afri can Solomon Islander >60 >60 ML/MIN/BSA [facility] 11/04/2012 7:35 AM CDT 11/04/2012 7:35 AM CDT Raleigh Brown P.A.-C., M.S. LAB BLOOD ADD-ON Final Result Performing Organization Address City/[facility]/ZIP Co de Phone Number [facility] [address] * CT Abdomen Pelvis Angiogram with IV Contrast (06/19/2003 8:35 AM TEAMCENTER CONSULTANT) Anatomical Region Laterality Modality Abdomen, Pelvis N/A Computed Tomogra phy 06/19/2003 8:35 AM TEAMCENTER CONSULTANT Narrative 06/19/2003 10:03 AM TEAMCENTER CONSULTANT 19-Jun-2003 08:35:00 Exam: CTA Abd/Pel w or [...] by: Juma Falcon MD [id number] 19-Jun-2003 10:03 Procedure Note Lewis Falcon M.D. [...] Juma Falcon MD [id number] 19-Jun-2003 10:03 Tr Yan M.D. [facility] CT PROCEDURES Final Resul t from Last 3 Months or Most Recently Relevant to Health Maintenance Insurance HUMANA Advance Directives For more information, please contact: [phone] Documents on File Type Date Recorded Patient Stone Derrickman And Rigger Expl anation Advance Directives 05/14/2006 12:00 AM Lolly marcial document. See document viewer.
--- OUTSIDE RECORDS SUMMARY | 2024-07-27 08:21 | XMS_ITS | Clinical Summary ---
Author Organization [facility] Address [place], [place] [address] Care Team Providers Care Cup Machine Operator Name Role Phone Goyo Zhang MD Unavailable [phone] Miladis Armstrong MD Unavailable [phone] Lewis Porter Unavailable [phone] Maximo Christy MD Primary Care Provider [phone] Lewis Dhaliwal MD Unavailable [phone] Taylor Broderick PharmD Unavailable [phone] Allergies Active Allergy Reactions Criticality Noted Date Comments Sulfa (Sulfonamide Antibiotics) Hives 09/2005 Medications cholecalciferol (VITAMIN D) 1,000 unit tabletIndication s:Vitamin D deficiency Take 1 tablet by mouth once daily. 90 tablet 0 07/01/20 11 Active loratadine (CLARITIN) 10 mg tabletIndication s:Environmental allergies,Plugge d feeling in ear Take 1 tablet by mouth once daily. For allergies. 30 tablet 6 06/02/20 12 Active aspirin-caffeine , 400-32 mg, (ANACIN) 400-32 mg tab Take 1 tablet by mouth every 6 hours if needed for Headache. Active acetaminophen (TYLENOL) 325 mg tablet Take 2 tablets by mouth every 4 hours if needed (For mild pain.). Max acetaminophen dose: 4000mg in 24 hrs. 0 11/16/19 20 Active potassium citrate (UROCIT-K) 10 mEq (1,080 mg) tabletIndication s:Kidney stones TAKE 1 TABLET TWICE DAILY 180 Tablet 3 09/27/19 22 Active Blood Glucose Control, Low solnIndications: Type 2 diabetes mellitus without complication, without long-term current use of insulin (HC) As directed. 1 Each 12/06/19 22 Active lancets 33 gauge miscIndications: Type 2 diabetes mellitus without complication, without long-term current use of insulin (HC) As directed. Dispense item covered by pt ins. E11.9 NIDDM type II - Test 1 time/day 100 Each 3 12/10/19 22 Active testosterone cypionate (DEPO-TESTOSTERO NE) 200 mg/mL injection Inject 1 mL every 4 weeks by intramuscular route. 06/14/20 23 Active CPAPIndications: ROSANA (obstructive sleep apnea) Resmed CPAP machine for home use at pressure 14 cmw, CPAP mask- mask of choice, fit to comfort one per 3 months 1 Each 11/09/19 24 Active tamsulosin (FLOMAX) 0.4 mg capsuleIndicatio ns:Decreased urine stream Take 2 Capsules (0.8 mg) by mouth once daily after a meal. For urinary symptoms. 180 Capsule 2 01/10/20 24 Active tirzepatide (Mounjaro) 5 mg/0.5 mL penIndications:T ype 2 diabetes mellitus without complication, without long-term current use of insulin (HC) Inject 5 mg subcutaneous once weekly. 2 mL 1 07/12/20 24 025 Active tirzepatide (Mounjaro) 7.5 mg/0.5 mL penIndications:T ype 2 diabetes mellitus without complication, without long-term current use of insulin (HC) Inject 7.5 mg subcutaneous once weekly. 2 mL 2 06/12/20 24 Active blood sugar diagnostic (True Metrix Glucose Test Strip) stripIndications :Type 2 diabetes mellitus without complication, without long-term current use of insulin (HC) Dispense item covered by pt ins. E11.9 NIDDM type II - Test 1 time/day 100 Each 3 06/12/20 24 Active canagliflozin (Invokana) 300 mg tabletIndication s:Type 2 diabetes mellitus without complication, without long-term current use of insulin (HC) Take 1 Tablet (300 mg) by mouth once daily. For Diabetes. 90 Tablet 2 06/12/20 24 Active citalopram (CELEXA) 20 mg tabletIndication s:Adjustment disorder with depressed mood Take 1 Tablet (20 mg) by mouth once daily in the morning. 90 Tablet 2 06/12/20 24 Active glimepiride (AMARYL) 4 mg tabletIndication s:Type 2 diabetes mellitus without complication, without long-term current use of insulin (HC) Take 1 Tablet (4 mg) by mouth once daily with a meal. For diabetes. 90 Tablet 2 06/12/20 24 Active losartan (COZAAR) 50 mg tabletIndication s:Primary hypertension Take 1 Tablet (50 mg) by mouth once daily. For blood pressure. 90 Tablet 2 06/12/20 24 Active metFORMIN (GLUCOPHAGE XR) 500 mg Extended-Release tabletIndication s:Type 2 diabetes mellitus without complication, without long-term current use of insulin (HC) Take 2 Tablets (1,000 mg) by mouth two times daily with meals. For diabetes. 360 Tablet 2 06/12/20 24 Active rosuvastatin (CRESTOR) 20 mg tabletIndication s:Hypercholester olemia Take 1 Tablet (20 mg) by mouth once daily with evening meal. For Cholesterol. 90 Tablet 3 06/12/20 Active tirzepatide (Mounjaro) 2.5 mg/0.5 mL penIndications:T ype 2 diabetes mellitus without complication, without long-term current use of insulin (HC) Inject 2.5 mg subcutaneous once weekly. 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 October 2019: 5mm right sided stone needing laser lithotripsy at [facility] and stent. Hematuria, gross 06/27/2018 Overview (06/29/2018): [...] = 84. ~ Dr. Cueva [facility] at [facility], June 2010: suggested yearly cortisol and TSH/T4 [...] Type Department Care Team Description 06/19/2024 Telephone [facility] [[email or web address] [address] [place] [address] Maximo Christy MD Questions 06/16/2024 9:00 AM INSTRUCTOR TAP DANCING Pharmacist Medication Management [facility] [[email or web address]] [address] [place] [address] Davie, Taylor, PharmD Pharmacist Medication Management (CMR initial - provider referral - in-clinic visit) 06/16/2024 Travel 06/14/2024 [facility] Care Management - Advanced Care Team [address] [place] [address] Lauren Zavala Medication Management (COMPREHENSIVE MEDICATION REVIEW - PROVIDER REFERRAL - not covered) 06/12/2024 8:15 AM INSTRUCTOR TAP DANCING Office Visit [facility] [[email or web address] [address] [place] [address] Maximo Christy MD Diabetes (Last Diabetic Check: 01/10/2024/Last Diabetic Eye Exam: 04/25/2024/Last Diabetic Education: 03/19/2011) 06/12/2024 8:00 AM INSTRUCTOR TAP DANCING Orders Only [facility] [[email or web address]] [address] [place] [address] Lab, [place] Lab 06/12/2024 Travel 06/06/2024 Telephone [facility] [[email or web address]] [address] [place] [address] Maximo Christy MD Lab (Needs lab orders) from Last 3 Months Immunizations Name Administration [...] oz pur e alcohol) 1-2 per week [facility] Utilities Answer Date Recorded Do you have trouble paying f or utilities (for example, heat, electricity, water, phone)? 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 file Not on file Not on file Obstetrics History Last Filed Vital Signs Vital Sign Reading Time Taken Comments Blood Pressure 124/76 06/12/2024 8:26 AM INSTRUCTOR TAP DANCING Pulse 78 06/12/2024 8:26 AM INSTRUCTOR TAP DANCING Temperature 37.3 C (99.2 F) 11/04/2020 9:00 AM CDT Respiratory Rate 16 12/29/2022 1:05 PM CDT Oxygen Saturation 95% 06/12/2024 8:2 6 AM INSTRUCTOR TAP DANCING Inhaled Oxygen Concentration - - Weight 106.1 kg (234 lb) 06/12/2024 8:2 6 AM INSTRUCTOR TAP DANCING Height 171.8 cm (5' 7.64) 01/10/2024 8 :23 AM CDT with tennis shoes Body Mass Index 35.96 01/10/2024 8:23 AM CDT Plan of Treatment Upcoming Encounters Date Type Department Care Team (Late st Contact Info) Description 08/07/2024 11:10 AM INSTRUCTOR TAP DANCING Office Visit [facility] [[email or web address] [address] [place] [address] Maximo Christy MD [address] [place] [address] 10/02/2024 8:15 AM CDT Office Visit [facility] [[email or web address]] [address] [place] [address] Maximo Christy MD [address] [place] [address] Health Maintenance Due Date Last Done Comments BMI (ht and wt on same day) for age 18+ 01/09/2025 01/10/2024, 11/11/2023, 06/05/2022, Additional history exists Depression screening for age 12+ 01/09/2025 01/10/2024, 09/10/2023, 06/05/2022, Additional history exists Medicare Wellness for age 65+ 01/10/2025, 06/05/2022, 12/26/2020, Additional history exists Tetanus booster 02/12/2027 02/12/2017, 10/25, 06/05/2010, Additional history exists Pneumococcal series for age 50+ Completed 07/03/2015, 06/05/2010, 07/26/2008 Tdap Completed 02/12/2017, 11/16/2011 Zoster (shingles) series for age 50+ Completed 12/03/2021, 09/29/2021, 11/06/2011 RSV vaccine for adults or Completed 04/08/2023 COVID-19 vaccine series Completed 04/11/20 24, 10/12/2023, 05/12/2023, Additional history exists Influenza for age 65+ Completed 04/11/2024 , 04/08/2023, 04/27/2022, Additional history exists Medical Devices Implanted Type Area Serging Machine Operator Device Identifier Shelf Expiration Date Model / Serial / Lot Lens Iol [id number] 20.5 - [id number] Implanted:Qty: 1 on 01/15/2014 by Manuel Latham MD at [facility] Right: Eye [employer] 02/14/2017 [id number]# / [id number] / Lens Iol [id number] 20.5 - [id number] Implanted:Qty: 1 on 02/05/2014 by Manuel Latham MD at [facility] Left: Eye [employer] 02/05/2018 [id number]# / [id number] / Stent Uret [id number] Contour - [id number] Implanted:Qty: 1 on 11/16/2019 by Isaiah Fagan MD at [facility] Right: [employer] 06/25/2022 [id number]# / / [id number] Procedures Procedure Name Priority Date/Time Associated Diagnosis Comments BASIC METABOLIC PANEL Routine 06/12/2024 8:12 AM INSTRUCTOR TAP DANCING Primary hypertension LIPID PANEL W REFLEX MEASURED LDL Routine 06/12/2024 8:12 AM INSTRUCTOR TAP DANCING Hypercholesterolemia HEMOGLOBIN A1C MONITORING (POCT) Routine 06/12/2024 8:11 AM INSTRUCTOR TAP DANCING Type 2 diabetes mellitus without complication, without long-term current use of insulin (HC) from Last 3 Months Results * (ABNORMAL) LIPID PANEL W REFLEX MEASURED LDL (06/12/2024 8:12 AM INSTRUCTOR TAP DANCING) CHOLESTEROL, TOTAL 160 <200 mg/dL [facility] HDL CHOLESTEROL 54 > OR = 40 mg/dL [facility] TRIGLYCERIDES 174(H) <150 mg/dL [employer] LDL-CHOLESTEROL 79 mg/dL (calc) [employer] Comment: Reference range: <100 Desirable range <100 mg/dL for primary prevention; <70 mg/dL for patients with CHD or diabetic patients with > or = 2 CHD risk factors. LDL-C is now calculated using the Dorian-Jimenez calculation, which is a validated novel method providing better accuracy than the Friedewald equation in the estimation of LDL-C. Dorian SS et al. INDRA. 2013;310(19): 4763-1081 (http://education.[employer]/faq/ZXQ933) CHOL/HDLC RATIO 3.0 <5.0 (calc) [facility] NON HDL CHOLESTEROL 106 <130 mg/dL (calc) [employer] Comment: For patients with diabetes plus 1 major ASCVD risk factor, treating to a non-HDL-C goal of <100 mg/dL (LDL-C of <70 mg/dL) is considered a therapeutic option. Blood BLOOD SPECIMEN / Unknown 06/12/2024 8:12 AM INSTRUCTOR TAP DANCING 06/12/2024 8:13 AM INSTRUCTOR TAP DANCING us Maximo Christy MD CHEMISTRY Final Res ult [facility] [address] [address], [employer] [address] [place] [address] * (ABNORMAL) BASIC METABOLIC PANEL (06/12/2024 8:12 AM INSTRUCTOR TAP DANCING) [facility] GLUCOSE 163(H) 65 - 99 mg/dL [facility] Comment: Fasting reference interval For someone without known diabetes, a glucose value >125 mg/dL indicates that they may have diabetes and this should be confirmed with a follow-up test. UREA NITROGEN (BUN) 21 7 - 25 mg/dL [facility] CREATININE 0.88 0.70 - 1.22 mg/dL [facility] EGFR 87 > OR = 60 mL/min/1. 73m2 [facility] BUN/CREATININE RATIO SEE NOTE: 6 - 22 (calc) [facility] Comment: Not Reported: BUN and Creatinine are within reference range. SODIUM 142 135 - 146 mmol/L [facility] POTASSIUM 5.0 3.5 - 5.3 mmol/L [facility] CHLORIDE 104 98 - 110 mmol/L [facility] CARBON DIOXIDE 28 20 - 32 mmol/L [facility] ELECTROLYTE BALANCE 10 7 - 17 mmol/L (calc) [facility] CALCIUM 8.9 8.6 - 10.3 mg/dL [facility] Blood BLOOD SPECIMEN / Unknown 06/12/2024 8:12 AM INSTRUCTOR TAP DANCING 06/12/2024 8:13 AM INSTRUCTOR TAP DANCING us Maximo Christy MD CHEMISTRY Final Res ult [facility] [address] [place] [address], [facility] [address] [place] [address] * (ABNORMAL) HEMOGLOBIN A1C MONITORING POCT (06/12/2024 8:11 AM INSTRUCTOR TAP DANCING) POC HEMOGLOBIN A1C 7.4(H) <6.0 % OF TOTAL HGB [facility] Comment: Any point of care results exhibiting inconsistency with the patient's clinical status should be repeated using a different testing method. Blood BLOOD SPECIMEN / Unknown 06/12/2024 8:11 AM INSTRUCTOR TAP DANCING 06/12/2024 8:11 AM INSTRUCTOR TAP DANCING Maximo Christy MD CHEMISTRY Final Res ult Performing Organization Address City/State/[facility] Co de Phone Number [facility] [address] [place] [address], [facility] [address] [place] [address] from Last 3 Months Insurance MEDICARE PART A HB ONLY HUMANA CHOICE PPO MR HUMANA CHOICE PPO MR Advance Directives * DNR (Latest Code Status [...] 2:18 PM 01/04/2014 2:39 AM Care Teams Cup Machine Operator Relationship Specialty Start Date End Date Maximo Christy MD [address] [place] [address] PCP - General Family Practice 11/05/22 Goyo Zhang MD Urology Surgery - Urology 06/30/19 Miladis Armstrong MD [address] [place] [address] Ophthalmology Surgery - Ophthalmology 06/30/19 Lewis Porter [address] [address] Dermatology Dermatology 06/30/19 Lewis Dhaliwal MD [address] [facility] [address] [place] [address] Otolaryngology Surgery - Otolaryngology 01/10/24 Taylor Broderick, PoonamD [address] [place] [address] [place] [address] Pharmacist Medication Management Pharmacology 06/16/24 06/16/27
--- OUTSIDE RECORDS SUMMARY | 2024-07-27 08:21 | XMS_ITS | Encounter Summary ---
Author Organization [facility] Address [address] [place] [address] Care Team Providers Care Engineer/Conductor Name Role Phone Unavailable Primary Care Provider Unavailabl e Reason for Visit * Reason Onset Date Comments Schedule surgery 06/08/2024 Encounter Details Date Type Department Care Team (Latest Contact Info) Description 06/08/2024 Clinical Communication Department of Otorhinolaryngology in [place], [place] [address] [place] [phone] Anish Franklin M.D. [address] [place] [phone] Schedule surgery Social History Tobacco Use Types Packs/Day Years Used Date Smoking Tobacco: Never Smokeless Tobacco: Never Dental Answer Date Recorded Dental: Regular Dentist Unknown 05/27/20 21 Sex and Gender Information Value Date Recorded Sex Assigned at Not on file Legal Sex Male 3:32 AM PATIENT CARE MANAGER Gender Identity Not on file Sexual Orientation Not on file documented as of this encounter Miscellaneous Notes * Telephone Encounter - Mari Trejo - 06/08/2024 2:42 PM PATIENT CARE MANAGER Patient calling in to schedule surgery. He would like to try for 08/08/2024, 08/10/2024 or the following week if those dates are not open. He will get his LISA with his PCP and have the notes faxed tous. Please let me know what would work with your schedule. Vidya Byrd ENT CARE MANAGER documented in this encounter Plan of Treatment Upcoming Encounters Date Type Department Care Team (Latest Contact Info) Description 08/10/2024 1:30 PM PATIENT CARE MANAGER Hospital Encounter Post Anesthesia Care Unit in [place], [place] [address] [place] [phone] Anish Franklin M.D. [address] [place] [phone] 08/10/2024 1:30 PM PATIENT CARE MANAGER - 08/10/2024 5:02 PM PATIENT CARE MANAGER Surgery [facility] MAIN OR [address] [place] [phone] Anish Franklin M.D. 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
--- OUTSIDE RECORDS SUMMARY | 2024-07-27 08:21 | XMS_ITS | Encounter Summary ---
Author Organization [facility] Address [address] [place] [address] Care Team Providers Care Music Specialist Name Role Phone Unavailable Primary Care Provider Unavailabl e Reason for Visit * Reason Onset Date Comments Yellow drainage 06/16/2024 Encounter Details Date Type Department Care Team (Latest Contact Info) Description 06/16/2024 Clinical Communication Department of Otorhinolaryngology in [place], [place] [address] [place] [phone] Anish Franklin M.D. [address] [place] [phone] Yellow drainage Social History Tobacco Use Types Packs/Day Years Used Date Smoking Tobacco: Never Smokeless Tobacco: Never Dental Answer Date Recorded Dental: Regular Dentist Unknown 05/27/20 21 Sex and Gender Information Value Date Recorded Sex Assigned at Not on file Legal Sex Male 3:32 AM SHEAR GRINDER OPERATOR Gender Identity Not on file Sexual Orientation Not on file documented as of this encounter Miscellaneous Notes * Telephone Encounter - Yun Gtz R.N. - 07/21/2024 9:19 AM SHEAR GRINDER OPERATOR SUBJECTIVE CHIEF COMPLAINT / REASON FOR CALL Questions related to surgery Information Discussed Called and spoke with Chao this morning. He was wondering if he could get a pre-operative exam with his primary care provider and what that timing looked like. PLAN Chao will call his primary care provider and scheduled a pre operative exam prior to surgery. He will have them fax over the notes [facility] in connected through Care Everywhere and we can access the notes that way. All questions answered at the time of the call. He will call back withany additional concerns. Disposition/Recommendation: self-care is appropriate at this time, patient encouraged to call back with questions Information/Education: patient/caller able to teach back Caller agreeable to plan of care: yes The following references were used: nursing clinical judgement R GRINDER OPERATOR * Telephone Encounter - Mari Trejo - 07/21/2024 8:54 AM SHEAR GRINDER OPERATOR Surgery with Dr. Franklin 08/10/2024 Patient would like to speak to a nurse. He has questions regarding surgery. He also would like to know if he needs a pre operative visit with his PCP before surgery. Patient's phone # [phone] Thank you, Vidya R GRINDER OPERATOR * Telephone Encounter - Mari Trejo - 06/29/2024 3:34 PM SHEAR GRINDER OPERATOR Surgery with Dr. Franklin 08/10/2024 Repair Cerebrospinal Fluid Leak Patient calling in to let the provider know he is still having yellow drainage from his left ear. He feels like it is infected.The medication he was prescribed does not seem to be helping. He states the drainage sometimes has blood and a bad smell. He asking if he needs a preoperative visit before surgery and does he need to bring his CPAP mask with him for the surgery. Patient phone # [phone] (He does not have a portal) Thank you, Vidya R GRINDER OPERATOR * Telephone Encounter - Logan Vela V. - 06/16/2024 2:49 PM CST S: Chao Davis called because He is experiencing yellow drainage from his left ear. Hew[place] to know if he needs to continue with his ear drops or have an antibiotic prescribed. B: Patient was last seen in clinic on 05/26. A: He has surgery on 08/10. Thank you, Carmen R GRINDER OPERATOR documented in this encounter Plan of Treatment Upcoming Encounters Date Type Department Care Team (Latest Contact Info) Description 08/10/2024 1:30 PM SHEAR GRINDER OPERATOR Hospital Encounter Post Anesthesia Care Unit in [place], [place] [address] [place] [phone] Anish Franklin M.D. [address] [place] [phone] 08/10/2024 1:30 PM SHEAR GRINDER OPERATOR - 08/10/2024 5:02 PM SHEAR GRINDER OPERATOR Surgery [facility] OR [address] [place] [phone] Anish Franklin M.D. 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
--- OUTSIDE RECORDS SUMMARY | 2024-07-27 08:21 | XMS_ITS | Referral Summary ---
Author Organization [facility] Address [address] [place] [address] Care Team Providers Care Fitness Specialist Name Role Phone Unavailable Primary Care Provider Unavailabl e Source Comments Patient records contain information from all sites at [facility]. For routine questions regarding patient records, call [phone] during business hours, M-F 8:00 AM - 5:00 PM Central Time. Record requests for emergency care only can be directed to [phone] at any time.[facility] Encounters Date Type Department Care Team Description 06/19/2024 Orders Only Department of Otorhinolaryngology in [place], [place] [address] [place] [phone] Anish Franklin M.D. 06/16/2024 Clinical Communication Department of Otorhinolaryngology in [place], [place] [address] [place] [phone] Anish Franklin M.D. Yellow drainage 06/08/2024 Orders Only Department of Otorhinolaryngology in [place], [place] [address] [place] [phone] Anish Franklin M.D. Otorrhea Left Ear (Primary Dx); Other Specified Hearing Loss Left Ear 06/08/2024 Clinical Communication Department of Otorhinolaryngology in [place], [place] [address] [place] [phone] Anish Franklin M.D. Schedule surgery 05/26/2024 3:45 PM CDT Office Visit Department of Otorhinolaryngology in [place], [place] [address] [place] [phone] Anish Franklin M.D. Otorrhea Left Ear (Primary Dx) 05/26/2024 12:00 PM CDT - 05/26/2024 11:59 PM CDT Hospital Encounter Department of Radiology, [facility] in [place], [place] [address] [place] [address] Anish Franklin M.D. Otorrhea Left Ear Discharge Disposition: Home or Self Care 05/26/2024 9:26 AM CDT - 05/26/2024 11:59 AM CDT Hospital Encounter Department of Radiology, [facility] in [place], [place] [address] [place] [phone] Anish Franklin M.D. Otorrhea Left Ear Discharge Disposition: Home or Self Care 05/23/2024 3:45 PM CDT Clinical Communication Virtual Review in [place], [place] [address] [place] [phone] from Last 3 Months Allergies Active Allergy Reactions Criticality Noted Date Comments Sulfa (Sulfonamide Antibiotics) Hives (Reselect Reaction) Low 04/06/2006 Medications acetaminophen (TylenoL) 325 mg tablet Take 650 mg by mouth every 4 (four) hours as needed. 11/16/19 Active blood sugar diagnostic strips (True Metrix Glucose Test Strip) DISPENSE ITEM COVERED BY PT INS. E11.9 NIDDM TYPE II - TEST 1 TIME/DAY 04/11/20 Active ibuprofen 200 mg tablet Take 2-3 [...] by mouth daily. 04/11/20 23 Active Hypodermic Meridian 23 gauge x 1 1/2 needle 05/11/20 [...] on file Legal Sex Male 3:32 AM SPRAYER HAND Gender Identity Not on file Sexual Orientation [...] (Latest Contact Info) Description 08/10/2024 1:30 PM SPRAYER HAND Hospital Encounter Post Anesthesia Care Unit in [place], [place] [address] [place] [phone] Anish Franklin M.D. [address] [place] [phone] 08/10/2024 1:30 PM SPRAYER HAND - 08/10/2024 5:02 PM SPRAYER HAND Surgery [facility] OR [address] [place] [phone] Anish Franklin M.D. [address] [place] [phone] REPAIR CEREBROSPINAL FLUID LEAK - EXTERNAL APPROACH; Transmastoid, possible middle fossa Scheduled Procedures Name Priority Associated Diagnoses Date/Ti me REPAIR CEREBROSPINAL FLUID L EAK - EXTERNAL APPROACH Otorrhea Left Ear 08/10/2024 1:30 PM SPRAYER HAND Medical Devices Implanted Type Area Toy Assembly Supervisor Device Identifier Shelf Expiration Date Model / Serial / Lot Hardware E.G. Pins/Screws/Raffy s Hardware e.g. pins/screws /rods Left: Shoulder Description:SHOULDER REPLACE MENT Ocular Lens Ocular Lens Bilateral: Eye Description:Cataract surgery Procedures Procedure Name Priority Date/Time Associated Diagnosis Comments BETA-2 TRANSFERRIN, BF Routine 05/26/2024 4:10 PM CDT Otorrhea Left Ear TX TYMPANOSTOMY LOC/TOP ANES Routine 05/26/2024 3:45 PM [...] WITH IV CONTRAST Routine 06/19/2003 8:35 AM SPRAYER HAND from Last 3 Months or Most Recently Relevant to Health Maintenance Results * (ABNORMAL) Beta-2 Transferrin: Detection of CSF in Other Body Fluid (05/26/2024 4:10 PM CDT) Beta-2 Transferrin, BF Positive (A) Negative, no beta-2 transferrin (spinal fluid) detected. 05/29/2024 4:29 PM SPRAYER HAND [facility] Comment: ----ADDITIONAL INFORMATION---- This test was developed and its performance characteristics determined by [facility] in a manner consistent with CLIA requirements. This test has not been cleared or approved by the U.S. Food and Drug Administration. Fluid (Ear, Left) 05/26/2024 4:10 PM CDT 05/29/2024 9:41 AM SPRAYER HAND Anish Franklin M.D. LAB BODY FLUIDS AND STOO LS ORDERABLES Final Result [facility] [place] [address] [place] [address] [facility] [address] [place] [address] [place] [address] * TX TYMPANOSTOMY LOC/TOP ANES (05/26/2024 3:45 PM CDT) [...] The stapes footplate is not well seen ([id number] image [id number]) which may be due to [...] The right temporal bone is otherwise normal. us Anish PAYAN CT PROCEDURES Final Result * MR Brain without and with IV Contrast (05/26/2024 11:36 AM CDT) Anatomical Region Laterality Modality Head, Brain, Neuroradiology [facility], Neuroradiology [facility], Neuroradiology [facility] N/A Magnetic Resonance Impressions 05/26/2024 1:56 PM [...] discrete meningocele or encephalocele. Anish Franklin M.D. IMG MRI PROCEDURES Final Result * Sodium (11/04/2012 7:35 AM CDT) Sodium, S 140 135 - 145 MMOL/L [facility] 11/04/2012 7:35 AM CDT 11/04/2012 7:35 AM CDT Raleigh Brown P.A.-C., M.S. LAB BLOOD ADD-ON Final Result Performing Organization Address [facility] Co de Phone Number [facility] [address] * Potassium (11/04/2012 7:35 AM CDT) Potassium, S 4.1 3.6 - 5.2 MMOL/L [facility] 11/04/2012 7:35 AM CDT 11/04/2012 7:35 AM CDT Raleigh Brown P.A.-C., M.S. LAB BLOOD ADD-ON Final Result Performing Organization Address [facility] Co de Phone Number [facility] [address] * Hemoglobin A1c (11/04/2012 7:35 AM CDT) Hemoglobin A1c, B 6.0 4.0 - 6.0 % [facility] 11/04/2012 7:35 AM CDT 11/04/2012 7:35 AM CDT Raleigh Brown P.A.-C., M.S. LAB BLOOD ADD-ON Final Result Performing Organization Address [facility] de Phone Number [facility] [address] * Creatinine with Estimated GFR (MDRD) (11/04/2012 7:35 AM CDT) Creatinine 0.8 0.8 - 1.3 MG/DL [facility] eGFR Non-Black/Afric an Armenian >60 >60 ML/MIN/BSA [facility] eGFR-Black/Afri can Armenian >60 >60 ML/MIN/BSA [facility] 11/04/2012 7:35 AM CDT 11/04/2012 7:35 AM CDT Raleigh Brown P.A.-C., M.S. LAB BLOOD ADD-ON Final Result Performing Organization Address [facility] de Phone Number [facility] [address] * CT Abdomen Pelvis Angiogram with IV Contrast (06/19/2003 8:35 AM SPRAYER HAND) Anatomical Region Laterality Modality Abdomen, Pelvis N/A Computed Tomogra phy 06/19/2003 8:35 AM SPRAYER HAND Narrative 06/19/2003 10:03 AM SPRAYER HAND 19-Jun-2003 08:35:00 Exam: CTA Abd/Pel w or [...] MD [id number] 19-Jun-2003 10:03 Tr Yan M.D. IM CT PROCEDURES Final Resul t from Last 3 Months or Most Recently Relevant to Health Maintenance Insurance [employer] Advance Directives For more information, please contact: [phone] Documents on File Type Date Recorded Patient Auto Driver Expl anation Advance Directives 05/14/2006 12:00 AM Lolly marcial document. See document viewer.
--- OUTSIDE RECORDS SUMMARY | 2024-07-27 08:21 | XMS_ITS | Clinical Summary ---
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 Immunizations Name Administration Dates Next Due Flu, High Dose, 65y+, Fluzon e High Dose 04/27/2022 Flu, Preservative Free 04/30/2021,04/15/2020 INFLUENZA, SEASONAL, INJECTABLE 05/09/20 13,05/19/2012,05/26/2011,04/30 Influenza (FLUAD), Trivalent , Adjuvanted 04/07/2019,05/02/2018,05/07/2017 Influenza (FLUZONE), high-do se, trivalent, PF 03/09/2016,04/30/2015,04/20/2014,04/20 Novel [id number], preservative-free, injectable 06/25/2009 PNEUMOCOCCAL CONJUGATE PCV 13 07/03/2015 PNEUMOCOCCAL POLYSACCHARIDE PPV23 06/05/2010,07/2008 Pfizer-BioNTech COVID-19 Vac cine Bivalent, (NEGRO PFIZER-BIONTECH COVID-19 [...] Drug Screen 07/26/2023 Depression Annual Screen 07/26/2023 [id number] ( season) 2024 10/12/2023, 05/12/2023, 04/10/2022, Additional [...] - 145 mmol/L mmol/L 10/22/2023 12:20 PM [facility] Potassium 4.4 3.5 - 5.1 mmol/L mmol/L 10/22/2023 12:20 PM [facility] Chloride 101 98 - 107 mmol/L mmol/L 10/22/2023 12:20 PM [facility] CO2 27.0 22 - 30 mmol/L mmol/L 10/22/2023 12:20 PM [facility] Anion Gap 7 3 - 11 mmol/L mmol/L 10/22/2023 12:20 PM [facility] BUN 18.0 9 - 20 mg/dL mg/dL 10/22/2023 12:20 PM [facility] Creatinine 0.85 0.66 - 1.25 mg/dL mg/dL 10/22/2023 12:20 PM [facility] BUN/Creatinine Ratio 21.18 10/22/2023 12:20 PM [facility] Glucose 271(A) 75 - 100 mg/dL mg/dL 10/22/2023 12:20 PM [facility] Calcium 9.3 8.4 - 10.2 mg/dL 10/22/2023 12:20 PM [facility] AST 29 17 - 59 U/L U/L 10/22/2023 12:20 PM [facility] ALT (SGPT) 38 <50 U/L U/L 10/22/2023 12:20 PM [facility] Alkaline Phosphatase 65 38 - 126 U/L U/L 10/22/2023 12:20 PM [facility] Total Protein 6.9 6.3 - 8.2 g/dL 10/22/2023 12:20 PM [facility] Albumin 4.0 3.5 - 5.0 g/dL g/dL 10/22/2023 12:20 PM [facility] Total Bilirubin 1.6(A) 0.2 - 1.3 mg/dL mg/dL 10/22/2023 12:20 PM [facility] eGFR 87.8(A) >90.0 mL/min/1.7 3m*2 10/22/2023 12:20 PM [facility] Blood Venous blood specimen / Unknown Venipuncture / Unknown 10/22/2023 11:57 AM CDT 10/22/2023 11:59 AM T us Singh Mann MD LAB BLOOD ORDERABLES Final Result [facility] [address] [place] [address], from Last 3 Months or Most Recently Relevant to Health Maintenance Insurance [employer] GOLD CHOICE MEDICARE Member Subscriber Plan / Payer (Ef fective 2023-Present) Name:Chao Davis Relation to Subscriber:Self Name:Chao Davis Payer ID:[id number] Type:Medicare Address: [address] [address]
--- OUTSIDE RECORDS SUMMARY | 2024-07-27 08:21 | XMS_ITS ---
Author Organization [facility] Address [address] [place] [address] Care Team Providers Care Sash Finisher Name Role Phone Unavailable Unavailable Unavailable Surgery Details Not on file Complications Check Surgery Details section. Procedure Estimated Blood Loss Check Surgery Details section. Procedure Findings Check Surgery Details section. Procedure Specimens Taken Check Surgery Details section.
--- NOTE | 2024-07-27 15:00 | OT.OPODN ---
OT Outpatient Ortho Daily Note OT Outpatient Ortho Daily Note* Start: 04/28/24 10:48 Freq: Status: Active Protocol: Document 07/27/24 08:25 AMB (Rec: 07/27/24 15:00 AMB [id number]) E-signed By Allyson Wadsworth, OTR/L, CLT, AIR CONDITIONING UNIT TESTER Type of Note Type of Note Type of Note Daily Note,Recert/Progress Note Visit Number 12 Comments MC cert due 10/24/24 Insurance Information Insurance Information Blue Cross/Blue [employer], Medicare B Outpatient History/Precautions Current Condition/Medical Diagnosis Referring Provider Rosas Marcano MD Medical Diagnoses S44.92XA Injury of unspecified nerve at shoulder and upper arm level, left arm Treatment Diagnosis M25.642 Stiffness of left hand, not elsewhere classified. 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 Pt continues to have some minor tingling in his left thumb but denies numbness in his left hand. Pt states he really wishes he could put his coat on without help and would not need help with his pants after using the bathroom (occasionally needs assistance with this). Pain Assessment Pain Pain No Pain Comments No pain at rest in the hand, shoulder pain with movement is 6/10. Pain in his right shoulder ranges from 0/10- 8/ 10, depending on what he is doing. OT OP Daily Ortho Note/Assessment Therapeutic Exercise Therapeutic Exercise Minutes (minutes) 16 Therapeutic Exercise Comments Completed therapeutic exercise for strengthening of wrist flexion / ext, finger / thumb flex/ext: - wrist flex and ext with 2# wt over arm wedge 10 reps x 2 - Forearm pronation and supination with 2# 10 reps x 2 - Active thumb radial and palmar abd anti-gravity wiht 2 # 10x 2 each Neuromuscular Intervention Neuromuscular Intervention Minutes ( 25 minutes) Neuromuscular Intervention Completed FMC with the LUE with focus on picking up and placing small objects, applying and removing nuts from various sized bolts, and alternating finger and thumb taps / thumb movements. Total Occupational Therapy Time Occupational Therapy Minutes 41 Home Program Home Program Home Program Compliant Home Program Specifics - Supported Elbow AROM - 3 x daily - 7 x weekly - 10 reps - Finger Spreading - 3 x daily - 7 x weekly - 10 reps -AAROM with Hammer sup/pron 20x, 1x/day. Range of Motion and Strength Elbow/Forearm Range of Motion and Strength Elbow/Forearm Range of Motion and LUE Strength supination: 60 degs pronation: full ROM Elbow: full ROM gross strength 4/5 Wrist Range of Motion and Strength Wrist Range of Motion and Strength L UE Wrist Flex: 70, 4/5 Wrist Ext: 60, 4/5 Hand/Finger/Thumb Range of Motion and Strength Hand/Finger/Thumb Range of Motion and Thumb Radial and gray Strength abduction 10 deg, thumb adduction present and functional Hand Pinch/Crisis Worker Strength Hand Pinch/Crisis Worker Strength Hand Pinch/Crisis Worker Strength Left Hand,Right Hand Left Hand Crisis Worker Strength Position 1 in Elbow 72 Flexion (lbs) Lateral Pinch Strength (lbs) 19 Three Point Pinch (lbs) 16 Tip Pinch Strength (lbs) 10 Right Hand Crisis Worker Strength Position 1 in Elbow 80 Flexion (lbs) Lateral Pinch Strength (lbs) 20 Three Point Pinch (lbs) 16 Tip Pinch Strength (lbs) 12 Comments Comments On 03/28 upon DC from other OP: mannequin decorator strength 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 Skin/Wounds/Edema Comments intact Sensation Sensation Assessment Summary Comments 07/27/24 Completed monofilament testing with pt detecting 3.61 in tips of all digits in BUE. Dexterity Dexterity Dexterity Left Hand,Right Hand Left Hand Scoring Times 9-Hole Peg Hand Test Scoring Time ( 78 seconds) Right Hand Scoring Times 9-Hole Peg Hand Test Scoring Time ( 24 seconds) Dexterity Comments Dexterity Comments reduced 9 hole peg time by 54 secs OT Problems Problems Problems Decreased Strength,Decreased Range of Motion,Decreased Dexterity,Pain,Decreased Coordination,Sensory Sensitivity,Lifting,Gripping, Pinching Other Problems Opening Containers,Dressing, Computer,Fasteners Patient Potential Good Assessment Assessment Assessment Pt showing good improvements in strength and sensation as well as motion in all planes of the LUE hand / wrist, and forearm. Pt's impairments seem to be more related to LUE shoulder weakness / immobility . Pt does continue to have mild weakness in decreased FMC in the LUE and will continue to benefit from skilled OT intervention to address residual weakness and incoordination in order to maximize reovery and use of the LUE to improve safety and independence in self cares and IADLs. 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 Set Goals Goals Set with Patient Yes Goals Goals 1. Pt will be independent with HEP to improve safety and independence with self-cares in 6 weeks. 07/27/24 Pt has partially met this goal, he is having difficulty with completion of his HEP as he is dealing with multiple other medical conditions as well as caring for his who is dealing with cancer. 2. Pt will achieve 35# or greater mannequin decorator strength in L hand to increase safety and participation in ADLs in 6 wks . 07/27/24 Pt has met this goal and is likely close to baseline judging from comparison to mannequin decorator and pinch in the RUE. 3. Pt will be able to release a medium size object, such as a glass, from their L hand to be able to drink from a glass independently in 6 wks. 07/27/24 This goal has not been met and remains appropriate. Pt continues to work on this and struggles with the coordination of hand and shoulder for smooth motion. 4. Pt will be independent in all aspects of toileting ( clothing management and chace cares) with mod I of DME/AE as needed in 6 wks. 07/27/24 This goal has partially been met. Pt states he still needs occasional assistance with clothing management. 5. (new goal) Pt will utilize AE / technique to be independent with donning his winter jacket. Treatment Plan Treatment Plan Evaluation,Edema Control,Joint Mobilization,Manual Therapy, Splinting,Ultrasound, Therapeutic Exercise, Therapeutic Activities,Self Care/Home Management,NMES Expected Frequency 1-2x Week Expected Duration 6-8 Weeks Occupational Therapy Billing Units Treatment Minutes Timed Treatment Minutes 41 Total Treatment Minutes 41 Billing Units Neuromuscular Re-Ed 2 Therapeutic Exercise 1 Certification Statement Certification Statement I Certify That: Therapy Services Provided, Therapy Plan Established, Therapy Plan Reviewed Recertification Information Recertification Information Initial Certification Date 04/27/24 Recertification Start Date 07/26/24 Recertification Due Date 10/24/24 Reasons to Continue Skilled Therapy Pt has been seen for a total of 12 visits with noted improvement in AROM and functional use of his LUE. However, pt continues to struggle with coordination and weakness in this extremity which impairs his ability to be totally independent with clothing management and some feeding / drinking tasks. Pt will continue to benefit from skilled OT intervention to address residual impairments in the LUE in order to restore PLOF in ADLs and IADLs. Rehabilitation Potential Good Click To Default 'Per treatment plan' Per treatment plan Continued Plan of Care and Interventions Per treatment plan Provider Signature Required Yes Provider Signature Shows Agreement With POC & Medical Necessity Physician NPI Number Write NPI# Here Physician Comment/Change Comment or Changes Physician Signature & Date Requested Please Sign/Date Here
== END 2024-09-13 12:29 | disposition home or self-care (01) ==
PROVIDERS: PCP Family Medicine; Visit Provider Orthopaedic Surgery Sports Medicine
DX: S44.92XA Injury of unspecified nerve at shoulder and upper arm level, left arm, initial encounter (principal); R79.89 Other specified abnormal findings of blood chemistry; Z96.612 Presence of left artificial shoulder joint; M25.642 Stiffness of left hand, not elsewhere classified; S64.22XA Injury of radial nerve at wrist and hand level of left arm, initial encounter; Z51.89 Encounter for other specified aftercare
CPT/HCPCS: 97032; 97110; 97112; 97140; 97162; 97166; 97530; 97535; 97542; L3906; X5282

== ENCOUNTER 2025-01-03 08:56 | Emergency (ER) | payer MEDICARE, SELFPAY ==
--- OUTSIDE RECORDS SUMMARY | 2024-12-11 14:19 | XMS_ITS | Encounter Summary ---
Author Organization [facility] Address [address] [place] [address] Care Team Providers Care Corporate Secretary Name Role Phone Elsewhere, Pcp Primary Care Provider Unavailabl e Reason for Visit * Outpatient (Routine) - Closed Specialty Diagnoses / Procedures Referred By Fiorella t Referred To Contact Diagnoses Pain Shoulder Left Procedures DX Shoulder Bilateral 2+ Views DX Shoulder Left 2+ Views Anish Franklin M.D. [address] [place] [address] Phone: tel: fax: [facility] Referral ID Status Reason Start Date Expiration Date Visits Re quested Visits Authorized [id number] Closed 11/27/2024 02/27/2026 1 1 Encounter Details Date Type Department Care Team (Latest Contact Info) Description 12/11/2024 2:19 PM CDT - 12/11/2024 11:59 PM CDT Hospital Encounter Department of Radiology, [facility], in [place], [place] [address] [place] [address] Anish Franklin M.D. [address] [place] [phone] Pain Shoulder Left Discharge Disposition: Home or Self Care Social History Tobacco Use Types Packs/Day Years Used Date Smoking Tobacco: Never Smokeless Tobacco: Never [facility] Utilities Answer Date Recorded In the past 12 months has [employer] electric, gas, oil, or water company threatened to shut off services in your home? No 08/10/2024 Humiliation, Afraid, Rape, and Kick questionnair e Answer Date Recorded Within the last year, have y ou been afraid of your partner or ex-partner? No 08/10/2024 Within the last year, have y ou been humiliated or emotionally abused in other ways by your partner or ex-partner? No Within the last year, have y ou been kicked, hit, slapped, or otherwise physically hurt by your partner or ex-partner? No 08/10/2024 Within the last year, have y ou been raped or forced to have any kind of sexual activity by your partner or ex-partner? No 08/10/2024 Hunger Vital Sign Answer Date Recorded Within the past 12 months, y ou worried that your food would run out before you got the money to buy more. Never true 08/10/19 25 Within the past 12 months, t he food you bought just didn't last and you didn't have money to get more. Never true 08/10/2024 PRAPARE - Transportation Answer Date Re corded In the past 12 months, has l ack of transportation kept you from medical appointments or from getting medications? No 07/26 In the past 12 months, has l ack of transportation kept you from meetings, work, or from getting things needed for daily living? No 08/10/2024 Dental Answer Date Recorded Dental: Regular Dentist Unknown 05/27/20 21 Housing Stability Answer Date Recorded What is your living situation today? I have a [facility] place to live 08/10/2024 Sex and Gender Information Value Date Recorded Sex Assigned at Not on file Legal Sex Male 3:32 AM [employer] Gender Identity Not on file Sexual Orientation Not on file documented as of this encounter Medications at Time of Discharge acetaminophen (TylenoL) 325 mg tablet Take 650 mg by mouth every 4 (four) hours as needed for pain. 11/16/2019 acetaminophen (TylenoL) 500 mg tablet Take 2 tablets (1,000 mg total) by mouth every 6 (six) hours as needed for pain. 08/11/2024 BD Luer-Shay Syringe 3 mL 18 x [...] glucosamine-cho ndroitin 500-400 mg per capsule Take 2 capsules by mouth daily. Hypodermic Finger 23 gauge x 1 1/2 needle 05/11/2024 loratadine (Claritin) 10 mg tablet Take 10 mg by mouth daily. 06/02/2012 losartan (Cozaar) 50 mg tablet Take 50 mg by mouth daily. 04/11/2023 magnesium hydroxide (Milk of Magnesia) 400 mg/5 mL suspension Take 30 mL by mouth daily as needed (constipation). 08/11/2024 metFORMIN XR (Glucophage-XR) 500 mg 24 hr tablet Take 1,000 mg by mouth 2 (two) times a day with meals. 04/11/2023 multivitamin-mi nerals tablet Take 1 tablet by mouth daily. 06/05/2010 polyethylene glycol (Miralax) 17 gram powder packetIndicatio ns:constipation Take 1 packet (17 g total) by mouth daily as needed for constipation Indications: constipation. Dissolve each 17 g dose in 240 mLs (8 ounces) of beverage. 08/11/2024 potassium citrate (Urocit-K) 10 mEq (1,080 mg) ER tablet Take 1 tablet by mouth 2 (two) times a day. 09/26/2021 rosuvastatin (Crestor) 20 mg tablet Take 20 mg by mouth at bedtime. 11/05/2022 sennosides-docu sate sodium (Senokot-S) 8.6-50 mg per tablet Take 1 tablet by mouth 2 (two) times a day. 08/11/2024 tamsulosin (Flomax) 0.4 mg 24 hr capsule Take 0.8 mg by mouth at bedtime. 04/11/2023 testosterone cypionate (Depo-Testoster one) 200 mg/mL injection Inject 200 mg intramuscularly every 14 (fourteen) days. 06/14/2023 tirzepatide (Mounjaro) 7.5 mg/0.5 mL pen injector injection Inject 7.5 mg under the skin over 168 hr. 06/12/2024 documented as of this encounter Plan of Treatment Upcoming Encounters Date Type Department Care Team (Latest Contact Info) Description 03/22/2025 9:00 AM CDT Clinical Communication Virtual Review in [place], [place] [address] [place] [address] 03/23/2025 11:30 AM CDT Comprehensive Visit Department of Orthopedic Surgery in [address] [phone] Praveen Rodriguez M.D., Ph.D. [address] [place] [phone] documented as of this encounter Procedures Procedure Name Priority Date/Time Associated Diagnosis Comments DX SHOULDER BILATERAL 2+ VIEWS RAD - Routine (most inpatients and all outpatients) 12/11/2024 2:53 PM CDT Pain Shoulder Left documented in this encounter Results * DX Shoulder Bilateral 2+ Views (12/11/2024 2:53 PM CDT) Anatomical Region Laterality Modality Upper Extremity, Shoulder, M usculoskeletal RST LOS, Musculoskeletal ARZ LOS, Muskuloskeletal FLA LOS Bilateral Compu kelley Tomography Impressions 12/11/2024 3:14 PM CDT Left reverse TSA. No radiographic evidence of loosening. Small amount of heterotopic ossification about the left shoulder. Moderate advanced degenerative hypertrophic change both AC joint. Right subacromial spur. Mild right glenohumeral degenerative arthritis. Narrative 12/11/2024 3:14 PM CDT EXAM: DX SHOULDER BILATERAL 2+ VIEWS Procedure Note Radha Baldwin M.D. - 12/11/2024 EXAM: DX SHOULDER BILATERAL 2+ VIEWS IMPRESSION: Left reverse TSA. No radiographic evidence of loosening. Small amount ofheterotopic ossification about the left shoulder. Moderate advanceddegenerative hypertrophic change both AC joint. Right subacromial spur.Mild right glenohumeral degenerative arthritis. us Anish Franklin M.D. IMG DIAGNOSTIC IMAGING P ROCEDURES Final Result documented in this encounter Visit Diagnoses Diagnosis Pain Shoulder Left documented in this encounter Additional Health Concerns Assessment Noted Time PHQ-9 Depression Total Score: 3 11/05/19 13 2:22 PM CDT documented as of this encounter Care Teams Corporate Secretary Relationship Specialty Start Date End Date Elsewhere, Pcp PCP - General Internal Medicine 09/02/24 documented as of this encounter
--- OUTSIDE RECORDS SUMMARY | 2025-01-03 08:59 | XMS_ITS | Data Portability ---
Author Organization [facility] Address [address] [place] [address] Care Team Providers Care Application Development Liaison Name Role Phone LETTY GARRETT Primary Care Provider Assessment No assessment recorded. Plan of Treatment Reminders Order Date Submit Date Provider Last Modified By Organization Details Last Modified Time Details Appointments ESTABL ISHED 10 2024 10:40A Dominick Zhang MD Not available Not available Not available Lab PSA, total, serum or plasma 2023 024 [email or web address] [facility], [address] [facility], [place], [address], 07/24/2024 13:34:08 urinal ysis, dipsti ck 2023 024 [facility], [address], [place], [address], 07/05/2024 12:30:35 testos terone , total, serum 2023 024 [email or web address] [facility], [address] [facility] [place], [address], 07/24/2024 13:34:09 PSA, total, serum or plasma 2023 024 galilea Brooks, [address], [place], [address], 12/22/2023 09:43:54 testos terone , total, serum 2023 024 galilea Brooks, [address], [place], [address], 12/22/2023 09:44:08 PSA, serum or plasma 2022 023 [facility], [address], [place], [address], 06/21/2023 09:12:06 testos terone , total, serum 2022 023 [email or web address] [facility], [address] [place], [address], 06/21/2023 09:12:06 hemogl obin (Hb), blood 2022 023 [email or web address] [facility], [address] [place], [address], 06/21/2023 09:12:06 testos terone , total, serum - Needed Novemb er 2022 023 [email or web address] [facility], [address], [place], [address], 12/28/2022 09:18:55 PSA, total, serum or plasma 2021 022 [facility], [address] [place], [address], 06/25/2022 09:16:50 testos terone , total, serum 2021 022 [email or web address] [facility], [address] [place], [address], 06/25/2022 09:16:49 hemogl obin (Hb), blood 2021 022 [email or web address] [facility], [address] [place], [address], 06/25/2022 09:16:50 Referral None record ed. Procedures None record ed. Surgeries None record ed. Imaging CT, abdome n + pelvis , w/o contra st - Follow up visit with Dr. Zhang 12/16 10:30 AM, NO PREV 2021 022 [facility] , [address], [place], [address], 12/16/2022 13:43:27 Medication Orders clotri mazole -betam ethaso ne 1 %-0.05 % topica l cream [address] [facility][id number], [address], [place], [address], 07/05/2024 12:56:40 Gemtes a 75 mg tablet [address] [facility], [address] [facility] [facility], [facility], [place], [address], 12/13/2023 11:56:09 testos terone cypion ate 200 mg/mL intram uscula r oil 2022 023 [facility], [address] [facility] [facility], [address], [place], [address], 06/14/2023 11:59:54 Xyoste d 100 mg/0.5 mL subcut aneous auto-i njecto r [address] [facility], [address] [facility] [facility], [facility], [place], [address], 07/05/2024 12:29:10 potass ium citrat e ER 10 mEq (1,080 mg) tablet ,exten ded releas e 2021 022 [facility], [address] [facility] [facility], [facility], [place], [address], 06/17/2022 11:51:48 Difluc an 150 mg tablet [email or web address] [facility], [address] , [place], [address], 12/16/2022 11:32:44 Xyoste d 100 mg/0.5 mL subcut aneous auto-i njecto r [address] [facility], [address] , [place], [address], 07/05/2024 12:29:10 Patient TargetsNo targets recorded. Patient InstructionsNo instructions recorded. Reason for Referral None Reported. Results Created Date Observation Date Name Description Value Unit Range Abnormal Flag Note LastModifiedBy Organization Detail LastModifiedTime 07/05/20 24 07/05/2024 urina lysis , dipst ick BLOOD Negati ve Not Available [facility] [address], [place], [address], 07/05/2024 12:30:10 07/05/20 24 07/05/2024 urina lysis , dipst ick BILIRUBIN Negati ve Not Available [facility] [address], [place], [address], 07/05/2024 12:30:10 07/05/20 24 07/05/2024 urina lysis , dipst ick p.H. 5.0 Not Available [facility] [address], [place], [address], 07/05/2024 12:30:10 07/05/20 24 07/05/2024 urina lysis , dipst ick S.G. (Specific [place]) 1.020 Not Available [facility] [address], [place], [address], 07/05/2024 12:30:10 07/05/20 24 07/05/2024 urina lysis , dipst ick LEUKOCYTES Negati ve Not Available [facility] [address], [place], [address], 07/05/2024 12:30:10 12/17/19 23 12/16/2022 CT, abdom en + pelvi s, w/o contr ast EXAM: CT, ABDOME N + PELVIS , W/O CONTRA ST LOCATI ON: [place] [facility] DATE/T LAURA: 023 11:03 AM CDT INDICA [...] MD on 2022 at 12:41 [facility] [address], [place], [address], 12/18/2022 10:54:32 Result Notes None recorded. Problems Name Problem SNOMED Code Status Onset Date Resolution Date Notes Provider Name and Address Organization Details Recorded Time Testosterone level below reference range 325340397 Active 2024 Destin JamaBang Chanelle alexander, [facility] 11:44:14 Problem Notes None recorded. Procedures Surgical History Date Name Laterality Status Provider Name and Address Organization Details Recorded Time 01/04/20 25 Bladder Scan active Destin ortegasamson [facility] 12/29/2024 15:50:46 07/05/20 24 Bladder Scan completed Goyo Zhang MD [address], [place], [address], [facility] 07/05/2024 12:29:37 12/13/19 24 Bladder Scan completed Goyo Zhang MD [address] [place] [address],[address], [place], [address], [facility] 12/13/2023 11:56:59 06/14/20 23 [facility] 06/14/2023 11:47:36 04/21/20 13 Colonoscopy completed [facility] 08/29/2020 10:10:43 Cataract Surgery completed [facility] 08/29/2020 10:10:30 hemorrhoidectomy completed [facility] 08/29/2020 10:10:53 Imaging Results None recorded. Procedure Notes None recorded. Medical Equipment None Reported. Allergies Allergen ID Allergen Name Allergen Category Reaction Reaction Severity Criticality Documentation Date Start Date Code Code System Note Provider Name and Address Organization Details Recorded Time 490506 Substance with sulfonami de structure and antibacte rial mechanism of action (substanc e) medicatio n Not available Not available Not available 06/17/2022 55211 8003 SNOMED Goyo Zhang MD [address] [place] [address],[address], [address], [facility] 11:17:35 Medications Name Sig Start Date Stop Date Status Note LastModified by Organization Details LastModified Time losartan 50 mg tablet TAKE 1 TABLET (50 MG) BY MOUTH ONCE DAILY. FOR BLOOD PRESSURE. active Not Available Not Available No t [...] completed Not Available Not Available Not Available doxycycline monohydrate 100 mg tablet PLEASE SEE ATTACHED FOR DETAILED DIRECTION S 07/05 completed Not Available Not Available Not Available glimepiride 2 mg tablet 12/12 completed Not Available Not Available Not Available Hypodermic Trumbull 23 gauge x 1 USE TO ADMINISTR ATE TESTOSTER ONE active Not Available Not Available No t Available dexamethaso ne sodium phosphate 0.1 % eye drops ADMINISTE R 2 DROPS INTO THE LEFT EAR 4 (FOUR) TIMES A DAY FOR 14 DAYS. 07/05 completed Not Available Not Available Not Available ofloxacin 0.3 % ear drops ADMINISTE R 2 DROPS INTO THE LEFT EAR 2 (TWO) TIMES A DAY FOR 14 DAYS. 07/05 completed Not Available Not Available Not Available citalopram 20 mg tablet TAKE 1 TABLET (20 MG) BY MOUTH ONCE DAILY IN THE MORNING. active Not Available Not Available No t Available prednisolon e acetate 1 % eye drops,suspe nsion DIRECTED 3 DROPS TWO TIMES DAILY. USE IN AFFECTED EAR 07/05 completed Not Available Not Available Not Available tamsulosin 0.4 mg capsule takes two active Not Available Not Available No t Available potassium citrate ER 10 mEq (1,080 mg) tablet,exte nded release TAKE 1 TABLET TWICE DAILY 2023 active Not Available Not Available Not Avai lable doxycycline monohydrate 100 mg capsule TAKE 1 CAPSULE (100 MG TOTAL) BY MOUTH 2 TIMES A DAY BEFORE MORNING AND EVENING MEALS FOR 14 DAYS. active Not Available Not Available No t Available cephalexin 500 mg capsule TAKE 1 CAPSULE BY MOUTH 3 TIMES DAILY 06/17 completed Not Available Not Available Not Available clotrimazol e-betametha sone 1 %-0.05 % topical cream APPLY TO THE AFFECTED AND SURROUNDI NG AREAS OF SKIN BY TOPICAL ROUTE 2 TIMES PER DAY IN THE MORNING AND EVENING FOR 2 WEEKS 2023 active Not Available Not Available Not Avai lable glimepiride 4 mg tablet TAKE 1 TABLET (4 MG) BY MOUTH ONCE DAILY WITH A MEAL. FOR DIABETES. active Not Available Not Available No t Available diazepam 10 mg tablet TAKE 1 TABLET BY MOUTH ONE TIME FOR 1 DOSE. TAKE 30 MINUTES BEFORE PROCEDURE . 06/17 completed Not Available Not Available Not Available testosteron e cypionate 200 mg/mL intramuscul ar oil INJECT 1ML INTO THE MUSCLE EVERY 2 WEEKS (EACH VIAL FOR SINGLE USE ONLY) 2023 active Not Available Not Available Not Avai lable BD Luer-Shay Syringe 3 mL 18 x 1 /2 USE 18GAUGE NEEDLE TO DRAW UP TESTOSTER ONE active Not Available Not Available No t Available ondansetron 4 mg disintegrat ing tablet TAKE 1 TABLET BY MOUTH EVERY 8 HOURS NEEDED FOR NAUSEA AND VOMITING 12/12 completed Not Available Not Available Not Available cefdinir 300 mg capsule TAKE 1 CAPSULE BY MOUTH TWICE A DAY 08/29 completed Not Available Not Available Not Available metformin ER 500 mg tablet,exte nded release 24 hr TAKE 2 TABLETS (1,000 MG) BY MOUTH TWO TIMES DAILY WITH MEALS. FOR DIABETES. active Not Available Not Available No t Available amoxicillin 875 mg-potassiu m clavulanate 125 mg tablet TAKE 1 TABLET BY MOUTH 2 TIMES A DAY FOR 14 DAYS. active Not Available Not Available No t Available amoxicillin 500 mg-potassiu m clavulanate 125 mg tablet TAKE 1 TABLET BY MOUTH TWICE A DAY FOR 10 DAYS 06/17 completed Not Available Not Available Not Available oxycodone 5 mg tablet TAKE 1 TABLET (5 MG) BY MOUTH EVERY 4 HOURS NEEDED FOR PAIN OR SEVERE PAIN OR SCORE 7-10 OF 10 FOR UP TO 3 DAYS INDICATIO N: ACUTE PAIN active Not Available Not Available No t Available ciprofloxac in 0.3 %-dexametha sone 0.1 % ear drops,suspe nsion PLACE 4 DROPS INTO LEFT EAR TWO TIMES DAILY FOR 7 DAYS. active Not Available Not Available No t Available rosuvastati n 20 mg tablet TAKE 1 TABLET (20 MG) BY MOUTH ONCE DAILY WITH EVENING MEAL. FOR CHOLESTER OL. active Not Available Not Available No t Available Senexon-S 8.6 mg-50 mg tablet TAKE 1-4 TAB ORALLY 2X/DAY NEEDED FOR CONSTIPAT ION HOLD MED IF EXPERIENC ING LOOSE STOOLS active Not Available Not Available No t Available Tradjenta 5 mg tablet TAKE 1 TABLET ONCE DAILY FOR DIABETES. 06/17 completed Not Available Not Available Not Available testosteron e 1.62 % (40.5 mg/2.5 gram) transdermal gel packet Apply 1 packet every day by topical route. 2024 active Not Available Not Available Not Avai lable TRUEplus Lancets 33 gauge active Not Available Not Available Not Available Invokana 300 mg tablet active Not Available Not Available Not Available True Metrix Glucose Test Strip active Not Available Not Available N ot Available True Metrix Level 1 solution active Not Available Not Available Not Available Easy Touch Hypodermic Needle 22 gauge x 1 1/2 USE TO ADMINISTR ATE TESTOSTER ONE active Not Available Not Available No t Available Xyosted 100 mg/0.5 mL subcutaneou s auto-inject or INJECT 100MG EVERY WEEK BY SUBCUTANE OUS ROUTE. active Not Available Not Available No t Available Xyosted 75 mg/0.5 mL subcutaneou s auto-inject or 06/17 completed Not Available Not Available Not Available Gemtesa 75 mg tablet Take 1 tablet every day by oral route. 12/12 completed Not Available Not Available Not Available True Metrix Glucose Meter kit active Not Available Not Available No t Available Mounjaro 7.5 mg/0.5 mL subcutaneou s pen injector INJECT 7.5 MG SUBCUTANE OUS ONCE WEEKLY. active Not Available Not Available No t Available Mounjaro 5 mg/0.5 mL subcutaneou s pen injector INJECT 5 MG SUBCUTANE OUS ONCE WEEKLY. active Not Available Not Available No t Available Mounjaro 10 mg/0.5 mL subcutaneou s pen injector INJECT 10 MG SUBCUTANE OUS ONCE WEEKLY. active Not Available Not Available No t Available Mounjaro 2.5 mg/0.5 mL subcutaneou s pen injector INJECT 2.5 MG SUBCUTANE OUS ONCE WEEKLY. active Not Available Not Available No t Available Vitals Date Recorded Body height Body mass index (BMI) Body weight Provider Name and Address Organization Details Last Updated DateTime 12/13/2023 172.72 cm 35.7 kg/m2 673705.21 jaz Zhang MD [address] [place] [address],[address], [address], [facility] 12/13/2023 11:54:59 Date Recorded Body height Body mass index (BMI) Body weight Provider Name and Address Organization Details Last Updated DateTime 12/16/2022 172.72 cm 36.5 kg/m2 798373.17 jaz Zhang MD [address] [place] [address],[address], [address] [place] [address] 12/16/2022 11:31:33 Date Recorded Body height Body mass index (BMI) Body weight Provider Name and Address Organization Details Last Updated DateTime 06/14/2023 172.72 cm 35.7 kg/m2 449380.21 jaz Lau [facility] 06/14/2023 11:46:47 Date Recorded Body height Body mass index (BMI) Body weight Provider Name and Address Organization Details Last Updated DateTime 06/17/2022 172.72 cm 36.5 kg/m2 395765.17 jaz Zhang MD [address] [place] [address],[address], [address], [facility] 06/17/2022 11:17:12 Date Recorded Body height Body mass index (BMI) Body weight Provider Name and Address Organization Details Last Updated DateTime 07/05/2024 172.72 cm 35 kg/m2 920394.25 jaz Zhang MD [address] [place] [address],[address], [address] [place] [address] 07/05/2024 12:26:47 Social History Question Answer Notes LastModified by [employer] Details LastModified Time Tobacco Smoking Status Never Smoker Kamini alexander [facility] 08/29/2020 10:09:42 What Is Your Level Of Caffeine Consumption? None Information not available 12/16/2022 What Was The Date Of Your Most Recent Tobacco Screening? 07/05/2024 Information not available 07/05/2024 Sex: Unknown Functional Status Question Answer Note LastModified by [employer] Details LastModified Time Do you use any illicit or recreational drugs? No Information not available 07/05/2024 What is your level of alcohol consumption? None [email or web address] Information not available 08/29/2020 Mental Status None recorded. Family History Nothing Reported. Medical History Condition Response Diabetes Y Other Y High Blood Pressure Y Kidney Stones Y Depression Y High Cholesterol Y Immunizations Vaccine Type Date Status Note Provider Nam e and Address Organization Details Recorded Time COVID-19, mRNA, LNP-S, PF, 50 mcg/0.5 mL 4 completed Goyo Zhang MD [address] [place] [address],[address], [address], [facility] 12/13/2023 11:55:07 COVID-19, mRNA, LNP-S, PF, charis-sucrose, 30 mcg/0.3 mL 4 completed Goyo Zhang MD [address] [place] [address],[address], [address] [place] [address], [facility] 07/05/2024 12:27:21 Influenza, high-dose, trivalent, PF 4 completed Goyo Zhang MD [address] [place] [address],[address], [address], [facility] 07/05/2024 12:27:21 pneumococcal polysaccharide PPV23 0 completed Goyo Zhang MD [address] [place] [address],[address], [address], [facility] 06/17/2022 11:17:26 Pneumococcal conjugate PCV 13 5 completed Goyo Zhang MD [address] [place] [address],[address], [address], [facility] 06/17/2022 11:17:26 Influenza, adjuvanted, trivalent, PF 9 completed Kamini alexander [facility] 06/14/2023 11:46:51 Influenza, adjuvanted, trivalent, PF 8 completed Kamini alexander [facility] 06/14/2023 11:46:51 Influenza, adjuvanted, trivalent, PF 7 completed Kamini alexander [facility] 06/14/2023 11:46:51 zoster recombinant 2 completed Kamini Lau [facility], [facility] 06/14/2023 11:46:51 [facility], [facility] 06/14/2023 11:46:51 Influenza, high-dose, quadrivalent, PF 2 [facility] 06/14/2023 11:46:51 Influenza, adjuvanted, quadrivalent, PF 3 [facility], [facility] 06/14/2023 11:46:51 Influenza, adjuvanted, quadrivalent, PF 0 completed [facility] 06/14/2023 11:46:51 Influenza, adjuvanted, quadrivalent, PF 1 completed [facility] 06/14/2023 11:46:51 COVID-19, mRNA, LNP-S, PF, 30 mcg/0.3 mL dose 1 [facility] 11:46:51 COVID-19, mRNA, LNP-S, PF, 30 mcg/0.3 mL dose 1 completed [facility] 06/14/2023 11:46:51 COVID-19, mRNA, LNP-S, PF, 30 mcg/0.3 mL dose [address] [place] [address] [facility] 06/14/2023 11:46:51 COVID-19, mRNA, LNP-S, PF, 30 mcg/0.3 mL dose, charis-sucrose 2 completed [facility] 06/14/2023 11:46:51 COVID-19, mRNA, LNP-S, bivalent, PF, 30 mcg/0.3 mL dose 2 completed [facility] 06/14/2023 11:46:51 RSV, recombinant, protein subunit RSVpreF, adjuvant reconstituted, 0.5 mL, PF 3 completed Kamini Lau null, [facility] 06/14/2023 11:46:51 COVID-19, mRNA, LNP-S, PF, 50 mcg/0.5 mL 3 completed Kamini Lau null, [facility] 06/14/2023 11:46:51 pneumococcal polysaccharide PPV23 9 completed Kamini Lau null, [facility] 06/14/2023 11:46:51 influenza, unspecified formulation 8 completed Kamini Lau null, [facility] 06/14/2023 11:46:51 Tdap 2 completed Kamini Lau null, [facility] 06/14/2023 11:46:51 Tdap 7 completed Kamini Lau null, [facility] 06/14/2023 11:46:51 zoster live 2 completed [facility] null, [facility] 06/14/2023 11:46:51 Influenza, high-dose, trivalent, PF 6 completed Kamini Lau null, [facility] 06/14/2023 11:46:51 Influenza, high-dose, trivalent, PF 4 completed Kamini Lau null, [facility] 06/14/2023 11:46:51 Influenza, high-dose, trivalent, PF 5 completed Kamini Lau null, [facility] 06/14/2023 11:46:51 Influenza, split virus, trivalent, preservative 0 completed Kamini Lau null, [facility] 06/14/2023 11:46:51 Influenza, split virus, trivalent, preservative 3 completed Kamini Lau null, [facility] 06/14/2023 11:46:51 Influenza, split virus, trivalent, preservative 2 completed Kamini Lau null, [facility] 06/14/2023 11:46:52 Influenza, split virus, trivalent, preservative 5 completed Kamini Lau benjamin, [facility] 06/14/2023 11:46:52 Influenza, split virus, trivalent, PF 1 completed Kamini Lau benjamin, [facility] 06/14/2023 11:46:52 Novel [id number] 9 [facility] 11:46:52 Td (adult), 5 Lf tetanus toxoid, preservative free, adsorbed 0 completed Kamini Gandaraa benjamin, [facility] 06/14/2023 11:46:52 Td (adult), 2 Lf tetanus toxoid, preservative free, adsorbed 9 [facility] 11:46:52 Past Encounters Encounter ID Performer Location Encounter Start Date Encounter Closed Date Diagnosis/Indication Diagnosis SNOMED-CT Code Diagnosis ICD10 Code Diagnosis Note [id number] Goyo Zhang MD [facility] [employer] [address] [place] [address] 08/29/2020 10:05:20 08/30/2020 10:47:37 History of calculus of kidney 588639996 Z87.442 1. Kidney stones - reviewed 24 Hr urine study results - good Citrate - continue UroCit K 10 mEq BID - high uric acid - limit protein intake - 8 ounce / day - high Sodium - recommend low Sodium diet - less than 2300 mg /day - consider reassess stone burden with CT scan (stone tech) in 1 year Lower urin roland tract symptoms due to benign prostatic hypertrophy 0029510972 9101 N40.1 2. BPH - voiding okay - continue Flomax 0.4 mg daily Testostero ne level below reference range 487371000 R79.89 3. Low testostero ne - Androgel did not help in the past - try Testostero ne injection - 200 mg (1 mL) IM every 2 weeks - risks and benefits discussed - will need to recheck Testostero ne in 6-8 weeks [id number] MD [facility] [address] [place] [address] 06/17/2022 11:08:04 06/25/2022 15:53:24 Testosterone level below reference range 620948504 R79.89 1. Low testostero ne- Androgel did not help in the past- testostero ne (685 ng) in good range- Hgb increased- continue Xyosted to 100 mg weekly- recheck Testostero ne, Hgb, and PSA in 6 months Kidney stone 73908966 N2 0.0 4. Kidney stones- continue Urocit K 10 mEq BID- high uric acid - limit protein intake - 8 ounce / day- high Sodium - recommend low Sodium diet - less than 2300 mg /day- check CT scan ([employer]) in 6 months Prostate s pecific antigen above reference range 402310985 R97.20 2. Rising PSA level- PSA (1.38) - stable- may be due to prostate irritation - also concerning for prostate cancer- no nodule on RAJ- recheck PSA in 6 months Balanitis 79446234 N48.1 3. Balanitis- continue Lotrisone cream BID x 2 weeks- Diflucan 150 mg /wk - 3 doses [id number] Goyo Zhang MD [facility] [address] [place] [address] 12/16/2022 10:55:53 12/23/2022 18:02:14 Testosterone level below reference range 767334774 R79.89 1. Low testostero ne- Androgel did not help in the past- testostero ne (444 ng) in good range- Hgb stable- continue Xyosted 100 mg weekly- Follow-up in 6 months with Testostero ne (and Bladder scan) Prostate s pecific antigen above reference range 361781215 R97.20 2. Rising PSA level- PSA (1.4) - stable- may be due to prostate irritation - also concerning for prostate cancer- no nodule on RAJ- recheck PSA in 12 months Kidney stone 68814698 N2 0.0 3. Kidney stones- reviewed CT scan (12/16/22) images - no stones- continue Urocit K 10 mEq BID- high uric acid - limit protein intake - 8 ounce / day- high Sodium - recommend low Sodium diet - less than 2300 mg /day- check CT scan (stone tech) if develops flank pain [id number] Goyo Zhang MD [facility] [address] [place] [address] 06/14/2023 11:34:15 06/22/2023 19:21:50 Testosterone level below reference range 608206021 R79.89 1. Low testostero ne- Androgel did not help in the past- testostero ne (498 ng) in good range- Hgb stable- stop Xyosted 100 mg weekly (expensive )- re-try Testostero ne 200 mg (1 mL) IM every 2 weeks- Follow-up in 6 months with Testostero ne, Hgb, and PSA (and Bladder scan) Prostate s pecific antigen above reference range 052969169 R97.20 3. Rising PSA level- PSA (1.4) - stable- may be due to prostate irritation - no nodule on RAJ- recheck PSA in October 2023 Kidney stone 88720803 N2 0.0 4. Kidney stones- CT scan (12/16/22) images - no stones- continue Urocit K 10 mEq BID- high uric acid - limit protein intake - 8 ounce / day- high Sodium - recommend low Sodium diet - less than 2300 mg /day- check CT scan (stone tech) if develops flank pain Nocturia [id number] R35.1 2. Nocturia- may be due to bladder irritation - try Gemtesa 75 mg daily [id number] MD LASHANDA [facility] [address] [place] [address] 12/13/2023 11:40:12 12/14/2023 14:37:09 Testosterone level below reference range [id number] R79.89 3. Low testostero ne- Androgel did not help in the past- testostero ne (498 ng) in good range- Hgb stable- stop Xyosted 100 mg weekly (expensive )- re-try Testostero ne 200 mg (1 mL) IM every 2 weeks- Follow-up in 3 months with Testostero ne, Hgb, and PSA (and Bladder scan) Nocturia [id number] R35.1 2. Nocturia- may be due to bladder irritation - stopped Gemtesa 75 mg daily (no change)- check Night-time Voiding diary Prostate s pecific antigen above reference range [id number] R97.20 1. Rising PSA level- PSA (2.08) - increased- may be due to prostate irritation - no nodule on RAJ- Follow-up in 3 months with PSA(if PSA increases significan tly - consider Prostate MRI or possible TRUS bx) Kidney stone [id number] N2 0.0 4. Kidney stones- CT scan (12/16/22) images - no stones- continue Urocit K 10 mEq BID- high uric acid - limit protein intake - 8 ounce / day- high Sodium - recommend low Sodium diet - less than 2300 mg /day- check CT scan (stone tech) if develops flank pain [id number] Goyo Zhang MD [facility] [address] [place] [address] 07/05/2024 11:40:02 07/07/2024 11:19:57 Prostate specific antigen above reference range [id number] R97.20 1. Rising PSA level- PSA (1.90) - decreased- may be due to prostate irritation - no nodule on RAJ- monitor- Follow-up in 6 months with PSA(if PSA increases significan tly - consider Prostate MRI or possible TRUS bx) Nocturia [id number] R35.1 2. Nocturia- due to high urine output (900-1250 mL / night)- his DM - urine glucose may be contributi ng Testostero ne level below reference range [id number] R79.89 3. Low testostero ne- Androgel did not help in the past- testostero ne (1137 ng) in good range (taken 2 days after injection) - Hgb (16.5) - stable- stopped Xyosted 100 mg weekly (expensive ) - consider restarting - continue Testostero ne 200 mg (1 mL) IM every 2 weeks- Follow-up in 6 months with Testostero ne and PSA (and Bladder scan) Kidney stone [id number] N2 0.0 H/O Kidney stones- CT scan (12/16/22) images - no stones- continue Urocit K 10 mEq BID- high uric acid - limit protein intake - 8 ounce / day- high Sodium - recommend low Sodium diet - less than 2300 mg /day- check CT scan (stone tech) if develops flank pain Ananya [id number] N48.1 3. Winganitis- try Lotrisone cream BID x 2 weeks(if no improvemen t - Diflucan 150 mg /wk - 3 doses) Health Concerns Section Related Observation LastModified by Organization Detai ls LastModified Time None Recorded Concern Status LastModified by Organization Details LastModified Time None Recorded Advance Directives Directive None Recorded Payers Insurance Date Sequence Insurance Name Policy Number Policy Amin Covered Member ID Amin Member ID Guarantor Name 10/17/2024 1 [employer] (MEDICARE REPLACEMENT/A DVANTAGE - PPO) Chao E David [id number] Chao Dietrich Ryan 12/31/2024 1 [place] [id number] Chao Davis [id number] Chao Davis Notes Date Note Type Note Provider Name and Address Organization Details Recorded Time 06/17/2022 text/html 76 yo male with H/O kidney stones, low Testosterone, and BPH. CT Urogram (06/28/18) revealed a 3 mm stone in proximal Right ureter. He underwent Right ureteroscopy with laser lithotripsy on 11/16/19. He was on Androgel in the past - did not help with libido. He tried Testosterone 300 mg IM q2 months. He has ED - unable to obtain or maintain erections.He is on Flomax 0.8 mg daily and Urocit K - 1- mEq BID. He is on Xyosted 100 mg IM weekly.09/22/21 - He present for follow-up on Testosterone. [...] - s/p Renal Tx) PSA - 0.29 (06/24/06)- 0.35 (06/05/10)- 0.57 (06/23/11)- 0.35 (07/04/18)- 1.05 (03/21/21)- 1.38 (09/19/21)- 1.37 (03/03/22)Testostero ne - 152 ng (07/02/15)- 48 ng (07/04/18) - Free - 1.82- 357 ng (11/29/20)- 413 ng (03/21/21)- 440 ng (09/19/21)- 685 (03/02/22)Hgb - 12.1 (11/15/20)- 17.0 (03/03/22)CT Urogram (06/28/18) - Bilateral renal cysts - Right - 1 mm stone (lower pole) - 3 mm stone (prox ureter) - Left - no Hr urine (07/15/18) - low UO (1.66 L) - high Oxalate (44 mg) - low Citrate (139 mg) - high Sodium (187 mg)- normal - Calcium (152 mg) - Mg (116 mg) - Phos (1.31.5) - Uric acid (0.395)24 Hr urine (06/11/20) - high Uric acid (0.994) - high Sodium (253 mg)- normal - UO (3.3 L) - Calcium (184 mg) - Oxalate (30 mg) - Citrate (781 mg) - Mg (163 mg) - Phos (1.165) - pH (5.65) Goyo Zhang MD [address] [place] [address],[address], [place], [address], [facility] 06/17/2022 15:32:23 12/16/2022 text/html 77 yo male with H/O kidney stones, low Testosterone, and BPH. CT Urogram (06/28/18) revealed a 3 mm stone in proximal Right ureter. He underwent Right ureteroscopy with laser lithotripsy on 11/16/19. He was on Androgel in the past - did not help with libido. He tried Testosterone 300 mg IM q2 months. He has ED - unable to obtain or maintain erections.He is on Flomax 0.8 mg daily and Urocit K - 1- mEq BID. He is on Xyosted 100 mg IM weekly.09/22/21 - He present for follow-up on Testosterone. [...] sick - currently undergoing treatment for skin cancer.- CT scan (12/16/22) - no stones - Bilateral renal cysts PSA - 0.29 (06/24/06)- 0.35 (06/05/10)- 0.57 (06/23/11)- 0.35 (07/04/18)- 1.05 (03/21/21)- 1.38 (09/19/21)- 1.37 (03/03/22)- 1.4 (11/05/22)Testoster one - 152 ng (07/02/15)- 48 ng (07/04/18) - Free - 1.82- 357 ng (11/29/20)- 413 ng (03/21/21)- 440 ng (09/19/21)- 685 (03/02/22)- 444 (11/05/22)Hgb - 12.1 (11/15/20)- 17.0 (03/03/22)- 16.9 (11/05/22)CT Urogram (06/28/18) - Bilateral renal cysts - Right - 1 mm stone (lower pole) - 3 mm stone (prox ureter) - Left - no stones CT scan (12/16/22) - no stones - Bilateral renal cysts24 Hr urine (07/15/18) - low UO (1.66 L) - high Oxalate (44 mg) - low Citrate (139 mg) - high Sodium (187 mg)- normal - Calcium (152 mg) - Mg (116 mg) - Phos (1.31.5) - Uric acid (0.395)24 Hr urine (06/11/20) - high Uric acid (0.994) - high Sodium (253 mg)- normal - UO (3.3 L) - Calcium (184 mg) - Oxalate (30 mg) - Citrate (781 mg) - Mg (163 mg) - Phos (1.165) - pH (5.65) Goyo Zhang MD [address] [place] [address],[address], [address], [facility] 12/18/2022 11:01:51 06/14/2023 text/html 77 yo male with H/O kidney stones, low Testosterone, and BPH. CT Urogram (06/28/18) revealed a 3 mm stone in proximal Right ureter. He underwent Right ureteroscopy with laser lithotripsy on 11/16/19. He was on Androgel in the past - did not help with libido. He tried Testosterone 300 mg IM q2 months. He has ED - unable to obtain or maintain erections.He is on Flomax 0.8 mg daily and [...] occasional urgency. He states the Xyosted is expensive.- PVR - 39mL _PSA - 0.29 (06/24/06)- 0.35 (06/05/10)- 0.57 (06/23/11)- 0.35 (07/04/18)- 1.05 (03/21/21)- 1.38 (09/19/21)- 1.37 (03/03/22)- 1.4 (11/05/22)Testoster one - 152 ng (07/02/15)- 48 ng (07/04/18) - Free - 1.82- 357 ng (11/29/20)- 413 ng (03/21/21)- 440 ng (09/19/21)- 685 (03/02/22)- 444 (11/05/22)- 498 (06/03/23)Hgb - 12.1 (11/15/20)- 17.0 (03/03/22)- 16.9 (11/05/22)CT Urogram (06/28/18) - Bilateral renal cysts - Right - 1 mm stone (lower pole) - 3 mm stone (prox ureter) - Left - no stones CT scan (12/16/22) - no stones - Bilateral renal cysts24 Hr urine (07/15/18) - low UO (1.66 L) - high Oxalate (44 mg) - low Citrate (139 mg) - high Sodium (187 mg)- normal - Calcium (152 mg) - Mg (116 mg) - Phos (1.31.5) - Uric acid (0.395)24 Hr urine (06/11/20) - high Uric acid (0.994) - high Sodium (253 mg)- normal - UO (3.3 L) - Calcium (184 mg) - Oxalate (30 mg) - Citrate (781 mg) - Mg (163 mg) - Phos (1.165) - pH (5.65) Goyo Zhang MD [address] [facility],[address], [place], [address], [facility] 06/14/2023 21:53:19 12/13/2023 text/html 78 yo male with H/O kidney stones, low Testosterone, and BPH. CT Urogram (06/28/18) revealed a 3 mm stone in proximal Right ureter. He underwent Right ureteroscopy with laser lithotripsy on 11/16/19. He was on Androgel in the past (did not help with libido), Xyosted 100 mg IM (expensive), and Gemtesa 75 mg daily (no change). He has ED - unable to obtain or maintain erections.He is on Flomax 0.8 mg daily and Urocit K - 1- mEq BID. He is on Testosterone 200 mg (1 mL) IM every 2 weeks. 06/17/22 - He presents for follow-up on [...] urgency. He states the Xyosted is expensive. 12/13/23- He presents for follow-up on Low testosterone. He states his energy levels are good. He reports less nocturia if he limits fluid intake 2-3 hours before bed. 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 He has ROSANA (uses CPAP).- PVR - 0 mL P SA - 0.29 (06/24/06)- 0.35 (06/05/10)- 0.57 (06/23/11)- 0.35 (07/04/18)- 1.05 (03/21/21)- 1.38 (09/19/21)- 1.37 (03/03/22)- 1.4 (11/05/22)- 2.08 (12/07/23)Testoster one - 152 ng (07/02/15)- 48 ng (07/04/18) - Free - 1.82- 357 ng (11/29/20)- 413 ng (03/21/21)- 440 ng (09/19/21)- 685 (03/02/22)- 444 (11/05/22)- 498 (06/03/23)Hgb - 12.1 (11/15/20)- 17.0 (03/03/22)- 16.9 (11/05/22)CT Urogram (06/28/18) - Bilateral renal cysts - Right - 1 mm stone (lower pole) - 3 mm stone (prox ureter) - Left - no stones CT scan (12/16/22) - no stones - Bilateral renal cysts24 Hr urine (07/15/18) - low UO (1.66 L) - high Oxalate (44 mg) - low Citrate (139 mg) - high Sodium (187 mg)- normal - Calcium (152 mg) - Mg (116 mg) - Phos (1.31.5) - Uric acid (0.395)24 Hr urine (06/11/20) - high Uric acid (0.994) - high Sodium (253 mg)- normal - UO (3.3 L) - Calcium (184 mg) - Oxalate (30 mg) - Citrate (781 mg) - Mg (163 mg) - Phos (1.165) - pH (5.65) Goyo Fadden, MD [address] [facility],[address], [place], [address], [place] [facility] 12/13/2023 18:19:13 07/05/2024 text/html 78 yo male with H/O kidney stones, low Testosterone, and BPH. CT Urogram (06/28/18) revealed a 3 mm stone in proximal Right ureter. He underwent Right ureteroscopy with laser lithotripsy on 11/16/19. He was on Androgel in the past (did not help with libido), Xyosted 100 mg IM (expensive), and Gemtesa 75 mg daily (no change). He has ED - unable to obtain or maintain erections.He is on Flomax 0.8 mg daily and Urocit K - 1- mEq BID. He is on Testosterone 200 mg (1 mL) IM every 2 weeks. 12/16/22 - He presents for follow-up on [...] urgency. He states the Xyosted is expensive. 12/13/23- He presents for follow-up on Low testosterone. He states his energy levels are good. He reports less nocturia if he limits fluid intake 2-3 hours before bed. 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 He has ROSANA (uses CPAP). Night-time voiding diary - voids 3-4x/night (250-375 mL) - totals (900-1250 mL/night) 07/05/24-He presents for follow-up on Low testosterone. He states his energy levels are good. He reports ongoing nocturia. He report rash on glans penis. He states his Left shoulder is not working well.- PVR - 164 mL- UA - no blood - no LE - +2000 glucose ____PSA - 0.29 (06/24/06)- 0.35 (06/05/10)- 0.57 (06/23/11)- 0.35 (07/04/18)- 1.05 (03/21/21)- 1.38 (09/19/21)- 1.37 (03/03/22)- 1.4 (11/05/22)- 2.08 (12/07/23)- 1.90 (06/29/24)Testoster one - 152 ng (07/02/15)- 48 ng (07/04/18) - Free - 1.82- 357 ng (11/29/20)- 413 ng (03/21/21)- 440 ng (09/19/21)- 685 (03/02/22)- 444 (11/05/22)- 498 (06/03/23)- 1137 (06/29/24)Hgb - 12.1 (11/15/20)- 17.0 (03/03/22)- 16.9 (11/05/22)- 16.5 (06/29/24)CT Urogram (06/28/18) - Bilateral renal cysts - Right - 1 mm stone (lower pole) - 3 mm stone (prox ureter) - Left - no stones CT scan (12/16/22) - no stones - Bilateral renal cysts24 Hr urine (07/15/18) - low UO (1.66 L) - high Oxalate (44 mg) - low Citrate (139 mg) - high Sodium (187 mg)- normal - Calcium (152 mg) - Mg (116 mg) - Phos (1.31.5) - Uric acid (0.395)24 Hr urine (06/11/20) - high Uric acid (0.994) - high Sodium (253 mg)- normal - UO (3.3 L) - Calcium (184 mg) - Oxalate (30 mg) - Citrate (781 mg) - Mg (163 mg) - Phos (1.165) - pH (5.65) Goyo Zhang MD [address] [facility],[address], [place], [address], [facility] 07/05/2024 13:46:22
--- OUTSIDE RECORDS SUMMARY | 2025-01-03 08:59 | XMS_ITS | Encounter Summary ---
Author Organization [facility] Address [address] [place] [id number] Care Team Providers Care Piccolo Mechanic Name Role Phone Elsewhere, Pcp Primary Care Provider Unavailabl e Reason for Visit * Reason Onset Date Comments Appt Request 10/30/2024 Ear cleaning Encounter Details Date Type Department Care Team (Latest Contact Info) Description 10/30/2024 Clinical Communication Department of Otorhinolaryngology in [place], [place] [address] [place] [address] Anish Franklin M.D. [address] [place] [phone] Appt Request (Ear cleaning) Social History Tobacco Use Types Packs/Day Years Used Date Smoking Tobacco: Never Smokeless Tobacco: Never [facility] Utilities Answer Date Recorded In the past 12 months has [facility] electric, gas, oil, or water [email or web address] threatened to shut off services in your [...] your living situation today? I have a [facility] place to live 08/10/2024 Sex and Gender Information Value Date Recorded Sex Assigned at Not on file Legal Sex Male 3:32 AM [employer] Gender Identity Not on file Sexual Orientation Not on file documented as of this encounter Plan of Treatment Upcoming Encounters Date Type Department Care Team (Latest Contact Info) Description 03/22/2025 9:00 AM CDT Clinical Communication Virtual Review in [place], [place] [address] [place] [address] 03/23/2025 11:30 AM CDT Comprehensive Visit Department of Orthopedic Surgery in [place], [place] [address] [place] [phone] Praveen Rodriguez M.D., Ph.D. [address] [place] [phone] documented as of this encounter Visit Diagnoses Not on filedocumented in this encounter Additional Health Concerns Assessment Noted Time PHQ-9 Depression Total Score: 3 11/05/19 13 2:22 PM CDT documented as of this encounter Care Teams Piccolo Mechanic Relationship Specialty Start Date End Date Elsewhere, Pcp PCP - General Internal Medicine 09/02/24 documented as of this encounter
--- OUTSIDE RECORDS SUMMARY | 2025-01-03 08:59 | XMS_ITS | Clinical Summary ---
Author Organization [facility] Address [address] [place] [address] Care Team Providers Care Print Line Tailer Name Role Phone Elsewhere, Pcp Primary Care Provider Unavailabl e Source Comments Patient records contain information from all sites at [facility]. For routine questions regarding patient records, call [phone] during business hours, M-F 8:00 AM - 5:00 PM Central Time. Record requests for emergency care only can be directed to [phone] at any time.[facility] Allergies Active Allergy Reactions Criticality Noted Date Comments Sulfa (Sulfonamide Antibiotics) Hives (Reselect Reaction) High 04/06/2006 Medications acetaminophen (TylenoL) 325 mg tablet Take 650 mg by mouth every 4 (four) hours as needed for pain. 11/16/19 20 Active blood sugar diagnostic strips (True Metrix Glucose Test Strip) DISPENSE ITEM COVERED BY PT INS. E11.9 NIDDM TYPE II - TEST 1 TIME/DAY 04/11/20 23 Active canagliflozin (Invokana) 300 mg tablet Take 300 mg by mouth daily before morning meal. Active citalopram (CeleXA) 20 mg tablet Take 1 tablet by mouth every morning. 12/17/19 13 Active co-enzyme Q-10 (Co Q-10) 100 mg capsule Take 1 capsule by mouth daily. 06/02/20 12 Active glimepiride (AmaryL) 4 mg tablet Take 4 mg by mouth daily with morning meal. 09/10/19 24 Active glucosamine-ch ondroitin 500-400 mg per capsule Take 2 capsules by mouth daily. Active loratadine (Claritin) 10 mg tablet Take 10 mg by mouth daily. 06/02/20 12 Active losartan (Cozaar) 50 mg tablet Take 50 mg by mouth daily. 04/11/20 23 Active Hypodermic [place] 23 gauge x 1 1/2 needle 05/11/20 24 Active BD Luer-Shay Syringe 3 mL 18 x 1 1/2 syringe 04/30/20 24 Active multivitamin-m inerals tablet Take 1 tablet by mouth daily. 06/05/20 10 Active metFORMIN XR (Glucophage-XR ) 500 mg 24 hr tablet Take 1,000 [...] Take 0.8 mg by mouth at bedtime. 04/11/20 23 Active testosterone cypionate (Depo-Testoste davie) 200 mg/mL injection Inject 200 mg intramuscularly every 14 (fourteen) days. 06/14/20 23 Active cholecalcifero l, vitamin D3, 25 mcg (1,000 Unit) tablet Take 1 tablet by mouth daily. 07/01/20 11 Active DME CPAP DME Order Active tirzepatide (Mounjaro) 5 mg/0.5 mL pen injector injection Inject 5 mg under the skin over 168 hr. 07/12/20 24 Active tirzepatide (Mounjaro) 7.5 mg/0.5 mL pen injector injection Inject 7.5 mg under the skin over 168 hr. 06/12/20 24 Active levETIRAcetam (Keppra) 500 mg tablet Take 1 tablet (500 mg total) by mouth 2 (two) times a day for 6 days. 12 tablet 08/11/2024 12:16 PM PRICE ECONOMIST 08/11/19 25 Active magnesium hydroxide (Milk of Magnesia) 400 mg/5 mL suspension Take 30 mL by mouth daily as needed (constipation). 08/11/19 25 Active sennosides-doc usate sodium (Senokot-S) 8.6-50 mg per tablet Take 1 tablet by mouth 2 (two) times a day. 08/11/19 25 Active polyethylene glycol (Miralax) 17 gram powder packetIndicati ons:constipati on Take 1 packet (17 g total) by mouth daily as needed for constipation Indications: constipation. Dissolve each 17 g dose in 240 mLs (8 ounces) of beverage. 08/11/19 25 Active acetaminophen (TylenoL) 500 mg tablet Take 2 tablets (1,000 mg total) by mouth every 6 (six) hours as needed for pain. 08/11/19 25 Active Active Problems Problem Noted Date Diagnosed Date Aftercare Postoperative Incision 08/30/2024 Otorrhea Cerebrospinal Fluid Leak 08/10/2024 Otorrhea Left Ear 06/08/2024 COVID-19 Infection 05/27/2021 [...] Encounters Date Type Department Care Team Description 12/11/2024 2:19 PM CDT - 12/11/2024 11:59 PM CDT Hospital Encounter Department of Radiology, [facility], in [place], [place] [address] [place] [phone] Anish Franklin M.D. Pain Shoulder Left Discharge Disposition: Home or Self Care 12/01/2024 Clinical Communication Department of Otorhinolaryngology in [address] [phone] Anish Franklin M.D. 11/27/2024 Orders Only Department of Otorhinolaryngology in [address] [phone] Nikki Gauthier R.N. Pain Shoulder Left (Primary Dx) 11/24/2024 Clinical Communication Department of Otorhinolaryngology in [address] [phone] Anish Franklin M.D. Order Request 11/15/2024 10:20 AM CDT Clinical Support Department of Family Medicine, [facility], in [address] [phone] Geovanna Delgado L.P.NArlene Immunization Only (Primary Dx) Discharge Disposition: Home or Self Care 11/09/2024 2:30 PM CDT Office Visit Department of Otorhinolaryngology in [address] [phone] Anish Franklin M.D. Otorrhea Cerebrospinal Fluid Leak (Primary Dx) 11/07/2024 3:15 PM CDT Diagnostic Department of Otorhinolaryngology in [address] [phone] Anish Franklin M.D. 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 Appt Request (Ear cleaning) 10/06/2024 3:00 PM CDT Office Visit Department of Otorhinolaryngology in [place], [place] [address] [place] [address] Anish Franklin M.D. 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 Bleeding/Bruising from Last 3 Months Immunizations Immunization Administration Dates Next Due HZV (ZOSTAVAX) 11/06/2011 Influenza Split 05/19/2012,05/26/2011 PPSV23 07/26/2008 SARS-COV-2 (COVID-19) - MODE RNA (12 YEARS AND OLDER) Fall Seasonal 11/15/2024 Td, (Adult) Unspecified 07/26/2008 Tdap 11/16/2011 Social History Tobacco Use Types Packs/Day Years Used Date Smoking Tobacco: Never Smokeless Tobacco: Never Tobacco Cessation:Counseling Given: Not Answered [facility] Utilities Answer Date Recorded In the past 12 months has [facility] [employer], gas, oil, or water [employer] threatened to shut off services in your [...] your living situation today? [facility] 08/10/2024 Sex and Gender Information Value Date Recorded Sex Assigned at Not on file Legal Sex Male 3:32 AM PRICE ECONOMIST Gender Identity Not on file Sexual Orientation Not on file Last Filed Vital Signs Vital Sign Reading Time Taken Comments Blood Pressure 123/52 09/02/2024 9:00 PM PRICE ECONOMIST Pulse 85 09/02/2024 9:00 PM PRICE ECONOMIST Temperature 36.3 C (97.3 F) 09/02/2024 9:00 PM PRICE ECONOMIST Respiratory Rate 18 09/02/2024 9:00 PM PRICE ECONOMIST Oxygen Saturation 94% 09/02/2024 9:00 PM PRICE ECONOMIST Inhaled Oxygen Concentration - - Weight 104 kg (229 lb 4.5 oz) 09/02/2024 7:28 PM PRICE ECONOMIST Height 172.7 cm (5' 7.99) 09/01/2024 6:53 AM CS T Body Mass Index 34.87 09/01/2024 6:53 AM PRICE ECONOMIST Plan of Treatment Upcoming Encounters Date Type Department Care Team (Latest Contact Info) Description 03/22/2025 9:00 AM CDT Clinical Communication Virtual Review in [place], [place] [address] [place] [phone] 03/23/2025 11:30 AM CDT Comprehensive Visit Department of Orthopedic Surgery in [place], [place] [address] [place] [phone] Praveen Rodriguez M.D., Ph.D. [address] [place] [phone] Health Maintenance Due Date Last Done Comments Diabetic Office Visit with Foot Exam 1943 Dilated Eye Exam 1945 Office Visit for Blood Pressure Check / Re-check 1943 Urine Albumin 1943 Hepatitis B Vaccines (1 of 3 - Risk 3-dose series) 2003 Depression Screening (Annual PHQ-2) 07/26/2024 Hemoglobin A1C 04/04/2025 10/02/2024, 05/26, 01/10/2024, Additional history exists Creatinine Level (Kidney Function Test) 08/11/2025 08/11/2024, 11/11/2023, 04/09/2023, Additional history exists Potassium Level 08/11/2025 08/11/2024, 10/24, 04/09/2023, Additional history exists Sodium Level 08/11/2025 08/11/2024, 03/26, 06/05/2022, Additional history exists DTaP,Tdap,and Td Vaccines (3 - Td or Tdap) 02/12/2027 02/12/2017, 11/16/2011, 06/05/2010, Additional history exists Pneumococcal vaccine (50+ years) Completed 07/03/2015, 06/05/2010, 07/26/2008 Zoster Vaccines Completed 12/03/2021, 01/2022, 11/06/2011 Abdominal Aortic Aneurysm (AAA) Screen Discontinued 12/16/2022, 06/19/2003 RSV vaccine - (32-36 weeks) or 60+ years Completed 04/08/2023 Influenza Vaccine Completed 04/11/2024, , 04/27/2022, Additional history exists Fall Risk Screen (Annual) Completed 09/01/2024 COVID-19 Vaccine Completed 11/15/2024, , 10/12/2023, Additional history exists IPV Vaccines Aged Out No longer eligi ble based on patient's age to complete this topic Medical Devices Implanted Type Area Presentation Manager Device Identifier Shelf Expiration Date Model / Serial / Lot Hardware E.G. Pins/Screws/Ro ds Hardware e.g. pins/screws /rods Left: Shoulder Description:SHOULDER REPLACE MENT Plt Mtr Cmf Str 2h 12 - [id number] Implanted:Qty: 1 on 08/10/2024 by Ilan Sorto M.D. at [facility] Hardware e.g. pins/screws /rods Depuy Synthes 503.06 2 / / Plt Bx Matrix 10x16 - [id number] Implanted:Qty: 1 on 08/10/2024 by Ilan Sorto M.D. at [facility] Hardware e.g. pins/screws /rods Depuy Synthes 503.07 3 / / Scrw Ti Mtr Slv 1.55x2.55x4 - [id number] Implanted:Qty: 8 on 08/10/2024 by Ilan Sorto M.D. at [facility] Hardware e.g. pins/screws /rods Depuy Synthes 503.10 4.01 / / Plt Mtr Cmf Cover [place] 17 - [id number] Implanted:Qty: 1 on 08/10/2024 by Ilan Sorto M.D. at [facility] Hardware e.g. pins/screws /rods Depuy Synthes 503.02 3 / / Graft Dural [id number] Ultrapure Implanted:Qty: 1 on 08/10/2024 by Anish Franklin M.D. at 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 Anish Franklin M.D. IMG DIAGNOSTIC IMAGING P ROCEDURES Final Result * Beta-2 Transferrin: Detection of CSF in Other Body Fluid (11/09/2024 3:46 PM CDT) Beta-2 Transferrin, BF Negative Negative, no beta-2 transferrin (spinal fluid) detected. 11/10/2024 4:03 PM CDT [facility] Comment: ----ADDITIONAL INFORMATION---- This test was developed and its performance characteristics determined by [facility] in a manner consistent with CLIA requirements. This test has not been cleared or approved by the U.S. Food and Drug Administration. Fluid (Tympanic Membrane, Left) 11/09/2024 3:46 PM CDT 11/10/2024 9:36 AM CDT us Anish Franklin M.D. LAB BODY FLUIDS AND STOO LS ORDERABLES Final Result [facility] [address] [place] [address] [facility] [address] [place] [address] [place] [address] * Audiogram (11/07/2024 12:00 AM CDT) 11/07/2024 us Anish Franklin M.D. AUDIOLOGY SERVICES ORDER GOKUL Final Result Performing Organization Address [facility] Co de Phone Number AUDIOLOGY AND AHD * (ABNORMAL) Basic Metabolic Panel (08/11/2024 8:43 AM PRICE ECONOMIST) Potassium, S 4.6 3.6 - 5.2 mmol/L 08/11/2024 10:13 AM PRICE ECONOMIST DTL Sodium, S 140 135 - 145 mmol/L 08/11/2024 10:13 AM PRICE ECONOMIST DTL Chloride, S 100 98 - 107 mmol/L 08/11/2024 10:13 AM PRICE ECONOMIST DTL Bicarbonate, S 26 22 - 29 mmol/L 08/11/2024 10:13 AM PRICE ECONOMIST DTL Anion Gap 14 7 - 15 08/11/2024 10:13 AM PRICE ECONOMIST DTL BUN (Blood Urea Nitrogen), S 17 8 - 24 mg/dL 08/11/2024 10:13 AM PRICE ECONOMIST DTL Creatinine 0.83 0.74 - 1.35 mg/dL 08/11/2024 10:13 AM PRICE ECONOMIST DTL Estimated GFR (eGFR) 88 >=60 mL/min/BSA 08/11/2024 10:13 AM PRICE ECONOMIST DTL Comment: Estimated GFR calculated using the 2020 CKD_EPI creatinine equation. Calcium, Total, S 8.9 8.8 - 10.2 mg/dL 08/11/2024 10:13 AM PRICE ECONOMIST DTL Glucose, S 241(H) 70 - 140 mg/dL 08/11/2024 10:13 AM PRICE ECONOMIST DTL Blood (Blood, Venous) 08/11/2024 8:43 AM PRICE ECONOMIST 08/11/2024 9:47 AM PRICE ECONOMIST Yovani Beltran M.D. LAB BLOOD ADD-ON Final Res ult Performing Organization Address City/[facility]/ZIP Co de Phone Number [facility] [address] DTL [facility] [address] [place] [address] * Hemoglobin A1c (11/04/2012 7:35 AM CDT) Pathologist [facility] Hemoglobin A1c, B 6.0 4.0 - 6.0 % [facility] 11/04/2012 7:35 AM CDT 11/04/2012 7:35 AM CDT Raleigh Brown P.A.-C., P.A., M.S. LAB BLOOD ADD-ON Final Result Performing Organization Address City/[facility] Co de Phone Number [facility] [address] * CT Abdomen Pelvis Angiogram with IV Contrast (06/19/2003 8:35 AM PRICE ECONOMIST) Anatomical Region Laterality Modality Abdomen, Pelvis N/A Computed Tomogra phy 06/19/2003 8:35 AM PRICE ECONOMIST Narrative 06/19/2003 10:03 AM PRICE ECONOMIST 19-Jun-2003 08:35:00 Exam: CTA Abd/Pel w or [...] MD [phone] 19-Jun-2003 10:03 Tr Yan M.D. 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 See document viewer. * Full Code (Latest Code Status on File) Date Activated Date Inactivated Comments 08/10/2024 5:48 PM 08/11/2024 3:27 PM Question Answer Comments Full Code: Not Discussed Due to: Patient not available Care Teams Print Line Tailer Relationship Specialty Start Date End Date Elsewhere, Pcp PCP - General Internal Medicine 09/02/24
--- OUTSIDE RECORDS SUMMARY | 2025-01-03 08:59 | XMS_ITS | Clinical Summary ---
Author Organization [facility] Address [address] [place] [address] Care Team Providers Care Program Lead Name Role Phone Unavailable Primary Care Provider [...] astigmatism 07/04/2008 Presbyopia 05/28/2006 Hypermetropia 05/28/2006 Immunizations Immunization Administration Dates Next Due Flu, High Dose, 65y+, Fluzon e High Dose 04/27/2022 Flu, Preservative Free 04/30/2021,04/15/2020 INFLUENZA, SEASONAL, INJECTABLE 05/09/20 13,05/19/2012,05/26/2011,04/30 Influenza (FLUAD), Trivalent , Adjuvanted 04/07/2019,05/02/2018,05/07/2017 Influenza (FLUZONE), high-do se, trivalent, PF 03/09/2016,04/30/2015,04/20/2014,04/20 Novel [id number], preservative-free, injectable 06/25/2009 PNEUMOCOCCAL CONJUGATE PCV 13 07/03/2015 PNEUMOCOCCAL POLYSACCHARIDE PPV23 (Pneumovax 23) 06/05/2010,07/26/2008 Pfizer-BioNTech COVID-19 Vac cine Bivalent, (NEGRO PFIZER-BIONTECH [...] Last Done Comments Diabetes Foot Exam 1943 Lipid Screening 1943 Tobacco Screening 1945 Retinopathy Screening 10/10/1956 Medicare Annual Wellness Visit 10/10/1961 Falls Prevention 10/10/2008 Advanced Care Planning 06/24/2012 06/24/2011 [id number] ( season) 2024 10/12/2023, 05/12/2023, 04/10/2022, Additional history exists Diabetes HbA1c 07/11/2024 01/10/2024, 12/24, 09/10/2023, Additional history exists Alcohol and Drug Screen 07/26/2024 Depression Annual Screen 07/26/2024 Urine Albumin Creatinine Rat io Screening 09/10/2024 09/10/2023 Serum Creatinine 11/10/2024 11/11/2023, , 10/22/2023, Additional history exists Imm-Influenza (Season Ended) 2025, 04/27/2022, 04/30/2021, Additional history exists Imm-DTaP/Tdap/Td (3 - Td or Tdap) 02/12/2027 [...] - 145 mmol/L mmol/L 10/22/2023 12:20 PM [facility] Potassium 4.4 3.5 - 5.1 mmol/L mmol/L 10/22/2023 12:20 PM [facility] Chloride 101 98 - 107 mmol/L mmol/L 10/22/2023 12:20 PM [facility] CO2 27.0 22 - 30 mmol/L mmol/L 10/22/2023 12:20 PM [facility] Anion Gap 7 3 - 11 mmol/L mmol/L 10/22/2023 12:20 PM [facility] BUN 18.0 9 - 20 mg/dL mg/dL 10/22/2023 12:20 PM [facility] Creatinine 0.85 0.66 - 1.25 mg/dL mg/dL 10/22/2023 12:20 PM [facility] BUN/Creatinine Ratio 21.18 10/22/2023 12:20 PM [facility] Glucose 271(A) 75 - 100 mg/dL mg/dL 10/22/2023 12:20 PM [facility] Calcium 9.3 8.4 - 10.2 mg/dL 10/22/2023 12:20 PM [facility] AST 29 17 - 59 U/L U/L 10/22/2023 12:20 PM [facility] ALT (SGPT) 38 <50 U/L U/L 10/22/2023 12:20 PM [facility] Alkaline Phosphatase 65 38 - 126 U/L U/L 10/22/2023 12:20 PM [facility] Total Protein 6.9 6.3 - 8.2 g/dL 10/22/2023 12:20 PM [facility] Albumin 4.0 3.5 - 5.0 g/dL g/dL 10/22/2023 12:20 PM [facility] Total Bilirubin 1.6(A) 0.2 - 1.3 mg/dL mg/dL 10/22/2023 12:20 PM [facility] eGFR 87.8(A) >90.0 mL/min/1.7 3m*2 10/22/2023 12:20 PM [facility] Blood Venous blood specimen / Unknown Venipuncture / Unknown 10/22/2023 11:57 AM CDT 10/22/2023 11:59 AM CDT Singh Mann MD LAB BLOOD ORDERABLES Final Result [facility] [address] [place] [address], from Last 3 Months or Most Recently Relevant to Health Maintenance Insurance [employer]
--- OUTSIDE RECORDS SUMMARY | 2025-01-03 08:59 | XMS_ITS | Patient Health Record ---
Author Organization [facility] Address [address] [place] [phone] Support Name Relationship Address Phone CHRIS OSUNA Emergency Contact Unknown [phone] SARAHI OSUNA Guarantor Unknown [phone] Reason For Referral No Information Medications Medication SIG (Take, Route, Frequency, Duration) Notes Start Date End Date Status rosuvastatin calcium 20 MG Oral Tablet ORAL rosuvastatin calcium 20 MG Oral TabletOriginal Medicationrosuvastatin calcium 20 MG Oral Tablet *Reorder from JumpIn for eRx and Interaction Alerts* 10/08/2018 Active metformin hydrochloride 500 MG Oral Tablet ORAL metformin hydrochloride 500 MG Oral TabletOriginal Medicationmetformin hydrochloride 500 MG Oral Tablet *Reorder from [employer]In for eRx and Interaction Alerts* 10/08/2018 Active citalopram 20 MG Oral Tablet ORAL citalopram 20 MG Oral TabletOriginal Medicationcitalopram 20 MG Oral Tablet *Reorder from [employer]In for eRx and Interaction Alerts* 10/08/2018 Active losartan potassium 50 MG Oral Tablet ORAL losartan potassium 50 MG Oral TabletOriginal Medicationlosartan potassium 50 MG Oral Tablet *Reorder from [employer]In for eRx and Interaction Alerts* 10/08/2018 Active Plan Of Treatment No Information
--- OUTSIDE RECORDS SUMMARY | 2025-01-03 09:00 | XMS_ITS | Clinical Summary ---
Author Organization [facility] Address [address] [place] [address] Care Team Providers Care Communications Program Manager Name Role Phone Goyo Zhang MD Unavailable [phone] Miladis Armstrong MD Unavailable [phone] Lewis Porter Unavailable [phone] Maximo Christy MD Primary Care Provider [phone] Lewis Dhaliwal MD Unavailable [phone] Taylor Broderick PharmD Unavailable [phone] Allergies Active Allergy Reactions Criticality Noted Date [...] acetaminophen dose: 4000mg in 24 hrs. 0 04/23/20 20 Active potassium citrate (UROCIT-K) 10 mEq [...] one per 3 months 1 Each 11 11/09/19 24 Active tamsulosin (FLOMAX) 0.4 mg capsuleIndicatio ns:Decreased urine stream Take 2 Capsules (0.8 mg) by mouth once daily after a meal. For urinary symptoms. 180 Capsule 2 01/10/20 24 Active blood sugar diagnostic (True Metrix Glucose Test Strip) stripIndications :Type 2 diabetes mellitus without complication, without long-term current use of insulin (HC) Dispense item covered by pt ins. E11.9 NIDDM type II - Test 1 time/day 100 Each 3 06/12/20 24 Active tirzepatide (Mounjaro) 2.5 mg/0.5 mL penIndications:T ype 2 diabetes mellitus without complication, without long-term current use of insulin (HC) Inject 2.5 mg subcutaneous once weekly. 2 mL 09/14/19 25 Active Additional Information Patient not taking.Reported on 11/13/2024 tirzepatide (Mounjaro) 5 mg/0.5 mL penIndications:T ype 2 diabetes mellitus without complication, without long-term current use of insulin (HC) Inject 5 mg subcutaneous once weekly. 2 mL 09/14/19 25 Active tirzepatide (Mounjaro) 7.5 mg/0.5 mL penIndications:T ype 2 diabetes mellitus without complication, without long-term current use of insulin (HC) Inject 7.5 mg subcutaneous once weekly. 2 mL 09/14/19 25 Active pen tirzepatide (Mounjaro) 10 mg/0.5 mL penIndications:T ype 2 diabetes mellitus without complication, without long-term current use of insulin (HC) Inject 10 mg subcutaneous once weekly. 2 mL 09/14/19 25 Active tirzepatide (Mounjaro) 12.5 mg/0.5 mL penIndications:T ype 2 diabetes mellitus without complication, without long-term current use of insulin (HC) Inject 12.5 mg subcutaneous once weekly. 2 mL 09/14/19 25 Active tirzepatide (Mounjaro) 15 mg/0.5 mL penIndications:T ype 2 diabetes mellitus without complication, without long-term current use of insulin (HC) Inject 15 mg subcutaneous once weekly. 2 mL 09/14/19 25 Active citalopram (CELEXA) 20 mg tabletIndication s:Adjustment disorder with depressed mood Take 1 Tablet (20 mg) by mouth once daily in the morning. 90 Tablet 2 10/03/19 25 Active glimepiride (AMARYL) 4 mg tabletIndication s:Type 2 diabetes mellitus without complication, without long-term current use of insulin (HC) Take 1 Tablet (4 mg) by mouth once daily with a meal. For diabetes. 90 Tablet 2 10/03/19 25 Active losartan (COZAAR) 50 mg tabletIndication s:Primary hypertension Take 1 Tablet (50 mg) by mouth once daily. For blood pressure. 90 Tablet 2 10/03/19 25 Active metFORMIN (GLUCOPHAGE XR) 500 mg Extended-Release tabletIndication s:Type 2 diabetes mellitus without complication, without long-term current use of insulin (HC) Take 2 Tablets (1,000 mg) by mouth two times daily with meals. For diabetes. 360 Tablet 2 10/03/19 25 Active rosuvastatin (CRESTOR) 20 mg tabletIndication s:Hypercholester olemia Take 1 Tablet (20 mg) by mouth once daily with evening meal. For Cholesterol. 90 Tablet 3 10/03/19 25 Active Active Problems Problem Noted Date [...] ANW and stent. Hematuria, gross 06/27/2018 Overview (06/29/2018): [...] = 84. ~ Dr. Cueva [facility] at [place], June 2010: suggested yearly cortisol and TSH/T4 [...] long-term current use of insulin 06/05/2010 Overview (11/15/2024): May 2010: fasting glucose = 105. Needs [...] to 4mg daily. May 2024: added mounjaro GLP1, Monjaro was not able to start until September 2024. 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 Resolved Problems Problem Noted Date Diagnosed Date Resolved Date Cataract 12/12/2013 11/11/2015 Open angle with borderline findings, low risk 05/28/20 06 06/21/2007 Encounters Date Type Department Care Team Description 12/28/2024 1:15 PM CDT Orders Only [facility] [address] [place] [address] Lab, [facility] 12/28/2024 Travel 11/24/2024 Refill [facility] [address] [place] [address] Maximo Christy MD Refill Request (Mounjaro) 11/13/2024 10:20 AM CDT Office Visit [facility] [address] [place] [address] Maximo Christy MD Diabetes (Follow-up Mounjaro medication/No labs are needed today) 11/13/2024 Travel 10/30/2024 Telephone [facility] [address] [place] [address] Maximo Christy MD Questions (question /) 10/04/2024 2:00 PM CDT Nurse/Clinic Staff Only [facility] [address] [place] [address] Education (ANDRÉS- Mounjaro) 10/04/2024 Travel from Last 3 Months Immunizations Immunization Administration Dates Next Due AMB INFLUENZA IIV3 [...] is your housing situation today? 1 11/11/2023 Utilities Answer Date Recorded Do you have trouble paying f or utilities (for example, heat, electricity, water, phone)? 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 file Not on file Not on file Obstetrics History Last Filed Vital Signs Vital Sign Reading Time Taken Comments Blood Pressure 137/80 11/13/2024 10:23 AM CDT Pulse 96 11/13/2024 10:23 AM CDT Temperature 37.3 C (99.2 F) 11/04/2020 9:00 AM CDT Respiratory Rate 16 12/29/2022 1:05 PM CDT Oxygen Saturation 96% 11/13/2024 10: 23 AM CDT Inhaled Oxygen Concentration - - Weight 107 kg (235 lb 14.4 oz) 11/13/2024 10:23 AM CDT Height 171.8 cm (5' 7.64) 01/10/2024 8 :23 AM CDT with tennis shoes Body Mass Index 36.25 01/10/2024 8:23 AM CDT Plan of Treatment Upcoming Encounters Date Type Department Care Team (Late st Contact Info) Description 02/08/2025 8:15 AM CDT Office Visit [facility] [address] [place] [address] Maximo Christy MD [address] [place] [address] Health Maintenance Due Date Last Done Comments BMI (ht and wt on same day) for age 18+ 01/09/2025 01/10/2024, 11/11/2023, 06/05/2022, Additional history exists Depression screening for age 12+ 01/09/2025 01/10/2024, 09/10/2023, 06/05/2022, Additional history exists Medicare Wellness for age 65+ 01/10/2025 01/10/2024, 06/05/2022, 12/26/2020, Additional history exists Tetanus booster 02/12/2027 02/12/2017, 10/25, 06/05/2010, Additional history exists Pneumococcal series for age 50+ Completed 07/03/2015, 06/05/2010, 07/26/2008 Tdap Completed 02/12/2017, 11/16/2011 Zoster (shingles) series for age 50+ Completed 12/03/2021, 09/29/2021, 11/06/2011 RSV vaccine for adults or Completed 04/08/2023 Influenza Vaccine Completed 04/11/2024, , 04/30/2021, Additional history exists COVID-19 vaccine series Completed 11/16/19, 04/11/2024, 10/12/2023, Additional history exists Hepatitis B series for 19+ Aged Out N o longer eligible based on patient's age to complete this topic Medical Devices Implanted Type Area Metal Shaping Machine Operator Device Identifier Shelf Expiration Date Model / Serial / Lot Lens Iol [id number] 20.5 - [id number] Implanted:Qty: 1 on 01/15/2014 by Manuel Latham MD at [facility] Right: [employer] 02/14/2017 [id number]# / [id number] / Lens Iol [id number] 20.5 - [id number] Implanted:Qty: 1 on 02/05/2014 by Manuel Latham MD at [facility] Left: [employer] 02/05/2018 [id number]# / [id number] / Stent Uret [id number] Contour - [id number] Implanted:Qty: 1 on 11/16/2019 by Isaiah Fagan MD at [facility] Right: [employer] [facility] 06/25/2022 [id number]# / / [id number] Insurance MEDICARE PART A HB ONLY MEDICARE PART B HB ONLY BLUE CROSS MEDICARE ADVANTAGE MR HUMANA CHOICE PPO MR Advance Directives [...] 2:18 PM 01/04/2014 2:39 AM Care Teams Communications Program Manager Relationship Specialty Start Date End Date Maximo Christy MD [address] [place] [address] PCP - General Family Practice 11/05/22 Goyo Zhang MD Urology Surgery - Urology 06/30/19 Miladis Armstrong MD Ophthalmology Surgery - Ophthalmology 06/30/19 Lewis Porter [id number] [address] Dermatology Dermatology 06/30/19 Lewis Dhaliwal MD [address] [address] Otolaryngology Surgery - Otolaryngology 01/10/24 Taylor Broderick, Morgan [address] [place] [address] CELESTINO NUNO [address] Pharmacist Medication Management Pharmacology 06/16/24 06/16/27
--- OUTSIDE RECORDS SUMMARY | 2025-01-03 09:00 | XMS_ITS | Encounter Summary ---
Author Organization [facility] Address [address] [place] [address] Care Team Providers Care Chain Puller Name Role Phone Elsewhere, Pcp Primary Care Provider Unavailabl e Reason for Visit * Reason Onset Date Comments Order Request 11/24/2024 Encounter Details Date Type Department Care Team (Latest Contact Info) Description 11/24/2024 Clinical Communication Department of Otorhinolaryngology in [place], [place] [address] [place] [address] Anish Franklin M.D. [address] [place] [phone] Order Request Social History Tobacco Use Types Packs/Day Years Used Date Smoking Tobacco: Never Smokeless Tobacco: Never [employer] Utilities Answer Date Recorded In the past 12 months has [facility] electric, gas, oil, or water company threatened [...] your living situation today? 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 He did physical therapy for 9 months but he is still having pain and motility issues. He asked Dr. Franklin for a referral to [facility] Orthopedic department. He did get an xray on 12/11/2024 but would like to see someone to find out what options he has for his shoulder. He tried calling the orthopedics appointment office but they did not get him set up with an appointment. Can a request be put in for him to get scheduled? Patient's phone # [phone] Vidya Byrd * Telephone Encounter - Mari Trejo - 11/27/2024 11:59 AM CDT Called patient and let him know orders have been placed to be seen in orthopedics. He will call to schedule. Vidya Byrd * Telephone Encounter - Mari Trejo - 11/27/2024 10:54 AM CDT Patient would like referral to Orthopedics. He would like to come to [place] and be seen. Vdiya Byrd * Telephone Encounter - Mari Trejo - 11/24/2024 3:51 PM CDT Last office visit with Dr. Franklin 11/09/2024 Dx: Otorrhea Cerebrospinal Fluid Leak Patient calling asking for a recommendation to orthopedics. He has had previous left shoulder surgery and it didn't help and the patient still feels pain and doesn't think the surgery worked. He was asking if Dr. Franklin knew anyone in orthopedics. If not he would like to be seen by [facility] orthodepartment for a 2nd opinion. Vidya Byrd documented in this encounter Plan of Treatment Upcoming Encounters Date Type Department Care Team (Latest Contact Info) Description 03/22/2025 9:00 AM CDT Clinical Communication Virtual Review in [address] [phone] 03/23/2025 11:30 AM CDT Comprehensive Visit Department of Orthopedic Surgery in [address] [address] Praveen Rodriguez M.D., Ph.D. [address] [place] [phone] documented as of this encounter Visit Diagnoses Not on filedocumented in this encounter Additional Health Concerns Assessment Noted Time PHQ-9 Depression Total Score: 3 11/05/19 13 2:22 PM CDT documented as of this encounter Care Teams Chain Puller Relationship Specialty Start Date End Date Elsewhere, Pcp PCP - General Internal Medicine 09/02/24 documented as of this encounter
--- OUTSIDE RECORDS SUMMARY | 2025-01-03 09:00 | XMS_ITS | Encounter Summary ---
Author Organization [facility] Address [address] [place] [address] Care Team Providers Care Press Helper Name Role Phone Elsewhere, Pcp Primary Care Provider Unavailabl e Reason for Referral * Outpatient (Routine) - Authorized Specialty Diagnoses / Procedures Referred By Fiorella black Referred To Contact Orthopedic Surgery Diagnoses Pain Shoulder Left Anish Franklin M.D. [address] [place] [address] Phone: tel: fax: [facility] Referral ID Status Reason Start Date Expiration Date V isits Requested Visits Authorized [id number] Authorized 11/27/2024 05/29/2026 1 1 Scheduling Instructions Ortho internal referral panel order, imaging before Consult visit; patient has outside imaging Encounter Details Date Type Department Care Team (Latest Contact Info) Description 11/27/2024 Orders Only Department of Otorhinolaryngology in [place], [place] [address] [place] [phone] Nikki Gauthier RNisreen [address] [place] [phone] Pain Shoulder Left (Primary Dx) Social History Tobacco Use Types Packs/Day Years Used Date Smoking Tobacco: Never Smokeless Tobacco: Never [facility] Utilities Answer Date Recorded In the past 12 months has e electric, gas, oil, or water company threatened [...] your living situation today? 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 [address] [place] [address] [place] [phone] Scheduled Referrals Name Type Priority Associated Diagnoses Order Schedule Orthopedic Surgery - Shoulder (prior replacement) surgical consult (clinic) Outpatient Referral Routine Pain Shoulder Left Expected: 11/27/2024 (Approximate), Expires: 02/27/2026 documented as of this encounter Visit Diagnoses Diagnosis Pain Shoulder Left- Primary documented in this encounter Additional Health Concerns Assessment Noted Time PHQ-9 Depression Total Score: 3 11/05/19 13 2:22 PM CDT documented as of this encounter Care Teams Press Helper Relationship Specialty Start Date End Date Elsewhere, Pcp PCP - General Internal Medicine 09/02/24 documented as of this encounter
--- OUTSIDE RECORDS SUMMARY | 2025-01-03 09:00 | XMS_ITS | Encounter Summary ---
Author Organization [facility] Address [address] [place] [address] Care Team Providers Care Architectural Design Professor Name Role Phone Elsewhere, Pcp Primary Care Provider Unavailabl e Encounter Details Date Type Department Care Team (Latest Contact Info) Description 12/01/2024 Clinical Communication Department of Otorhinolaryngology in [place], [place] [address] [place] [address] Anish Franklin M.D. [address] [place] [address] Social History Tobacco Use Types Packs/Day Years Used Date Smoking Tobacco: Never Smokeless Tobacco: Never [facility] Utilities Answer Date Recorded In the past 12 months has [facility] electric, gas, oil, or water [employer] threatened to shut off services in your [...] your living situation today? 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 [address] [place] [phone] documented as of this encounter Visit Diagnoses Not on filedocumented in this encounter Additional Health Concerns Assessment Noted Time PHQ-9 Depression Total Score: 3 11/05/19 13 2:22 PM CDT documented as of this encounter Care Teams Architectural Design Professor Relationship Specialty Start Date End Date Elsewhere, Pcp PCP - General Internal Medicine 09/02/24 documented as of this encounter
[2025-01-03 09:08] VITALS: BP 147/77; PULSE 100; RESP 20; TEMP 36.5; O2SAT 99; BMI 35.9
[2025-01-03 09:26] LABS: Appearance Urine Clear (Clear); Bilirubin Urine Negative (Negative); Blood Urine Trace-intact (Negative); Color Urine Yellow (Yellow); Glucose Urine Negative (Negative); Ketones Urine Trace (Negative); Leukocyte Esterase Urine Trace (Negative); Nitrite Urine Negative (Negative); Protein Urine Negative (Negative); Urobilinogen Urine 0.2 (0.2-1.0); pH Urine 5.5 (5.0-8.5)
[2025-01-03 09:33] VITALS: O2SAT 95
[2025-01-03 09:33] LABS: Bacteria Urine Few; RBC Urine 0-2 (0-2); WBC Urine 0-2 (0-5)
--- NOTE | 2025-01-03 09:33 | CRLHL7_ITS ---
For Patients: As a result of the Cures Act, medical imaging exams and procedure reports are released immediately into your electronic medical record. You may view this report before your referring provider. If you have questions, please contact your health care provider. Indication: Low back pain. Technique: Noncontrast CT of the lumbar spine with multiplanar reconstruction utilizing bone and soft tissue algorithms. Comparison: Correlated with CT abdomen/pelvis dated 11/15/2019. Findings: No acute fracture or traumatic subluxation. No lytic or blastic lesion. Multilevel interbody height loss with vacuum disc phenomenon L2-L3 and L3-L4. Intra-abdominal findings reported on concurrently performed CT abdomen/pelvis. T12-L1 and L1-L2: Shallow symmetric disc bulging. No significant spinal canal or neural foraminal stenosis. L2-L3: Symmetric disc bulge. No significant spinal canal stenosis or left neural foraminal narrowing. Mild-moderate right neural foraminal narrowing. L3-L4: Symmetric disc bulge. Mild facet joint arthrosis. Mild spinal canal stenosis and mild-moderate bilateral neural foraminal narrowing. L4-L5: Shallow symmetric disc bulge. Moderate facet joint arthrosis. Mild spinal canal stenosis and mild-moderate bilateral neural foraminal narrowing. L5-S1: Mild facet joint arthrosis. No significant spinal canal stenosis. Mild bilateral neural foraminal narrowing. Impression: 1. No acute fracture or traumatic subluxation. 2. At L2-L3, mild-moderate right neuroforaminal narrowing. 3. At L3-L4 and L4-L5, mild spinal canal stenosis and mild-moderate bilateral neural foraminal narrowing. Please note that all CT scans at this facility use dose modulation, iterative reconstruction, and/or weight-based dosing when appropriate to reduce radiation dose to as low as reasonably achievable. Dictated by Luke Martinez MD @ 01/03/2025 12:25:31 PM (Electronically Signed)
--- NOTE | 2025-01-03 09:33 | CRLHL7_ITS ---
For Patients: As a result of the Century Cures Act, medical imaging exams and procedure reports are released immediately into your electronic medical record. You may view this report before your referring provider. If you have questions, please contact your health care provider. Indication: Right testicular pain. Technique: Ultrasound of the scrotum and contents. Sonographic velez-scale images were obtained with spectral and color Doppler waveform and spectral waveform analysis of the testicles. Comparison: None. Findings: Both testicles are normal in size and echotexture. No masses. No suspicious calcifications. Arterial and venous color Doppler blood flow and spectral waveforms are present in both testicles. Epididymis: Unremarkable bilaterally. Normal blood flow. Other: Small bilateral hydroceles, right greater than left. No sign of varicocele. Diffusely thickened scrotal wall. Impression: 1. Unremarkable appearance of the testicles. No sign of torsion or inflammation. 2. Small bilateral hydroceles, right greater than left. 3. There is nonspecific diffuse thickening of the scrotal wall. Dictated by Juventino Reich MD @ 01/03/2025 10:41:01 AM (Electronically Signed)
--- NOTE | 2025-01-03 09:33 | CRLHL7_ITS ---
For Patients: As a result of the Century Cures Act, medical imaging exams and procedure reports are released immediately into your electronic medical record. You may view this report before your referring provider. If you have questions, please contact your health care provider. INDICATION: Right flank pain. TECHNIQUE: CT abdomen and pelvis without contrast. COMPARISON: CT abdomen/pelvis dated 11/15/2019. FINDINGS: Lower chest: No focal consolidation. Evaluation of solid organs is limited secondary to lack of IV contrast administration. Liver: No suspicious focal hepatic lesion. Gallbladder and bile ducts: Extensive cholelithiasis. No secondary signs of acute cholecystitis. Pancreas: Diffuse fatty atrophy. Small cystic lesions measuring up to 0.7 cm in the pancreatic head (series 3, image 67). No pancreatic duct dilation. Punctate parenchymal calcifications at the tail. Spleen: Unremarkable. Adrenal glands: Unremarkable. Kidneys: No renal calculi or hydronephrosis bilaterally. Multiple bilateral renal cysts are present, including probable multiple left parapelvic cysts. No hydroureter bilaterally. Retroperitoneum: No lymphadenopathy. Bowel and mesentery: Bowel is not obstructed. No significant ascites, no pneumoperitoneum. Scattered colonic diverticulosis, without evidence of acute diverticulitis. Normal appendix. Bladder: Circumferential wall thickening. Reproductive organs: Mild prostatomegaly. Pelvic lymph nodes: No lymphadenopathy. Vessels: Scattered atherosclerotic calcifications. Abdominal wall: Postsurgical changes in the left lower quadrant ventral abdominal wall. Bones: Multilevel degenerative changes of the spine. No suspicious/aggressive focal osseous lesion. IMPRESSION: 1. No renal calculi or hydronephrosis bilaterally. Probable multiple left parapelvic cysts. 2. Mild circumferential urinary bladder wall thickening, may reflect cystitis or sequelae of chronic bladder outlet obstruction. Recommend correlation with urinalysis. 3. Mild prostatomegaly, correlate with serum PSA. 4. Small cystic lesions in the pancreas measuring up to 0.7 cm, of doubtful clinical significance. This could be further evaluated with MRI on a nonemergent basis, if clinically desired. 5. Cholelithiasis. Please note that all CT scans at this facility use dose modulation, iterative reconstruction, and/or weight-based dosing when appropriate to reduce radiation dose to as low as reasonably achievable. Dictated by Chacorta Gonzalez MD @ 01/03/2025 12:44:16 PM (Electronically Signed)
--- NOTE | 2025-01-03 09:36 | ED.GENADULT ---
HPI - General Adult General Chief complaint: Back Injury/Pain Stated complaint: Having back and hip pain Time Seen by Provider: 01/03/25 09:01 History of Present Illness HPI narrative: 79 year white male lives independently presents with his son, his main complaint is right low back pain radiating around his hip to his groin. He has had a history kidney stones in the past. He has not had any gross hematuria. He reports about 5 weeks ago he injury to testicle and has had pain in that right testicle since. He thinks that may be related. He also has had kidney stones as mention requiring surgery by his son's report. He has had a left brachial plexopathy. Had shoulder surgery on the left. He denies abdominal pain reports urinary frequency seen Dr. Ocampo in the past. He today describes pain that is in his right low back radiating lateral to his hip and into his groin, he does have some testicular pain as well on the right. The patient reports that when he is up in after he showers he feels little better and he is able to ambulate be getting out of bed is pretty difficult. He does not feel imbalance when he stands. He has had no chest pain, shortness of breath, fevers or chills. Related Data Home Medications ?Medication ?Instructions ?Recorded ?Confirmed canagliflozin 300 mg tablet 300 mg PO DAILY 03/11/22 05/25/24 (Invokana) citalopram 20 mg tablet 20 mg PO QDAY 03/11/22 05/25/24 losartan 50 mg tablet 50 mg PO DAILY 03/11/22 05/25/24 metformin 500 mg tablet,extended 1,000 mg PO BID 03/11/22 05/25/24 release 24 hr rosuvastatin 20 mg tablet 20 mg PO HS 03/11/22 05/25/24 tamsulosin 0.4 mg capsule 0.8 mg PO DAILY 03/11/22 05/25/24 aspirin 81 mg tablet,delayed 81 mg PO DAILY 03/12/22 05/25/24 release aspirin-caffeine 400 mg-32 mg 1 tab PO Q6H PRN 03/12/22 05/25/24 tablet cholecalciferol (vitamin D3) 25 1,000 unit PO DAILY 03/12/22 05/25/24 mcg (1,000 unit) capsule coenzyme Q10 100 mg capsule 100 mg PO DAILY 03/12/22 05/25/24 loratadine 10 mg tablet 10 mg PO DAILY 03/12/22 05/25/24 multivitamin (Multiple Vitamins 1 tab PO DAILY 03/12/22 05/25/24 tablet) omega 5-btn-xin-fish oil 1,000 mg 1 cap PO DAILY 03/12/22 05/25/24 (120 mg-180 mg) capsule (Fish Oil) glimepiride 4 mg tablet 4 mg PO DAILY 12/01/23 05/25/24 potassium citrate 10 mEq (1,080 10 meq PO BID 12/01/23 05/25/24 mg) tablet,extended release testosterone cypionate 200 mg/mL 200 mg IM Q4W 12/01/23 05/25/24 intramuscular oil Previous Rx's ?Medication ?Instructions ?Recorded doxycycline hyclate 100 mg capsule 100 mg PO BID 7 days #14 caps 01/03/25 prednisone 20 mg tablet 20 mg PO BID #10 tabs 01/03/25 tramadol 100 mg tablet 100 mg PO DAILY PRN pain #14 tabs 01/03/25 Allergies Allergy/AdvReac Type Severity Reaction Status Date / Time Sulfa (Sulfonamide Allergy Mild Hives Verified 01/03/25 09:08 Antibiotics) Review of Systems Status of ROS: Reports: 6 or more systems reviewed and unremarkable except as noted in History and below [facility] Medical History Arthritis ?M19.90 - Unspecified osteoarthritis, unspecified site (ICD-10) Diabetes ?E11.9 - Type 2 diabetes mellitus without complications (ICD-10) Elevated cholesterol ?E78.00 - Pure hypercholesterolemia, unspecified (ICD-10) Hypertension ?I10 - Essential (primary) hypertension (ICD-10) Sleep apnea ?G47.30 - Sleep apnea, unspecified (ICD-10) Right hip pain ?M25.551 - Pain in right hip (ICD-10) Surgical History 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) ?Z96.612 - Presence of left artificial shoulder joint (ICD-10) H/O hernia repair ?Z98.890 - Other specified postprocedural states (ICD-10) ?Z87.19 - Personal history of other diseases of the digestive system (ICD-10) S/P left rotator cuff repair (~1994) ?Z98.890 - Other specified postprocedural states (ICD-10) Family History Father Diabetes Heart problem Stroke Mother Stroke Sister Stroke Social History Narrative: -Gisselle (58 years ) What is your current living situation?: I presently have a place to live Problems where you live: no known problems In the past 12 months, utilities in danger of being shut off: no In past 12 months, lack of transportation kept you from medical appts, meetings, work, or getting things needed for daily living: yes In the past 12 mos, have been you worried that your food would run out before you had money to buy more?: never true In the past 12 mos, the food you bought just didn't last and you didn't have money to buy more?: never true Highest level of school completed/degree received: decline to answer Smoking Status: Never smoker Do you use any of these nicotine containing products: None Second hand tobacco smoke exposure: No How often do you have a drink containing alcohol: monthly or less How often do you have six or more drinks on one occasion: Never AUDIT-C Alcohol total score: 1 Non-prescribed substance use: denies use Caffeine: Yes How often does anyone, including family, friends and others, physically hurt you: never How often does anyone, including family, friends and others, insult or talk down to you: never How often does anyone, including family, friends and others, threaten you with harm: never How often does anyone, including family, friends and others, scream or curse at you: never service: No Health Related Social Needs: transportation insecurity (Z59.82) Exam Narrative: Exam Narrative: Objective: Patient's vital signs look largely within normal limits, afebrile, systolic blood pressure slightly over 147 Alert orient x3 no cyanosis He is able to stand, he has no complaints of weakness in his legs HEENT is unremarkable no facial asymmetry neck is supple pulses regular Chest and abdomen are non palpably tender, the patient has an obese abdomen with no palpable mass. Negative CVA tenderness is right testicle is a little sore in the epididymal area. No swelling noted. Extremities are no edema Neurologic nonfocal He had complains of pain in his right low back which is mildly tender to palpation and he does have good flexion extension of his right hip. Const: Vital Signs, click to edit/add: Vital Signs - 24 hr 01/03/25 09:08 01/03/25 09:33 Temperature 97.7 F Pulse Rate [Pulse Oximeter] 100 Respiratory Rate 20 Blood Pressure [Ri ght Upper Arm] 147/77 H Pulse Oximetry 99 95 Oxygen Delivery Me thod Room Air Course Vital Signs Vital signs: Initial Vital Signs Temperature 97.7 F 01/03/25 09:08 Temperature Source Temporal Artery Scan 01/03/25 09:08 Pulse Rate 100 01/03/25 09:08 Respiratory Rate 20 01/03/25 09:08 Blood Pressure 147/77 H 01/03/25 09:08 Blood Pressure Mean 100 01/03/25 09:08 Blood Pressure Position Sitting 01/03/25 09:08 Pulse Oximetry 99 01/03/25 09:08 Oxygen Delivery Method Room Air 01/03/25 09:08 Vital Signs Temperature 97.7 F 01/03/25 09:08 Pulse Rate 100 01/03/25 09:08 Respiratory Rate 20 01/03/25 09:08 Blood Pressure 147/77 H 01/03/25 09:08 Pulse Oximetry 99 01/03/25 09:08 Oxygen Delivery Method Room Air 01/03/25 09:08 Temperature 97.7 F 01/03/25 09:08 Pulse Rate 100 01/03/25 09:08 Respiratory Rate 20 01/03/25 09:08 Blood Pressure 147/77 H 01/03/25 09:08 Pulse Oximetry 95 01/03/25 09:33 Oxygen Delivery Method Room Air 01/03/25 09:08 Medications Administered Medications: Discontinued Medications Generic Name Dose Route Start Last Admin Trade Name Freq PRN Reason Stop Dose Admin Sodium Chloride 500 mls @ 500 mls/hr 01/03/25 09:33 01/03/25 10:39 0.9 % Sodium Chloride 500 Ml IV 01/03/25 10:32 500 mls/hr .Q1H ONE Administration Morphine Sulfate 2 mg 01/03/25 09:33 01/03/25 10:39 Morphine 4 Mg/Ml Inj IVP 01/03/25 09:34 2 mg ONCE ONE Administration Medical Decision Making MDM Narrative Medical decision making narrative: [age] white male with history of left brachial plexopathy, presents with right low back pain radiating around his hip to his groin. History urolithiasis. Rule out kidney stone, rule out lumbar disc protrusion with radiculitis. Patient will get a urinalysis, will get lab studies. Will get a CT of his abdomen and pelvis will also get a CT reconstruction of his lumbar spine. Will get electrolytes labs urinalysis, IV fluid be given, IV pain medicine. Will also get a pelvic x-ray to look at arthritis in his right hip, and a scrotal ultrasound given he has testicular pain. Disposition pending findings above, differential is broad as mention. 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 That could be causing some of symptoms specially at the L3 level. I think some prednisone be helpful. Because he has the tenderness is epididymis even with a pretty negative ultrasound I think I would cover him with doxycycline 100 b.i.d. x7 days, I would also give him some Ultram as needed for pain control for his back. He is to see his regular doctor met horacio in the next few days. He has some mild bladder thickening, his urinalysis looks negative. Lab Data Labs: Lab Results 01/03/25 01/03/25 Range/Units 09:24 10:25 WBC 9.63 (4.50-11.00) K/uL RBC 5.22 (4.30-5.90) m/uL Hgb 15.8 (13.5-17.5) gm/dL Hct 49.6 (37.0-53.0) % MCV 95 (80-100) fL MCH 30 (26-34) pg MCHC 32 (32-36) gm/dL RDW Coeff of Luz 13.3 (11.5-15.5) % Plt Count 177 (140-440) K/uL Neut % (Auto) 70.9 (42.0-72.0) % Lymph % (Auto) 17.9 L (20-44) % [place] % (Auto) 8.8 (0.0-11.0) % Eos % (Auto) 1.5 (0.0-7.0) % Baso % (Auto) 0.1 (0.0-3.0) % Neut # (Auto) 6.83 (1.7-7.0) K/uL Lymph # (Auto) 1.70 (0.90-2.90) K/uL [place] # (Auto) 0.80 (0.00-0.90) K/UL Eos # (Auto) 0.14 (0.00-0.50) K/uL Baso # (Auto) 0.01 (0.00-0.30) K/uL Abs Immat Gran (auto) 0.08 (0.00-0.30) K/uL Imm/Tot Granulo (auto) 0.8 % Sodium 141 (135-149) mmol/L Potassium 4.4 (3.6-5.1) mmol/L Chloride 101 (96-114) mmol/L Carbon Dioxide 31 (20-32) mmol/L Anion Gap 9 (7-15) mEq/L BUN 27 (7-30) mg/dL Creatinine 0.9 (0.5-1.5) mg/dL Estimated Creat Clear 54.17 Estimated GFR 86 ml/min Glucose 112 (60-115) mg/dL Calcium 9.5 (8.4-10.6) mg/dL Total Bilirubin 1.0 (0.1-1.5) mg/dL Direct Bilirubin 0.0 (0.0-0.5) mg/dL AST 37 H (12-35) U/L ALT 43 (4-50) U/L Alkaline Phosphatase 50 (40-150) U/L C-Reactive Protein < 0.5 L (0.5-1.0) mg/dL Total Protein 7.2 (6.0-8.3) g/dL Albumin 4.4 (3.3-5.0) g/dL Urine Color Yellow (Yellow) Urine Appearance Clear (Clear) Urine pH 5.5 (5.0-8.5) Ur Specific [place] 1.020 (1.000-1.030) Urine Protein Negative (Negative) Urine Glucose (UA) Negative (Negative) Urine Ketones Trace A (Negative) Urine Blood Trace-intact A (Negative) Urine Nitrite Negative (Negative) Urine Bilirubin Negative (Negative) Urine Urobilinogen 0.2 (0.2-1.0) Ur Leukocyte Esterase Trace A (Negative) Urine RBC 0-2 (0-2) Urine WBC 0-2 (0-5) Ur Squamous Epith Cells None (None-Few) Urine Bacteria Few A (None) Discharge Plan Discharge Clinical Impression: Acute low back pain, Pain in right testicle Patient Disposition: Home w/ Parent or Adult Condition: Stable Additional Instructions: Light activity, sedation can be caused by the pain medicine, doxycycline twice a day for 7 days, prednisone twice a day for 5 days. return to your doctor in the next 3-5 days. Activity Level: Light activity Discharge Diet: Regular Prescriptions: New prednisone 20 mg tablet 20 mg PO BID Qty: 10 0RF doxycycline hyclate 100 mg capsule 100 mg PO BID 7 Days Qty: 14 0RF tramadol 100 mg tablet 100 mg PO DAILY PRN (Reason: pain) Qty: 14 0RF No Action coenzyme Q10 100 mg capsule 100 mg PO DAILY cholecalciferol (vitamin D3) 25 mcg (1,000 unit) capsule 1,000 unit PO DAILY loratadine 10 mg tablet 10 mg PO DAILY aspirin-caffeine 400-32 mg tablet 1 tab PO Q6H PRN aspirin 81 mg tablet,delayed release (DR/EC) 81 mg PO DAILY multivitamin [Multiple Vitamins] Tablet 1 tab PO DAILY omega 0-mtq-ufu-fish oil [Fish Oil] 1,000 mg (120 mg-180 mg) capsule 1 cap PO DAILY rosuvastatin 20 mg tablet 20 mg PO HS losartan 50 mg tablet 50 mg PO DAILY metformin 500 mg tablet extended release 24 hr 1,000 mg PO BID citalopram 20 mg tablet 20 mg PO QDAY tamsulosin 0.4 mg capsule 0.8 mg PO DAILY Invokana 300 mg tablet 300 mg PO DAILY potassium citrate 10 mEq (1,080 mg) tablet extended release 10 meq PO BID glimepiride 4 mg tablet 4 mg PO DAILY testosterone cypionate 200 mg/mL oil 200 mg IM Q4W Follow Up/Referrals: Maximo Christy MD [Primary Care Provider, Family Practice] Stand Alone Forms: [employer] Info Instructions
--- OUTSIDE RECORDS SUMMARY | 2025-01-03 09:42 | XMS_ITS | Clinical Summary ---
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 Medications Administered No information available. Allergies, Adverse Reactions, Alerts No information available. Results Date Name Value Unit Range Flag Description Internal Other: Verbal Autho rization/Emergency Contact - OBS VERBAL_EMER Done Verbal au thorization and emergency contact Internal Other: Authorizatio n - OBS [email or web address] Yes Authoriza tion: Release of Information - Authorize [facility] - Payment and Healthcare Operations ROIAUTHOTHER Yes Authoriz ation: Release of Information - Authorize Others/Insurance - Payment and Healthcare Operations HIECONSENT Yes Consent To Release information to the Health Information Exchange (HIE) [email or web address] Yes Authorizat ion: Authorization for [facility] to leave messages, voicemail, send text messages, send emails AUTHRELHCARE Yes Authoriz ation: Release/Retrieval of Information to/from Healthcare Facilities, Pharmacy Benefit Payers and Providers [email or web address] Yes Authoriz ation: Notice of privacy practices AUTHBENEFIT Yes Authoriza tion: Assignment of Benefits and Payment Agreement Plan of Care No information available. Procedures Code Procedure Name Date Entry Date CPT-81014 Nerve Conduction 13 or more studies 04/20 CPT-86026 EMG with NCS (5+ muscles) - 1 limb 04/20 Vital Signs No information available. Immunizations No information available. Advance Directives No information available.
[2025-01-03] MEDS: 0.9 % SODIUM CHLORIDE 500 ML 500 ML IV (10:39)
[2025-01-03] MEDS: MORPHINE 4 MG/ML INJ 2 MG IVP (10:39)
[2025-01-03 10:41] LABS: Basophils Absolute Auto 0.01 K/uL (0.00-0.30); Basophils Percent Auto 0.1 % (0.0-3.0); Eosinophils Absolute Auto 0.14 K/uL (0.00-0.50); Eosinophils Percent Auto 1.5 % (0.0-7.0); Hematocrit 49.6 % (37.0-53.0); Hemoglobin* 15.8 gm/dL (13.5-17.5); Immature Granulocytes Abs Auto 0.08 K/uL (0.00-0.30); Immature Granulocytes Pct Auto 0.8 %; Lymphocytes Percent Auto 17.9 % (20-44); Mean Corpuscular HGB Conc 32 gm/dL (32-36); Mean Corpuscular Hemoglobin 30 pg (26-34); Mean Corpuscular Volume 95 fL (80-100); Monocytes Percent Auto 8.8 % (0.0-11.0); Neutrophils Absolute Auto 6.83 K/uL (1.7-7.0); Neutrophils Percent Auto 70.9 % (42.0-72.0); Platelet Count* 177 K/uL (140-440); RDW Coefficient of Variation % 13.3 % (11.5-15.5); Red Blood Count 5.22 m/uL (4.30-5.90); White Blood Count* 9.63 K/uL (4.50-11.00)
[2025-01-03 10:45] LABS: Albumin* 4.4 g/dL (3.3-5.0); Chloride* 101 mmol/L (96-114); Sodium* 141 mmol/L (135-149)
[2025-01-03 10:46] LABS: Potassium* 4.4 mmol/L (3.6-5.1)
[2025-01-03 10:48] LABS: Blood Urea Nitrogen* 27 mg/dL (7-30); Creatinine* 0.9 mg/dL (0.5-1.5); Est. Creatinine Clearance* 54.17; Estimated Glomerular Filt Rate 86 ml/min
[2025-01-03 10:49] LABS: Alanine Aminotransferase* 43 U/L (4-50); Alkaline Phosphatase* 50 U/L (40-150); Anion Gap 9 mEq/L (7-15); Aspartate Amino Transferase* 37 U/L (12-35); Calcium* 9.5 mg/dL (8.4-10.6); Carbon Dioxide* 31 mmol/L (20-32); Glucose* 112 mg/dL (60-115); Total Protein* 7.2 g/dL (6.0-8.3)
[2025-01-03 10:58] LABS: Slide Review Reflex No
[2025-01-03 10:59] LABS: C Reactive Protein* < 0.5 mg/dL (0.5-1.0)
== END 2025-01-03 13:07 | disposition home or self-care (01) ==
PROVIDERS: Emergency Provider Family Medicine; PCP Family Medicine
DX: M54.50 Low back pain, unspecified (principal); N50.811 Right testicular pain
CPT/HCPCS: 36415; 72131; 74176; 76870; 80048; 80076; 81001; 81003; 85025; 86140; 87086; 93976; 94761; 96374; 99284; 99285; J2270; J7030